=== PATIENT | female | born 1945 | race Caucasian/White ===

== ENCOUNTER → 2016-06-28 | Outpatient (CLI) | payer MEDICARE, MEDICAID ==
--- NOTE | 2016-06-28 13:40 | WOMENS IMAGING REPORT ---
EXAM DESCRIPTION: BONE DENSITY HIP/SPINE COMPLETED DATE/TIME: 06/28/2016 1:11 pm REASON FOR STUDY: M81.0 Z12.31 ENCNTR SCREEN MAMMOGRAM FOR MALIGNANT NEOPLASM OF ZENAIDA M81.0 AGE-REL ATED OSTEOPOROSIS W/O CURRENT PATHOLOGICAL FRAC COMPARISON: 04/09/2014. TECHNIQUE: Dual-Energy X-ray Absorptiometry (DEXA) of the AP Spine and Hip. LIMITATIONS: None. FINDINGS: LUMBAR SPINE: The bone mineral density (BMD) measured from L1-L4 in the AP projection correlates with a T-score of -0.9, which is normal as defined by the World Health Organization. HIP: The bone mineral density (BMD) measured in the left hip correlates with a T-score of -2.4, which is o steopenia as defined by the World Health Organization. IMPRESSION: 1. LUMBAR SPINE: NORMAL. 2. HIP: OSTEOPENIA. COMMENT: The World Health Organization defines low BMD as follows: T-score: Normal: Greater than -1.0 Osteopenia: Between -1.0 and -2.5 Osteoporosis: Less than -2.5 without fractures Established osteoporosis: Less than -2.5 with fractures In general, you may wish to consider: Diagnosis Treatment Follow-up DEXA Normal BMD Prevention 2-3 years Osteopenia Prevention/Therapy 1-2 years Osteoporosis Therapy Yearly TECHNICAL DOCUMENTATION: JOB ID: [id number]- All Rights Reserved
--- NOTE | 2016-06-28 17:21 | WOMENS IMAGING REPORT ---
EXAM DESCRIPTION: BILAT SCREENING MAMMO W/CAD COMPLETED DATE/TIME: 06/28/2016 1:11 pm REASON FOR STUDY: Z12.31, ROUTINE SCREENING MAMMO Z12.31 ENCNTR SCREEN MAMMOGRAM FOR MALIGNANT NEOP LASM OF ZENAIDA M81.0 AGE-RELATED OSTEOPOROSIS W/O CURRENT PATHOLOGICAL FRAC COMPARISON: 10/19/2014 and 09/26/2013. TECHNIQUE: Standard craniocaudal and mediolateral oblique views of each breast recorded using digita l acquisition. LIMITATIONS: None. FINDINGS: No masses, calcifications or architectural distortion. No areas of suspicion. Read with the assistance of CAD. .[facility] - R2 Cenova Version 1.3 .[facility] - R2 Cenova Version 1.3 .[facility] - R2 Cenova Version 2.4 .[facility] [place]2 Cenova Version 2.4 .[facility] - R2 [employer] Version 9.2 IMPRESSION: NORMAL MAMMOGRAM. BIRADS 1. BREAST DENSITY: b. There are scattered areas of fibroglandular density. BIRAD: 1 NEGATIVE RECOMMENDATION: ROUTINE SCREENING COMMENT: The patient has been notified of the results by letter per SA requirements. Additional no tification policies are in place for contacting patient with suspicious or incomplete findings. Quality ID #[id number]: The [employer] recommends an annual screening mammogram for women aged 40 years or over. This facility utilizes a reminder system to ensure that all patients receive reminder letters, and/or direct phone calls for appointments. This includes reminders for routine scr eening mammograms, diagnostic mammograms, or other Breast Imaging Interventions when appropriate. Th is patient will be placed in the appropriate reminder system. The [employer] (A[employer]) has developed recommendations for screening MRI of the breast s in certain patient populations, to be used in conjunction with mammography. Breast MRI surveillanc e may be appropriate for women with more than 20% lifetime risk of developing breast cancer as deter mined by genetic testing, significant family history of the disease, or history of mantle radiation f or Hodgkins Disease. ACR Practice Guidelines 2008. TECHNICAL DOCUMENTATION: FINDING NUMBER: (1) ASSESSMENT: (1) JOB ID: [id number] [employer]- All Rights Reserved
== END ==
LOC: WI 09:52
PROVIDERS: ATTEND Physician Assistant
DX: Z12.31 Encounter for screening mammogram for malignant neoplasm of breast (principal); M81.0 Age-related osteoporosis without current pathological fracture
CPT/HCPCS: 77080; G0202; 77067

== ENCOUNTER → 2016-07-06 | Outpatient (CLI) | payer MEDICARE, MEDICAID ==
[2016-07-06 11:55] LABS: ABSOLUTE BASOPHILS # (AUTO) 0.1 10^3/uL (0.0-0.2); ABSOLUTE EOSINOPHILS # (AUTO) 0.2 10^3/uL (0.0-0.6); ABSOLUTE LYMPHOCYTES (AUTO) 1.8 10^3/uL (0.5-4.7); ABSOLUTE MONOCYTES (AUTO) 0.4 10^3/uL (0.1-1.4); ABSOLUTE NEUT (AUTO) 2.8 10^3/uL (1.7-8.2); BASOPHILS % (AUTO) 1.4 % (0-2); EOSINOPHILS % (AUTO) 3.8 % (0-6); HEMATOCRIT 40.5 % (36.0-47.0); HEMOGLOBIN 13.4 g/dL (12.0-15.5); HGB HCT DIFFERENCE -0.3; LYMPHOCYTES % (AUTO) 33.6 % (13-45); MEAN CORPUSCULAR HEMOGLOBIN 31.4 pg (27.0-33.4); MEAN CORPUSCULAR HGB CONC 33.1 g/dL (32.0-36.0); MEAN CORPUSCULAR VOLUME 95 fl (80-97); MONOCYTES % (AUTO) 8.2 % (3-13); RED BLOOD COUNT 4.27 10^6/uL (3.72-5.28); RED CELL DISTRIBUTION WIDTH 13.1 % (11.5-14.0); WHITE BLOOD COUNT 5.4 10^3/uL (4.0-10.5)
[2016-07-06 11:59] LABS: APPEARANCE,URINE SLIGHTLY-CLOUDY; BILIRUBIN,URINE SMALL (NEGATIVE); GLUCOSE, URINE NEGATIVE (NEGATIVE); KETONES,URINE NEGATIVE (NEGATIVE); LEUKOCYTE ESTERASE,URINE TRACE (NEGATIVE); NITRITE,URINE NEGATIVE (NEGATIVE); PROTEIN,URINE NEGATIVE (NEGATIVE); URINE SPECIFIC GRAVITY 1.016
[2016-07-06 12:21] LABS: ANION GAP 12 (5-19); BLOOD UREA NITROGEN 17 mg/dL (7-20); CALCIUM 9.4 mg/dL (8.4-10.2); CARBON DIOXIDE 26 mmol/L (22-30); CHLORIDE 100 mmol/L (98-107); CREATININE RESULT 1.24 mg/dL (0.52-1.25); GLUCOSE 95 mg/dL (75-110); POTASSIUM 5.1 mmol/L (3.6-5.0); SODIUM 138.1 mmol/L (137-145)
--- NOTE | 2016-07-06 13:21 | RADIOLOGY REPORT (SQ) ---
EXAM DESCRIPTION: CHEST PA/LATERAL COMPLETED DATE/TIME: 07/06/2016 11:32 am REASON FOR STUDY: PRE-OP COMPARISON: Chest films 11/23/2014, 09/20/2017, 01/26/2016 EXAM PARAMETERS: NUMBER OF VIEWS: two views TECHNIQUE: Digital Frontal and Lateral radiographic views of the chest acquired. RADIATION DOSE: NA LIMITATIONS: none FINDINGS: LUNGS AND PLEURA: No opacities, masses or pneumothorax. No pleural effusion. MEDIASTINUM AND HILAR STRUCTURES: No masses or contour abnormalities. HEART AND VASCULAR STRUCTURES: Mild cardiomegaly, stable BONES: Question acute fracture left lateral 6th or 7th rib marked with an arrow. HARDWARE: None in the chest. OTHER: No other significant finding. IMPRESSION: Stable mild cardiomegaly. No acute infiltrates. Question left lateral 5th or 6th rib fracture marked with an arrow on the frontal film TECHNICAL DOCUMENTATION: JOB ID: [id number] [employer]- All Rights Reserved
--- NOTE | 2016-07-07 08:50 | EKG REPORT ---
SEVERITY:- ABNORMAL ECG - ATRIAL FIBRILLATION : Confirmed by: Marisabel Arreguin 07-Jul-2016 08:49:55
== END ==
LOC: OD 10:37
PROVIDERS: ATTEND Orthopaedic Surgery
DX: Z01.810 Encounter for preprocedural cardiovascular examination (principal); Z01.812 Encounter for preprocedural laboratory examination; Z01.818 Encounter for other preprocedural examination; I51.7 Cardiomegaly
CPT/HCPCS: 36415; 71020; 80048; 81001; 85025; 93005; 93010

== ENCOUNTER 2016-08-03 05:13 | Inpatient (IN) | payer MEDICARE, MEDICAID ==
[~2016-08-03 05:13] MED LIST: BUPIVACAINE INJ/PF LIPOSOME/PF 266 MG/20 ML SDV INJ PRN; IBUPROFEN 800 MG in NORMAL SALINE 250 ML IV PRN; LACTATED RINGERS 1000 ML IV PRN; LANSOPRAZOLE 15 MG TAB.RAP.DR PO PRN; LIDOCAINE 0.5% INJ-PF (5 MG/ML) 50 ML SDV SUBCUT PRN; OXYCODONE HCL SR 10 MG TABLET PO PRN; VANCOMYCIN HCL 1,500 MG in DEXTROSE 5%-WATER 250 ML IV PRN
[2016-08-03] MEDS ORDERED: ALBUTEROL SULFATE 0.083% NEB 2.5 MG/3 ML AMPUL NEB ONE (05:48)
[2016-08-03 06:48] LABS: PROTHROMBIN TIME 13.5 SEC (11.4-15.4)
[2016-08-03 06:49] LABS: PARTIAL THROMBOPLASTIN TIME 32.1 SEC (23.5-35.8)
[2016-08-03] MEDS ORDERED: BUPIVACAINE HCL 0.5%-EPI 1:200000 INJ/PF 30 ML VIAL ONE (06:55)
[2016-08-03] MEDS ORDERED: BUPIVACAINE INJ/PF LIPOSOME/PF 266 MG/20 ML SDV ONE (06:56)
[2016-08-03 07:19] LABS: HEMATOCRIT 39.4 % (36.0-47.0); HGB HCT DIFFERENCE -0.4; MEAN CORPUSCULAR HEMOGLOBIN 31.5 pg (27.0-33.4); MEAN CORPUSCULAR HGB CONC 33.1 g/dL (32.0-36.0); MEAN CORPUSCULAR VOLUME 95 fl (80-97); RED BLOOD COUNT 4.14 10^6/uL (3.72-5.28); RED CELL DISTRIBUTION WIDTH 13.1 % (11.5-14.0); WHITE BLOOD COUNT 8.7 10^3/uL (4.0-10.5)
[2016-08-03] MEDS ORDERED: LEVETIRACETAM 500 MG TABLET PO ONE (07:30)
[2016-08-03] MEDS ORDERED: OXYCODONE-ACETAMINOPHEN 5-325 MG TABLET PO PRN ×3 (09:10→12:46)
[2016-08-03] MEDS ORDERED: MORPHINE SULFATE 10 MG/ML INJ IV PRN (09:10)
[2016-08-03] MEDS ORDERED: FENTANYL CITRATE INJ/PF 100 MCG/2 ML AMPUL IV PRN ×3 (09:10)
[2016-08-03] MEDS ORDERED: DIPHENHYDRAMINE HCL 50 MG/ML VIAL IV PRN (09:10)
[2016-08-03] MEDS ORDERED: PROMETHAZINE HCL INJ 25 MG/1 ML VIAL IV PRN ×2 (09:10)
[2016-08-03] MEDS ORDERED: MEPERIDINE HCL/PF INJ 25 MG/1 ML DISP.SYRIN IV PRN (09:10)
--- NOTE | 2016-08-03 11:53 | Operative Report ---
Operative Report DATE OF SURGERY: 08/03/16 PREOPERATIVE DIAGNOSIS: Right shoulder osteoarthritis POSTOPERATIVE DIAGNOSIS: Same OPERATION: Right total shoulder arthroplasty SURGEON: ARABELLA MOREAU ANESTHESIA: GA TISSUE REMOVED OR ALTERED: Humeral head COMPLICATIONS: None ESTIMATED BLOOD LOSS: 200 mL INTRAOPERATIVE FINDINGS: As above PROCEDURE: Patient received antibiotics in the preop holding area. Patient was transferred to the OR where the patient was successfully intubated. Patient then was secured in a beachchair position where the right shoulder was prepped and draped in a normal sterile surgical fashion. Once timeout was done identifying the right shoulder the correct site I proceeded to use quarter percent Marcaine with epinephrine and injected in the anticipated incision. I used a 10 blade to status my incision and then used hemostasis with electrocautery. I exposed the deltopectoral interval and proceeded to do a ductal control approach retracting the conjoined tendon medially and dissecting the cephalic vein and deltoid and retracting it laterally. I reflected the subscapularis tendon off the lesser tuberosity and tagged it with a Vicryl stitch. I proceeded to release capsule to dislocate the shoulder joint. Rotator cuff is intact and I proceeded to then use a canal finder superiorly just adjacent to the cuff. I proceeded to ream away to a head chatter and good bite. At this point and I applied the guide and pinned securely after I make sure I was satisfied with the retroversion. I did initial, and then proceeded to remove the reamer that was intramedullary and finished my humeral head cut. The pins were removed and then we proceeded to broach all the way up to the appropriate size. The humeral head was then reflected posteriorly and glenoid retractors were placed and the glenoid was exposed. Labrum and superior biceps stump was resected exposing the glenoid. I proceeded then to use the glenoid guide to drill and the center portion of the glenoid. I then proceeded to ream and I had bleeding bone. Also satisfied with the size of the glenoid and then proceeded to drill the peg holes. A trial glenoid was applied and then retractors removed and the humeral head was exposed. We placed a trial head and proceeded to test range of motion and stability. Once I was satisfied with the appropriate size used and I proceeded to remove all components. I first removed the glenoid and cemented it in and wait until cement had cured and hardened. Any excess cement was removed. I then proceeded to remove the humeral stem and placed the final stem. Of note I had placed 3 drill holes in the lesser tuberosity and place FiberWire with its appropriate needle for fixation and repair of the subscapularis tendon. Once the glenoid and stem was seated I trialed with humeral head one more time and then placed the final humeral head component. Irrigation was done at this point. The FiberWire was used then to repair the subscapularis tendon. We approximated the deltoid interval after removing the retractors and closed the subcutaneous tissue with 0 Vicryl and 2-0 Vicryl. Exparel had been injected deep and then superficially. Harriet were used for skin. The extremity was cleaned and then Xeroform 4 x 4 dressing and ABDs pad was applied. I secured it with Medipore tape and then the drapes were removed. Patient was placed in a sling at that point was then placed in a supine position where the patient was extubated and sent to PACU in a stable condition. Humeral head component was a 44 eccentric, humeral stem was a 12 mm stem and the glenoid was a 44 mm
[2016-08-03 12:29] LABS: HEMATOCRIT 37.2 % (36.0-47.0); HEMOGLOBIN 12.3 g/dL (12.0-15.5); HGB HCT DIFFERENCE -0.3; MEAN CORPUSCULAR VOLUME 94 fl (80-97); RED BLOOD COUNT 3.96 10^6/uL (3.72-5.28); RED CELL DISTRIBUTION WIDTH 13.1 % (11.5-14.0); WHITE BLOOD COUNT 11.2 10^3/uL (4.0-10.5)
[2016-08-03] MEDS ORDERED: RINGERS SOLUTION,LACTATED 1,000 ML IV PRN (12:45)
[2016-08-03] MEDS ORDERED: ONDANSETRON HCL INJ/PF 4 MG/2 ML SDV IV PRN (12:46)
[2016-08-03] MEDS ORDERED: ACETAMINOPHEN 100 ML IV ONE (12:49)
[2016-08-03] MEDS ORDERED: (PENDING PHARMACY ID) (Omeprazole [Prilosec 20 Mg Capsule] 20 MG) PO PRN (14:49)
[2016-08-03] MEDS ORDERED: LANSOPRAZOLE 15 MG TAB.RAP.DR PO PRN (15:12)
[2016-08-03] MEDS ORDERED: DEXAMETHASONE SOD PHOSPHATE INJ 4 MG/1 ML VIAL ONE (15:20)
[2016-08-03] MEDS ORDERED: ROCURONIUM BROMIDE INJ 50 MG/5 ML VIAL IV ONE (15:20)
[2016-08-03] MEDS ORDERED: ONDANSETRON HCL INJ/PF 4 MG/2 ML SDV ONE (15:20)
[2016-08-03] MEDS ORDERED: PHENYLEPHRINE HCL INJ/PF 10 MG/1 ML SDV ONE (15:20)
[2016-08-03] MEDS ORDERED: GLYCOPYRROLATE INJ 0.4 MG/2 ML VIAL ONE (15:20)
[2016-08-03] MEDS ORDERED: SUCCINYLCHOLINE CHLORIDE INJ 200 MG/10 ML VIAL ONE (15:20)
[2016-08-03] MEDS ORDERED: LIDOCAINE 2% INJ-PF (20 MG/ML) 10 ML AMPUL ONE (15:20)
[2016-08-03] MEDS ORDERED: NEOSTIGMINE METHYLSULFATE 10 MG/10 ML VIAL ONE (15:20)
[2016-08-03] MEDS: OXYCODONE-ACETAMINOPHEN 5-325 MG TABLET PO PRN (16:19)
[2016-08-03] MEDS ORDERED: VANCOMYCIN HCL 1,500 MG in DEXTROSE 5%-WATER 250 ML IV ONE (18:00)
[2016-08-03] MEDS: LEVETIRACETAM 500 MG TABLET PO SCH (21:44)
[2016-08-03] MEDS: ATORVASTATIN CALCIUM 40 MG TABLET PO SCH (21:44)
[2016-08-04] MEDS: LEVOTHYROXINE SODIUM 0.025 MG TABLET PO SCH (05:58)
[2016-08-04] MEDS: CALCIUM CARBONATE 500 MG TABLET PO SCH (09:46)
[2016-08-04] MEDS: LEVETIRACETAM 500 MG TABLET PO SCH ×2 (09:47→22:00)
[2016-08-04] MEDS: CHOLECALCIFEROL (D3) 400 UNIT TABLET PO SCH (09:47)
[2016-08-04] MEDS: ASPIRIN 81 MG TABLET, ENT COATED PO SCH (09:47)
[2016-08-04] MEDS: AMLODIPINE BESYLATE 5 MG TABLET PO SCH (09:48)
[2016-08-04] MEDS: APIXABAN 5 MG TABLET PO SCH (09:48)
[2016-08-04] MEDS: OXYCODONE-ACETAMINOPHEN 5-325 MG TABLET PO PRN ×2 (09:54→20:14)
[2016-08-04] MEDS ORDERED: (PENDING PHARMACY ID) (Ergocalciferol (Vitamin D2) [Vitamin D] 400 UNIT) PO SCH (10:00)
[2016-08-04] MEDS ORDERED: CALCIUM CARBONATE 500 MG TABLET PO SCH (10:00)
--- NOTE | 2016-08-04 13:32 | PDOC PROGRESS REPORT ---
Subjective Progress Note for:: 08/04/16 Subjective:: Patient resting in bed complaining of right shoulder pain. Denies any numbness or tingling. Denies shortness of breath. Physical Exam Vital Signs: Temp Pulse Resp BP Pulse Ox 36.8 C 77 16 109/55 L 93 08/04/16 11:23 08/04/16 11:23 08/04/16 11:23 08/04/16 11:23 08/04/16 11:23 Pulse Oximeter Continuous Start: 08/03/16 14: 10 Freq: Status: Complete Document 08/03/16 14:10 LDA (Rec: 08/03/16 14:15 LDA [email or web address]) Pulse Oximetry Assessment Oxygen Saturation (92-100) 98 Oxygen Delivery Method CPAP Fraction of Inspired Oxygen (FIO2) 30 Equipment Usage Initial Set Up Continuous Pulse Oximeter 24 Hour Charge Charge Now Continuous SpO2 Machine # [id number] Pulse Oximeter Continuous Start: 08/03/16 14: 20 Freq: RTQ4 Status: Active Document 08/04/16 11:06 LDA (Rec: 08/04/16 11:06 LDA [email or web address]) Pulse Oximetry Assessment Oxygen Saturation (92-100) 94 Oxygen Delivery Method Room Air Fraction of Inspired Oxygen (FIO2) 21 Equipment Usage Equipment in Use Continuous SpO2 Machine # n-[id number] Intake & Output 08/03/16 08/04/16 08/05/16 06:59 06:59 06:59 Intake Total 0 5900 Output Total 1150 Balance 0 4750 Weight 85 kg General appearance: PRESENT: no acute distress Respiratory exam: PRESENT: unlabored Neurological exam: PRESENT: awake, oriented to person, oriented to place, oriented to time Adult Front & Back Image: 1 - Dressing has some bloody shadowing but overall is dry clean and intact. No ecchymosis distally. Has positive sensation and motor to the radial, ulnar and median nerve distribution. Sling in proper placement. Results Laboratory Results: 08/03/16 11:26 08/03/16 06:10 08/03/16 06:10 Blood Type A POSITIVE Antibody Screen NEGATIVE Assessment & Plan - Diagnosis (1) Status post total shoulder arthroplasty Qualifiers: Laterality: right Qualified Code(s): Z96.611 - Presence of right artificial shoulder joint Is this a current diagnosis for this admission?: YesPlan: Patient will stay overnight and adequately control her pain. We will change the dressing in the morning. Will likely discharge in the morning and have her follow-up in 2 weeks. Continue nonweightbearing. Continue pendulum exercises and passive range of motion. X-rays are being obtained and will be reviewed tomorrow.
--- NOTE | 2016-08-04 14:07 | RADIOLOGY REPORT (SQ) ---
EXAM DESCRIPTION: SHOULDER RIGHT 2 OR MORE VIEWS COMPLETED DATE/TIME: 08/04/2016 1:45 pm REASON FOR STUDY: s/p right total shoulder arthroplasty M25.511 PAIN IN RIGHT SHOULDER COMPARISON: 10/02/2015 NUMBER OF VIEWS: Three views. TECHNIQUE: Internal rotation, external rotation, and Y view images acquired of the right shoulder. LIMITATIONS: None. FINDINGS: MINERALIZATION: Normal. BONES: No acute fracture or dislocation. No worrisome bone lesions. JOINTS: The shoulder arthroplasty is present in good position. VISUALIZED LUNGS AND RIBS: No pneumothorax. No rib fracture. SOFT TISSUES: No radiopaque foreign body. OTHER: No other significant finding. IMPRESSION: Shoulder arthroplasty. TECHNICAL DOCUMENTATION: JOB ID: [id number] [employer]- All Rights Reserved
[2016-08-04] MEDS: ATORVASTATIN CALCIUM 40 MG TABLET PO SCH (22:00)
[2016-08-04] MEDS: CYCLOBENZAPRINE HCL 10 MG TABLET PO PRN (22:00)
[2016-08-05] MEDS: OXYCODONE-ACETAMINOPHEN 5-325 MG TABLET PO PRN (03:13)
[2016-08-05] MEDS: LEVOTHYROXINE SODIUM 0.025 MG TABLET PO SCH (06:02)
[2016-08-05] MEDS: CYCLOBENZAPRINE HCL 10 MG TABLET PO PRN (06:03)
[2016-08-05] MEDS: CALCIUM CARBONATE 500 MG TABLET PO SCH (08:30)
--- NOTE | 2016-08-05 09:21 | PDOC DISCHARGE SUMMARY ---
General - Admit/Disc Date/PCP Admission Date/Primary Care Provider: 08/03/16 05:13 CECY CAMARENA MD Discharge Date: 08/05/16 - Discharge Diagnosis (1) Status post total shoulder arthroplasty Is this a current diagnosis for this admission?: Yes - Additional Information Resuscitation Status: Full Code Home Medications: Amlodipine Besylate [Norvasc 5 mg Tablet] 5 mg PO QAM 03/20/12 Omeprazole [Prilosec 20 mg Capsule] 20 mg PO DAILY PRN 03/20/12 Apixaban [Eliquis 5 mg Tablet] 5 mg PO QAM 01/27/16 Levetiracetam [Keppra 500 mg Tablet] 500 mg PO Q12 #60 tablet 01/27/16 Aspirin [Aspirin EC] 81 mg PO QAM 07/25/16 Atorvastatin Calcium [Lipitor 40 mg Tablet] 50 mg PO QHS 07/25/16 Calcium Carbonate [Calcium] 500 mg PO DAILY 07/25/16 Cyclobenzaprine HCl [Flexeril 10 mg Tablet] 10 mg PO TIDP PRN 07/25/16 Ergocalciferol (Vitamin D2) [Vitamin D] 400 unit PO DAILY 07/25/16 Levothyroxine Sodium 25 mcg PO QAM 07/25/16 History of Present Illness Patient complains of: Right shoulder pain History of Present Illness: JOSE ESPINAL is a 70 year old female who on August 03 underwent right total shoulder arthroplasty. Surgery went well. No issues Intra-Op. Patient had 2 nights in the hospital for pain control. Vital signs are stable. Patient pain is controlled and will be discharged today on August 05. Dressing change was changed today and is dry clean and intact. Instructed to keep for 1 week and then remove and okay to shower after that. Patient to follow-up in 2 weeks in the office. Keep sling on except for pendulum exercises. Hospital Course Hospital Course: Postop day 1 patient went for x-rays and showedNo fractures or dislocation. Patient had some pain therefore stayed a second night and today postop day 2 patient pain is better controlled. Patient is wearing sling appropriately and dressing was changed. Incision looked dry clean and intact. She is neurovascularly intact. Patient will follow-up in 10-14 days in the office for wound check. She is told to remove the OpSite dressing that was placed today and 5-7 days. Physical Exam Vital Signs: Temp Pulse Resp BP Pulse Ox 36.7 C 69 18 108/68 98 08/04/16 23:13 08/04/16 23:13 08/04/16 23:13 08/04/16 23:13 08/05/16 04:05 Pulse Oximeter Continuous Start: 08/03/16 14: 10 Freq: Status: Complete Document 08/03/16 14:10 LDA (Rec: 08/03/16 14:15 LDA [email or web address]) Pulse Oximetry Assessment Oxygen Saturation (92-100) 98 Oxygen Delivery Method CPAP Fraction of Inspired Oxygen (FIO2) 30 Equipment Usage Initial Set Up Continuous Pulse Oximeter 24 Hour Charge Charge Now Continuous SpO2 Machine # n-[id number] Pulse Oximeter Continuous Start: 08/03/16 14: 20 Freq: RTQ4 Status: Active Document 08/05/16 04:05 CBR (Rec: 08/05/16 04:47 CBR [email or web address]) Pulse Oximetry Assessment Oxygen Saturation (92-100) 98 Oxygen Flow Rate (L/min) 2 Oxygen Delivery Method Nasal Cannula Fraction of Inspired Oxygen (FIO2) 28 Equipment Usage Equipment in Use Continuous SpO2 Machine # N6 Intake & Output 08/04/16 08/05/16 08/06/16 06:59 06:59 06:59 Intake Total 5900 785 Output Total 1150 1000 Balance 4750 -215 Weight 85 kg 86 kg General appearance: PRESENT: no acute distress Eye exam: ABSENT: nystagmus Respiratory exam: PRESENT: symmetrical, unlabored Pulses: PRESENT: normal radial pulses Torso Front/Back Image: 1 - Incision and vito are dry clean and intact. Honeycomb dressing was applied. Sling is intact. Slight swelling and ecchymosis of the arm and forearm. Neurological exam: PRESENT: awake, oriented to person, oriented to place, oriented to time Skin exam: ABSENT: erythema, skin tears Results Laboratory Results: 08/03/16 11:26 08/03/16 06:10 08/03/16 06:10 Blood Type A POSITIVE Antibody Screen NEGATIVE Impressions: Shoulder X-Ray 08/04/16 00:00 IMPRESSION: Shoulder arthroplasty. Status: Image reviewed by me Plan Discharge Plan: Patient will be discharged and instructed to wear sling for pendulum exercises. She is also instructed to be nonweightbearing and avoid any lifting or carrying. Patient will follow-up in the office in 10-14 days. Instructed to come back if there is any erythema or drainage fevers, chills or any other abnormal symptoms. Will be discharged on Percocet and Colace. She will be given an incentive spirometry to do deep breathing.
[2016-08-05] MEDS: AMLODIPINE BESYLATE 5 MG TABLET PO SCH (10:37)
[2016-08-05] MEDS: ASPIRIN 81 MG TABLET, ENT COATED PO SCH (10:38)
[2016-08-05] MEDS: LEVETIRACETAM 500 MG TABLET PO SCH (10:38)
[2016-08-05] MEDS: CHOLECALCIFEROL (D3) 400 UNIT TABLET PO SCH (10:38)
[2016-08-05] MEDS: APIXABAN 5 MG TABLET PO SCH (10:38)
[2016-08-05 11:25] VITALS: BP 116/57
== END 2016-08-05 11:50 | disposition home or self-care (01) | DRG 483 ==
LOC: INOR 05:13 → 4S 13:49
PROVIDERS: ADMIT Orthopaedic Surgery; ATTEND Orthopaedic Surgery
PROC: 0RRJ0JZ Replacement of Right Shoulder Joint with Synthetic Substitute, Open Approach (ICD-10-PCS; principal; 2016-08-03 07:30)
DX: M19.011 Primary osteoarthritis, right shoulder (principal); E03.9 Hypothyroidism, unspecified; M25.511 Pain in right shoulder; I83.91 Asymptomatic varicose veins of right lower extremity; I25.2 Old myocardial infarction; Z79.01 Long term (current) use of anticoagulants; Z79.82 Long term (current) use of aspirin; Z86.73 Personal history of transient ischemic attack (TIA), and cerebral infarction without residual deficits; Z79.899 Other long term (current) drug therapy
CPT/HCPCS: 01638; 36415; 36430; 84132; 85027; 85610; 85730; 86850; 86900; 86901; 86920; 88304; 88311; 94660; 94762; 94799; C9290; G8987-GO; G8988-GO; J0131; J0330; J1100; J1741; J2370; J2405; J3370; J3490; J7050; J7060; P9016

== ENCOUNTER 2016-08-12 17:06 | Emergency (ER) | payer MEDICARE, MEDICAID ==
[~2016-08-12 17:06] MED LIST changes: -BUPIVACAINE INJ/PF LIPOSOME/PF 266 MG/20 ML SDV INJ PRN; -IBUPROFEN 800 MG in NORMAL SALINE 250 ML IV PRN; -LACTATED RINGERS 1000 ML IV PRN; -LANSOPRAZOLE 15 MG TAB.RAP.DR PO PRN; -LIDOCAINE 0.5% INJ-PF (5 MG/ML) 50 ML SDV SUBCUT PRN; -OXYCODONE HCL SR 10 MG TABLET PO PRN; +ROCURONIUM BROMIDE INJ 50 MG/5 ML VIAL IV ONE; -VANCOMYCIN HCL 1,500 MG in DEXTROSE 5%-WATER 250 ML IV PRN
--- NOTE | 2016-08-12 17:29 | ER Document Report ---
ED Cardiac - General Mode of Arrival: Medic Information source: Emergency Med Personnel TRAVEL OUTSIDE OF THE [place] IN LAST 30 DAYS: No <ISAIAH KAT - Last Filed: 08/12/16 19:38> <DINESH INTERIANO - Last Filed: 08/12/16 22:46> - General Stated Complaint: POSSIBLE SEIZURE Time Seen by Provider: 08/12/16 17:08 Notes: Patient is a 70-year-old female presenting to the emergency department via EMS for unresponsiveness. Patient did have a right rotator cuff surgery last week. Patient walked over to her neighbor's house states she did not feel well and began "shaking." EMS stated that when they arrived the patient was nonresponsive and went into an episode of V. tach which lasted less than 30 seconds. Patient was given for Versed, and has a 20-gauge to her left breast and an 18-gauge her right AC. Patient is still unresponsive in the emergency department. Patient has a history of stroke. Patient was taking Eliquis but stopped for her surgery. There is no family member or friend present at the bedside to give history; there is a limited history from EMS about the patient. (ISAIAH KAT) - Related Data Allergies/Adverse Reactions: Penicillins Allergy (Mild, Verified 10/02/15 10:35) rash Past Medical History - General Information source: [facility] Records Cannot obtain history due to: Intubated - Social History Smoking Status: Unknown if Ever Smoked Family History: None - Past Medical History Cardiac Medical History: Reports: Hx Atrial Fibrillation, Hx Heart Attack - mild , Hx Hypercholesterolemia, Hx Hypertension Neurological Medical History: Reports: Hx Cerebrovascular Accident - 01/20 , Hx Seizures - 01/20 Endocrine Medical History: Reports: Hx Hypothyroidism Malignancy Medical History: GI Medical History: Reports: Hx Gastroesophageal Reflux Disease - occ. takes Omeprazole PRN Musculoskeltal Medical History: Reports Hx Arthritis Psychiatric Medical History: Reports: Hx Depression Traumatic Medical History: Reports: Hx Fractures - 2nd toe on right Past Surgical History: Reports: Hx Appendectomy, Hx Hysterectomy, Hx Orthopedic Surgery - right rotator cuff - Immunizations Hx Diphtheria, Pertussis, Tetanus Vaccination: No Hx Pneumococcal Vaccination: 12/07/15 <ISAIAH KTA - Last Filed: 08/12/16 19:38> Review of Systems - Review of Systems -: Yes ROS unobtainable due to patient's medical condition <ISAIAH KAT - Last Filed: 08/12/16 19:38> Physical Exam <ISAIAH KAT - Last Filed: 08/12/16 19:38> - Vital signs Interpretation: Tachycardic, Hypoxic. No: Hypotensive, Hypertensive, Febrile - General General appearance: Unresponsive In distress: Severe - HEENT Head: Normocephalic, Atraumatic Conjunctiva: Normal Cornea: Normal Pupils: PERRL Mucous membranes: Moist Pharynx: Normal Neck: Normal - Respiratory Respiratory status: No respiratory distress Chest status: Nontender Breath sounds: Normal - Cardiovascular Rhythm: Tachycardia - Abdominal Inspection: Normal Tenderness: Nontender - Extremities General upper extremity: Edema, Other - Wound over right upper extremity clean dry and intact. Ecchymosis over shoulder and right humerus. No: Normal color General lower extremity: Normal inspection. No: Normal ROM - Neurological Neuro grossly intact: No Carly Coma Scale Eye Opening: Spontaneous Carly Coma Scale Verbal: None [place] Coma Scale Motor: None Carly Coma Scale Total: 6 - Skin Skin Temperature: Warm Skin Moisture: Dry Skin Color: Normal <DINESH INTERIANO - Last Filed: 08/12/16 22:46> - Vital signs Vitals: Resp BP Pulse Ox 17 114/58 L 98 08/12/16 17:09 08/12/16 17:09 08/12/16 17:09 - HEENT Notes: No gaze palsy or preference (DINESH INTERIANO) Course - Laboratory Result Diagrams: 08/12/16 17:18 08/12/16 17:18 - Consults [facility] Time consulted: 17:32 <ISAIAH KAT - Last Filed: 08/12/16 19:38> - Laboratory Result Diagrams: 08/12/16 17:18 08/12/16 17:18 - Diagnostic Test Radiology reviewed: Image reviewed, Reports reviewed - EKG Interpretation by Me Rhythm: A.Fib <DINESH INTERIANO - Last Filed: 08/12/16 22:46> - Re-evaluation Re-evalutation: 08/12/16 19:32 Patient is a 70-year-old female who presents unresponsive. Patient will blink occasionally. She has moved her left arm one time. Asked to follow commands. Patient cannot do it. Patient has not moved her legs at all. Patient was initially picked up by EMS for episode of shaking. Patient appeared to be in V. tach. EMS states that the patient had thready pulses. Appeared that she is having shaking episodes while she was in V. tach. In the emergency department, the patient was intubated for being unresponsive and airway protection. Patient did vomit during intubation. Patient does have a good gag reflex. Patient does appear to have had nonsustained ventricular tachycardia on the monitor. Patient was loaded with amiodarone and started on amiodarone drip. Patient has been in a sinus rhythm in the 70s-80s since that time. She was started on a propofol drip. Cardiology was contacted at [place] who agreed to accept the patient for transfer and further evaluation. Called back to discuss with neurology. Patient does have a history of stroke. Concerned that this may be a primary neurologic issue. While I do not disagree with that, it did seem that the patient responsiveness further decreased; that is, she did not have any blinking of her eyes and started to have oxygen desaturation when it appeared that she was in nonsustained ventricular tachycardia. Neurology will further evaluate the patient at [place], although the patient is not a candidate for lytics at this time regardless. Patient will be transferred to the ER via air for further evaluation of her symptoms. Initially contacted . Number provided did not work. called back later and discussed patient's status in that she was transferred to [place]. Primary care doctor also updated, Dr. Meredith. (DINESH INTERIANO) - Vital Signs Vital signs: Temp Pulse Resp BP Pulse Ox 98.2 F 150 H 12 106/58 L 97 08/12/16 19:00 08/12/16 17:10 08/12/16 19:00 08/12/16 19:01 08/12/16 19:00 - Laboratory Laboratory results interpreted by il: 08/12/16 08/12/16 08/12/16 17:18 17:18 17:18 PT 16.0 H VBG pH VBG HCO3 Sodium 132.8 L Carbon Dioxide 18 L Creatinine 1.29 H Est GFR ( Amer) 49 L Est GFR (Non-Af Amer) 41 L Glucose 128 H Lactic Acid 7.6 H AST 49 H Alkaline Phosphatase 190 H 08/12/16 17:18 PT VBG pH 7.22 L VBG HCO3 19.7 L Sodium Carbon Dioxide Creatinine Est GFR ( Amer) Est GFR (Non-Af Amer) Glucose Lactic Acid AST Alkaline Phosphatase - Consults [facility] Reason for consultation: 08/12/16 17:32 Contacted the transfer center for possible transfer. 08/12/16 17:37 Call back from the transfer center; spoke with Dr. Leos who accepts the patient. 08/12/16 18:05 Called the transfer center to get an update on the patient's transport situation. Patient will be flown to [facility]. 08/12/16 18:44 Received a call from [facility] Neurology physician to discuss patient's presentation. (ISAIAH KAT) Procedures - Intubation Orotracheal Airway evaluation: Normal anatomy Mallampati Classification: Class 2 Medications: Etomidate Intubation method: Orotracheal Blade type: Ksenia Blade size: 3 Equipment used: Glidescope ETT size: 8.0 ETT secured at: Teeth Breath Sounds after Intubation: Equal End tidal CO2 confirmed: Yes Ventilator settings: SIMV Post Intubation Xray: Yes Intubation Complications: Oral-unsuccessful attempt - Due to vomiting, Vomited <DINESH INTERIANO - Last Filed: 08/12/16 22:46> Critical Care Note - Critical Care Note Total time excluding time spent on procedures (mins): 90 - Patient and management of unresponsive patient, management of airway, coordination of transfer, consultation with specialist, counseling of family <DINESH INTERIANO - Last Filed: 08/12/16 22:46> Discharge <ISAIAH KAT - Last Filed: 08/12/16 19:38> <DINESH INTERIANO - Last Filed: 08/12/16 22:46> - Discharge Clinical Impression: Unresponsive, Ventricular tachycardia seen on cardiac catheterization technician Condition: Fair Disposition: [facility] Scribe Attestation: 08/12/16 22:44 I personally performed the services described in the documentation, reviewed and edited the documentation which was dictated to the scribe in my presence, and it accurately records my words and actions. (DINESH INTERIANO) Scribe Documentation - Scribe Written by Scribe:: Oralia Jenkins, 08/12/2016 19:05 acting as scribe for :: Shannan <ISAIAH KAT - Last Filed: 08/12/16 19:38>
[2016-08-12] MEDS ORDERED: ETOMIDATE INJ/PF 20 MG/10 ML SDV IV ONE (17:37)
[2016-08-12] MEDS ORDERED: AMIODARONE HCL INJ 150 MG/3 ML VIAL IV ONE (17:38)
[2016-08-12] MEDS ORDERED: PROPOFOL 100 ML IV ONE ×2 (17:38→19:23)
[2016-08-12 17:40] LABS: ABSOLUTE BASOPHILS # (AUTO) 0.1 10^3/uL (0.0-0.2); ABSOLUTE EOSINOPHILS # (AUTO) 0.1 10^3/uL (0.0-0.6); ABSOLUTE LYMPHOCYTES (AUTO) 1.6 10^3/uL (0.5-4.7); ABSOLUTE MONOCYTES (AUTO) 0.2 10^3/uL (0.1-1.4); ABSOLUTE NEUT (AUTO) 2.4 10^3/uL (1.7-8.2); BASOPHILS % (AUTO) 1.2 % (0-2); EOSINOPHILS % (AUTO) 2.3 % (0-6); HEMATOCRIT 37.7 % (36.0-47.0); HEMOGLOBIN 12.4 g/dL (12.0-15.5); HGB HCT DIFFERENCE -0.5; LYMPHOCYTES % (AUTO) 36.1 % (13-45); MEAN CORPUSCULAR HEMOGLOBIN 31.4 pg (27.0-33.4); MEAN CORPUSCULAR HGB CONC 32.9 g/dL (32.0-36.0); MEAN CORPUSCULAR VOLUME 95 fl (80-97); MONOCYTES % (AUTO) 4.9 % (3-13); RED BLOOD COUNT 3.95 10^6/uL (3.72-5.28); RED CELL DISTRIBUTION WIDTH 12.9 % (11.5-14.0); SEGMENTED NEUTROPHILS % (AUTO) 55.5 % (42-78); WHITE BLOOD COUNT 4.4 10^3/uL (4.0-10.5)
[2016-08-12 17:42] LABS: VENOUS BLOOD HCO3 19.7 mmol/L (20-32); VENOUS BLOOD PCO2 48.9 mmHg (35-63); VENOUS BLOOD PH 7.22 (7.30-7.42)
[2016-08-12 17:54] LABS: ALANINE AMINOTRANSFERASE 41 U/L (9-52); ALKALINE PHOSPHATASE 190 U/L (38-126); ANION GAP 17 (5-19); ASPARTATE AMINO TRANSFERASE 49 U/L (14-36); BILIRUBIN,DIRECT 0.4 mg/dL (0.0-0.4); BILIRUBIN,TOTAL 1.1 mg/dL (0.2-1.3); BLOOD UREA NITROGEN 12 mg/dL (7-20); CALCIUM 8.5 mg/dL (8.4-10.2); CARBON DIOXIDE 18 mmol/L (22-30); CHLORIDE 98 mmol/L (98-107); CREATINE KINASE 126 U/L (30-135); CREATININE RESULT 1.29 mg/dL (0.52-1.25); GLUCOSE 128 mg/dL (75-110); POTASSIUM 4.1 mmol/L (3.6-5.0); SODIUM 132.8 mmol/L (137-145); TOTAL PROTEIN 7.6 g/dL (6.3-8.2)
--- NOTE | 2016-08-12 18:02 | RADIOLOGY REPORT (SQ) ---
EXAM DESCRIPTION: CHEST SINGLE VIEW COMPLETED DATE/TIME: 08/12/2016 5:49 pm REASON FOR STUDY: post ETT COMPARISON: 07/06/2016 EXAM PARAMETERS: NUMBER OF VIEWS: One view. TECHNIQUE: Single frontal radiographic view of the chest acquired. RADIATION DOSE: NA LIMITATIONS: None. FINDINGS: LUNGS AND PLEURA: No opacities, masses or pneumothorax. No pleural effusion. MEDIASTINUM AND HILAR STRUCTURES: No masses. Contour normal. HEART AND VASCULAR STRUCTURES: Stable mild cardiomegaly. Normal vasculature. BONES: No acute findings. HARDWARE: An endotracheal tube projects in the midline over the tracheal air shadow, terminating appr oximately 3.8 cm cranial to the juan. An apparent enteric tube is seen along the expected course o f the esophagus, terminating subdiaphragmatically out of the field of view. The patient is status po st right shoulder arthroplasty. OTHER: No other significant finding. IMPRESSION: 1. No evidence of acute cardiopulmonary abnormality. 2. Endotracheal tube and enteric tube without evidence of complication. TECHNICAL DOCUMENTATION: JOB ID: [id number]
[2016-08-12 18:05] LABS: CREATINE KINASE MB 0.88 ng/mL (<4.55)
[2016-08-12 18:06] LABS: TROPONIN I < 0.012 ng/mL
[2016-08-12 18:16] LABS: APPEARANCE,URINE CLEAR; BILIRUBIN,URINE NEGATIVE (NEGATIVE); GLUCOSE, URINE NEGATIVE (NEGATIVE); KETONES,URINE NEGATIVE (NEGATIVE); LEUKOCYTE ESTERASE,URINE NEGATIVE (NEGATIVE); NITRITE,URINE NEGATIVE (NEGATIVE); PROTEIN,URINE NEGATIVE (NEGATIVE); URINE SPECIFIC GRAVITY 1.005; UROBILINOGEN,URINE NEGATIVE mg/dL (<2.0)
[2016-08-12 19:09] VITALS: BP 106/58
--- NOTE | 2016-08-13 21:05 | EKG REPORT ---
SEVERITY:- ABNORMAL ECG - ATRIAL FIBRILLATION LEFT BUNDLE BRANCH BLOCK : Confirmed by: Karri Costello MD 13-Aug-2016 21:05:13
== END 2016-08-12 19:09 | disposition short-term general hospital (02) ==
LOC: ER 17:06
PROC: 0BH17EZ Insertion of Endotracheal Airway into Trachea, Via Natural or Artificial Opening (ICD-10-PCS; principal; 2016-08-12)
DX: I47.2 Ventricular tachycardia (principal); R41.82 Altered mental status, unspecified; R09.02 Hypoxemia; R11.10 Vomiting, unspecified; I25.2 Old myocardial infarction; I10 Essential (primary) hypertension; Z98.890 Other specified postprocedural states; Z86.73 Personal history of transient ischemic attack (TIA), and cerebral infarction without residual deficits; Z88.0 Allergy status to penicillin
CPT/HCPCS: 93005; 99291; 99292; 51702; 36415; 87040; 87086; 82553; 82550; 83735; 85025; 85610; 80053; 81001; 84484; 82803; 83605; 71010; 93010; 31500; J3490

== ENCOUNTER → 2017-04-02 | Outpatient (CLI) | payer MEDICARE, MEDICAID | LOC: WI 12:28 | PROVIDERS: ATTEND Physician Assistant | DX: M81.0 Age-related osteoporosis without current pathological fracture (principal); Z53.8 Procedure and treatment not carried out for other reasons ==

== ENCOUNTER 2017-07-03 15:02 | Inpatient (IN) | payer MEDICARE, MEDICAID ==
--- NOTE | 2017-07-03 15:14 | ER Document Report ---
ED General - General Stated Complaint: POSSIBLE SEIZURE Time Seen by Provider: 07/03/17 15:08 Mode of Arrival: Medic Information source: Emergency Med Personnel, [facility] Records Cannot obtain history due to: Altered mental status Notes: 71-year-old female presents via EMS after the patient's called because the patient was "having another episode". EMS reports that the was a poor historian but upon their arrival patient was found sitting in a chair. states that her episodes of staring off and not answering him are common with her seizures. EMS then reported that on their way out to the ambulance the patient had 1 tonic-clonic seizure for which she received 1 mg of Ativan IV. Seizure activity was present for approximately 1 minute prior to resolution. EMS reports resolution of seizure activity after medication. Patient awake but confused upon my exam. She is unable to answer questions initially. TRAVEL OUTSIDE OF THE [place] IN LAST 30 DAYS: No - HPI Onset: Just prior to arrival Onset/Duration: Sudden Quality of pain: No pain Associated symptoms: None Exacerbated by: Denies Relieved by: Denies Similar symptoms previously: Yes Recently seen / treated by doctor: No - Related Data Allergies/Adverse Reactions: Penicillins Allergy (Mild, Verified 10/02/15 10:35) rash Past Medical History - General Information source: Patient, Emergency Med Personnel, [facility] Records - Social History Smoking Status: Never Smoker Frequency of alcohol use: Occasional Drug Abuse: None Lives with: Spouse/Significant other Family History: None, Reviewed & Not Pertinent - Past Medical History Cardiac Medical History: Reports: Hx Atrial Fibrillation, Hx Heart Attack - mild , Hx Hypercholesterolemia, Hx Hypertension Denies: Hx Congestive Heart Failure, Hx Coronary Artery Disease, Hx Peripheral Vascular Disease, Hx Heart Murmur Neurological Medical History: Reports: Hx Cerebrovascular Accident - 01/20 , Hx Seizures - 01/20 Endocrine Medical History: Reports: Hx Hypothyroidism. Denies: Hx Graves' Disease, Hx Hyperthyroidism Renal/ Medical History: Denies: Hx End Stage Renal Disease, Hx Kidney Stones, Hx Peritoneal Dialysis Malignancy Medical History: Denies: Hx Leukemia GI Medical History: Reports: Hx Gastroesophageal Reflux Disease - occ. takes Omeprazole PRN. Denies: Hx Crohn's Disease, Hx Hiatal Hernia, Hx Irritable Bowel, Hx Liver Failure, Hx Pancreatitis, Hx Ulcer Musculoskeltal Medical History: Reports Hx Arthritis, Denies Hx Fibromyalgia, Denies Hx Multiple Sclerosis, Denies Hx Muscular Dystrophy Psychiatric Medical History: Reports: Hx Depression Denies: Hx Bipolar Disorder, Hx Dementia, Hx Post Traumatic Stress Disorder, Hx Schizophrenia Traumatic Medical History: Reports: Hx Fractures - 2nd toe on right Infectious Medical History: Denies: Hx HIV Past Surgical History: Reports: Hx Appendectomy, Hx Hysterectomy, Hx Orthopedic Surgery - right rotator cuff. Denies: Hx Bowel Surgery, Hx Section, Hx Cholecystectomy, Hx Colostomy, Hx Coronary Artery Bypass Graft, Hx Gastric Bypass Surgery, Hx Herniorrhaphy, Hx Mastectomy, Hx Pacemaker, Hx Tonsillectomy , Hx Tubal Ligation - Immunizations Hx Diphtheria, Pertussis, Tetanus Vaccination: No Hx Pneumococcal Vaccination: 12/07/15 Review of Systems - Review of Systems Notes: REVIEW OF SYSTEMS: CONSTITUTIONAL : Denies fever, chills, or sweats. Denies recent illness. Denies weight loss, recent hospitalizations. EENT: Denies visula changes, eye pain. Denies nasal or sinus congestion or discharge. Denies sore throat, oral lesions, difficulty swallowing. CARDIOVASCULAR: Denies chest pain. Denies palpitations or racing or irregular heart beat. Denies lower extremity edema. RESPIRATORY: Denies cough, cold, or chest congestion. Denies shortness of breath, difficulty breathing, or wheezing. GASTROINTESTINAL: Denies abdominal pain or distention. Denies nausea, vomiting , or diarrhea. Denies blood in vomitus, stools, or per rectum. Denies black, tarry stools. Denies constipation. GENITOURINARY: Denies difficulty urinating, painful urination, burning, frequency, blood in urine, or vaginal discharge. MUSCULOSKELETAL: Denies back or neck pain or stiffness. Denies joint pain or swelling. SKIN: Denies rash, lesions or sores. HEMATOLOGIC : Denies easy bruising or bleeding. LYMPHATIC: Denies swollen, enlarged glands. NEUROLOGICAL: Denies confusion or altered mental status. Denies passing out or loss of consciousness. Denies dizziness or lightheadedness. Denies headache. Denies weakness or paralysis or loss of use of either side. Denies problems with gait or speech. Denies sensory loss, numbness, or tingling. Denies seizures. PSYCHIATRIC: Denies anxiety or stress. Denies depression, suicidal ideation, or homicidal ideation. Physical Exam - Vital signs Vitals: Resp Pulse Ox 16 100 07/03/17 15:08 05/29/18 15:08 - Notes Notes: PHYSICAL EXAMINATION: GENERAL: Well-appearing, well-nourished and in no acute distress. HEAD: Atraumatic, normocephalic. EYES: Pupils equal round and reactive to light, extraocular movements intact, conjunctiva are normal. ENT: Nares patent, oropharynx clear without exudates. Moist mucous membranes. NECK: Normal range of motion, supple without lymphadenopathy LUNGS: Breath sounds clear to auscultation bilaterally and equal. No wheezes rales or rhonchi. HEART: Regular rate and rhythm without murmurs ABDOMEN: Soft, nontender, nondistended abdomen. No guarding, no rebound. No masses appreciated. Female : deferred Musculoskeletal: Normal range of motion, no pitting or edema. No cyanosis. NEUROLOGICAL: Cranial nerves grossly intact. Normal speech, normal gait. Normal sensory, motor exams PSYCH: Initially confused but now alert and oriented 3. Normal mood, normal affect. SKIN: Warm, Dry, normal turgor, no rashes or lesions noted. Course - Re-evaluation Re-evalutation: Laboratory 07/03/17 07/03/17 07/03/17 14:40 14:40 14:40 WBC 10.2 RBC 4.48 Hgb 14.7 Hct 44.5 MCV 99 H MCH 32.8 MCHC 33.1 RDW 13.2 Plt Count 265 Seg Neutrophils % 53.9 Lymphocytes % 34.8 Monocytes % 10.0 Eosinophils % 0.5 Basophils % 0.8 Absolute Neutrophils 5.5 Absolute Lymphocytes 3.5 Absolute Monocytes 1.0 Absolute Eosinophils 0.1 Absolute Basophils 0.1 Sodium Cancelled Potassium Cancelled Chloride Cancelled Carbon Dioxide Cancelled Anion Gap Cancelled BUN Cancelled Creatinine Cancelled Est GFR ( Amer) Cancelled Est GFR (Non-Af Amer) Cancelled Glucose Cancelled Calcium Cancelled Phosphorus Cancelled Magnesium Cancelled Total Bilirubin Cancelled Direct Bilirubin Cancelled Neonat Total Bilirubin Cancelled Neonat Direct Bilirubin Cancelled Neonat Indirect Bili Cancelled AST Cancelled ALT Cancelled Alkaline Phosphatase Cancelled Creatine Kinase Cancelled CK-MB (CK-2) Cancelled Troponin I Cancelled Total Protein Cancelled Albumin Cancelled Urine Color Urine Appearance Urine pH Ur Specific [place] Urine Protein Urine Glucose (UA) Urine Ketones Urine Blood Urine Nitrite Urine Bilirubin Urine Urobilinogen Ur Leukocyte Esterase Urine WBC (Auto) Urine RBC (Auto) U Hyaline Cast (Auto) Urine Bacteria (Auto) Squamous Epi Cells Auto Urine Mucus (Auto) Urine Ascorbic Acid Salicylates Cancelled Urine Opiates Screen Urine Methadone Screen Acetaminophen Cancelled Ur Barbiturates Screen Ur Phencyclidine Scrn Ur Amphetamines Screen U Benzodiazepines Scrn Urine Cocaine Screen U Marijuana (THC) Screen Serum Alcohol Cancelled 07/03/17 07/03/17 07/03/17 15:42 16:00 16:00 WBC RBC Hgb Hct MCV MCH MCHC RDW Plt Count Seg Neutrophils % Lymphocytes % Monocytes % Eosinophils % Basophils % Absolute Neutrophils Absolute Lymphocytes Absolute Monocytes Absolute Eosinophils Absolute Basophils Sodium 131.6 L Potassium 4.0 Chloride 95 L Carbon Dioxide 20 L Anion Gap 17 BUN 14 Creatinine 1.13 Est GFR ( Amer) 57 L Est GFR (Non-Af Amer) 47 L Glucose 160 H Calcium 8.7 Phosphorus 3.3 Magnesium 2.0 Total Bilirubin 2.0 H Direct Bilirubin 0.3 Neonat Total Bilirubin Not Reportable Neonat Direct Bilirubin Not Reportable Neonat Indirect Bili Not Reportable AST 51 H ALT 34 Alkaline Phosphatase 123 Creatine Kinase 159 H CK-MB (CK-2) Troponin I Total Protein 6.7 Albumin 3.8 Urine Color YELLOW Urine Appearance SLIGHTLY-CLOUDY Urine pH 5.0 Ur Specific [place] 1.017 Urine Protein 100 H Urine Glucose (UA) NEGATIVE Urine Ketones TRACE H Urine Blood SMALL H Urine Nitrite NEGATIVE Urine Bilirubin NEGATIVE Urine Urobilinogen NEGATIVE Ur Leukocyte Esterase NEGATIVE Urine WBC (Auto) 1 Urine RBC (Auto) 2 U Hyaline Cast (Auto) 15 Urine Bacteria (Auto) TRACE Squamous Epi Cells Auto <1 Urine Mucus (Auto) RARE Urine Ascorbic Acid NEGATIVE Salicylates < 1.0 L Urine Opiates Screen NEGATIVE Urine Methadone Screen NEGATIVE Acetaminophen < 10 L Ur Barbiturates Screen NEGATIVE Ur Phencyclidine Scrn NEGATIVE Ur Amphetamines Screen NEGATIVE U Benzodiazepines Scrn NEGATIVE Urine Cocaine Screen NEGATIVE U Marijuana (THC) Screen NEGATIVE Serum Alcohol < 10 07/03/17 16:16 WBC RBC Hgb Hct MCV MCH MCHC RDW Plt Count Seg Neutrophils % Lymphocytes % Monocytes % Eosinophils % Basophils % Absolute Neutrophils Absolute Lymphocytes Absolute Monocytes Absolute Eosinophils Absolute Basophils Sodium Potassium Chloride Carbon Dioxide Anion Gap BUN Creatinine Est GFR ( Amer) Est GFR (Non-Af Amer) Glucose Calcium Phosphorus Magnesium Total Bilirubin Direct Bilirubin Neonat Total Bilirubin Neonat Direct Bilirubin Neonat Indirect Bili AST ALT Alkaline Phosphatase Creatine Kinase CK-MB (CK-2) 1.35 Troponin I 0.080 Total Protein Albumin Urine Color Urine Appearance Urine pH Ur Specific [place] Urine Protein Urine Glucose (UA) Urine Ketones Urine Blood Urine Nitrite Urine Bilirubin Urine Urobilinogen Ur Leukocyte Esterase Urine WBC (Auto) Urine RBC (Auto) U Hyaline Cast (Auto) Urine Bacteria (Auto) Squamous Epi Cells Auto Urine Mucus (Auto) Urine Ascorbic Acid Salicylates Urine Opiates Screen Urine Methadone Screen Acetaminophen Ur Barbiturates Screen Ur Phencyclidine Scrn Ur Amphetamines Screen U Benzodiazepines Scrn Urine Cocaine Screen U Marijuana (THC) Screen Serum Alcohol Head CT 07/03/17 15:09 IMPRESSION: CHRONIC MICROVASCULAR ISCHEMIA. NO ACUTE IMAGING FINDINGS IN THE BRAIN. EVIDENCE OF ACUTE STROKE: NO. 1-year-old female presents via EMS after the patient's called because the patient was "having another episode". EMS reports that the was a poor historian but upon their arrival patient was found sitting in a chair. states that her episodes of staring off and not answering him are common with her seizures. EMS then reported that on their way out to the ambulance the patient had 1 tonic-clonic seizure for which she received 1 mg of Ativan IV. Seizure activity was present for approximately 1 minute prior to resolution. EMS reports resolution of seizure activity after medication. Patient alert but initially confused upon my exam. Vital signs reviewed. 07/03/17 17:34 Patient reevaluated. She is now more alert and awake. She denies any chest pain, shortness of breath. She states prior to her seizure she has been otherwise well. Last seizure was approximately 1 year ago. She states that she has been compliant with her Keppra although the bottle is completely full. Nurse informed me of elevated troponin. Repeat troponin and EKG will be obtained. 07/03/17 19:29 Repeat troponin is again elevated at 0.254. I did speak to cardiology Dr. Frye who recommends a third troponin. He believes that this is not cardiac related and states that we can see elevations in troponins after seizure activity. 07/03/17 21:38 Patient reevaluated and is resting doubly, she remains stable, she is now alert and oriented 3. She consistently denies any chest pain. Repeat troponin pending. 07/03/17 22:[address] Frye again after the third troponin is again elevated and 0.484. Patient reexamined and remains chest pain-free. EKG without changes. Patient will be admitted to Dr. Meredith service. Consult for Dr. Frye was placed. Patient was administered aspirin and weight-based Lovenox was administered. 07/03/17 22:46 07/03/17 23:12 - Vital Signs Vital signs: Temp Pulse Resp BP Pulse Ox 98.5 F 24 H 121/74 100 07/03/17 15:35 07/03/17 22:01 07/03/17 22:01 07/03/17 22:01 - Laboratory Result Diagrams: 07/03/17 14:40 07/03/17 15:42 Laboratory results interpreted by me: 07/03/17 07/03/17 07/03/17 14:40 15:42 16:00 MCV 99 H Sodium 131.6 L Chloride 95 L Carbon Dioxide 20 L Est GFR ( Amer) 57 L Est GFR (Non-Af Amer) 47 L Glucose 160 H Total Bilirubin 2.0 H AST 51 H Creatine Kinase 159 H Urine Protein 100 H Urine Ketones TRACE H Urine Blood SMALL H Salicylates < 1.0 L Acetaminophen < 10 L - Diagnostic Test Radiology reviewed: Image reviewed, Reports reviewed - EKG Interpretation by Me Rate: Normal Rhythm: A.Fib [place]/QRS: LAHB/LAFB When compared to previous EKG there are: No significant change Additional EKG results interpreted by me: 07/03/17 19:30 Repeat EKG shows the patient to be in atrial fibrillation at a rate of 73. Unchanged from previous. QRS-92, QTc 450 Discharge - Discharge Clinical Impression: Seizure, Elevated troponin Atrial fibrillation Qualifiers: Atrial fibrillation type: chronic Qualified Code(s): I48.2 - Chronic atrial fibrillation Condition: Good Disposition: ADMITTED OBSERVATION Admitting Provider: [facility] Unit Admitted: Telemetry
[2017-07-03 15:31] LABS: ABSOLUTE BASOPHILS # (AUTO) 0.1 10^3/uL (0.0-0.2); ABSOLUTE EOSINOPHILS # (AUTO) 0.1 10^3/uL (0.0-0.6); ABSOLUTE LYMPHOCYTES (AUTO) 3.5 10^3/uL (0.5-4.7); ABSOLUTE NEUT (AUTO) 5.5 10^3/uL (1.7-8.2); BASOPHILS % (AUTO) 0.8 % (0-2); EOSINOPHILS % (AUTO) 0.5 % (0-6); HEMATOCRIT 44.5 % (36.0-47.0); HEMOGLOBIN 14.7 g/dL (12.0-15.5); LYMPHOCYTES % (AUTO) 34.8 % (13-45); MEAN CORPUSCULAR HEMOGLOBIN 32.8 pg (27.0-33.4); MEAN CORPUSCULAR HGB CONC 33.1 g/dL (32.0-36.0); MEAN CORPUSCULAR VOLUME 99 fl (80-97); PLATELET COUNT 265 10^3/uL (150-450); RED BLOOD COUNT 4.48 10^6/uL (3.72-5.28); RED CELL DISTRIBUTION WIDTH 13.2 % (11.5-14.0); SEGMENTED NEUTROPHILS % (AUTO) 53.9 % (42-78); TOTAL CELLS COUNTED % (AUTO) 100 %; WHITE BLOOD COUNT 10.2 10^3/uL (4.0-10.5)
--- NOTE | 2017-07-03 15:31 | RADIOLOGY REPORT (SQ) ---
EXAM DESCRIPTION: CT HEAD WITHOUT COMPLETED DATE/TIME: 07/03/2017 3:19 pm REASON FOR STUDY: ams COMPARISON: 12/03/2016 TECHNIQUE: Axial images acquired through the brain without intravenous contrast. Images reviewed wi th bone, brain and subdural windows. Additional sagittal and coronal reconstructions were generated. Images stored on PACS. All CT scanners at this facility use dose modulation, iterative reconstruction, and/or weight based d osing when appropriate to reduce radiation dose to as low as reasonably achievable (ALARA). [facility]: Dose Right [facility]: CareDose [facility]: Dose Right [facility]: Teradose 4D [facility]: [employer] RADIATION DOSE: CT Rad equipment meets quality standard of care and radiation dose reduction techniq ues were employed. CTDIvol: 53.2 mGy. DLP: 964 mGy-cm. mGy. LIMITATIONS: None. FINDINGS: VENTRICLES: Normal size and contour. CEREBRUM: There is a small old infarct in the left posterior parietal lobe. There is no acute hemorr dustin or infarction. There is no mass or midline shift. Areas of low density in the white matter most likely chronic small vessel ischemic changes. CEREBELLUM: No masses. No hemorrhage. No alteration of density. No evidence for acute infarction. EXTRAAXIAL SPACES: No fluid collections. No masses. ORBITS AND GLOBE: No intra- or extraconal masses. Normal contour of globe without masses. CALVARIUM: No fracture. PARANASAL SINUSES: No fluid or mucosal thickening. SOFT TISSUES: No mass or hematoma. OTHER: No other significant finding. IMPRESSION: CHRONIC MICROVASCULAR ISCHEMIA. NO ACUTE IMAGING FINDINGS IN THE BRAIN. EVIDENCE OF ACUTE STROKE: NO. COMMENT: Quality ID # [id number]: Final reports with documentation of one or more dose reduction techniques (e.g., Automated exposure control, adjustment of the mA and/or kV according to patient size, use of iterative reconstruction technique) TECHNICAL DOCUMENTATION: JOB ID: [id number] [employer]- All Rights Reserved Reading location - IP/workstation name: [email or web address]
[2017-07-03 16:29] LABS: ACETAMINOPHEN < 10 ug/mL (10-30); ALANINE AMINOTRANSFERASE 34 U/L (9-52); ALBUMIN 3.8 g/dL (3.5-5.0); ALCOHOL < 10 mg/dL (NONE DETECTED); ALKALINE PHOSPHATASE 123 U/L (38-126); ANION GAP 17 (5-19); ASPARTATE AMINO TRANSFERASE 51 U/L (14-36); BILIRUBIN,DIRECT 0.3 mg/dL (0.0-0.4); BLOOD UREA NITROGEN 14 mg/dL (7-20); CALCIUM 8.7 mg/dL (8.4-10.2); CARBON DIOXIDE 20 mmol/L (22-30); CHLORIDE 95 mmol/L (98-107); CREATINE KINASE 159 U/L (30-135); GLUCOSE 160 mg/dL (75-110); PHOSPHORUS 3.3 mg/dL (2.5-4.5); SALICYLATE < 1.0 mg/dL (2.0-20.0); SODIUM 131.6 mmol/L (137-145); TOTAL PROTEIN 6.7 g/dL (6.3-8.2)
[2017-07-03 16:35] LABS: APPEARANCE,URINE SLIGHTLY-CLOUDY; BILIRUBIN,URINE NEGATIVE (NEGATIVE); COLOR,URINE YELLOW; GLUCOSE, URINE NEGATIVE (NEGATIVE); KETONES,URINE TRACE mg/dL (NEGATIVE); LEUKOCYTE ESTERASE,URINE NEGATIVE (NEGATIVE); NITRITE,URINE NEGATIVE (NEGATIVE); PROTEIN,URINE 100 mg/dL (NEGATIVE); URINE SPECIFIC GRAVITY 1.017; UROBILINOGEN,URINE NEGATIVE mg/dL (<2.0)
[2017-07-03 16:42] LABS: URINE AMPHETAMINES SCREEN NEGATIVE; URINE BARBITURATES SCREEN NEGATIVE; URINE BENZODIAZEPINES SCREEN NEGATIVE; URINE COCAINE SCREEN NEGATIVE; URINE MARIJUANA (THC) SCREEN NEGATIVE; URINE METHADONE SCREEN NEGATIVE; URINE PHENCYCLIDINE SCREEN NEGATIVE
[2017-07-03 16:56] LABS: CREATINE KINASE MB 1.35 ng/mL (<4.55)
[2017-07-03 16:58] LABS: TROPONIN I 0.08 ng/mL
[2017-07-03] MEDS ORDERED: ASPIRIN 300 MG SUPP, RECTAL PR ONE (17:01)
[2017-07-03] MEDS ORDERED: ASPIRIN 81 MG TABLET, CHEWABLE PO ONE (17:24)
[2017-07-03] MEDS ORDERED: LEVETIRACETAM 500 MG TABLET PO ONE (21:38)
[2017-07-03] MEDS ORDERED: ACETAMINOPHEN 325 MG TABLET PO PRN (22:44)
[2017-07-03] MEDS ORDERED: ENOXAPARIN SODIUM INJ 60 MG/0.6 ML DISP.SYRIN SUBCUT SCH (22:45)
--- NOTE | 2017-07-03 23:33 | EKG REPORT ---
SEVERITY:- ABNORMAL ECG - ATRIAL FIBRILLATION VENTRICULAR PREMATURE COMPLEX LEFT ANTERIOR FASCICULAR BLOCK CONSIDER ANTEROSEPTAL INFARCT : Confirmed by: Marisabel Arreguin 03-Jul-2017 23:33:08
--- NOTE | 2017-07-03 23:33 | EKG REPORT ---
SEVERITY:- ABNORMAL ECG - ATRIAL FIBRILLATION LEFT AXIS DEVIATION ABNRM R PROG, CONSIDER ASMI OR LEAD PLACEMENT BORDERLINE T WAVE ABNORMALITIES : Confirmed by: Marisabel Arreguin 03-Jul-2017 23:32:50
[2017-07-04 03:45] LABS: ANION GAP 7 (5-19); BLOOD UREA NITROGEN 11 mg/dL (7-20); CALCIUM 8.7 mg/dL (8.4-10.2); CARBON DIOXIDE 26 mmol/L (22-30); CHLORIDE 102 mmol/L (98-107); CREATINE KINASE 379 U/L (30-135); GLUCOSE 111 mg/dL (75-110); POTASSIUM 4.1 mmol/L (3.6-5.0); SODIUM 135.2 mmol/L (137-145)
[2017-07-04 03:57] LABS: CREATINE KINASE MB 4.74 ng/mL (<4.55)
[2017-07-04 03:59] LABS: TROPONIN I 0.515 ng/mL
[2017-07-04 05:09] LABS: ABSOLUTE BASOPHILS # (AUTO) 0.1 10^3/uL (0.0-0.2); ABSOLUTE EOSINOPHILS # (AUTO) 0.1 10^3/uL (0.0-0.6); ABSOLUTE LYMPHOCYTES (AUTO) 1.9 10^3/uL (0.5-4.7); ABSOLUTE MONOCYTES (AUTO) 0.8 10^3/uL (0.1-1.4); ABSOLUTE NEUT (AUTO) 3.9 10^3/uL (1.7-8.2); BASOPHILS % (AUTO) 0.8 % (0-2); EOSINOPHILS % (AUTO) 0.9 % (0-6); HEMATOCRIT 35.9 % (36.0-47.0); LYMPHOCYTES % (AUTO) 28.4 % (13-45); MEAN CORPUSCULAR HEMOGLOBIN 32.6 pg (27.0-33.4); MEAN CORPUSCULAR HGB CONC 33.9 g/dL (32.0-36.0); MEAN CORPUSCULAR VOLUME 96 fl (80-97); PLATELET COUNT 193 10^3/uL (150-450); RED BLOOD COUNT 3.73 10^6/uL (3.72-5.28); RED CELL DISTRIBUTION WIDTH 12.6 % (11.5-14.0); SEGMENTED NEUTROPHILS % (AUTO) 57.9 % (42-78); TOTAL CELLS COUNTED % (AUTO) 100 %; WHITE BLOOD COUNT 6.7 10^3/uL (4.0-10.5)
[2017-07-04 05:25] LABS: HEMOGLOBIN 12.1 g/dL (12.0-15.5)
[2017-07-04] MEDS: AMLODIPINE BESYLATE 5 MG TABLET PO SCH (09:09)
--- NOTE | 2017-07-04 09:19 | PDOC H&P ---
History of Present Illness Admission Date/PCP: 07/03/17 23:26 Patient complains of: Seizures activity History of Present Illness: JOSE ESPINAL is a 71 year old female This is a 71-year-old female with the known history of the seizures history of a cerebrovascular accident history of the hypertension's history of the chronic A. maritza came to the emergency department with the complaining of her seizures activity according to the patient and the call the EMS patient have a tonic-clonic seizures and giving her 1 mg of Ativan and pretty much resolved all the systems activity In the emergency department patients all workup is negative but patient had a cardiac enzyme was done was initially 0.048 in the ER physicians call the Dr. 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 in the hospital for further evaluations When I saw the patient in the floor patients denied any chest pain denied any shortness of breath She never no seizures activity while in the hospitals Patient's denied any weakness denied any headache Past Medical History Cardiac Medical History: Reports: Atrial Fibrillation, Myocardial Infarction - mild, Hyperlipidema, Hypertension Denies: Congestive Heart Failure, Coronary Artery Disease, Peripheral Vascular Disease, Heart Murmur Neurological Medical History: Reports: Ischemic CVA, Seizures - 01/20 Endocrine Medical History: Reports: Hypothyroidism Denies: Hyperthyroidism Renal/ Medical History: Denies: End Stage Renal Disease Malignancy Medical History: Denies: Leukemia GI Medical History: Reports: Gastroesophageal Reflux Disease - occ. takes Omeprazole PRN Denies: Crohn's Disease, Hiatal Hernia Musculoskeltal Medical History: Reports: Arthritis Denies: Fibromyalgia Psychiatric Medical History: Reports: Depression Denies: Bipolar Disorder, Dementia, Post Traumatic Stress Disorder Hematology: Denies: Anemia, Hemophilia, Sickle Cell Disease Infectious Medical History: Denies: HIV Past Surgical History Past Surgical History: Reports: Appendectomy, Hysterectomy, Orthopedic Surgery - right rotator cuff Denies: Amputation, Section, Cholecystectomy, Colostomy, Coronary Artery Bypass Graft, Gastric Bypass Surgery, Herniorrhaphy, Mastectomy, Pacemaker, Tonsillectomy, Tubal Ligation Social History Lives with: Spouse/Significant other Smoking Status: Never Smoker Frequency of Alcohol Use: Rare Hx Recreational Drug Use: No Drugs: None Hx Prescription Drug Abuse: No - Advance Directive Resuscitation Status: Full Code Family History Family History: None, Reviewed & Not Pertinent Parental Family History Reviewed: Yes Children Family History Reviewed: Yes Sibling(s) Family History Reviewed.: Yes Medication/Allergy Home Medications: Amlodipine Besylate [Norvasc 5 mg Tablet] 5 mg PO DAILY 12/04/16 Aspirin [Ecotrin 81 mg EC Tablet] 81 mg PO DAILY 12/04/16 Atorvastatin Calcium [Lipitor 40 mg Tablet] 40 mg PO DAILY 12/04/16 Cholecalciferol (Vitamin D3) [Vitamin D3 1000 Unit Tablet] 1,000 unit PO DAILY 12/04/16 Cyclobenzaprine HCl [Flexeril 10 mg Tablet] 10 mg PO DAILYP PRN 12/04/16 Fluoxetine HCl [Prozac] 40 mg PO DAILY 12/04/16 Guaifenesin [Mucus Relief] 400 mg PO ASDIR PRN MDD FOR MUCUS 12/04/16 Levothyroxine Sodium [Synthroid 0.05 mg Tablet] 50 mcg PO DAILY 12/04/16 Apixaban [Eliquis 5 mg Tablet] 5 mg PO BID #60 12/06/16 Ciprofloxacin HCl [Cipro 500 mg Tablet] 500 mg PO Q12A #14 tablet 12/06/16 Levetiracetam [Keppra 500 mg Tablet] 1,000 mg PO Q12 #60 tablet 12/06/16 Allergies/Adverse Reactions: Penicillins Allergy (Mild, Verified 10/02/15 10:35) rash Review of Systems Constitutional: ABSENT: chills, fever(s), headache(s), weight gain, weight loss Eyes: ABSENT: visual disturbances Ears: ABSENT: hearing changes Cardiovascular: ABSENT: chest pain, dyspnea on exertion, edema, orthropnea, palpitations Respiratory: ABSENT: cough, hemoptysis Gastrointestinal: ABSENT: abdominal pain, constipation, diarrhea, hematemesis, hematochezia, nausea, vomiting Genitourinary: ABSENT: dysuria, hematuria Musculoskeletal: ABSENT: joint swelling Integumentary: ABSENT: rash, wounds Neurological: ABSENT: abnormal gait, abnormal speech, confusion, dizziness, focal weakness, syncope Psychiatric: ABSENT: anxiety, depression, homidical ideation, suicidal ideation Endocrine: ABSENT: cold intolerance, heat intolerance, menstrual abnormalities, polydipsia, polyuria Hematologic/Lymphatic: ABSENT: easy bleeding, easy bruising, lymphadenopathy Physical Exam Vital Signs: Temp Pulse Resp BP Pulse Ox 97.8 F 59 L 20 125/58 L 100 07/04/17 02:41 07/04/17 07:00 07/04/17 02:41 07/04/17 02:41 07/04/17 02:41 Intake & Output 07/03/17 07/04/17 07/05/17 06:59 06:59 06:59 Intake Total 20 Balance 20 Weight 77.4 kg General appearance: PRESENT: no acute distress, well-developed, well-nourished Head exam: PRESENT: atraumatic, normocephalic Eye exam: PRESENT: conjunctiva pink, EOMI, PERRLA. ABSENT: scleral icterus Ear exam: PRESENT: normal external ear exam Mouth exam: PRESENT: moist, tongue midline Neck exam: PRESENT: full ROM. ABSENT: carotid bruit, JVD, lymphadenopathy, thyromegaly Respiratory exam: PRESENT: clear to auscultation jordin Cardiovascular exam: PRESENT: RRR. ABSENT: diastolic murmur, rubs, systolic murmur Pulses: PRESENT: normal dorsalis pedis pul, +2 pedal pulses bilateral Vascular exam: PRESENT: normal capillary refill GI/Abdominal exam: PRESENT: normal bowel sounds, soft. ABSENT: distended, guarding, mass, organolmegaly, rebound, tenderness Rectal exam: PRESENT: deferred Musculoskeletal exam: PRESENT: ambulatory Neurological exam: PRESENT: alert, awake, oriented to person, oriented to place , oriented to time, oriented to situation, CN II-XII grossly intact. ABSENT: motor sensory deficit Psychiatric exam: PRESENT: appropriate affect, normal mood. ABSENT: homicidal ideation, suicidal ideation Skin exam: PRESENT: dry, intact, warm. ABSENT: cyanosis, rash Results Laboratory Results: 07/04/17 04:23 07/04/17 03:24 07/04/17 07/04/17 07/04/17 03:24 03:24 04:23 WBC Cancelled 6.7 RBC Cancelled 3.73 Hgb Cancelled 12.1 D Hct Cancelled 35.9 L MCV Cancelled 96 MCH Cancelled 32.6 MCHC Cancelled 33.9 RDW Cancelled 12.6 Plt Count Cancelled 193 Seg Neutrophils % Cancelled 57.9 Lymphocytes % Cancelled 28.4 Monocytes % Cancelled 12.0 Eosinophils % Cancelled 0.9 Basophils % Cancelled 0.8 Absolute Neutrophils Cancelled 3.9 Absolute Lymphocytes Cancelled 1.9 Absolute Monocytes Cancelled 0.8 Absolute Eosinophils Cancelled 0.1 Absolute Basophils Cancelled 0.1 Sodium 135.2 L Potassium 4.1 Chloride 102 Carbon Dioxide 26 Anion Gap 7 BUN 11 Creatinine 0.97 Est GFR ( Amer) > 60 Est GFR (Non-Af Amer) 56 L Glucose 111 H Calcium 8.7 07/04/17 07/04/17 03:24 03:24 Creatine Kinase 379 H CK-MB (CK-2) 4.74 H Troponin I 0.515 Impressions: Head CT 07/03/17 15:09 IMPRESSION: CHRONIC MICROVASCULAR ISCHEMIA. NO ACUTE IMAGING FINDINGS IN THE BRAIN. EVIDENCE OF ACUTE STROKE: NO. Assessment & Plan - Diagnosis (1) Elevated troponin Is this a current diagnosis for this admission?: Yes Plan: With unclear etiology most likely related to the sister's activity patient denied any symptoms and patient EKG is normal Discussed with the cardiology and suggested continues to monitor and DC the Lovenox and continues to Eliquis (2) Seizure Is this a current diagnosis for this admission?: Yes Plan: Continues to Keppra thousand milligrams p.o. twice a day (3) Atrial fibrillation, chronic Is this a current diagnosis for this admission?: Yes Plan: Currently rate under control continues to Eliquis (4) Cerebrovascular accident (CVA) Qualifiers: CVA mechanism: unspecified Is this a current diagnosis for this admission?: Yes Plan: Continues to statin and continues to aspirin and Eliquis (5) Hypertension Qualifiers: Hypertension type: essential hypertension Is this a current diagnosis for this admission?: Yes Plan: Currently all stable - Time Time Spent: 30 to 50 Minutes Medications reviewed and adjusted accordingly: Yes Anticipated discharge: Home Within: Other - Inpatient Certification Medical Necessity: Need Close Monitoring Due to Risk of Patient Decompensation Post Hospital Care: D/C Paragliding Instructor Documentation - Plan Summary Plan Summary: See other MD orders
[2017-07-04] MEDS: FLUOXETINE HCL 20 MG CAPSULE PO SCH (09:49)
[2017-07-04] MEDS: APIXABAN 5 MG TABLET PO SCH ×2 (09:50→17:34)
[2017-07-04] MEDS: LEVETIRACETAM 500 MG TABLET PO SCH ×2 (09:50→21:21)
[2017-07-04] MEDS: ATORVASTATIN CALCIUM 40 MG TABLET PO SCH (09:50)
[2017-07-04] MEDS: LEVOTHYROXINE SODIUM 0.05 MG TABLET PO SCH (09:50)
[2017-07-04] MEDS ORDERED: APIXABAN 5 MG TABLET PO SCH (10:00)
[2017-07-04] MEDS ORDERED: ENOXAPARIN SODIUM INJ 40 MG/0.4 ML DISP.SYRIN SUBCUT SCH (10:00)
--- NOTE | 2017-07-04 10:16 | EKG REPORT ---
SEVERITY:- ABNORMAL ECG - ATRIAL FIBRILLATION LEFT ANTERIOR FASCICULAR BLOCK PROBABLE ANTEROSEPTAL INFARCT, AGE INDETERM NONSPECIFIC T ABNORMALITIES, INFERIOR LEADS BORDERLINE PROLONGED QT INTERVAL NONSPECIFIC T ABNORMALITIES, ANTERIOR LEADS vs ISCHEMIC : Confirmed by: Marisabel Arreguin 04-Jul-2017 10:15:53
[2017-07-04 10:19] LABS: CREATINE KINASE MB 4.28 ng/mL (<4.55); TROPONIN I 0.275 ng/mL
--- NOTE | 2017-07-04 15:04 | Physician Advisory Note ---
Physician Advisor ProgressNote .: Pursuant to the plan for [facility], I have reviewed the medical record for this patient. Physician Advisor Statement: Please consider documenting, if you agree: 1. "Acute hyponatremia, suspect due to " 2. Any residual deficits from prior CVA? Thanks! CK
[2017-07-04 16:37] LABS: CREATINE KINASE MB 2.81 ng/mL (<4.55); TROPONIN I 0.242 ng/mL
[2017-07-05 05:23] LABS: ANION GAP 8 (5-19); BLOOD UREA NITROGEN 10 mg/dL (7-20); CALCIUM 8.5 mg/dL (8.4-10.2); CARBON DIOXIDE 26 mmol/L (22-30); CHLORIDE 103 mmol/L (98-107); GLUCOSE 101 mg/dL (75-110); POTASSIUM 4.1 mmol/L (3.6-5.0); SODIUM 136.8 mmol/L (137-145)
[2017-07-05 05:50] LABS: FREE T3 2.87 pg/mL (2.77-5.27)
[2017-07-05 06:04] LABS: THYROID STIMULATING HORMONE 5.07 uIU/mL (0.47-4.68)
--- NOTE | 2017-07-05 08:59 | EKG REPORT ---
SEVERITY:- ABNORMAL ECG - ATRIAL FIBRILLATION LEFT AXIS DEVIATION BORDERLINE R WAVE PROGRESSION, ANTERIOR LEADS ABNORMAL T, CONSIDER ISCHEMIA, DIFFUSE LEADS PROLONGED QT INTERVAL : Confirmed by: Marisabel Arreguin 05-Jul-2017 08:59:07
[2017-07-05] MEDS: LEVOTHYROXINE SODIUM 0.05 MG TABLET PO SCH (09:55)
[2017-07-05] MEDS: AMLODIPINE BESYLATE 5 MG TABLET PO SCH (09:55)
[2017-07-05] MEDS: LEVETIRACETAM 500 MG TABLET PO SCH ×2 (09:55→21:21)
[2017-07-05] MEDS: ATORVASTATIN CALCIUM 40 MG TABLET PO SCH (09:56)
[2017-07-05] MEDS: APIXABAN 5 MG TABLET PO SCH ×2 (09:57→18:09)
[2017-07-05] MEDS: FLUOXETINE HCL 20 MG CAPSULE PO SCH (09:57)
--- NOTE | 2017-07-05 12:16 | PDOC PROGRESS REPORT ---
Subjective Progress Note for:: 07/05/17 Subjective:: Patient is currently doing well Patient's denied any chest pain denied any shortness of the breath According to thedr ayush patients need a stress test before discharge Reason For Visit: ELEVATED TROPONIN Physical Exam Vital Signs: Temp Pulse Resp BP Pulse Ox 97.4 F 64 18 122/73 94 07/05/17 11:12 07/05/17 11:12 07/05/17 11:12 07/05/17 11:12 07/05/17 11:12 Intake & Output 07/04/17 07/05/17 07/06/17 06:59 06:59 06:59 Intake Total 20 1105 Balance 20 1105 Weight 77.4 kg 77.1 kg General appearance: PRESENT: no acute distress, well-developed, well-nourished Head exam: PRESENT: atraumatic, normocephalic Eye exam: PRESENT: conjunctiva pink, EOMI, PERRLA. ABSENT: scleral icterus Ear exam: PRESENT: normal external ear exam Mouth exam: PRESENT: moist, tongue midline Neck exam: PRESENT: full ROM. ABSENT: carotid bruit, JVD, lymphadenopathy, thyromegaly Respiratory exam: PRESENT: clear to auscultation jordin Cardiovascular exam: PRESENT: RRR. ABSENT: diastolic murmur, rubs, systolic murmur Pulses: PRESENT: normal dorsalis pedis pul, +2 pedal pulses bilateral Vascular exam: PRESENT: normal capillary refill GI/Abdominal exam: PRESENT: normal bowel sounds, soft. ABSENT: distended, guarding, mass, organolmegaly, rebound, tenderness Rectal exam: PRESENT: deferred Neurological exam: PRESENT: alert, awake, oriented to person, oriented to place , oriented to time, oriented to situation, CN II-XII grossly intact. ABSENT: motor sensory deficit Psychiatric exam: PRESENT: appropriate affect, normal mood. ABSENT: homicidal ideation, suicidal ideation Skin exam: PRESENT: dry, intact, warm. ABSENT: cyanosis, rash Results Laboratory Results: 07/04/17 04:23 07/05/17 04:04 07/05/17 07/05/17 04:04 04:04 Sodium 136.8 L Potassium 4.1 Chloride 103 Carbon Dioxide 26 Anion Gap 8 BUN 10 Creatinine 1.04 Est GFR ( Amer) > 60 Est GFR (Non-Af Amer) 52 L Glucose 101 Calcium 8.5 TSH 5.07 H Free T3 pg/mL 2.87 07/04/17 07/04/17 07/04/17 03:24 03:24 09:19 Creatine Kinase 379 H 362 H CK-MB (CK-2) 4.74 H Troponin I 0.515 07/04/17 07/04/17 07/04/17 09:19 15:30 15:30 Creatine Kinase 337 H CK-MB (CK-2) 4.28 2.81 Troponin I 0.275 0.242 07/05/17 04:04 Creatine Kinase CK-MB (CK-2) Troponin I 0.139 Impressions: Head CT 07/03/17 15:09 IMPRESSION: CHRONIC MICROVASCULAR ISCHEMIA. NO ACUTE IMAGING FINDINGS IN THE BRAIN. EVIDENCE OF ACUTE STROKE: NO. Assessment & Plan - Diagnosis (1) Elevated troponin Is this a current diagnosis for this admission?: Yes Plan: Follow with the cardiology (2) Seizure Is this a current diagnosis for this admission?: Yes Plan: Continues to Keppra thousand milligrams p.o. twice a day (3) Atrial fibrillation, chronic Is this a current diagnosis for this admission?: Yes Plan: Currently rate under control continues to Eliquis (4) Cerebrovascular accident (CVA) Qualifiers: CVA mechanism: unspecified Is this a current diagnosis for this admission?: Yes Plan: Continues to statin and continues to aspirin and Eliquis (5) Hypertension Qualifiers: Hypertension type: essential hypertension Is this a current diagnosis for this admission?: Yes - Time Time Spent with patient: 15-24 minutes Medications reviewed and adjusted accordingly: Yes Anticipated discharge: Home Within: Other - Inpatient Certification Medical Necessity: Need Close Monitoring Due to Risk of Patient Decompensation Post Hospital Care: D/C Nursing Associate Documentation - Plan Summary Plan Summary: Continues to current medications discussed with the cardiology possible required a stress test and according to the patient she had a stress test in [address] Arreguin and the patient's have any dye injections patients feel very funny at that timeDiscussed with the cardiology before the stress test
[2017-07-05 12:31] LABS: FREE T4 (FREE THYROXINE) 1.44 ng/dL (0.78-2.19)
--- NOTE | 2017-07-05 13:00 | CONSULTATION REPORT E ---
Consultation Report NAME: JOSE ESPINAL : 1945 AGE: 71Y DATE: 07/04/2017 403 A TO: KHURRAM GÓMEZ M.D. FROM: CECY CAMARENA M.D. Requesting Physician REASON FOR CONSULTATION: Elevated troponin I. The patient was asymptomatic. HISTORY: The patient is a 71-year-old female with a history of hypertension, seizure disorder, and history of cerebrovascular accident as per history of present illness (patient denies any past history of CVA), hypertension, and hyperlipidemia who had, initially, staring spells and unresponsiveness which is part of her seizure activity. She was brought to the Emergency Room since she had 2 such episodes at home. Her brought her to the Emergency Room where, one the way, in the ambulance, she had tonic-clonic seizures and was given Ativan. She was postictal for a little while and then subsequently was awake, alert and oriented, and denied any chest pain or discomfort either prior to or after the seizures. There was no shortness of breath. There are no palpitations. The patient has a history of chronic atrial fibrillation and is on anticoagulation for that. Of note, her heart rate has been well controlled with the patient not being on any SA or AV antonia blocking agents. There is no leg edema. There are no anginal symptoms. Although the patient's EKG did not show any acute changes, her troponin I was elevated and is now trending down. PAST MEDICAL HISTORY: Positive for history of hypertension, hyperlipidemia, chronic atrial fibrillation with controlled ventricular response. Patient not on any SA or AV antonia blocking agents but the patient is on Eliquis without any bleeding problems. The patient denies any history of CVA but as per medical records, the patient has a past history of CVA. She also, in 2016, was found to have seizures. There is no history of migraines. There is no history of diabetes mellitus. There is a history of hypothyroidism. Patient is on replacement. She also has a history of GERD. She has also a history of arthritis. PAST SURGICAL HISTORY: Positive for , right rotator cuff surgery. SOCIAL HISTORY: She has never smoked. There is no history of ETOH abuse. ADVANCED DIRECTIVE/DISPOSITION: The patient is a FULL CODE. Her is the surrogate healthcare decision maker. FAMILY HISTORY: Positive for hypertension and negative for coronary artery disease. REVIEW OF SYSTEMS: CONSTITUTIONAL: Denies any fevers, chills or rigors. HEAD: Denies headaches or head injury. EYES: No history of amblyopia or diplopia. No history of amaurosis fugax. EARS: No history of hearing loss. No tinnitus. No recurrent ear infections. NOSE: No nosebleeds. No inflammation of nasal mucous membranes. No nasal polyps. No hay fever. MOUTH: No altered taste sensation. No ulcers in the mouth. No bleeding from the gums. THROAT: No dysphagia or odynophagia. No recurrent sore throats. SKIN: No pruritus. No yellowish discoloration of the skin. No eczema. NECK: No swelling in the neck. No neck pain. LUNGS: No history of cough or sputum production. No history of asthma or COPD. No history of sleep apnea. No history of pulmonary embolism. No pleuritic chest pain. No hemoptysis. CARDIAC: History of hypertension. No history of coronary artery disease. Patient denies any history of MT or anginal symptoms. No history of coronary heart disease. No history of rheumatologic heart disease. No history of congestive heart failure. History of chronic atrial fibrillation with controlled ventricular response without any SA or AV antonia blocking agents. No history of syncope. No history of PND, orthopnea, leg edema. Denies any palpitations in spite of her being in atrial fibrillation. MUSCULOSKELETAL: Complains of arthritis but no collagen-vascular disease. RENAL: No history of chronic kidney disease. No history of renal failure. No history of symptoms of UTI. No history of hematuria, pyuria or dysuria. ENDOCRINE: No history of diabetes mellitus. No history of polydipsia, polyuria. No history of heat or cold intolerance. History of hypothyroidism, on replacement. CENTRAL NERVOUS SYSTEM: No history of TIA or CVA, as per the patient. Although the records state that the patient has had a CVA in the past, there is no residual defects. There is no history of headaches or migraines. She has a history of seizures. The patient states she is compliant with her medication. PSYCHIATRIC: No history of anxiety or depression. No history of suicidal ideation. No history of homicidal ideation. VASCULAR: No history of calf or buttocks claudication. No history of DVT. HEMATOLOGICAL: No history of bleeding diathesis. No history of clotting disorders. ALLERGIES: PENICILLIN. MEDICATIONS: 1. Tylenol 650 mg p.o. q. 4 hours p.r.n. 2. Amlodipine 5 mg p.o. daily. 3. Eliquis 5 mg p.o. b.i.d. 4. Aspirin mg p.o. x1. 5. Atorvastatin 40 mg p.o. daily. 6. Prozac 40 mg p.o. daily. 7. Keppra 500 mg p.o. x1 and 1000 mg p.o. q. 12 hours. 8. Levothyroxine 50 mcg p.o. daily. PHYSICAL EXAMINATION: GENERAL: The patient is well built and well nourished, at present in no acute distress. She denies any chest pain or discomfort. There is no shortness of breath. The patient is lying down flat and there is no orthopnea. There is no PND. VITAL SIGNS: She is afebrile with a temperature of 97.7 degrees Fahrenheit. Pulse is 60 beats per minute, irregularly irregular. Blood pressure is 114/55. Respirations are 18 per minute. O2 sats are 99% on 2 L nasal cannula. HEENT: Head is atraumatic and normocephalic. Eyes: Pupils are equal, round, regular, reactive to light and accommodation. Extraocular movements are normal. There is no conjunctival pallor. There is no scleral icterus. Ears: Tympanic membranes are intact. External auditory canals are clear. Nose: There is no deviated nasal septum. There is no inflammation of the nasal mucous membranes. Mouth: Mucous membranes of the mouth are moist. Tongue is moist. There are no ulcers. There is no bleeding from the gums. Throat: There is no redness of the oropharynx. There are no exudates. SKIN: There are no skin lesions. There are no skin rashes. There is no ecchymosis or petechia. NECK: Supple. There is no JVD. Carotids are equal. There is no bruit. There is no goiter. There is no lymphadenopathy. Trachea central. LUNGS: Clear to auscultation and percussion without any rhonchi, rales or wheezing. There is no chest wall tenderness. HEART: S1 and S2 is heard. S1 is of variable intensity. There is no S3 gallop. There is no S4 gallop. There is a systolic murmur in the left sternal border on the apex. There is no rub. ABDOMEN: Soft, nontender. There is no hepatosplenomegaly. Bowel sounds are well heard. There are no tender areas or masses. EXTREMITIES: Femorals are slightly diminished. There are no femoral bruits. Leg pulses are mildly diminished. There is no pedal edema. There is no DVT or cellulitis. There is no cyanosis or clubbing. There is no calf tenderness. CENTRAL NERVOUS SYSTEM: The patient is conscious, awake, alert, and oriented x3 with no focal deficits. PSYCHIATRIC: The patient's judgment and insight are intact. Her affect is normal. DIAGNOSTICS: The patient's head CT shows chronic microvascular ischemic changes but no acute stroke or evidence of any old stroke. The patient's EKG shows atrial fibrillation with a controlled ventricular response, abnormal R wave, most likely secondary to lead placement, borderline T abnormalities secondary to, most likely, atrial fibrillation. There is left axis deviation. The patient's subsequent EKG shows atrial fibrillation, 1 PVC. There is left anterior fascicular block, poor R wave progression, most likely secondary to lead placement. The patient's EKG done this morning again shows atrial fibrillation, left anterior fascicular block, there are T inversions in the anterolateral leads except for leads 1 and AVL, and also T inversion in lead 3 and lead 2, and lead AVF. This seems to be new. The patient's white count is 6700; hemoglobin is 12.1; hematocrit is 35.9; platelet count is 193,000. The patient's are less than 1.0. The patient's urine opiate, methadone, barbiturate, phencyclidine, amphetamine, benzodiazepine, cocaine, and marijuana are all negative. Her serum alcohol is less than 10. Her acetaminophen is less than 10. Her levetiracetam, that is Keppra levels, are pending. IMPRESSION: 1. Elevated troponin I, most likely secondary to seizures but the patient has T inversions this morning and hence, needs to make sure that this is not an acute coronary event, although the patient is asymptomatic. 2. Seizures, most likely because of the patient's elevated troponin I but in view of the EKG, cannot rule out a coronary event. 3. Atrial fibrillation with controlled ventricular response, in spite of the patient not being on any AV antonia blocking agents. 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 4. Hypertension, well controlled. 5. Hypothyroidism. 6. Hyperlipidemia. PLAN: Continue current therapy. We will recheck the patient's EKG and troponin I in the morning and probably we will get an IV Lexiscan Cardiolite stress on Sunday. Discussed with the patient. Discussed with Dr. Camarena, the attending physician. Her medications have been reviewed. Medical decision making is of high complexity. TIME SPENT: The patient was seen at 12:00 noon and 55 minutes spent on the patient with more than 50% of the time spent on direct patient care. Also, old records have been reviewed from prior admissions. We will follow with you. DICTATING PHYSICIAN: KHURRAM GÓMEZ M.D. [id number] PHY#: [id number] ID: [id number] JOB#: [id number] ACCT: [id number] cc:KHURRAM GÓMEZ M.D. >
--- NOTE | 2017-07-05 13:01 | CONSULTATION REPORT E ---
Consultation Report NAME: JOSE ESPINAL : 1945 AGE: 71Y DATE: 07/04/2017 403 A TO: KHURRAM GÓMEZ M.D. FROM: CECY CAMARENA M.D. Requesting Physician ADDENDUM DIAGNOSES: 7. Abnormal EKG. ADDITIONAL LABORATORY DATA: The patient's sodium is 135.2, potassium is 4.1, chloride is 102, CO2 is 26. The patient's BUN is 11, creatinine 0.97. GFR is mildly reduced at 56 mL. Calcium is 8.7, glucose is 101. The patient's troponin I is elevated at 0.515. Earlier, it was 0.254. Went up to 0.484, and then peaked at 0.515, and then came down at 0.275 and 0.242. Her initial CPK was elevated at 379, 362 and 337, but the first 379 CPK had a positive CPK-MB of 4.74. The rest of the CPK-MBs were negative. DICTATING PHYSICIAN: KHURRAM GÓMEZ M.D. [id number] PHY#: [id number] ID: [id number] JOB#: [id number] ACCT: [id number] cc:KHURRAM GÓMEZ M.D. >
--- NOTE | 2017-07-05 17:01 | XCELERA REPORT ---
[address] [address] Transthoracic Echocardiogram Report Name: JOSE ESPINAL Age: 71 yrs Gender: Female : 1945 Patient Status: Inpatient Patient Location: [address] [place] [address] Study Date: 07/05/2017 03:03 PM Procedure: A two-dimensional transthoracic echocardiogram with color flow Doppler was performed. Study Quality: Technically suboptimal. The study was technically difficult with many images being suboptimal in quality. Reason For Study: NSTEMI / A FIB / Murmur History: NSTEMI / A FIB / Murmur. Ordering Physician: JOANN GÓMEZ Performed By: Fabiana Cotton Interpretation Summary The left ventricle is normal in size. There is normal left ventricular wall thickness. LV EF is 65% Left ventricular systolic function is normal. Cannot exclude apical septal hypokinesis.The rest of the LV roblero probably contract normally. The right ventricle is mildly dilated. The right atrium is normal. The left atrium is mildly dilated. There is no evidence of mitral valve prolapse. There is no vegetation seen on the mitral valve. There is no mitral valve stenosis. There is a moderate amount of mitral regurgitation There is no aortic valve stenosis No aortic regurgitation is present. There is no LVOT obstruction. There is no tricuspid stenosis. There is a mild to moderate amount of tricuspid regurgitation There is mild pulmonary hypertension by echo RVSP is 37 mm of Hg , with RA mean of 10. There is no pulmonic valvular stenosis. There is a trace amount of pulmonic regurgitation There is no pericardial effusion. MMode/2D Measurements & Calculations RVDd: 3.5 cm LVIDd: 4.6 cm FS: 31.7 % Ao root diam: 2.9 cm IVSd: 1.1 cm LVIDs: 3.1 cm EDV(Teich): 96.9 ml Ao root area: 6.4 cm2 LVPWd: 0.95 cmESV(Teich): 39.0 ml EF(Teich): 59.8 % LVOT diam: 1.8 cm LVOT area: 2.5 cm2 Doppler Measurements & Calculations Ao V2 max: LV V1 max PG: PA V2 max: TR max arleen: 168.6 cm/sec 3.9 mmHg 68.9 cm/sec 237.6 cm/sec Ao max PG: LV V1 max: PA max PG: TR max P.4 mmHg 98.1 cm/sec 1.9 mmHg 22.8 mmHg ALEX(V,D): 1.5 cm2 Left Ventricle The left ventricle is normal in size. There is normal left ventricular wall thickness. LV EF is 65%. Left ventricular systolic function is normal. LV diastolic function could not be adequately assessed due to atrial fibrilation. Cannot exclude apical septal hypokinesis.The rest of the LV roblero probably contract normally. There is no thrombus. Right Ventricle The right ventricle is mildly dilated. Atria The right atrium is normal. The left atrium is mildly dilated. Mitral Valve There is no evidence of mitral valve prolapse. There is no vegetation seen on the mitral valve. There is no mitral valve stenosis. There is a moderate amount of mitral regurgitation. Aortic Valve There is no aortic valvular vegetation. There is no aortic valve stenosis. There is no LVOT obstruction. No aortic regurgitation is present. Tricuspid Valve There is no tricuspid stenosis. There is a mild to moderate amount of tricuspid regurgitation. There is mild pulmonary hypertension by echo. RVSP is 37 mm of Hg , with RA mean of 10. Pulmonic Valve There is no pulmonic valvular stenosis. There is a trace amount of pulmonic regurgitation. Great Vessels The aortic root is normal size. Effusions There is no pericardial effusion. : JOANN GÓMEZ > Joann Gómez
--- NOTE | 2017-07-05 22:39 | PROGRESS NOTE E ---
Progress Note NAME: JOSE ESPINAL : 1945 AGE: 71Y DATE: 07/05/2017 ROOM: 403 SUBJECTIVE: Note that the patient denies any chest pain or discomfort. There is no PND, orthopnea. There are no palpitations. The patient continues to be in atrial fibrillation. There is no leg edema. There are no clear cut anginal symptoms. There is no chest pain of any kind. There are no TIA or CVA symptoms. OBJECTIVE: GENERAL: On examination the patient is slightly overweight, is well-groomed, in no acute distress. She is lying flat in bed. VITAL SIGNS: She is afebrile with a temperature of 97.4 degrees Fahrenheit, pulse is 64 beats per minute, blood pressure 122/73, her respirations are 18 per minute, O2 sats are 94% on 2 liters nasal cannula. HEENT: Head is atraumatic, normocephalic. Eyes: Pupils are equal, round and regular, reactive to light and accommodation. Extraocular movements are normal. There is no conjunctival pallor. There is no scleral icterus. ENT is negative. SKIN: There are no skin lesions, there are no skin rashes, there is no ecchymosis or petechiae. NECK: Supple. There is no JVD. There is no lymphadenopathy. There is no goiter. Carotids are equal. There is no bruit. Trachea is central. LUNGS: Clear to auscultation and percussion without any rhonchi, rales, or wheezing. There is no chest wall tenderness. HEART: S1 and S2 is heard. S1 is of variable intensity. There is no S3 gallop. There is no S4 gallop. There is a systolic murmur in the left sternal border and the apex. There is no rub. ABDOMEN: Soft, nontender. There is no hepatosplenomegaly. Bowel sounds are well heard. There are no tender areas or masses. EXTREMITIES: Femorals are diminished. There are no femoral bruits. Leg pulses are mildly diminished. There is no pedal edema. There is no cyanosis or clubbing. There is no DVT or cellulitis. There is no calf tenderness. CENTRAL NERVOUS SYSTEM: The patient is conscious, awake, alert and oriented x3 with no focal deficits. PSYCHIATRIC: The patient's judgment and insight are intact. Her affect is normal. DIAGNOSTICS: The patient's EKG shows atrial fibrillation with a controlled ventricular response. There is a T-wave inversion which is significant in leads V1 through V5 and also in the inferior leads. The patient's troponin I has trended down to 0.139. The patient's TSH is slightly elevated at 5.07, free T4 is 1.44, free T3 is 2.87. The patient's sodium is 136.8, potassium 4.1, chloride is 103, CO2 is 26. The patient's BUN is 10, creatinine is 1.04, GFR is reduced at 52 mL and the patient's glucose is 101, calcium is 8.5. The patient's levetiracetam is within normal limits at 34.8, which is therapeutic. Note that the patient has an echocardiogram which technically is abnormal study, cannot excluded apical septal hypokinesis versus AV wall probably contracts normally and LVE fraction normal at 65%. There is no evidence of mitral valve prolapse. There is no mitral valve stenosis. There is moderate amount of mitral regurgitation. There is no aortic valve stenosis. There is no aortic regurgitation. There is mild to moderate amount of tricuspid regurgitation. There is mild pulmonary hypertension. Right ventricular systolic pressure is 37 mmHg with an RA mean of 10. There is no pericardial effusion seen. IMPRESSION: 1. ELEVATED TROPONIN I AND ABNORMAL EKG. Although troponin I can be elevated in people with seizures after a seizure attack, with the EKG suspect highly that the patient has underlying coronary even/coronary artery lesion causing a non-ST elevation HI. 2. NON-ST ELEVATION HI. At present stable, asymptomatic. 3. ABNORMAL EKG. 4. SEIZURES. No recurrence, therapeutic Keppra level. 5. ATRIAL FIBRILLATION, CONTROLLED VENTRICULAR RESPONSE. 6. HYPERTENSION, WELL-CONTROLLED. 7. HYPOTHYROIDISM. 8. HYPERLIPIDEMIA. RECOMMENDATIONS: Discussed the echo with the patient and the patient's and all the current lab results and the patient's clinical course has been discussed with the in detail with the permission of the . Note her medications have been reviewed. Her EKG has been reviewed by myself. We will schedule the patient for an IV Lexiscan Cardiolite stress test since the troponin are trending down. Also echo findings discussed with the patient and the patient's . Note medical decision making is of high complexity. TIME SPENT: Thirty-five minutes spent on the patient with more than 50% of the time spent on direct patient care. We will schedule the patient for IV Lexiscan Cardiolite stress test in the morning. Discussed the procedure with the patient and the , including the benefits and complications. Discussed with Dr. Meredith, the attending physician on the case. DICTATING PHYSICIAN: KHURRAM GÓMEZ M.D. [id number] PHY#: [id number] ID: [id number] JOB#: [id number] ACCT: [id number] cc: >
[2017-07-06] MEDS: LEVOTHYROXINE SODIUM 0.05 MG TABLET PO SCH (05:08)
[2017-07-06 05:53] LABS: ANION GAP 9 (5-19); BLOOD UREA NITROGEN 16 mg/dL (7-20); CALCIUM 8.6 mg/dL (8.4-10.2); CARBON DIOXIDE 27 mmol/L (22-30); CHLORIDE 101 mmol/L (98-107); GLUCOSE 101 mg/dL (75-110); POTASSIUM 4.3 mmol/L (3.6-5.0); SODIUM 136.8 mmol/L (137-145)
--- NOTE | 2017-07-06 08:55 | PDOC PROGRESS REPORT ---
Subjective Progress Note for:: 07/06/17 Subjective:: Patient is currently doing well Patient's denied any chest pain denied any shortness of the breath No seizures activity Patient is scheduled for the stress test per cardiology today Reason For Visit: ELEVATED TROPONIN Physical Exam Vital Signs: Temp Pulse Resp BP Pulse Ox 98.6 F 76 18 120/69 100 07/05/17 15:44 07/06/17 07:00 07/05/17 15:44 07/05/17 15:44 07/05/17 15:44 Intake & Output 07/05/17 07/06/17 07/07/17 06:59 06:59 06:59 Intake Total 1105 860 Balance 1105 860 Weight 77.1 kg 77.1 kg General appearance: PRESENT: no acute distress, well-developed, well-nourished Head exam: PRESENT: atraumatic, normocephalic Eye exam: PRESENT: conjunctiva pink, EOMI, PERRLA. ABSENT: scleral icterus Ear exam: PRESENT: normal external ear exam Mouth exam: PRESENT: moist, tongue midline Neck exam: PRESENT: full ROM. ABSENT: carotid bruit, JVD, lymphadenopathy, thyromegaly Respiratory exam: PRESENT: clear to auscultation jordin Cardiovascular exam: PRESENT: RRR. ABSENT: diastolic murmur, rubs, systolic murmur Pulses: PRESENT: normal dorsalis pedis pul, +2 pedal pulses bilateral Vascular exam: PRESENT: normal capillary refill GI/Abdominal exam: PRESENT: normal bowel sounds, soft. ABSENT: distended, guarding, mass, organolmegaly, rebound, tenderness Rectal exam: PRESENT: deferred Extremities exam: ABSENT: pedal edema Musculoskeletal exam: PRESENT: ambulatory Neurological exam: PRESENT: alert, awake, oriented to person, oriented to place , oriented to time, oriented to situation, CN II-XII grossly intact. ABSENT: motor sensory deficit Psychiatric exam: PRESENT: appropriate affect, normal mood. ABSENT: homicidal ideation, suicidal ideation Skin exam: PRESENT: dry, intact, warm. ABSENT: cyanosis, rash Results Laboratory Results: 07/04/17 04:23 07/06/17 05:05 07/05/17 07/06/17 04:04 05:05 Sodium 136.8 L Potassium 4.3 Chloride 101 Carbon Dioxide 27 Anion Gap 9 BUN 16 Creatinine 0.97 Est GFR ( Amer) > 60 Est GFR (Non-Af Amer) 56 L Glucose 101 Calcium 8.6 Free T4 1.44 07/04/17 07/04/17 07/04/17 03:24 03:24 09:19 Creatine Kinase 379 H 362 H CK-MB (CK-2) 4.74 H Troponin I 0.515 07/04/17 07/04/17 07/04/17 09:19 15:30 15:30 Creatine Kinase 337 H CK-MB (CK-2) 4.28 2.81 Troponin I 0.275 0.242 07/05/17 07/05/17 07/06/17 04:04 17:30 05:05 Creatine Kinase CK-MB (CK-2) Troponin I 0.139 0.077 0.053 Impressions: Head CT 07/03/17 15:09 IMPRESSION: CHRONIC MICROVASCULAR ISCHEMIA. NO ACUTE IMAGING FINDINGS IN THE BRAIN. EVIDENCE OF ACUTE STROKE: NO. Assessment & Plan - Diagnosis (1) Elevated troponin Is this a current diagnosis for this admission?: Yes Plan: Scheduled for the stress test today otherwise patient is completely asymptomatic (2) Seizure Is this a current diagnosis for this admission?: Yes Plan: Currently all stable (3) Atrial fibrillation, chronic Is this a current diagnosis for this admission?: Yes Plan: Currently rate under control continues to Eliquis (4) Cerebrovascular accident (CVA) Qualifiers: CVA mechanism: unspecified Is this a current diagnosis for this admission?: Yes Plan: Continues to statin and continues to aspirin and Eliquis (5) Hypertension Qualifiers: Hypertension type: essential hypertension Is this a current diagnosis for this admission?: Yes Plan: Currently all stable - Time Time Spent with patient: 15-24 minutes Medications reviewed and adjusted accordingly: Yes Anticipated discharge: Home Within: within 24 hours - Inpatient Certification Medical Necessity: Need Close Monitoring Due to Risk of Patient Decompensation Post Hospital Care: D/C Picker/Puller Documentation - Plan Summary Plan Summary: Continues to current medications if the stress test negative and cardiology is clear patient's discharge home today
[2017-07-06] MEDS ORDERED: REGADENOSON INJ 0.4 MG/5 ML DISP.SYRIN IV ONE (11:55)
[2017-07-06] MEDS: LEVETIRACETAM 500 MG TABLET PO SCH ×2 (12:25→21:34)
[2017-07-06] MEDS: AMLODIPINE BESYLATE 5 MG TABLET PO SCH (12:26)
[2017-07-06] MEDS: FLUOXETINE HCL 20 MG CAPSULE PO SCH (12:26)
[2017-07-06] MEDS: ATORVASTATIN CALCIUM 40 MG TABLET PO SCH (12:26)
[2017-07-06] MEDS: APIXABAN 5 MG TABLET PO SCH ×2 (12:28→18:00)
--- NOTE | 2017-07-06 19:34 | DRAGON STRESS TEST REPORT ---
Intravenous Lexiscan Cardiolite stress test using single photon emmision computerized tomography. Date of procedure: 07/06/2017. Ordering Provider: Dr. Joann Love. Patient's Status: In Patient. Attending Physician: Dr. Fox Meredith Indication: Non-ST elevation CA, with elevated troponin I and abnormal EKG.. Coronary risk factors: Age, hypertension, and dyslipidemia. Resting EKG: Atrial fibrillation. Anterior T-wave inversion consistent with ischemia Stress EKG: No changes of ischemia. The patient no chest pain or discomfort no ventricular arrhythmias seen. There were no high-grade AV blocks. Reason for termination: Protocol. Conclusions: Normal EKG and hemodynamic response to IV Lexiscan. Nuclear data: At rest the patient was given 11.03 millicuries of technetium 99m sestamibi injected intravenously. As per protocol rest non gated SPECT images were obtained. Subsequently the patient was given intravenous Lexiscan at a dose of 0.4 mg in 5 mL intravenously, followed by flush with normal saline. Subsequently the stress dose of 35.1 millicuries of technetium 99m sestamibi was injected intravenously. As per protocol stress gated images were obtained. Nuclear interpretation: Review of images showed that there was a perfusion defect and a small area in the apical septum in both the rest and stress images. This small area had decreased motion contraction and thickening the gated study. The rest of the segments of the myocardium had normal perfusion at rest, and normal perfusion post stress with IV Lexiscan. The rest of the segments of the myocardium had normal motion, contraction, and thickening by gated study. T. I D. ratio was normal at 1.05. Computer read rest, and stress left ventricular ejection fraction were 56 %, and 55 %, respectively. Visually both the stress and rest ejection fractions were normal, and greater than 55%. Conclusion: 1. There is no scintigraphic evidence of Lexiscan induced myocardial ischemia. .. 2. There is scintigraphic evidence of myocardial infarction/scar involving a small area of the apical interventricular septum. Recommendations: 1. Aggressive treatment of coronary artery disease, and aggressive risk factor modification, and treating the underlying co- morbidities. 2. Add IMDUR. MTDD
--- NOTE | 2017-07-06 21:29 | PROGRESS NOTE E ---
Progress Note NAME: JOSE ESPINAL : 1945 AGE: 71Y DATE: 07/06/2017 ROOM: 403 SUBJECTIVE: The patient had an uneventful stress test earlier this morning. She denies any chest pain or discomfort. There is no PND or orthopnea. There are no anginal symptoms. The patient's heart rate is controlled atrial fibrillation at a rate of 63 beats per minute. She is not on any AV antonia blocking agents. The patient denies any dizziness, syncope or near-syncope. There is no bleeding on Eliquis. OBJECTIVE: GENERAL: The patient is slightly overweight. She is well-groomed, in no acute distress. VITAL SIGNS: She is afebrile, and her pulse is 63 beats per minute. Blood pressure 135/70. Respirations are 18 per minute. O2 sats are 99% on room air. HEENT: Head is atraumatic, normocephalic. Eyes: Pupils are equal, round, regular, reactive to light and accommodation. Extraocular movements are normal. There is no conjunctival pallor. There is no scleral icterus. ENT is negative. SKIN: There are no skin lesions. There are no skin rashes. There is no ecchymosis or petechiae. NECK: Supple. There is no JVD. There is no lymphadenopathy. There is no goiter. Carotids are equal. There is no bruit. Trachea is central. LUNGS: Clear to auscultation and percussion, without any rhonchi, rales or wheezing. CHEST: There is no chest wall tenderness. HEART: S1, S2 heard. S1 is of variable intensity. There is no S3 gallop. There is no S4 gallop. There is a systolic murmur at the left sternal border at the apex. There is no rub. ABDOMEN: Soft, nontender. There is no hepatosplenomegaly. Bowel sounds are well-heard. There is no tenderness or masses. EXTREMITIES: Femorals are diminished. There are no femoral bruits. Leg pulses mildly diminished. There is no pedal edema. There is no cyanosis or clubbing. There is no DVT or cellulitis. There is no calf tenderness. 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 PSYCHIATRIC: Patient's judgment and insight are intact. Her affect is normal. DIAGNOSTICS: The patient underwent a Cardiolite stress test, which shows that there is no scintigraphic evidence of Lexiscan-induced myocardial ischemia. There is scintigraphic evidence of myocardial infarction/scar involving a small area of the apical interventricular septum. Note, sodium is 136.8, potassium 4.3, chloride is 101, CO2 is 27. The patient's BUN is 16, creatinine is 0.97. GFR is reduced to 56 mL, which is stage 3A chronic kidney disease. Glucose is 101. Calcium is 6.6. Troponin I has come further down to 0.053. IMPRESSION: 1. NON-ST ELEVATION OH. Patient had probably a small myocardial infarction involving apical interventricular septum, as per stress test findings. *------* 2. ABNORMAL EKG. 3. ATRIAL FIBRILLATION WITH CONTROLLED VENTRICULAR RESPONSE. 4. SEIZURES. 5. HYPERTENSION, BETTER CONTROLLED. 6. HYPOTHYROIDISM, ON REPLACEMENT. 7. HYPERLIPIDEMIA. RECOMMENDATIONS: Since the patient is asymptomatic at present, would recommend adding Imdur 30 mg p.o. daily. Continue Eliquis. Continue Norvasc. Will recommend that the patient can be discharged. The patient and the want the patient to follow up with me. I have given them my cell phone number, and when they go, will have the office call them to fix an appointment as an outpatient. I have discussed with them my recommendations that the patient should undergo a 30-day event monitor to see why she is bradycardic, to see if she has tachy-dawna syndrome, or if she has chronotropic incompetence when she is exerting herself with her daily activities, if the heart rate goes up or not. Also would recommend the patient, as an outpatient, have a PIEDAD to make sure that there is no left atrial clot, since this non-ST elevation OH could be embolic in origin, due to the patient's atrial fibrillation, in which case, the patient's Eliquis needs to be switched to Coumadin. I will discuss this at length with the patient and with the attending physician, Dr. Fox Meredith. Will sign off and have the patient follow up with me in the office. Note, medical decision-making is of high complexity. Note, the medication was reviewed and adjusted, and medications added. As mentioned earlier, the patient is a FULL CODE. Her is her surrogate healthcare decision-maker. Will follow with you. Thank you. DICTATING PHYSICIAN: KHURRAM GÓMEZ M.D. [id number] FRITZ#: [id number] ID: [id number] JOB#: [id number] ACCT: [id number] cc: >
[2017-07-07] MEDS: LEVOTHYROXINE SODIUM 0.05 MG TABLET PO SCH (05:34)
[2017-07-07] MEDS: AMLODIPINE BESYLATE 5 MG TABLET PO SCH (08:59)
[2017-07-07] MEDS: ISOSORBIDE MONONITRATE 30 MG TAB.ER.24H PO SCH (09:00)
[2017-07-07] MEDS: FLUOXETINE HCL 20 MG CAPSULE PO SCH (09:00)
[2017-07-07] MEDS: LEVETIRACETAM 500 MG TABLET PO SCH ×2 (09:00→22:07)
[2017-07-07] MEDS: ATORVASTATIN CALCIUM 40 MG TABLET PO SCH (09:00)
[2017-07-07] MEDS: APIXABAN 5 MG TABLET PO SCH ×2 (09:01→16:42)
--- NOTE | 2017-07-07 11:18 | PDOC PROGRESS REPORT ---
Subjective Progress Note for:: 07/07/17 Subjective:: Patient is currently doing fair Had a Cardiolite stress test done on according to the Dr. Love was all stable and patient's discharge and follow as outpatients Is complaining of a headache and dizziness this morning especially patients describe some room is spinning Is denied any eye problem Reason For Visit: ELEVATED TROPONIN Physical Exam Vital Signs: Temp Pulse Resp BP Pulse Ox 98.7 F 130 H 18 135/63 H 97 07/07/17 07:12 07/07/17 07:12 07/07/17 07:12 07/07/17 07:12 07/07/17 07:12 Intake & Output 07/06/17 07/07/17 07/08/17 06:59 06:59 06:59 Intake Total 860 815 Balance 860 815 Weight 77.1 kg 77.1 kg General appearance: PRESENT: no acute distress, well-developed, well-nourished Head exam: PRESENT: atraumatic, normocephalic Eye exam: PRESENT: conjunctiva pink, EOMI, PERRLA. ABSENT: scleral icterus Ear exam: PRESENT: normal external ear exam Mouth exam: PRESENT: moist, tongue midline Neck exam: PRESENT: full ROM. ABSENT: carotid bruit, JVD, lymphadenopathy, thyromegaly Respiratory exam: PRESENT: clear to auscultation jordin Cardiovascular exam: PRESENT: RRR. ABSENT: diastolic murmur, rubs, systolic murmur Pulses: PRESENT: normal dorsalis pedis pul, +2 pedal pulses bilateral Vascular exam: PRESENT: normal capillary refill GI/Abdominal exam: PRESENT: normal bowel sounds, soft. ABSENT: distended, guarding, mass, organolmegaly, rebound, tenderness Rectal exam: PRESENT: deferred Extremities exam: PRESENT: pedal edema Musculoskeletal exam: PRESENT: ambulatory Neurological exam: PRESENT: alert, awake, oriented to person, oriented to place , oriented to time, oriented to situation, CN II-XII grossly intact. ABSENT: motor sensory deficit Psychiatric exam: PRESENT: appropriate affect, normal mood. ABSENT: homicidal ideation, suicidal ideation Skin exam: PRESENT: dry, intact, warm. ABSENT: cyanosis, rash Results Laboratory Results: 07/04/17 04:23 07/06/17 05:05 07/04/17 07/04/17 07/04/17 03:24 03:24 09:19 Creatine Kinase 379 H 362 H CK-MB (CK-2) 4.74 H Troponin I 0.515 07/04/17 07/04/17 07/04/17 09:19 15:30 15:30 Creatine Kinase 337 H CK-MB (CK-2) 4.28 2.81 Troponin I 0.275 0.242 07/05/17 07/05/17 07/06/17 04:04 17:30 05:05 Creatine Kinase CK-MB (CK-2) Troponin I 0.139 0.077 0.053 Impressions: Head CT 07/03/17 15:09 IMPRESSION: CHRONIC MICROVASCULAR ISCHEMIA. NO ACUTE IMAGING FINDINGS IN THE BRAIN. EVIDENCE OF ACUTE STROKE: NO. Assessment & Plan - Diagnosis (1) Elevated troponin Is this a current diagnosis for this admission?: Yes Plan: Patient have a non-ST NC for the cardiology currently on medical management (2) Seizure Is this a current diagnosis for this admission?: Yes Plan: Currently all stable (3) Atrial fibrillation, chronic Is this a current diagnosis for this admission?: Yes Plan: Currently rate under control continues to Eliquis (4) Cerebrovascular accident (CVA) Qualifiers: CVA mechanism: unspecified Is this a current diagnosis for this admission?: Yes Plan: Continues to statin and continues to aspirin and Eliquis (5) Hypertension Qualifiers: Hypertension type: essential hypertension Is this a current diagnosis for this admission?: Yes Plan: Currently all stable (6) Non-ST elevation NC (NSTEMI) Is this a current diagnosis for this admission?: Yes Plan: Per medical management cardiology (7) Dizziness Is this a current diagnosis for this admission?: Yes Plan: The MRI of the head Stable vertigo - Time Time Spent with patient: 15-24 minutes Medications reviewed and adjusted accordingly: Yes Anticipated discharge: Home Within: within 24 hours - Inpatient Certification Medical Necessity: Need Close Monitoring Due to Risk of Patient Decompensation Post Hospital Care: D/C Business Ethics Professor Documentation - Plan Summary Plan Summary: Will get the MRI of the head
--- NOTE | 2017-07-07 15:28 | RADIOLOGY REPORT (SQ) ---
EXAM DESCRIPTION: MRA HEAD WITHOUT COMPLETED DATE/TIME: 07/07/2017 3:20 pm REASON FOR STUDY: dizziness/headche COMPARISON: None. TECHNIQUE: Axial 3-D [id number]-[id number] acquisition imaging performed through the brain in the area of t he [place] of [place]. Images reformatted using 3-D MIPS. LIMITATIONS: None. FINDINGS: SOURCE IMAGES: No unexpected findings on source images. No large masses. 3-D MIP: No aneurysm. No occlusions. No significant stenosis. OTHER: No other significant finding. IMPRESSION: NORMAL MRA OF THE [place]. TECHNICAL DOCUMENTATION: JOB ID: [id number] [employer]- All Rights Reserved Reading location - IP/workstation name: [email or web address]
--- NOTE | 2017-07-07 15:31 | RADIOLOGY REPORT (SQ) ---
EXAM DESCRIPTION: MRI HEAD WITHOUT COMPLETED DATE/TIME: 07/07/2017 3:20 pm REASON FOR STUDY: dizziness/headache COMPARISON: 12/04/2016 TECHNIQUE: Multiplanar imaging includes non-contrasted T1, T2, FLAIR, and diffusion with ADC map seq uences. Images stored on PACS. LIMITATIONS: None. FINDINGS: ANATOMY: No anomalies. Normal vascular flow voids. Pituitary fossa normal. CSF SPACES: Atrophy induced prominence of ventricles and CSF spaces. CEREBRUM: High signal intensity lesions scattered throughout the white matter on FLAIR imaging with d istribution suggesting micro-vascular ischemic changes. Stable areas of chronic infarction involving the bilateral occipital lobes. No evidence of hemorrhage, mass, or extraaxial fluid collection. POSTERIOR FOSSA: No signal alteration. No hemorrhage. No edema, masses or mass effect. Internal marylou tory canals, cerebello-pontine angles, mastoids normal. DIFFUSION IMAGING: Negative for acute or sub-acute infarction. ORBITS: No masses. Globes normal. PARANASAL SINUSES: No fluid levels. Mucosa normal. OTHER: No other significant finding. IMPRESSION: NO ACUTE ISCHEMIA, HEMORRHAGE, OR MASS LESION. NO SIGNIFICANT CHANGE FROM PRIOR STUDY. EVIDENCE OF ACUTE STROKE: NO. TECHNICAL DOCUMENTATION: JOB ID: [id number] [employer]- All Rights Reserved Reading location - IP/workstation name: [email or web address]
[2017-07-08] MEDS: LEVOTHYROXINE SODIUM 0.05 MG TABLET PO SCH (06:07)
[2017-07-08] MEDS: LEVETIRACETAM 500 MG TABLET PO SCH (09:54)
[2017-07-08] MEDS: ISOSORBIDE MONONITRATE 30 MG TAB.ER.24H PO SCH (09:55)
[2017-07-08] MEDS: ATORVASTATIN CALCIUM 40 MG TABLET PO SCH (09:55)
[2017-07-08] MEDS: AMLODIPINE BESYLATE 5 MG TABLET PO SCH (09:55)
[2017-07-08] MEDS: FLUOXETINE HCL 20 MG CAPSULE PO SCH (09:55)
[2017-07-08] MEDS: APIXABAN 5 MG TABLET PO SCH (09:57)
--- NOTE | 2017-07-08 11:11 | PDOC DISCHARGE SUMMARY ---
General - Admit/Disc Date/PCP Admission Date/Primary Care Provider: 07/03/17 23:26 Discharge Date: 07/08/17 - Discharge Diagnosis (1) Elevated troponin Is this a current diagnosis for this admission?: Yes Summary: Primary patient of a non-ST SC per cardiology and a stress test was all stable (2) Seizure Is this a current diagnosis for this admission?: Yes Summary: on Keppra (3) Atrial fibrillation, chronic Is this a current diagnosis for this admission?: Yes Summary: Continues to Eliquis 5 mg p.o. twice a day Very extensive discussed with the patient about the fall precautions and potential side effect with the Eliquis including the fall bleeding with the seizures complications patient understand very well (4) Cerebrovascular accident (CVA) Is this a current diagnosis for this admission?: Yes Summary: Continues current medication (5) Hypertension Is this a current diagnosis for this admission?: Yes Summary: Currently all stable (6) Non-ST elevation SC (NSTEMI) Is this a current diagnosis for this admission?: Yes Summary: Follow with the cardiology as outpatient and patients need a events monitor per cardiology (7) Dizziness Is this a current diagnosis for this admission?: Yes Summary: all resolved - Additional Information Resuscitation Status: Full Code Discharge Diet: Cardiac Discharge Activity: Activity As Tolerated Prescriptions: Apixaban [Eliquis 5 mg Tablet] 5 mg PO BID #60 tablet Isosorbide Mononitrate [Imdur 30 mg Tablet.er] 30 mg PO DAILY #30 tab.er.24h Home Medications: Amlodipine Besylate [Norvasc 5 mg Tablet] 5 mg PO DAILY 12/04/16 Aspirin [Ecotrin 81 mg EC Tablet] 81 mg PO DAILY 12/04/16 Atorvastatin Calcium [Lipitor 40 mg Tablet] 40 mg PO DAILY 12/04/16 Levothyroxine Sodium [Synthroid 0.05 mg Tablet] 50 mcg PO DAILY 12/04/16 Cyclobenzaprine HCl [Flexeril 5 mg Tablet] 5 mg PO DAILYP PRN 07/04/17 Levetiracetam [Keppra] 1,000 mg PO BID 07/04/17 Omeprazole 20 mg PO DAILY 07/04/17 Apixaban [Eliquis 5 mg Tablet] 5 mg PO BID #60 tablet 07/08/17 Isosorbide Mononitrate [Imdur 30 mg Tablet.er] 30 mg PO DAILY #30 tab.er.24h 04/22 History of Present Illness History of Present Illness: JOSE ESPINAL is a 71 year old female This is a 71-year-old female with the known history of the seizures history of a cerebrovascular accident history of the hypertension's history of the chronic A. maritza came to the emergency department with the complaining of her seizures activity according to the patient and the call the EMS patient have a tonic-clonic seizures and giving her 1 mg of Ativan and pretty much resolved all the systems activity In the emergency department patients all workup is negative but patient had a cardiac enzyme was done was initially 0.048 in the ER physicians call the Dr. Love and repeat the cardiac enzymes trending up but patient is completely asymptomatic and EKG is no change in the ER physicians call me after repeat the several cardiac enzymes suggest to admit the patient's saw boss in the hospital for further evaluations When I saw the patient in the floor patients denied any chest pain denied any shortness of breath She never no seizures activity while in the hospitals Patient's denied any weakness denied any headache Hospital Course Hospital Course: This is a 71-year-old female present in the emergency department with the scissors activities in the form the patient's troponins was elevated and some EKG changes and patient admitting in the hospital and cardiology was consulted Patient underwent for the echocardiogram and a stress test was all stable according to the cardiology patient does not need any cardiac cath Patient's otherwise MRI and MRA of the head is all negative His p.o. intake is good Is walking the hallway without any problem Discussed with the hospitalist regarding the patient's current conditions myself and the Dr. Love Physical Exam Vital Signs: Temp Pulse Resp BP Pulse Ox 98.0 F 50 L 15 113/75 99 07/08/17 03:48 07/08/17 07:00 07/08/17 03:48 07/08/17 03:48 07/08/17 03:48 Intake & Output 07/07/17 07/08/17 07/09/17 06:59 06:59 06:59 Intake Total 815 800 Output Total 500 Balance 815 300 Weight 77.1 kg 80.9 kg General appearance: PRESENT: no acute distress, well-developed, well-nourished Head exam: PRESENT: atraumatic, normocephalic Eye exam: PRESENT: conjunctiva pink, EOMI, PERRLA. ABSENT: scleral icterus Ear exam: PRESENT: normal external ear exam Mouth exam: PRESENT: moist, tongue midline Neck exam: PRESENT: full ROM. ABSENT: carotid bruit, JVD, lymphadenopathy, thyromegaly Respiratory exam: PRESENT: clear to auscultation jordin Cardiovascular exam: PRESENT: RRR. ABSENT: diastolic murmur, rubs, systolic murmur Pulses: PRESENT: normal dorsalis pedis pul, +2 pedal pulses bilateral Vascular exam: PRESENT: normal capillary refill GI/Abdominal exam: PRESENT: normal bowel sounds, soft. ABSENT: distended, guarding, mass, organolmegaly, rebound, tenderness Rectal exam: PRESENT: deferred Extremities exam: ABSENT: pedal edema Musculoskeletal exam: PRESENT: ambulatory Neurological exam: PRESENT: alert, awake, oriented to person, oriented to place , oriented to time, oriented to situation, CN II-XII grossly intact. ABSENT: motor sensory deficit Psychiatric exam: PRESENT: appropriate affect, normal mood. ABSENT: homicidal ideation, suicidal ideation Skin exam: PRESENT: dry, intact, warm. ABSENT: cyanosis, rash Results Laboratory Results: 07/04/17 04:23 07/06/17 05:05 07/04/17 07/04/17 07/04/17 03:24 03:24 09:19 Creatine Kinase 379 H 362 H CK-MB (CK-2) 4.74 H Troponin I 0.515 07/04/17 07/04/17 07/04/17 09:19 15:30 15:30 Creatine Kinase 337 H CK-MB (CK-2) 4.28 2.81 Troponin I 0.275 0.242 07/05/17 07/05/17 07/06/17 04:04 17:30 05:05 Creatine Kinase CK-MB (CK-2) Troponin I 0.139 0.077 0.053 Impressions: Head CT 07/03/17 15:09 IMPRESSION: CHRONIC MICROVASCULAR ISCHEMIA. NO ACUTE IMAGING FINDINGS IN THE BRAIN. EVIDENCE OF ACUTE STROKE: NO. Brain MRI with MRA 07/07/17 00:00 IMPRESSION: NORMAL MRA OF THE [place]. Head MRI 07/07/17 00:00 IMPRESSION: NO ACUTE ISCHEMIA, HEMORRHAGE, OR MASS LESION. NO SIGNIFICANT CHANGE FROM PRIOR STUDY. EVIDENCE OF ACUTE STROKE: NO. Qualifiers - * PATIENT BEING DISCHARGED WITH ANY OF THE FOLLOWING DIAGNOSIS: No VTE patient discharged on overlapping Therapy?: Yes Plan Time Spent: Greater than 30 Minutes - Patients follow outpatients cardiology and is going to put some events monitor Following office in 1 week
[2017-07-08 12:08] VITALS: BP 132/69
== END 2017-07-08 13:38 | disposition home or self-care (01) | DRG 282 ==
LOC: ER 15:02 → OBSVTOIN 23:26 → EH 23:26 → 4N 07-04 02:30
PROVIDERS: ADMIT Family Medicine; ATTEND Family Medicine
DX: I21.4 Non-ST elevation (NSTEMI) myocardial infarction (principal); G40.409 Other generalized epilepsy and epileptic syndromes, not intractable, without status epilepticus; I48.2 Chronic atrial fibrillation; I10 Essential (primary) hypertension; E78.00 Pure hypercholesterolemia, unspecified; K21.9 Gastro-esophageal reflux disease without esophagitis; M19.90 Unspecified osteoarthritis, unspecified site; E03.9 Hypothyroidism, unspecified; I49.3 Ventricular premature depolarization; I44.4 Left anterior fascicular block; F32.9 Major depressive disorder, single episode, unspecified; I25.2 Old myocardial infarction; Z90.49 Acquired absence of other specified parts of digestive tract; Z88.0 Allergy status to penicillin; Z79.82 Long term (current) use of aspirin; Z79.01 Long term (current) use of anticoagulants; Z79.899 Other long term (current) drug therapy; Z86.73 Personal history of transient ischemic attack (TIA), and cerebral infarction without residual deficits; Z90.710 Acquired absence of both cervix and uterus; Z82.49 Family history of ischemic heart disease and other diseases of the circulatory system
CPT/HCPCS: 36415; 70450; 70544; 70551; 78452; 80048; 80053; 80177; 80307; 81001; 82550; 82553; 83735; 84100; 84439; 84443; 84481; 84484; 85025; 93005; 93010; 93017; 93306; 99285; A9500; J2785; Q9969

== ENCOUNTER 2017-07-31 11:48 | Emergency (ER) | payer MEDICARE, MEDICAID ==
[2017-07-31 12:15] LABS: ABSOLUTE BASOPHILS # (AUTO) 0.1 10^3/uL (0.0-0.2); ABSOLUTE EOSINOPHILS # (AUTO) 0.1 10^3/uL (0.0-0.6); ABSOLUTE LYMPHOCYTES (AUTO) 2.8 10^3/uL (0.5-4.7); ABSOLUTE MONOCYTES (AUTO) 0.6 10^3/uL (0.1-1.4); ABSOLUTE NEUT (AUTO) 4.3 10^3/uL (1.7-8.2); BASOPHILS % (AUTO) 0.9 % (0-2); EOSINOPHILS % (AUTO) 1.8 % (0-6); HEMATOCRIT 38.1 % (36.0-47.0); LYMPHOCYTES % (AUTO) 35.6 % (13-45); MEAN CORPUSCULAR HEMOGLOBIN 32.7 pg (27.0-33.4); MEAN CORPUSCULAR VOLUME 96 fl (80-97); MONOCYTES % (AUTO) 7.4 % (3-13); PLATELET COUNT 227 10^3/uL (150-450); RED BLOOD COUNT 3.96 10^6/uL (3.72-5.28); RED CELL DISTRIBUTION WIDTH 12.9 % (11.5-14.0); SEGMENTED NEUTROPHILS % (AUTO) 54.3 % (42-78); TOTAL CELLS COUNTED % (AUTO) 100 %
[2017-07-31 12:17] LABS: INTERNATIONAL RATION (INR) 1.31; PROTHROMBIN TIME 16.9 SEC (11.4-15.4)
[2017-07-31 12:18] LABS: PARTIAL THROMBOPLASTIN TIME 36.4 SEC (23.5-35.8)
--- NOTE | 2017-07-31 12:27 | RADIOLOGY REPORT (SQ) ---
EXAM DESCRIPTION: CT HEAD WITHOUT COMPLETED DATE/TIME: 07/31/2017 12:06 pm REASON FOR STUDY: bed 9 stroke alert COMPARISON: 07/03/2017 TECHNIQUE: Axial images acquired through the brain without intravenous contrast. Images reviewed wi th bone, brain and subdural windows. Additional sagittal and coronal reconstructions were generated. Images stored on PACS. All CT scanners at this facility use dose modulation, iterative reconstruction, and/or weight based d osing when appropriate to reduce radiation dose to as low as reasonably achievable (ALARA). [facility]: Dose Right [facility]: CareDose [facility]: Dose Right [facility]: Teradose 4D [facility]: [employer] RADIATION DOSE: CT Rad equipment meets quality standard of care and radiation dose reduction techniq ues were employed. CTDIvol: 53.2 mGy. DLP: 991 mGy-cm. mGy. LIMITATIONS: None. FINDINGS: VENTRICLES: Prominent. CEREBRUM: No masses. No hemorrhage. No midline shift. Areas of low density in the white matter mos t likely due to chronic micro-vascular ischemic change. An area of of prior infarction is again iden tified in the left parietal region. A small focal area of prior infarction is identified in the righ t occipital region. No evidence for acute infarction. CEREBELLUM: No masses. No hemorrhage. No alteration of density. No evidence for acute infarction. EXTRAAXIAL SPACES: Mild age-related involutional change. No fluid collections. No masses. ORBITS AND GLOBE: No intra- or extraconal masses. Normal contour of globe without masses. CALVARIUM: No fracture. PARANASAL SINUSES: No fluid or mucosal thickening. SOFT TISSUES: No mass or hematoma. OTHER: No other significant finding. IMPRESSION: MILD CHRONIC CHANGES OF ATROPHY AND MICROVASCULAR ISCHEMIA. 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 NO ACUTE PROCESS. EVIDENCE OF ACUTE STROKE: NO. COMMENT: Pertinent positive or negative findings of the imaging study reported as a CRITICAL EXAM t o ER PROVIDER at12:12 on 07/31/2017. Category of Critical Exam: Stroke alert TECHNICAL DOCUMENTATION: JOB ID: [id number] Quality ID # [id number]: Final reports with documentation of one or more dose reduction techniques (e.g., Au tomated exposure control, adjustment of the mA and/or kV according to patient size, use of iterative reconstruction technique) 2010 [employer]- All Rights Reserved Reading location - IP/workstation name: [email or web address]
[2017-07-31] MEDS ORDERED: LORAZEPAM INJ 2 MG/1 ML VIAL ONE (12:33)
[2017-07-31 12:43] LABS: ALANINE AMINOTRANSFERASE 33 U/L (9-52); ALBUMIN 4.4 g/dL (3.5-5.0); ALKALINE PHOSPHATASE 157 U/L (38-126); ANION GAP 15 (5-19); ASPARTATE AMINO TRANSFERASE 48 U/L (14-36); BILIRUBIN,DIRECT 0.4 mg/dL (0.0-0.4); BILIRUBIN,TOTAL 1.3 mg/dL (0.2-1.3); BLOOD UREA NITROGEN 10 mg/dL (7-20); CALCIUM 9.3 mg/dL (8.4-10.2); CARBON DIOXIDE 23 mmol/L (22-30); CHLORIDE 103 mmol/L (98-107); CREATINE KINASE 215 U/L (30-135); GLUCOSE 96 mg/dL (75-110); SODIUM 141.2 mmol/L (137-145); TOTAL PROTEIN 7.8 g/dL (6.3-8.2)
[2017-07-31] MEDS ORDERED: NORMAL SALINE 1000 ML 1,000 ML IV PRN (12:43)
[2017-07-31] MEDS ORDERED: LEVETIRACETAM 1000 MG/NACL-ISO 1,000 MG/100 ML RTUPB IV SCH ×2 (12:45→22:00)
--- NOTE | 2017-07-31 12:45 | ER Document Report ---
ED General - General Chief Complaint: Altered Mental Status Stated Complaint: ALTERED MENTAL STATUS Time Seen by Provider: 07/31/17 12:37 Mode of Arrival: Stretcher Information source: Emergency Med Personnel Cannot obtain history due to: Altered mental status Notes: Chief complaint: Altered mentation History of complain:( obtained from----patient) 71 years old female with a history of CVA, seizure, this morning noticed she was staring at the distance and would not talk to him. Therefore called the EMS and EMS brought him to the ED. When I walked him to interview she was having focal seizure involving the left side of the face neck and part of the upper limb. It lasted for about a minute or 2. During that time Ativan 1 mg IV was given. She is in postictal state and could not get any history from her. Onset: Sudden Duration: Just prior to arrival Severity: Moderate/ Quality: Mild to moderate Context: Seizure with CVA Exacerbating factor and relieving factors: Unknown REVIEW OF SYSTEMS: Unable to obtain due to her mental status. PHYSICAL EXAMINATION: GENERAL: In postictal confusion HEAD: Atraumatic, normocephalic. EYES: Pupils equal round and reactive to light, normal conjunctiva ENT: Nares patent, oropharynx clear without exudates. Moist mucous membranes. NECK: Normal range of motion, supple without lymphadenopathy LUNGS: Breath sounds clear to auscultation bilaterally and equal. No wheezes rales or rhonchi. HEART: Regular rate and rhythm without murmurs ABDOMEN: Soft, nontender, nondistended abdomen. No guarding, no rebound. No masses appreciated. Examination of genitals-deferred Musculoskeletal: Normal range of motion, no pitting or edema. No cyanosis. NEUROLOGICAL: Cranial nerves grossly intact. Normal speech, normal gait. Normal sensory, motor exams PSYCH: Normal mood, normal affect. SKIN: Warm, Dry, normal turgor, no rashes or lesions noted. Dictation was performed using [employer] voice recognition software TRAVEL OUTSIDE OF THE [place] IN LAST 30 DAYS: No - HPI Severity: Moderate Pain Level: 2 - Related Data Allergies/Adverse Reactions: Penicillins Allergy (Mild, Verified 07/04/17 09:22) rash Past Medical History - Social History Smoking Status: Never Smoker Cigarette use (# per day): No Chew tobacco use (# tins/day): No Smoking Education Provided: No Frequency of alcohol use: Rare Drug Abuse: None Lives with: Family Family History: None, Reviewed & Not Pertinent - Past Medical History Cardiac Medical History: Reports: Hx Atrial Fibrillation, Hx Heart Attack - mild , Hx Hypercholesterolemia, Hx Hypertension Denies: Hx Congestive Heart Failure, Hx Coronary Artery Disease, Hx Peripheral Vascular Disease, Hx Heart Murmur Neurological Medical History: Reports: Hx Cerebrovascular Accident - 01/20 , Hx Seizures - 01/20 Endocrine Medical History: Reports: Hx Hypothyroidism. Denies: Hx Graves' Disease, Hx Hyperthyroidism Renal/ Medical History: Denies: Hx End Stage Renal Disease, Hx Kidney Stones, Hx Peritoneal Dialysis Malignancy Medical History: Denies: Hx Leukemia GI Medical History: Reports: Hx Gastroesophageal Reflux Disease - occ. takes Omeprazole PRN. Denies: Hx Crohn's Disease, Hx Hiatal Hernia, Hx Irritable Bowel, Hx Liver Failure, Hx Pancreatitis, Hx Ulcer Musculoskeltal Medical History: Reports Hx Arthritis, Denies Hx Fibromyalgia, Denies Hx Multiple Sclerosis, Denies Hx Muscular Dystrophy Psychiatric Medical History: Reports: Hx Depression Denies: Hx Bipolar Disorder, Hx Dementia, Hx Post Traumatic Stress Disorder, Hx Schizophrenia Traumatic Medical History: Reports: Hx Fractures - 2nd toe on right Infectious Medical History: Denies: Hx HIV Past Surgical History: Reports: Hx Appendectomy, Hx Hysterectomy, Hx Orthopedic Surgery - right rotator cuff. Denies: Hx Bowel Surgery, Hx Section, Hx Cholecystectomy, Hx Colostomy, Hx Coronary Artery Bypass Graft, Hx Gastric Bypass Surgery, Hx Herniorrhaphy, Hx Mastectomy, Hx Pacemaker, Hx Tonsillectomy , Hx Tubal Ligation - Immunizations Hx Diphtheria, Pertussis, Tetanus Vaccination: No Hx Pneumococcal Vaccination: 12/07/15 Review of Systems - Review of Systems Notes: Not possible to obtain due to seizure -: Yes ROS unobtainable due to patient's medical condition Physical Exam - Vital signs Vitals: Pulse Ox 98 07/31/17 12:14 - Notes Notes: Dictated Course - Re-evaluation Re-evalutation: 07/31/17 15:24 After the IV Keppra patient remained seizure-free 07/31/17 15:25 was called and case was discussed and agreed to be discharged home. - Vital Signs Vital signs: Temp Pulse Resp BP Pulse Ox 98.1 F 22 H 132/63 H 100 07/31/17 12:17 07/31/17 12:17 07/31/17 12:17 07/31/17 12:17 - Laboratory Result Diagrams: 07/31/17 11:51 07/31/17 11:51 Laboratory results interpreted by me: 07/31/17 07/31/17 11:51 11:51 PT 16.9 H APTT 36.4 H Est GFR ( Amer) 58 L Est GFR (Non-Af Amer) 48 L AST 48 H Alkaline Phosphatase 157 H Creatine Kinase 215 H - Diagnostic Test Radiology reviewed: Reports reviewed - CT reported by radiologist and chronic ischemic changes, old left parieto occipital infarct - EKG Interpretation by Me Rhythm: A.Fib - Atrial fibrillation at the rate of 91 bpm left axis deviation, no acute ST elevation ST depression T-wave inversion noted. Discharge - Discharge Clinical Impression: Atrial fibrillation, chronic Cerebrovascular accident (CVA) Qualifiers: CVA mechanism: other Qualified Code(s): I63.8 - Other cerebral infarction Seizure disorder, complex partial Qualifiers: Epilepsy type: partial symptomatic Intractability: not intractable Status epilepticus: without status epilepticus Qualified Code(s): G40.209 - Localization-related (focal) (partial) symptomatic epilepsy and epileptic syndromes with complex partial seizures, not intractable, without status epilepticus Condition: Fair Disposition: HOME, SELF-CARE Instructions: Seizure, Known Epileptic ([facility]) Referrals: CECY CAMARENA MD [Primary Care Provider] - Follow up as needed
[2017-07-31] MEDS ORDERED: LORAZEPAM INJ 2 MG/1 ML VIAL IV ONE (12:52)
[2017-07-31 12:55] LABS: CREATINE KINASE MB 1.26 ng/mL (<4.55)
[2017-07-31 12:56] LABS: TROPONIN I < 0.012 ng/mL
--- NOTE | 2017-07-31 13:16 | RADIOLOGY REPORT (SQ) ---
EXAM DESCRIPTION: CHEST SINGLE VIEW COMPLETED DATE/TIME: 07/31/2017 12:27 pm REASON FOR STUDY: bed 9 stroke alert COMPARISON: November 2016 EXAM PARAMETERS: NUMBER OF VIEWS: One view. TECHNIQUE: Single frontal radiographic view of the chest acquired. RADIATION DOSE: NA LIMITATIONS: None. FINDINGS: LUNGS AND PLEURA: No opacities, masses or pneumothorax. No pleural effusion. MEDIASTINUM AND HILAR STRUCTURES: No masses. Contour normal. HEART AND VASCULAR STRUCTURES: Cardiac silhouette is enlarged. BONES: No acute findings. HARDWARE: Right shoulder prosthesis is identified. OTHER: No other significant finding. IMPRESSION: No significant interval change. Cardiomegaly. No acute changes. Other findings as not ed above TECHNICAL DOCUMENTATION: JOB ID: [id number] [employer]- All Rights Reserved Reading location - IP/workstation name: [email or web address]
[2017-07-31] MEDS ORDERED: LEVETIRACETAM 1000 MG/NACL-ISO 1,000 MG/100 ML RTUPB IV ONE (14:00)
[2017-07-31 17:19] VITALS: BP 114/88
--- NOTE | 2017-07-31 19:42 | EKG REPORT ---
SEVERITY:- ABNORMAL ECG - ATRIAL FIBRILLATION LEFT AXIS DEVIATION ABNORMAL T, CONSIDER ISCHEMIA, LATERAL LEADS : Confirmed by: Joann Love MD 31-Jul-2017 19:41:15
== END 2017-07-31 17:19 | disposition home or self-care (01) ==
LOC: ER 11:48
DX: G40.209 Localization-related (focal) (partial) symptomatic epilepsy and epileptic syndromes with complex partial seizures, not intractable, without status epilepticus (principal); I48.2 Chronic atrial fibrillation; R41.82 Altered mental status, unspecified; E78.00 Pure hypercholesterolemia, unspecified; I10 Essential (primary) hypertension; E03.9 Hypothyroidism, unspecified; Z86.73 Personal history of transient ischemic attack (TIA), and cerebral infarction without residual deficits; Z88.0 Allergy status to penicillin; Z90.710 Acquired absence of both cervix and uterus
CPT/HCPCS: 99285; 96361; 96374; 96375; J2060; J7030; J1953; 36415; 70450; 71045; 80053; 82550; 82553; 84484; 85025; 85610; 85730; 93005; 93010

== ENCOUNTER 2017-07-31 20:24 | Inpatient (IN) | payer MEDICARE, MEDICAID ==
--- NOTE | 2017-07-31 21:17 | ER Document Report ---
ED General - General Chief Complaint: Probable Seizure Stated Complaint: FEVER Time Seen by Provider: 07/31/17 21:00 Notes: Patient is a 71-year-old female that comes emergency department for chief complaint of confusion, seizure, fever. Patient was evaluated earlier today in the emergency department, had lab work, CAT scan, chest x-ray, was discharged back home, patient lives at home with her , reportedly patient was found staring with decreased responsiveness and had a second seizure at home for which EMS was called. EMS found that she had a blood glucose of 49, patient was given 200 mL's of D10, patient was also found a to have a new fever which was not noted prior at 100.4F, given 650 mg of Tylenol. Patient will respond to me and follow basic directions but she will not provide me with any meaningful history, when I asked if she hurts anywhere she just said she feels weak and tired. She repeats this over and over regardless of what I ask her. Medical records from here indicate that she has a history of atrial fibrillation , hypertension, CVA in 2016, seizures which she takes Keppra for, hypothyroidism , appendectomy, hysterectomy. TRAVEL OUTSIDE OF THE [place] IN LAST 30 DAYS: No - Related Data Allergies/Adverse Reactions: Penicillins Allergy (Mild, Verified 07/04/17 09:22) rash Past Medical History - General Information source: Patient - Social History Smoking Status: Never Smoker Chew tobacco use (# tins/day): No Frequency of alcohol use: None Drug Abuse: None Lives with: Family Family History: None, Reviewed & Not Pertinent Patient has suicidal ideation: No Patient has homicidal ideation: No - Past Medical History Cardiac Medical History: Reports: Hx Atrial Fibrillation, Hx Heart Attack - mild , Hx Hypercholesterolemia, Hx Hypertension Denies: Hx Congestive Heart Failure, Hx Coronary Artery Disease, Hx Peripheral Vascular Disease, Hx Heart Murmur Neurological Medical History: Reports: Hx Cerebrovascular Accident - 01/20 , Hx Seizures - 01/20 Endocrine Medical History: Reports: Hx Hypothyroidism. Denies: Hx Graves' Disease, Hx Hyperthyroidism Renal/ Medical History: Denies: Hx End Stage Renal Disease, Hx Kidney Stones, Hx Peritoneal Dialysis Malignancy Medical History: Denies: Hx Leukemia GI Medical History: Reports: Hx Gastroesophageal Reflux Disease - occ. takes Omeprazole PRN. Denies: Hx Crohn's Disease, Hx Hiatal Hernia, Hx Irritable Bowel, Hx Liver Failure, Hx Pancreatitis, Hx Ulcer Musculoskeltal Medical History: Reports Hx Arthritis, Denies Hx Fibromyalgia, Denies Hx Multiple Sclerosis, Denies Hx Muscular Dystrophy Psychiatric Medical History: Reports: Hx Depression Denies: Hx Bipolar Disorder, Hx Dementia, Hx Post Traumatic Stress Disorder, Hx Schizophrenia Traumatic Medical History: Reports: Hx Fractures - 2nd toe on right Infectious Medical History: Denies: Hx HIV Past Surgical History: Reports: Hx Appendectomy, Hx Hysterectomy, Hx Orthopedic Surgery - right rotator cuff. Denies: Hx Bowel Surgery, Hx Section, Hx Cholecystectomy, Hx Colostomy, Hx Coronary Artery Bypass Graft, Hx Gastric Bypass Surgery, Hx Herniorrhaphy, Hx Mastectomy, Hx Pacemaker, Hx Tonsillectomy , Hx Tubal Ligation - Immunizations Hx Diphtheria, Pertussis, Tetanus Vaccination: No Hx Pneumococcal Vaccination: 12/07/15 Review of Systems - Review of Systems Constitutional: See HPI EENT: No symptoms reported Cardiovascular: No symptoms reported Respiratory: No symptoms reported Gastrointestinal: No symptoms reported Genitourinary: No symptoms reported Female Genitourinary: No symptoms reported Musculoskeletal: No symptoms reported Skin: No symptoms reported Hematologic/Lymphatic: No symptoms reported Neurological/Psychological: See HPI Physical Exam - Vital signs Vitals: Resp 22 H 07/31/17 17:43 - Notes Notes: GENERAL: Alert, interacts well. No acute distress. HEAD: Normocephalic, atraumatic. EYES: Pupils equal, round, and reactive to light. Extraocular movements intact. ENT: Oral mucosa moist, tongue midline. NECK: Full range of motion. Supple. Trachea midline. LUNGS: Clear to auscultation bilaterally, no wheezes, rales, or rhonchi. No respiratory distress. HEART: Regular rate and rhythm. No murmur ABDOMEN: Soft, non-tender. Non-distended. Bowel sounds present in all 4 quadrants. EXTREMITIES: Moves all 4 extremities spontaneously. No edema, normal radial and dorsalis pedis pulses bilaterally. No cyanosis. BACK: no cervical, thoracic, lumbar midline tenderness. No saddle anesthesia, normal distal neurovascular exam. NEUROLOGICAL: Patient is following directions, spontaneous eye opening, normal verbal, normal spontaneous movements, however she is not oriented to person, place, or events. [cranial nerves II through XII grossly intact]. SKIN: Warm, dry, normal turgor. No rashes or lesions noted. Course - Re-evaluation Re-evalutation: EKG showing left bundle branch block. This does appear to be new. No syncopal episode or other cardiac symptoms reported including no chest pain or shortness of breath although patient is confused. Patient has chronic atrial fibrillation. Initial troponin is indeterminate at 0.034. We will cycle. CBC, chemistry generally unremarkable. Patient had chest x-ray and CAT scan performed earlier which showed no acute findings. Vital signs are unremarkable. Urinalysis shows urinary tract infection with 3+ bacteria, positive nitrites. Culture placed. Blood cultures placed. Given Rocephin. Cycled troponin not significantly changed. 08/01/17 00:05 Attempted to call patient's but nobody answered at the number provided. Patient was discussed with Dr. Chavarria. Because of altered mental status, urinary tract infection, fever, advanced age, will discuss with hospitalist for admission. Patient's primary provider is Dr. Meredith. Discussed with Dr. Meredith, patient will be admitted to telemetry. - Vital Signs Vital signs: Temp Pulse Resp BP Pulse Ox 98.7 F 65 20 133/55 H 94 08/01/17 03:43 08/01/17 03:43 08/01/17 03:43 08/01/17 03:43 08/01/17 03:43 - Laboratory Result Diagrams: 07/31/17 21:40 07/31/17 21:40 Laboratory results interpreted by me: 07/31/17 07/31/17 07/31/17 21:40 21:40 23:26 RBC 3.61 L Hgb 11.7 L Hct 34.6 L Seg Neutrophils % 86.9 H Lymphocytes % 7.7 L Glucose 177 H Creatine Kinase 176 H Urine Glucose (UA) 50 H Urine Ketones 20 H Urine Blood SMALL H Urine Nitrite POSITIVE H Ur Leukocyte Esterase MODERATE H Discharge - Discharge Clinical Impression: Altered mental status Qualifiers: Altered mental status type: unspecified Qualified Code(s): R41.82 - Altered mental status, unspecified Fever Qualifiers: Fever type: unspecified Qualified Code(s): R50.9 - Fever, unspecified Urinary tract infection Qualifiers: Urinary tract infection type: site unspecified Hematuria presence: without hematuria Qualified Code(s): N39.0 - Urinary tract infection, site not specified Condition: Stable Disposition: ADMITTED INPATIENT Admitting Provider: [facility] Admitted: Telemetry
[2017-07-31 21:53] LABS: ABSOLUTE BASOPHILS # (AUTO) 0.1 10^3/uL (0.0-0.2); ABSOLUTE LYMPHOCYTES (AUTO) 0.7 10^3/uL (0.5-4.7); ABSOLUTE MONOCYTES (AUTO) 0.4 10^3/uL (0.1-1.4); ABSOLUTE NEUT (AUTO) 7.6 10^3/uL (1.7-8.2); BASOPHILS % (AUTO) 0.6 % (0-2); HEMATOCRIT 34.6 % (36.0-47.0); HEMOGLOBIN 11.7 g/dL (12.0-15.5); LYMPHOCYTES % (AUTO) 7.7 % (13-45); MEAN CORPUSCULAR HEMOGLOBIN 32.4 pg (27.0-33.4); MEAN CORPUSCULAR HGB CONC 33.8 g/dL (32.0-36.0); MEAN CORPUSCULAR VOLUME 96 fl (80-97); MONOCYTES % (AUTO) 4.8 % (3-13); PLATELET COUNT 205 10^3/uL (150-450); RED BLOOD COUNT 3.61 10^6/uL (3.72-5.28); SEGMENTED NEUTROPHILS % (AUTO) 86.9 % (42-78); TOTAL CELLS COUNTED % (AUTO) 100 %; WHITE BLOOD COUNT 8.7 10^3/uL (4.0-10.5)
[2017-07-31 21:55] LABS: VENOUS BLOOD BASE EXCESS -1.8 mmol/L; VENOUS BLOOD HCO3 22.3 mmol/L (20-32); VENOUS BLOOD PCO2 35.9 mmHg (35-63); VENOUS BLOOD PH 7.41 (7.30-7.42)
[2017-07-31 22:09] LABS: ALANINE AMINOTRANSFERASE 32 U/L (9-52); ALBUMIN 3.9 g/dL (3.5-5.0); ALKALINE PHOSPHATASE 118 U/L (38-126); ANION GAP 11 (5-19); ASPARTATE AMINO TRANSFERASE 30 U/L (14-36); BILIRUBIN,DIRECT 0.2 mg/dL (0.0-0.4); BILIRUBIN,TOTAL 1.3 mg/dL (0.2-1.3); BLOOD UREA NITROGEN 12 mg/dL (7-20); CALCIUM 8.5 mg/dL (8.4-10.2); CARBON DIOXIDE 24 mmol/L (22-30); CHLORIDE 103 mmol/L (98-107); CREATINE KINASE 176 U/L (30-135); GLUCOSE 177 mg/dL (75-110); POTASSIUM 4.2 mmol/L (3.6-5.0); SODIUM 137.9 mmol/L (137-145); TOTAL PROTEIN 6.7 g/dL (6.3-8.2)
[2017-07-31 22:20] LABS: CREATINE KINASE MB 1.05 ng/mL (<4.55)
[2017-07-31 22:33] LABS: TROPONIN I 0.034 ng/mL
[2017-07-31] MEDS ORDERED: LORAZEPAM INJ 2 MG/1 ML VIAL IV ONE (23:55)
[2017-08-01] LABS: APPEARANCE,URINE SLIGHTLY-CLOUDY; BILIRUBIN,URINE NEGATIVE (NEGATIVE); CALCIUM OXALATE CRYSTALS,URINE MANY /HPF; COLOR,URINE YELLOW; GLUCOSE, URINE 50 mg/dL (NEGATIVE); KETONES,URINE 20 mg/dL (NEGATIVE); LEUKOCYTE ESTERASE,URINE MODERATE (NEGATIVE); NITRITE,URINE POSITIVE (NEGATIVE); PROTEIN,URINE NEGATIVE (NEGATIVE); URINE SPECIFIC GRAVITY 1.014; UROBILINOGEN,URINE NEGATIVE mg/dL (<2.0)
[2017-08-01] MEDS ORDERED: CEFTRIAXONE INJ 1000 MG VIAL IV ONE (00:09)
[2017-08-01] MEDS ORDERED: ACETAMINOPHEN 325 MG TABLET PO PRN (00:23)
[2017-08-01] MEDS: NORMAL SALINE 1000 ML 1,000 ML IV PRN ×2 (01:22→18:33)
[2017-08-01] MEDS: LEVOTHYROXINE SODIUM 0.05 MG TABLET PO SCH (06:14)
[2017-08-01] MEDS: LEVETIRACETAM 1500 MG/NACL-ISO 1,500 MG/100 ML RTUPB IV SCH ×2 (09:37→21:25)
[2017-08-01] MEDS ORDERED: CEFTRIAXONE 2 GM/D5W RTU 2 GM/50 ML RTUPB IV SCH (10:00)
[2017-08-01] MEDS ORDERED: ENOXAPARIN SODIUM INJ 40 MG/0.4 ML DISP.SYRIN SUBCUT SCH (10:00)
[2017-08-01] MEDS: AMLODIPINE BESYLATE 5 MG TABLET PO SCH (10:32)
[2017-08-01] MEDS: ISOSORBIDE MONONITRATE 30 MG TAB.ER.24H PO SCH (10:33)
[2017-08-01] MEDS: CEFTRIAXONE 2 GM/D5W RTU 2 GM/50 ML RTUPB IV SCH (10:33)
[2017-08-01] MEDS: APIXABAN 5 MG TABLET PO SCH ×2 (10:33→17:35)
[2017-08-01] MEDS: LANSOPRAZOLE 15 MG TAB.RAP.DR PO SCH (10:33)
[2017-08-01] MEDS: ASPIRIN 81 MG TABLET, ENT COATED PO SCH (10:33)
--- NOTE | 2017-08-01 13:08 | PDOC H&P ---
History of Present Illness Admission Date/PCP: 08/01/17 00:23 CECY CAMARENA MD Patient complains of: Altered mental status History of Present Illness: JOSE ESPINAL is a 71 year old female This is a 71-year-old female with significant history of the seizures disorder underlying vascular dementia history of the stroke history of [place] and multiple other issues recently admitting in the hospitals and a full cardiac workup was done was all stableCame to the emergency department early this morning because of the altered mental status and seizures activity and the patient had initial workup including the CT of the head and the blood work is all stable and patient was discharged home brought the patient's back again in the ER because of the patient had 100.4 fever and patient's altered mental status and patients diagnosed with a urinary tract infection and given IV antibiotic and ER physicians call admit the patient's When I saw the patient's patient was alert awake but still confused Patient's denied any chest pain denied any shortness of the breath No seizures activity is noticed pt also see a neurology as outpatient Past Medical History Cardiac Medical History: Reports: Atrial Fibrillation, Myocardial Infarction - mild, Hyperlipidema, Hypertension Denies: Congestive Heart Failure, Coronary Artery Disease, Peripheral Vascular Disease, Heart Murmur Neurological Medical History: Reports: Ischemic CVA, Seizures - 01/20 Endocrine Medical History: Reports: Hypothyroidism Denies: Hyperthyroidism Renal/ Medical History: Denies: End Stage Renal Disease Malignancy Medical History: Denies: Leukemia GI Medical History: Reports: Gastroesophageal Reflux Disease - occ. takes Omeprazole PRN Denies: Crohn's Disease, Hiatal Hernia Musculoskeltal Medical History: Reports: Arthritis Denies: Fibromyalgia Psychiatric Medical History: Reports: Depression Denies: Bipolar Disorder, Dementia, Post Traumatic Stress Disorder Hematology: Denies: Anemia, Hemophilia, Sickle Cell Disease Infectious Medical History: Denies: HIV Past Surgical History Past Surgical History: Reports: Appendectomy, Hysterectomy, Orthopedic Surgery - right rotator cuff Denies: Amputation, Section, Cholecystectomy, Colostomy, Coronary Artery Bypass Graft, Gastric Bypass Surgery, Herniorrhaphy, Mastectomy, Pacemaker, Tonsillectomy, Tubal Ligation Social History Lives with: Family Smoking Status: Never Smoker Frequency of Alcohol Use: Occasional Hx Recreational Drug Use: No Drugs: None Hx Prescription Drug Abuse: No - Advance Directive Resuscitation Status: Full Code Family History Family History: None, Reviewed & Not Pertinent Parental Family History Reviewed: Yes Children Family History Reviewed: Yes Sibling(s) Family History Reviewed.: Yes Medication/Allergy Home Medications: Aspirin [Ecotrin 81 mg EC Tablet] 81 mg PO DAILY 12/04/16 Atorvastatin Calcium [Lipitor 40 mg Tablet] 40 mg PO DAILY 12/04/16 Levothyroxine Sodium [Synthroid 0.05 mg Tablet] 50 mcg PO QAM 12/04/16 Cyclobenzaprine HCl [Flexeril 5 mg Tablet] 5 mg PO DAILYP PRN 07/04/17 Levetiracetam [Keppra] 1,000 mg PO BID 07/04/17 Apixaban [Eliquis 5 mg Tablet] 5 mg PO BID #60 tablet 07/08/17 Isosorbide Mononitrate [Imdur 30 mg Tablet.er] 30 mg PO DAILY #30 tab.er.24h 04/22 Amlodipine Besylate [Norvasc 10 mg Tablet] 10 mg PO DAILY 08/01/17 Allergies/Adverse Reactions: Penicillins Allergy (Mild, Verified 08/01/17 10:53) rash Review of Systems Constitutional: PRESENT: chills, fever(s). ABSENT: headache(s), weight gain, weight loss Eyes: ABSENT: visual disturbances Ears: ABSENT: hearing changes Cardiovascular: ABSENT: chest pain, dyspnea on exertion, edema, orthropnea, palpitations Respiratory: ABSENT: cough, hemoptysis Gastrointestinal: ABSENT: abdominal pain, constipation, diarrhea, hematemesis, hematochezia, nausea, vomiting Genitourinary: ABSENT: dysuria, hematuria Musculoskeletal: ABSENT: joint swelling Integumentary: ABSENT: rash, wounds Neurological: ABSENT: abnormal gait, abnormal speech, confusion, dizziness, focal weakness, syncope Psychiatric: ABSENT: anxiety, depression, homidical ideation, suicidal ideation Endocrine: ABSENT: cold intolerance, heat intolerance, menstrual abnormalities, polydipsia, polyuria Hematologic/Lymphatic: ABSENT: easy bleeding, easy bruising, lymphadenopathy Physical Exam Vital Signs: Temp Pulse Resp BP Pulse Ox 97.4 F 69 18 124/55 L 100 08/01/17 07:51 08/01/17 07:51 08/01/17 07:51 08/01/17 07:51 08/01/17 07:51 Intake & Output 07/31/17 08/01/17 08/02/17 06:59 06:59 06:59 Intake Total 170 Balance 170 Weight 74.7 kg General appearance: PRESENT: no acute distress, well-developed, well-nourished Head exam: PRESENT: atraumatic, normocephalic Eye exam: PRESENT: conjunctiva pink, EOMI, PERRLA. ABSENT: scleral icterus Ear exam: PRESENT: normal external ear exam Mouth exam: PRESENT: moist, tongue midline Neck exam: PRESENT: full ROM. ABSENT: carotid bruit, JVD, lymphadenopathy, thyromegaly Cardiovascular exam: PRESENT: RRR. ABSENT: diastolic murmur, rubs, systolic murmur Pulses: PRESENT: normal dorsalis pedis pul, +2 pedal pulses bilateral Vascular exam: PRESENT: normal capillary refill GI/Abdominal exam: PRESENT: normal bowel sounds, soft. ABSENT: distended, guarding, mass, organolmegaly, rebound, tenderness Rectal exam: PRESENT: deferred Extremities exam: ABSENT: full ROM, left AKA, right AKA, left BKA, right BKA, calf tenderness, joint swelling, pedal edema, tenderness, other Neurological exam: PRESENT: alert, awake, oriented to person, oriented to place , oriented to time, oriented to situation. ABSENT: motor sensory deficit Psychiatric exam: PRESENT: flat affect, normal mood. ABSENT: homicidal ideation , suicidal ideation Skin exam: PRESENT: dry, intact, warm. ABSENT: cyanosis, rash Results Laboratory Results: 08/01/17 01:15 Troponin I 0.045 Assessment & Plan - Diagnosis (1) Altered mental status Qualifiers: Altered mental status type: unspecified Qualified Code(s): R41.82 - Altered mental status, unspecified Is this a current diagnosis for this admission?: Yes Plan: Most likely underlying urinary tract infections Start the IV antibiotic and continues to monitor and will get the MRI of the head (2) Fever Qualifiers: Fever type: unspecified Qualified Code(s): R50.9 - Fever, unspecified Is this a current diagnosis for this admission?: Yes Plan: Most likely from the UTI will get the culture and sensitivity and start the antibiotic any also do the blood culture (3) UTI (urinary tract infection) Qualifiers: Urinary tract infection type: site unspecified Hematuria presence: without hematuria Qualified Code(s): N39.0 - Urinary tract infection, site not specified Is this a current diagnosis for this admission?: Yes Plan: Start the IV Rocephin (4) Atrial fibrillation Qualifiers: Atrial fibrillation type: chronic Qualified Code(s): I48.2 - Chronic atrial fibrillation Is this a current diagnosis for this admission?: Yes Plan: Continues to Eliquis (5) Cerebrovascular accident (CVA) Qualifiers: CVA mechanism: other Qualified Code(s): I63.8 - Other cerebral infarction Is this a current diagnosis for this admission?: Yes (6) Hypertension Qualifiers: Hypertension type: essential hypertension Is this a current diagnosis for this admission?: Yes (7) Seizure Is this a current diagnosis for this admission?: Yes Plan: Increase the Keppra dose 1500 mg p.o. twice a day (8) Coronary artery disease Qualifiers: Coronary Disease-Associated Artery/Lesion type: unspecified vessel or lesion type Is this a current diagnosis for this admission?: Yes Plan: Currently all stable (9) Vascular dementia Qualifiers: Dementia behavioral disturbance: without behavioral disturbance Qualified Code(s): F01.50 - Vascular dementia without behavioral disturbance Is this a current diagnosis for this admission?: Yes Plan: Patient's follow-up outpatients neurology will further evaluate - Time Time Spent: 30 to 50 Minutes Medications reviewed and adjusted accordingly: Yes Anticipated discharge: Home Within: Other - Inpatient Certification Medical Necessity: Need Close Monitoring Due to Risk of Patient Decompensation, Need For IV Fluids, Need for IV Antibiotics Post Hospital Care: D/C [facility] Documentation - Plan Summary Plan Summary: See other MD orders
--- NOTE | 2017-08-01 15:06 | RADIOLOGY REPORT (SQ) ---
EXAM DESCRIPTION: MRI HEAD WITHOUT COMPLETED DATE/TIME: 08/01/2017 2:45 pm REASON FOR STUDY: ams/h/o cva COMPARISON: MRI brain 07/31/2008, 12/04/2016 CT brain 07/31/2017, 07/03/2017 TECHNIQUE: Multiplanar imaging includes non-contrasted T1, T2, FLAIR, and diffusion with ADC map seq uences. Images stored on PACS. LIMITATIONS: None. FINDINGS: ANATOMY: No developmental anomalies. Normal vascular flow voids. Pituitary fossa normal. CSF SPACES: Normal in size and contour. No hemorrhage. CEREBRUM: No MR evidence of acute ischemic change, acute intracranial hemorrhage, mass effect, or mid line shift. Extensive bifrontal and biparietal deep periventricular white matter increased signal on FLAIR/ T2 fr om chronic advanced small vessel ischemic change. There are old cortical and subcortical white matte r infarcts in the bilateral occipital lobes and left posterior temporal/ parietal region. Old lacuna r infarcts in the right and left basal ganglia. POSTERIOR FOSSA: No MR evidence of acute ischemic change, acute intracranial hemorrhage, mass effect, or midline shift. Old lacunar infarcts are present in the right and left inferior cerebellar hemisp heres. DIFFUSION IMAGING: Negative for acute or sub-acute infarction. ORBITS: No masses. Globes normal. PARANASAL SINUSES: No fluid levels. Mucosa normal. OTHER: No other significant finding. IMPRESSION: No acute findings. Extensive small vessel ischemic change with multiple old infarcts as above. EVIDENCE OF ACUTE STROKE: NO. TECHNICAL DOCUMENTATION: JOB ID: [id number] [employer]- All Rights Reserved Reading location - IP/workstation name: [email or web address]
[2017-08-01] MEDS: ATORVASTATIN CALCIUM 40 MG TABLET PO SCH (21:24)
[2017-08-02 05:06] LABS: ABSOLUTE BASOPHILS # (AUTO) 0.1 10^3/uL (0.0-0.2); ABSOLUTE EOSINOPHILS # (AUTO) 0.2 10^3/uL (0.0-0.6); ABSOLUTE LYMPHOCYTES (AUTO) 1.4 10^3/uL (0.5-4.7); ABSOLUTE MONOCYTES (AUTO) 0.5 10^3/uL (0.1-1.4); ABSOLUTE NEUT (AUTO) 3.3 10^3/uL (1.7-8.2); BASOPHILS % (AUTO) 1.2 % (0-2); EOSINOPHILS % (AUTO) 3.4 % (0-6); HEMATOCRIT 34.3 % (36.0-47.0); HEMOGLOBIN 11.7 g/dL (12.0-15.5); LYMPHOCYTES % (AUTO) 25.9 % (13-45); MEAN CORPUSCULAR HEMOGLOBIN 32.7 pg (27.0-33.4); MEAN CORPUSCULAR HGB CONC 34.2 g/dL (32.0-36.0); MEAN CORPUSCULAR VOLUME 96 fl (80-97); MONOCYTES % (AUTO) 9.8 % (3-13); PLATELET COUNT 182 10^3/uL (150-450); RED BLOOD COUNT 3.59 10^6/uL (3.72-5.28); RED CELL DISTRIBUTION WIDTH 13.3 % (11.5-14.0); SEGMENTED NEUTROPHILS % (AUTO) 59.7 % (42-78); TOTAL CELLS COUNTED % (AUTO) 100 %; WHITE BLOOD COUNT 5.5 10^3/uL (4.0-10.5)
[2017-08-02 05:28] LABS: ANION GAP 9 (5-19); BLOOD UREA NITROGEN 6 mg/dL (7-20); CALCIUM 8.3 mg/dL (8.4-10.2); CARBON DIOXIDE 26 mmol/L (22-30); CHLORIDE 106 mmol/L (98-107); GLUCOSE 93 mg/dL (75-110); POTASSIUM 3.9 mmol/L (3.6-5.0); SODIUM 141.2 mmol/L (137-145)
[2017-08-02] MEDS: LEVOTHYROXINE SODIUM 0.05 MG TABLET PO SCH (06:17)
--- NOTE | 2017-08-02 07:41 | EKG REPORT ---
SEVERITY:- ABNORMAL ECG - ATRIAL FIBRILLATION LEFT BUNDLE BRANCH BLOCK : Confirmed by: Joann Love MD 02-Aug-2017 07:39:38
--- NOTE | 2017-08-02 09:26 | PDOC PROGRESS REPORT ---
Subjective Progress Note for:: 08/02/17 Subjective:: Patient is currently feeling much better Patient is not any more confused Patient MRI of the head is negative Patient's however no seizures activity Reason For Visit: UTI, AMS Physical Exam Vital Signs: Temp Pulse Resp BP Pulse Ox 97.5 F 79 16 133/56 H 96 08/02/17 08:11 08/02/17 08:11 08/02/17 08:11 08/02/17 08:11 08/02/17 08:11 Intake & Output 08/01/17 08/02/17 08/03/17 06:59 06:59 06:59 Intake Total 170 1540 Output Total 1502 Balance 170 38 Weight 74.7 kg 75.1 kg General appearance: PRESENT: no acute distress, well-developed, well-nourished Head exam: PRESENT: atraumatic, normocephalic Eye exam: PRESENT: conjunctiva pink, EOMI, PERRLA. ABSENT: scleral icterus Ear exam: PRESENT: normal external ear exam Mouth exam: PRESENT: moist, tongue midline Neck exam: PRESENT: full ROM. ABSENT: carotid bruit, JVD, lymphadenopathy, thyromegaly Respiratory exam: PRESENT: clear to auscultation jordin Cardiovascular exam: PRESENT: RRR. ABSENT: diastolic murmur, rubs, systolic murmur Pulses: PRESENT: normal dorsalis pedis pul, +2 pedal pulses bilateral Vascular exam: PRESENT: normal capillary refill GI/Abdominal exam: PRESENT: normal bowel sounds, soft. ABSENT: distended, guarding, mass, organolmegaly, rebound, tenderness Rectal exam: PRESENT: deferred Extremities exam: ABSENT: pedal edema Musculoskeletal exam: PRESENT: ambulatory Neurological exam: PRESENT: alert, awake, oriented to person, oriented to place , oriented to time, oriented to situation, CN II-XII grossly intact. ABSENT: motor sensory deficit Psychiatric exam: PRESENT: appropriate affect, normal mood. ABSENT: homicidal ideation, suicidal ideation Skin exam: PRESENT: dry, intact, warm. ABSENT: cyanosis, rash Results Laboratory Results: 08/02/17 04:39 08/02/17 04:39 08/02/17 08/02/17 04:39 04:39 WBC 5.5 RBC 3.59 L Hgb 11.7 L Hct 34.3 L MCV 96 MCH 32.7 MCHC 34.2 RDW 13.3 Plt Count 182 Seg Neutrophils % 59.7 Lymphocytes % 25.9 Monocytes % 9.8 Eosinophils % 3.4 Basophils % 1.2 Absolute Neutrophils 3.3 Absolute Lymphocytes 1.4 Absolute Monocytes 0.5 Absolute Eosinophils 0.2 Absolute Basophils 0.1 Sodium 141.2 Potassium 3.9 Chloride 106 Carbon Dioxide 26 Anion Gap 9 BUN 6 L Creatinine 0.86 Est GFR ( Amer) > 60 Est GFR (Non-Af Amer) > 60 Glucose 93 Calcium 8.3 L 08/01/17 01:15 Troponin I 0.045 Impressions: Head MRI 08/01/17 00:00 IMPRESSION: No acute findings. Extensive small vessel ischemic change with multiple old infarcts as above. EVIDENCE OF ACUTE STROKE: NO. Assessment & Plan - Diagnosis (1) Altered mental status Qualifiers: Altered mental status type: unspecified Qualified Code(s): R41.82 - Altered mental status, unspecified Is this a current diagnosis for this admission?: Yes Plan: Currently all resolving most likely from underlying urinary tract infections (2) Fever Qualifiers: Fever type: unspecified Qualified Code(s): R50.9 - Fever, unspecified Is this a current diagnosis for this admission?: Yes Plan: Most likely from the UTI will get the culture and sensitivity and start the antibiotic any also do the blood culture (3) UTI (urinary tract infection) Qualifiers: Urinary tract infection type: site unspecified Hematuria presence: without hematuria Qualified Code(s): N39.0 - Urinary tract infection, site not specified Is this a current diagnosis for this admission?: Yes Plan: Start the IV Rocephin (4) Atrial fibrillation Qualifiers: Atrial fibrillation type: chronic Qualified Code(s): I48.2 - Chronic atrial fibrillation Is this a current diagnosis for this admission?: Yes Plan: Continues to Eliquis (5) Cerebrovascular accident (CVA) Qualifiers: CVA mechanism: other Qualified Code(s): I63.8 - Other cerebral infarction Is this a current diagnosis for this admission?: No (6) Hypertension Qualifiers: Hypertension type: essential hypertension Is this a current diagnosis for this admission?: Yes (7) Seizure Is this a current diagnosis for this admission?: Yes Plan: Continues to p.o. Keppra 1500 mg p.o. twice a day (8) Coronary artery disease Qualifiers: Coronary Disease-Associated Artery/Lesion type: unspecified vessel or lesion type Is this a current diagnosis for this admission?: Yes Plan: Discussed with the Dr. Love patient have a currently follow with him as outpatients tomorrow for the events monitor (9) Vascular dementia Qualifiers: Dementia behavioral disturbance: without behavioral disturbance Qualified Code(s): F01.50 - Vascular dementia without behavioral disturbance Is this a current diagnosis for this admission?: Yes Plan: Patient's follow-up outpatients neurology will further evaluate - Time Time Spent with patient: 15-24 minutes Medications reviewed and adjusted accordingly: Yes Anticipated discharge: Home Within: within 24 hours - Inpatient Certification Medical Necessity: Need Close Monitoring Due to Risk of Patient Decompensation Post Hospital Care: D/C Medical Clerk Documentation - Plan Summary Plan Summary: See other MD orders
[2017-08-02] MEDS: APIXABAN 5 MG TABLET PO SCH ×2 (10:12→17:26)
[2017-08-02] MEDS: AMLODIPINE BESYLATE 5 MG TABLET PO SCH (10:13)
[2017-08-02] MEDS: LEVETIRACETAM 500 MG TABLET PO SCH ×2 (10:13→22:18)
[2017-08-02] MEDS: CEFTRIAXONE 2 GM/D5W RTU 2 GM/50 ML RTUPB IV SCH (10:13)
[2017-08-02] MEDS: ASPIRIN 81 MG TABLET, ENT COATED PO SCH (10:13)
[2017-08-02] MEDS: LANSOPRAZOLE 15 MG TAB.RAP.DR PO SCH (10:13)
[2017-08-02] MEDS: ISOSORBIDE MONONITRATE 30 MG TAB.ER.24H PO SCH (10:13)
[2017-08-02] MEDS: ATORVASTATIN CALCIUM 40 MG TABLET PO SCH (22:18)
[2017-08-03 05:28] LABS: ABSOLUTE BASOPHILS # (AUTO) 0.1 10^3/uL (0.0-0.2); ABSOLUTE EOSINOPHILS # (AUTO) 0.3 10^3/uL (0.0-0.6); ABSOLUTE LYMPHOCYTES (AUTO) 1.2 10^3/uL (0.5-4.7); ABSOLUTE MONOCYTES (AUTO) 0.5 10^3/uL (0.1-1.4); ABSOLUTE NEUT (AUTO) 2.8 10^3/uL (1.7-8.2); BASOPHILS % (AUTO) 1.4 % (0-2); EOSINOPHILS % (AUTO) 5.4 % (0-6); HEMATOCRIT 38.1 % (36.0-47.0); HEMOGLOBIN 12.9 g/dL (12.0-15.5); LYMPHOCYTES % (AUTO) 24.7 % (13-45); MEAN CORPUSCULAR HEMOGLOBIN 32.3 pg (27.0-33.4); MEAN CORPUSCULAR HGB CONC 33.9 g/dL (32.0-36.0); MEAN CORPUSCULAR VOLUME 95 fl (80-97); MONOCYTES % (AUTO) 10.1 % (3-13); PLATELET COUNT 186 10^3/uL (150-450); RED CELL DISTRIBUTION WIDTH 13.2 % (11.5-14.0); SEGMENTED NEUTROPHILS % (AUTO) 58.4 % (42-78); TOTAL CELLS COUNTED % (AUTO) 100 %; WHITE BLOOD COUNT 4.8 10^3/uL (4.0-10.5)
[2017-08-03] MEDS: LEVOTHYROXINE SODIUM 0.05 MG TABLET PO SCH (05:35)
[2017-08-03] MEDS: LANSOPRAZOLE 15 MG TAB.RAP.DR PO SCH (05:35)
[2017-08-03 06:03] LABS: ANION GAP 8 (5-19); BLOOD UREA NITROGEN 11 mg/dL (7-20); CARBON DIOXIDE 28 mmol/L (22-30); CHLORIDE 105 mmol/L (98-107); GLUCOSE 107 mg/dL (75-110); POTASSIUM 3.9 mmol/L (3.6-5.0); SODIUM 141.2 mmol/L (137-145)
[2017-08-03] MEDS: LEVETIRACETAM 500 MG TABLET PO SCH ×2 (09:40→22:49)
[2017-08-03] MEDS: ISOSORBIDE MONONITRATE 30 MG TAB.ER.24H PO SCH (09:40)
[2017-08-03] MEDS: ASPIRIN 81 MG TABLET, ENT COATED PO SCH (09:41)
[2017-08-03] MEDS: CEFTRIAXONE 2 GM/D5W RTU 2 GM/50 ML RTUPB IV SCH (09:41)
[2017-08-03] MEDS: AMLODIPINE BESYLATE 5 MG TABLET PO SCH (09:41)
[2017-08-03] MEDS: APIXABAN 5 MG TABLET PO SCH ×2 (09:41→17:50)
--- NOTE | 2017-08-03 12:19 | PDOC PROGRESS REPORT ---
Subjective Progress Note for:: 08/03/17 Subjective:: Patient is currently feeling much better Patient is not any more confused Patient MRI of the head is negative Patient's however no seizures activity Reason For Visit: UTI, AMS Physical Exam Vital Signs: Temp Pulse Resp BP Pulse Ox 97.3 F 84 18 131/60 H 98 08/03/17 08:00 08/03/17 08:00 08/03/17 08:00 08/03/17 08:00 08/03/17 08:00 Intake & Output 08/02/17 08/03/17 08/04/17 06:59 06:59 06:59 Intake Total 1540 1352 Output Total 1502 1050 Balance 38 302 Weight 75.1 kg 73.1 kg General appearance: PRESENT: no acute distress, well-developed, well-nourished Head exam: PRESENT: atraumatic, normocephalic Eye exam: PRESENT: conjunctiva pink, EOMI, PERRLA. ABSENT: scleral icterus Ear exam: PRESENT: normal external ear exam Mouth exam: PRESENT: moist, tongue midline Neck exam: PRESENT: full ROM. ABSENT: carotid bruit, JVD, lymphadenopathy, thyromegaly Respiratory exam: PRESENT: clear to auscultation jordin Cardiovascular exam: PRESENT: RRR. ABSENT: diastolic murmur, rubs, systolic murmur Pulses: PRESENT: normal dorsalis pedis pul, +2 pedal pulses bilateral Vascular exam: PRESENT: normal capillary refill GI/Abdominal exam: PRESENT: normal bowel sounds, soft. ABSENT: distended, guarding, mass, organolmegaly, rebound, tenderness Rectal exam: PRESENT: deferred Extremities exam: ABSENT: pedal edema Musculoskeletal exam: PRESENT: ambulatory Neurological exam: PRESENT: alert, awake, oriented to person, oriented to place , oriented to time, oriented to situation, CN II-XII grossly intact. ABSENT: motor sensory deficit Psychiatric exam: PRESENT: appropriate affect, normal mood. ABSENT: homicidal ideation, suicidal ideation Skin exam: PRESENT: dry, intact, warm. ABSENT: cyanosis, rash Results Laboratory Results: 08/03/17 05:17 08/03/17 05:17 08/03/17 08/03/17 05:17 05:17 WBC 4.8 RBC 4.00 Hgb 12.9 Hct 38.1 MCV 95 MCH 32.3 MCHC 33.9 RDW 13.2 Plt Count 186 Seg Neutrophils % 58.4 Lymphocytes % 24.7 Monocytes % 10.1 Eosinophils % 5.4 Basophils % 1.4 Absolute Neutrophils 2.8 Absolute Lymphocytes 1.2 Absolute Monocytes 0.5 Absolute Eosinophils 0.3 Absolute Basophils 0.1 Sodium 141.2 Potassium 3.9 Chloride 105 Carbon Dioxide 28 Anion Gap 8 BUN 11 Creatinine 0.91 Est GFR ( Amer) > 60 Est GFR (Non-Af Amer) > 60 Glucose 107 Calcium 9.0 08/01/17 01:15 Troponin I 0.045 Impressions: Head MRI 08/01/17 00:00 IMPRESSION: No acute findings. Extensive small vessel ischemic change with multiple old infarcts as above. EVIDENCE OF ACUTE STROKE: NO. Assessment & Plan - Diagnosis (1) Altered mental status Qualifiers: Altered mental status type: unspecified Qualified Code(s): R41.82 - Altered mental status, unspecified Is this a current diagnosis for this admission?: Yes Plan: Currently all resolved (2) Fever Qualifiers: Fever type: unspecified Qualified Code(s): R50.9 - Fever, unspecified Is this a current diagnosis for this admission?: Yes Plan: Most likely from the UTI will get the culture and sensitivity and start the antibiotic any also do the blood culture (3) UTI (urinary tract infection) Qualifiers: Urinary tract infection type: site unspecified Hematuria presence: without hematuria Qualified Code(s): N39.0 - Urinary tract infection, site not specified Is this a current diagnosis for this admission?: Yes Plan: E. coli urinary tract infections was switched p.o. antibiotic on discharge (4) Atrial fibrillation Qualifiers: Atrial fibrillation type: chronic Qualified Code(s): I48.2 - Chronic atrial fibrillation Is this a current diagnosis for this admission?: Yes Plan: Continues to Eliquis (5) Cerebrovascular accident (CVA) Qualifiers: CVA mechanism: other Qualified Code(s): I63.8 - Other cerebral infarction Is this a current diagnosis for this admission?: No (6) Hypertension Qualifiers: Hypertension type: essential hypertension Is this a current diagnosis for this admission?: Yes (7) Seizure Is this a current diagnosis for this admission?: Yes Plan: Continues to p.o. Keppra 1500 mg p.o. twice a day (8) Coronary artery disease Qualifiers: Coronary Disease-Associated Artery/Lesion type: unspecified vessel or lesion type Is this a current diagnosis for this admission?: Yes Plan: Discussed with the Dr. Love patient have a currently follow with him as outpatients tomorrow for the events monitor (9) Vascular dementia Qualifiers: Dementia behavioral disturbance: without behavioral disturbance Qualified Code(s): F01.50 - Vascular dementia without behavioral disturbance Is this a current diagnosis for this admission?: Yes - Time Time Spent with patient: 15-24 minutes Medications reviewed and adjusted accordingly: Yes Anticipated discharge: SNF Within: when bed available - Inpatient Certification Medical Necessity: Need Close Monitoring Due to Risk of Patient Decompensation Post Hospital Care: D/C Buffing Machine Operator Semiautomatic Documentation - Plan Summary Plan Summary: Discussed with the patient's while the patient have a very poor support at home due to the her 's age discussed with the daughter and the patient's and agreed to the temporal rehab placements while the patient's cut more stronger
--- NOTE | 2017-08-03 13:26 | PDOC TRANSFER SUMMARY ---
General - Admit/Disc Date/PCP Admission Date/Primary Care Provider: 08/01/17 00:23 CECY CAMARENA MD Discharge Date: 08/03/17 - Discharge Diagnosis (1) Altered mental status Is this a current diagnosis for this admission?: Yes Summary: Currently all resolved (2) Fever Is this a current diagnosis for this admission?: Yes Summary: Currently all resolved (3) UTI (urinary tract infection) Is this a current diagnosis for this admission?: Yes Summary: Cipro 500 twice daily for 7 days (4) Atrial fibrillation Is this a current diagnosis for this admission?: Yes Summary: Continues to Eliquis (5) Cerebrovascular accident (CVA) Is this a current diagnosis for this admission?: No Summary: Patient's current MRI is all negative (6) Hypertension Is this a current diagnosis for this admission?: Yes Summary: Currently all stable (7) Seizure Is this a current diagnosis for this admission?: Yes Summary: Increase the Keppra 1500 mg p.o. twice a day and follow-up outpatients neurology (8) Coronary artery disease Is this a current diagnosis for this admission?: Yes Summary: And have appointment to see her Dr. Leonard for the events monitor please make an appointment to see next week (9) Vascular dementia Is this a current diagnosis for this admission?: Yes Summary: Follow outpatients neurology - Additional Information Resuscitation Status: Full Code Home Medications: Aspirin [Ecotrin 81 mg EC Tablet] 81 mg PO DAILY 12/04/16 Atorvastatin Calcium [Lipitor 40 mg Tablet] 40 mg PO DAILY 12/04/16 Levothyroxine Sodium [Synthroid 0.05 mg Tablet] 50 mcg PO QAM 12/04/16 Cyclobenzaprine HCl [Flexeril 5 mg Tablet] 5 mg PO DAILYP PRN 07/04/17 Levetiracetam [Keppra] 1,500 mg PO BID 07/04/17 Apixaban [Eliquis 5 mg Tablet] 5 mg PO BID #60 tablet 07/08/17 Isosorbide Mononitrate [Imdur 30 mg Tablet.er] 30 mg PO DAILY #30 tab.er.24h 04/22 Amlodipine Besylate [Norvasc 10 mg Tablet] 10 mg PO DAILY 08/01/17 Ciprofloxacin HCl [Cipro 500 mg Tablet] 500 mg PO BID 08/03/17 History of Present Illness Admission Date/PCP: 08/01/17 00:23 CECY CAMARENA MD History of Present Illness: JOSE ESPINAL is a 71 year old female This is a 71-year-old female with significant history of the seizures disorder underlying vascular dementia history of the stroke history of [place] and multiple other issues recently admitting in the hospitals and a full cardiac workup was done was all stableCame to the emergency department early this morning because of the altered mental status and seizures activity and the patient had initial workup including the CT of the head and the blood work is all stable and patient was discharged home brought the patient's back again in the ER because of the patient had 100.4 fever and patient's altered mental status and patients diagnosed with a urinary tract infection and given IV antibiotic and ER physicians call admit the patient's When I saw the patient's patient was alert awake but still confused Patient's denied any chest pain denied any shortness of the breath No seizures activity is noticed pt also see a neurology as outpatient Hospital Course Hospital Course: This 71-year-old female is present in the emergency department with altered mental status fever and diagnosed with a E. coli urinary tract infection and patient started with RocephinPatient's response very well Patient also have a scissors activities which patient's Keppra was increased 50 mg p.o. twice a day There were no scissors activities in the hospital patient MRI of the head was negative for any acute finding Patient's otherwise remained stable's Is back to the baseline is more alert awake and oriented Since seen by physical therapy and suggest possible rehab's which discussed with the patient and the daughter and agree Patient's currently on Eliquis fall precautions Physical Exam Vital Signs: Temp Pulse Resp BP Pulse Ox 97.3 F 84 18 131/60 H 98 08/03/17 08:00 08/03/17 08:00 08/03/17 08:00 08/03/17 08:00 08/03/17 08:00 Intake & Output 08/02/17 08/03/17 08/04/17 06:59 06:59 06:59 Intake Total 1540 1352 Output Total 1502 1050 Balance 38 302 Weight 75.1 kg 73.1 kg General appearance: PRESENT: no acute distress, well-developed, well-nourished Head exam: PRESENT: atraumatic, normocephalic Eye exam: PRESENT: conjunctiva pink, EOMI, PERRLA. ABSENT: scleral icterus Ear exam: PRESENT: normal external ear exam Mouth exam: PRESENT: moist, tongue midline Neck exam: ABSENT: carotid bruit, JVD, lymphadenopathy, thyromegaly Respiratory exam: PRESENT: clear to auscultation jordin. ABSENT: rales, rhonchi, wheezes Cardiovascular exam: PRESENT: RRR. ABSENT: diastolic murmur, rubs, systolic murmur Pulses: PRESENT: normal dorsalis pedis pul Vascular exam: PRESENT: normal capillary refill GI/Abdominal exam: PRESENT: normal bowel sounds, soft. ABSENT: distended, guarding, mass, organolmegaly, rebound, tenderness Rectal exam: PRESENT: deferred Extremities exam: PRESENT: full ROM. ABSENT: calf tenderness, clubbing, pedal edema Neurological exam: PRESENT: alert, awake, oriented to person, oriented to place , oriented to time, oriented to situation, CN II-XII grossly intact. ABSENT: motor sensory deficit Psychiatric exam: PRESENT: appropriate affect, normal mood. ABSENT: homicidal ideation, suicidal ideation Skin exam: PRESENT: dry, intact, warm. ABSENT: cyanosis, rash Results Laboratory Results: 08/03/17 05:17 08/03/17 05:17 08/03/17 08/03/17 05:17 05:17 WBC 4.8 RBC 4.00 Hgb 12.9 Hct 38.1 MCV 95 MCH 32.3 MCHC 33.9 RDW 13.2 Plt Count 186 Seg Neutrophils % 58.4 Lymphocytes % 24.7 Monocytes % 10.1 Eosinophils % 5.4 Basophils % 1.4 Absolute Neutrophils 2.8 Absolute Lymphocytes 1.2 Absolute Monocytes 0.5 Absolute Eosinophils 0.3 Absolute Basophils 0.1 Sodium 141.2 Potassium 3.9 Chloride 105 Carbon Dioxide 28 Anion Gap 8 BUN 11 Creatinine 0.91 Est GFR ( Amer) > 60 Est GFR (Non-Af Amer) > 60 Glucose 107 Calcium 9.0 08/01/17 01:15 Troponin I 0.045 Impressions: Head MRI 08/01/17 00:00 IMPRESSION: No acute findings. Extensive small vessel ischemic change with multiple old infarcts as above. EVIDENCE OF ACUTE STROKE: NO. Transfer Plan - Time Spent with Patient Time spent with patient: Greater than 30 Minutes Qualifiers - * PATIENT BEING DISCHARGED WITH ANY OF THE FOLLOWING DIAGNOSIS: No VTE patient discharged on overlapping Therapy?: Yes Plan Time Spent: Greater than 30 Minutes - Patient's discharge Rehab Start on Cipro 500 mg twice a day for 7 days Check a CBC and Chem-7 in [address] Love for the events monitor Follow outpatients neurology Dr. ortiz patient seen in the past
[2017-08-03] MEDS: ATORVASTATIN CALCIUM 40 MG TABLET PO SCH (22:49)
[2017-08-04 05:36] LABS: ABSOLUTE BASOPHILS # (AUTO) 0.1 10^3/uL (0.0-0.2); ABSOLUTE EOSINOPHILS # (AUTO) 0.2 10^3/uL (0.0-0.6); ABSOLUTE LYMPHOCYTES (AUTO) 1.7 10^3/uL (0.5-4.7); ABSOLUTE MONOCYTES (AUTO) 0.5 10^3/uL (0.1-1.4); ABSOLUTE NEUT (AUTO) 2.5 10^3/uL (1.7-8.2); BASOPHILS % (AUTO) 1.1 % (0-2); EOSINOPHILS % (AUTO) 4.4 % (0-6); HEMATOCRIT 37.9 % (36.0-47.0); HEMOGLOBIN 13.1 g/dL (12.0-15.5); LYMPHOCYTES % (AUTO) 34.2 % (13-45); MEAN CORPUSCULAR HEMOGLOBIN 32.8 pg (27.0-33.4); MEAN CORPUSCULAR HGB CONC 34.6 g/dL (32.0-36.0); MEAN CORPUSCULAR VOLUME 95 fl (80-97); MONOCYTES % (AUTO) 10.5 % (3-13); PLATELET COUNT 202 10^3/uL (150-450); RED CELL DISTRIBUTION WIDTH 13.1 % (11.5-14.0); SEGMENTED NEUTROPHILS % (AUTO) 49.8 % (42-78); TOTAL CELLS COUNTED % (AUTO) 100 %; WHITE BLOOD COUNT 5.1 10^3/uL (4.0-10.5)
[2017-08-04] MEDS: LEVOTHYROXINE SODIUM 0.05 MG TABLET PO SCH (05:39)
[2017-08-04] MEDS: LANSOPRAZOLE 15 MG TAB.RAP.DR PO SCH (05:39)
[2017-08-04 05:53] LABS: ANION GAP 11 (5-19); BLOOD UREA NITROGEN 16 mg/dL (7-20); CALCIUM 8.9 mg/dL (8.4-10.2); CARBON DIOXIDE 29 mmol/L (22-30); CHLORIDE 102 mmol/L (98-107); GLUCOSE 95 mg/dL (75-110); POTASSIUM 3.9 mmol/L (3.6-5.0); SODIUM 141.7 mmol/L (137-145)
[2017-08-04] MEDS: ASPIRIN 81 MG TABLET, ENT COATED PO SCH (09:27)
[2017-08-04] MEDS: CEFTRIAXONE 2 GM/D5W RTU 2 GM/50 ML RTUPB IV SCH (09:27)
[2017-08-04] MEDS: AMLODIPINE BESYLATE 5 MG TABLET PO SCH (09:27)
[2017-08-04] MEDS: LEVETIRACETAM 500 MG TABLET PO SCH (09:28)
[2017-08-04] MEDS: APIXABAN 5 MG TABLET PO SCH (09:28)
[2017-08-04] MEDS: ISOSORBIDE MONONITRATE 30 MG TAB.ER.24H PO SCH (09:28)
[2017-08-04 16:15] VITALS: BP 124/63
== END 2017-08-04 16:10 | DRG 690 ==
LOC: ER 20:24 → EH 08-01 00:23 → 3W 08-01 03:15
PROVIDERS: ADMIT Family Medicine; ATTEND Family Medicine
DX: N39.0 Urinary tract infection, site not specified (principal); B96.20 Unspecified Escherichia coli [E. coli] as the cause of diseases classified elsewhere; I48.2 Chronic atrial fibrillation; G40.909 Epilepsy, unspecified, not intractable, without status epilepticus; F01.50 Vascular dementia, unspecified severity, without behavioral disturbance, psychotic disturbance, mood disturbance, and anxiety; E78.5 Hyperlipidemia, unspecified; I25.10 Atherosclerotic heart disease of native coronary artery without angina pectoris; M19.90 Unspecified osteoarthritis, unspecified site; I10 Essential (primary) hypertension; E03.9 Hypothyroidism, unspecified; K21.9 Gastro-esophageal reflux disease without esophagitis; I25.2 Old myocardial infarction; F32.9 Major depressive disorder, single episode, unspecified; Z90.49 Acquired absence of other specified parts of digestive tract; Z88.0 Allergy status to penicillin; Z86.73 Personal history of transient ischemic attack (TIA), and cerebral infarction without residual deficits; Z79.02 Long term (current) use of antithrombotics/antiplatelets; Z90.710 Acquired absence of both cervix and uterus
CPT/HCPCS: 36415; 70450; 70551; 71045; 80048; 80053; 81001; 82550; 82553; 82803; 82962; 83605; 84484; 85025; 85610; 85730; 87040; 87086; 87088; 87186; 93005; 93010; 99285; G8978-GP; G8979-GP; G8980-GP; J0696; J1953; J2060; J3490; J7030

== ENCOUNTER 2017-10-21 16:49 | Emergency (ER) | payer MEDICARE, MEDICAID ==
--- NOTE | 2017-10-21 17:32 | RADIOLOGY REPORT (SQ) ---
EXAM DESCRIPTION: CHEST SINGLE VIEW COMPLETED DATE/TIME: 10/21/2017 5:21 pm REASON FOR STUDY: ams/ stroke alert COMPARISON: Chest x-ray 07/31/2017. EXAM PARAMETERS: NUMBER OF VIEWS: One view. TECHNIQUE: Single frontal radiographic view of the chest acquired. RADIATION DOSE: NA LIMITATIONS: None. FINDINGS: LUNGS AND PLEURA: No consolidation, pneumothorax or pleural effusion. MEDIASTINUM AND HILAR STRUCTURES: No masses. Contour normal. HEART AND VASCULAR STRUCTURES: The heart remains enlarged. There is no overt vascular congestion. BONES: There are healed left-sided rib fractures. HARDWARE: Orthopedic hardware noted at the proximal right humerus. IMPRESSION: Cardiomegaly. Otherwise, no acute radiographic finding in the chest. TECHNICAL DOCUMENTATION: JOB ID: [id number] [employer]- All Rights Reserved Reading location - IP/workstation name: [email or web address]
[2017-10-21 17:38] LABS: ABSOLUTE LYMPHOCYTES (AUTO) 1.2 10^3/uL (0.5-4.7); ABSOLUTE MONOCYTES (AUTO) 0.6 10^3/uL (0.1-1.4); ABSOLUTE NEUT (AUTO) 6.6 10^3/uL (1.7-8.2); BASOPHILS % (AUTO) 0.5 % (0-2); EOSINOPHILS % (AUTO) 0.4 % (0-6); HEMATOCRIT 37.3 % (36.0-47.0); HEMOGLOBIN 12.5 g/dL (12.0-15.5); LYMPHOCYTES % (AUTO) 13.8 % (13-45); MEAN CORPUSCULAR HEMOGLOBIN 32.1 pg (27.0-33.4); MEAN CORPUSCULAR HGB CONC 33.5 g/dL (32.0-36.0); MEAN CORPUSCULAR VOLUME 96 fl (80-97); MONOCYTES % (AUTO) 7.6 % (3-13); PLATELET COUNT 238 10^3/uL (150-450); RED CELL DISTRIBUTION WIDTH 14.1 % (11.5-14.0); SEGMENTED NEUTROPHILS % (AUTO) 77.7 % (42-78); TOTAL CELLS COUNTED % (AUTO) 100 %; WHITE BLOOD COUNT 8.5 10^3/uL (4.0-10.5)
[2017-10-21 17:42] LABS: INTERNATIONAL RATION (INR) 1.35; PARTIAL THROMBOPLASTIN TIME 34.9 SEC (23.5-35.8); PROTHROMBIN TIME 17.4 SEC (11.4-15.4)
--- NOTE | 2017-10-21 17:46 | RADIOLOGY REPORT (SQ) ---
EXAM DESCRIPTION: CT HEAD WITHOUT COMPLETED DATE/TIME: 10/21/2017 5:17 pm REASON FOR STUDY: ams/ stroke alert COMPARISON: 07/31/2009 TECHNIQUE: Axial images acquired through the brain without intravenous contrast. Images reviewed wi th bone, brain and subdural windows. Additional sagittal and coronal reconstructions were generated. Images stored on PACS. All CT scanners at this facility use dose modulation, iterative reconstruction, and/or weight based d osing when appropriate to reduce radiation dose to as low as reasonably achievable (ALARA). [facility]: Dose Right [facility]: CareDose [facility]: Dose Right [facility]: Teradose 4D [facility]: FarmDrop RADIATION DOSE: mGy. LIMITATIONS: None. FINDINGS: VENTRICLES: Prominent. CEREBRUM: No masses. No hemorrhage. No midline shift. Areas of low density in the white matter mos t likely due to chronic micro-vascular ischemic change. No evidence for acute infarction. CEREBELLUM: No masses. No hemorrhage. No alteration of density. No evidence for acute infarction. EXTRAAXIAL SPACES: Age-related involutional change. No fluid collections. No masses. ORBITS AND GLOBE: No intra- or extraconal masses. Normal contour of globe without masses. CALVARIUM: No fracture. PARANASAL SINUSES: No fluid or mucosal thickening. SOFT TISSUES: No mass or hematoma. OTHER: No other significant finding. IMPRESSION: CHRONIC CHANGES OF ATROPHY AND MICROVASCULAR ISCHEMIA. NO ACUTE PROCESS. EVIDENCE OF ACUTE STROKE: NO. COMMENT: Pertinent positive or negative findings of the imaging study reported as a CRITICAL EXAM t o ER PROVIDER at17 20 on 10/21/2017. Call attempted. No answers. Category of Critical Exam: Stroke alert TECHNICAL DOCUMENTATION: JOB ID: [id number] Quality ID # [id number]: Final reports with documentation of one or more dose reduction techniques (e.g., Au tomated exposure control, adjustment of the mA and/or kV according to patient size, use of iterative reconstruction technique) 2010 [employer]- All Rights Reserved Reading location - IP/workstation name: [email or web address]
[2017-10-21 17:57] LABS: ALANINE AMINOTRANSFERASE 27 U/L (9-52); ALBUMIN 4.3 g/dL (3.5-5.0); ALKALINE PHOSPHATASE 120 U/L (38-126); ANION GAP 17 (5-19); ASPARTATE AMINO TRANSFERASE 36 U/L (14-36); BILIRUBIN,DIRECT 0.5 mg/dL (0.0-0.4); BILIRUBIN,TOTAL 1.7 mg/dL (0.2-1.3); BLOOD UREA NITROGEN 10 mg/dL (7-20); CALCIUM 9.2 mg/dL (8.4-10.2); CARBON DIOXIDE 18 mmol/L (22-30); CHLORIDE 96 mmol/L (98-107); CREATINE KINASE 168 U/L (30-135); GLUCOSE 145 mg/dL (75-110); POTASSIUM 3.8 mmol/L (3.6-5.0); SODIUM 130.5 mmol/L (137-145); TOTAL PROTEIN 7.4 g/dL (6.3-8.2)
[2017-10-21 18:09] LABS: CREATINE KINASE MB 1.11 ng/mL (<4.55)
[2017-10-21] MEDS ORDERED: MIDAZOLAM 2 MG/2 ML INJ ONE (18:09)
[2017-10-21 18:10] LABS: TROPONIN I < 0.012 ng/mL
[2017-10-21] MEDS ORDERED: RINGERS SOLUTION,LACTATED 1,000 ML IV ONE (18:12)
[2017-10-21] MEDS ORDERED: LEVETIRACETAM 1500 MG/NACL-ISO 1,500 MG/100 ML RTUPB IV ONE (18:12)
--- NOTE | 2017-10-21 18:17 | ER Document Report ---
ED General - General Chief Complaint: Probable Seizure Stated Complaint: POSSIBLE SEIZURE Time Seen by Provider: 10/21/17 17:51 Cannot obtain history due to: Dementia, Altered mental status Notes: Patient presents by EMS with altered mental status and concern of a seizure. The patient is altered, actively seizing at the time of my assessment, unable to provide history. TRAVEL OUTSIDE OF THE [place] IN LAST 30 DAYS: No - Related Data Allergies/Adverse Reactions: Penicillins Allergy (Mild, Verified 10/21/17 22:37) rash Past Medical History - General Information source: Patient Cannot obtain history due to: Altered mental status - Social History Smoking Status: Unknown if Ever Smoked Frequency of alcohol use: Heavy Drug Abuse: None Lives with: Spouse/Significant other Family History: Reviewed & Not Pertinent Patient has suicidal ideation: No Patient has homicidal ideation: No - Past Medical History Cardiac Medical History: Reports: Hx Atrial Fibrillation, Hx Heart Attack - mild , Hx Hypercholesterolemia, Hx Hypertension Denies: Hx Congestive Heart Failure, Hx Coronary Artery Disease, Hx Peripheral Vascular Disease, Hx Heart Murmur Neurological Medical History: Reports: Hx Cerebrovascular Accident - 01/20 , Hx Seizures - 01/20 Endocrine Medical History: Reports: Hx Hypothyroidism. Denies: Hx Graves' Disease, Hx Hyperthyroidism Renal/ Medical History: Denies: Hx End Stage Renal Disease, Hx Kidney Stones, Hx Peritoneal Dialysis Malignancy Medical History: Denies: Hx Leukemia GI Medical History: Reports: Hx Gastroesophageal Reflux Disease - occ. takes Omeprazole PRN. Denies: Hx Crohn's Disease, Hx Hiatal Hernia, Hx Irritable Bowel, Hx Liver Failure, Hx Pancreatitis, Hx Ulcer Musculoskeletal Medical History: Reports Hx Arthritis, Denies Hx Fibromyalgia, Denies Hx Multiple Sclerosis, Denies Hx Muscular Dystrophy Psychiatric Medical History: Reports: Hx Depression Denies: Hx Bipolar Disorder, Hx Dementia, Hx Post Traumatic Stress Disorder, Hx Schizophrenia Traumatic Medical History: Reports: Hx Fractures - 2nd toe on right Infectious Medical History: Denies: Hx HIV Past Surgical History: Reports: Hx Appendectomy, Hx Hysterectomy, Hx Orthopedic Surgery - right rotator cuff. Denies: Hx Bowel Surgery, Hx Section, Hx Cholecystectomy, Hx Colostomy, Hx Coronary Artery Bypass Graft, Hx Gastric Bypass Surgery, Hx Herniorrhaphy, Hx Mastectomy, Hx Pacemaker, Hx Tonsillectomy , Hx Tubal Ligation - Immunizations Hx Diphtheria, Pertussis, Tetanus Vaccination: No Hx Pneumococcal Vaccination: 12/07/15 Review of Systems - Review of Systems -: Yes ROS unobtainable due to patient's medical condition Physical Exam - Vital signs Vitals: Resp BP Pulse Ox 27 H 117/56 L 95 10/21/17 17:06 10/21/17 17:06 10/21/17 17:06 Interpretation: Normal Notes: PHYSICAL EXAMINATION: GENERAL: Somewhat disheveled, confused, nontoxic in appearance HEAD: Atraumatic, normocephalic. EYES: Pupils equal round and reactive to light, extraocular movements intact, sclera anicteric, conjunctiva are normal. ENT: nares patent, oropharynx clear without exudates. Moderately dry mucous membranes. NECK: Normal range of motion, supple without lymphadenopathy LUNGS: Breath sounds clear to auscultation bilaterally and equal. No wheezes rales or rhonchi. HEART: Irregular regular rate and rhythm without murmurs ABDOMEN: Soft, nontender, normoactive bowel sounds. No guarding, no rebound. No masses appreciated. EXTREMITIES: Normal range of motion, no pitting or edema. No cyanosis. NEUROLOGICAL: Moves all extremities spontaneously. On initial assessment patient does not follow commands. PSYCH: Lethargic, does not respond to questions. SKIN: Warm, Dry, normal turgor, no rashes or lesions noted. Course - Re-evaluation Re-evalutation: 10/21/17 18:15 Patient presents apparently with altered mental status although on my initial assessment she is having a generalized seizure mostly facial involvement, gaze deviated toward the right. This lasted approximately 1 minute and did spontaneously terminate. 2 mg of midazolam was administered initially there was a concern of possible alcohol withdrawal but this does not appear to be validated by the patient's previous hospitalizations. Moreover her laboratories do not suggest this diagnosis as her LFTs are normal, she does not have anemia, no macrocytosis. Moreover during her previous hospitalizations there is no documentation of alcohol withdrawal. Patient does have a known history of seizures. She is supposed to be on levetiracetam 1000 mg twice daily. I suspect noncompliance as this is been issue in the past based on previous chart review. The patient herself is completely unable to provide any history due to being in a postictal state. There is no family available for consultation. The patient has been loaded with 1500 mg levetiracetam. Patient' s laboratories do show mild acute renal failure, creatinine 1.38. Will begin fluid resuscitation with 1 L of lactated Ringer's. The remainder of the patient 's laboratories are otherwise noted to be normal. Will monitor the patient for return to her reported baseline which is apparently quite demented and a phasic at baseline based on chart review. Will then anticipate discharge home with a supply of the patient's medications. 10/21/17 19:30 No additional seizure activity, patient is alert, talking, but does appear confused. She apparently has some significant degree of confusion at baseline secondary to vascular dementia. Will continue to monitor and await urinalysis. Patient also apparently has some mild right-sided weakness at baseline. 10/21/17 20:18 Patient is alert, oriented, remains with mild right-sided weakness but again based on previous documentation this is her baseline. 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 Her previous altered mental status appears likely to be from a postictal state as well as underlying vascular dementia. The patient is unsure whether or not she has been taking her medications. She has returned to her reported baseline based on review of previous notes. Labs are otherwise unremarkable, no indication for hospitalization at this time point. Will discharge with outpatient follow- up and return precautions. 10/22/17 04:19 - Vital Signs Vital signs: Temp Pulse Resp BP Pulse Ox 99.1 F 88 21 H 115/73 99 10/21/17 21:55 10/21/17 21:55 10/21/17 21:55 10/21/17 21:55 10/21/17 21:55 - Laboratory Result Diagrams: 10/21/17 17:29 10/21/17 17:29 Laboratory results interpreted by me: 10/21/17 10/21/17 10/21/17 17:29 17:29 17:29 RDW 14.1 H PT 17.4 H Sodium 130.5 L Chloride 96 L Carbon Dioxide 18 L Creatinine 1.38 H Est GFR ( Amer) 45 L Est GFR (Non-Af Amer) 38 L Glucose 145 H Total Bilirubin 1.7 H Direct Bilirubin 0.5 H Creatine Kinase 168 H Urine Ketones 10/21/17 19:40 RDW PT Sodium Chloride Carbon Dioxide Creatinine Est GFR ( Amer) Est GFR (Non-Af Amer) Glucose Total Bilirubin Direct Bilirubin Creatine Kinase Urine Ketones 25 H - Diagnostic Test Radiology reviewed: Image reviewed, Reports reviewed Radiology results interpreted by me: 10/21/17 20:19 CT head: No acute intracranial bleed or mass Chest x-ray: No acute infiltrate or pneumothorax - EKG Interpretation by Me Additional EKG results interpreted by me: 10/21/17 20:20 Atrial fibrillation. Rate 86. No ST elevations or depressions. QTC is 407. Discharge - Discharge Clinical Impression: Seizure, Atrial fibrillation, chronic Vascular dementia Qualifiers: Dementia behavioral disturbance: without behavioral disturbance Qualified Code( s): F01.50 - Vascular dementia without behavioral disturbance Condition: Stable Disposition: HOME, SELF-CARE Additional Instructions: Please follow-up with your general doctor at your earliest ability. Return for any additional concerns you may have. Please take all medications as directed specifically your Keppra. Specifically, please return for new weakness, worsening confusion from your normal, vomiting, fever, or any other symptoms that are worrisome to you. Referrals: BIB GOODWIN MD [Primary Care Provider] - Follow up as needed
[2017-10-21] MEDS ORDERED: MIDAZOLAM 2 MG/2 ML INJ IV ONE (18:18)
[2017-10-21 19:57] LABS: APPEARANCE,URINE CLEAR; BILIRUBIN,URINE NEGATIVE (NEGATIVE); COLOR,URINE YELLOW; GLUCOSE, URINE NEGATIVE (NEGATIVE); KETONES,URINE 25 mg/dL (NEGATIVE)
[2017-10-21 19:58] LABS: LEUKOCYTE ESTERASE,URINE NEGATIVE (NEGATIVE); NITRITE,URINE NEGATIVE (NEGATIVE); PROTEIN,URINE NEGATIVE (NEGATIVE); UROBILINOGEN,URINE NEGATIVE mg/dL (<2.0)
[2017-10-21 21:56] VITALS: BP 115/73
--- NOTE | 2017-10-22 05:14 | EKG REPORT ---
SEVERITY:- ABNORMAL ECG - ATRIAL FIBRILLATION BORDERLINE LEFT AXIS DEVIATION NONSPECIFIC T ABNORMALITIES, LATERAL LEADS : Confirmed by: Marisabel Arreguin 22-Oct-2017 05:14:16
== END 2017-10-21 21:55 | disposition home or self-care (01) ==
LOC: ER 16:49
DX: R41.82 Altered mental status, unspecified (principal); R56.9 Unspecified convulsions; I48.91 Unspecified atrial fibrillation; E78.00 Pure hypercholesterolemia, unspecified; I10 Essential (primary) hypertension; I25.2 Old myocardial infarction; Z86.73 Personal history of transient ischemic attack (TIA), and cerebral infarction without residual deficits; Z90.710 Acquired absence of both cervix and uterus
CPT/HCPCS: 93005; 99284; 99285; 96361; 96374; 96375; 36415; 82553; 82962; 82550; 85025; 85610; 85730; 80053; 81001; 84484; 71045; 70450; 93010; J2250; J1953

== ENCOUNTER 2017-10-21 22:29 | Emergency (ER) | payer MEDICARE, MEDICAID ==
--- NOTE | 2017-10-21 23:16 | ER Document Report ---
ED Medical Screen (RME) - General Chief Complaint: Probable Seizure Stated Complaint: NOT FEELING WELL Time Seen by Provider: 10/21/17 23:14 Mode of Arrival: Wheelchair Information source: Patient Notes: Patient was seen earlier today for probable seizure while she was in the emergency room she told the staff that she was having a seizure again and needed to be seen again. Patient's vital signs are stable. Patient is mildly confused. Patient states she cannot hear much of what I say. She states she does have a history of headaches high blood pressure and seizures. I have greeted and performed a rapid initial assessment of this patient. A comprehensive ED assessment and evaluation of the patient, analysis of test results and completion of medical decision making process will be conducted by an additional ED providers. TRAVEL OUTSIDE OF THE [place] IN LAST 30 DAYS: No - Related Data Allergies/Adverse Reactions: Penicillins Allergy (Mild, Verified 10/21/17 22:37) rash Past Medical History - Past Medical History Cardiac Medical History: Reports: Hx Atrial Fibrillation, Hx Heart Attack - mild , Hx Hypercholesterolemia, Hx Hypertension Denies: Hx Congestive Heart Failure, Hx Coronary Artery Disease, Hx Peripheral Vascular Disease, Hx Heart Murmur Neurological Medical History: Reports: Hx Cerebrovascular Accident - 01/20 , Hx Seizures - 01/20 Endocrine Medical History: Reports: Hx Hypothyroidism. Denies: Hx Graves' Disease, Hx Hyperthyroidism Renal/ Medical History: Denies: Hx End Stage Renal Disease, Hx Kidney Stones, Hx Peritoneal Dialysis Malignancy Medical History: Denies: Hx Leukemia GI Medical History: Reports: Hx Gastroesophageal Reflux Disease - occ. takes Omeprazole PRN. Denies: Hx Crohn's Disease, Hx Hiatal Hernia, Hx Irritable Bowel, Hx Liver Failure, Hx Pancreatitis, Hx Ulcer Musculoskeltal Medical History: Reports Hx Arthritis, Denies Hx Fibromyalgia, Denies Hx Multiple Sclerosis, Denies Hx Muscular Dystrophy Psychiatric Medical History: Reports: Hx Depression Denies: Hx Bipolar Disorder, Hx Dementia, Hx Post Traumatic Stress Disorder, Hx Schizophrenia Traumatic Medical History: Reports: Hx Fractures - 2nd toe on right Infectious Medical History: Denies: Hx HIV Past Surgical History: Reports: Hx Appendectomy, Hx Hysterectomy, Hx Orthopedic Surgery - right rotator cuff. Denies: Hx Bowel Surgery, Hx Section, Hx Cholecystectomy, Hx Colostomy, Hx Coronary Artery Bypass Graft, Hx Gastric Bypass Surgery, Hx Herniorrhaphy, Hx Mastectomy, Hx Pacemaker, Hx Tonsillectomy , Hx Tubal Ligation - Immunizations Hx Diphtheria, Pertussis, Tetanus Vaccination: No History of Influenza Vaccine for 11/2016 - 04/2017 Season: Yes Influenza Administration Date for 11/2016 - 04/2017 Season: 11/05/16 Physical Exam - Vital signs Vitals: Temp Pulse Resp BP Pulse Ox 98.7 F 90 20 141/98 H 99 10/21/17 22:43 10/21/17 22:43 10/21/17 22:43 10/21/17 22:43 10/21/17 22:43 Course - Vital Signs Vital signs: Temp Pulse Resp BP Pulse Ox 98.7 F 90 20 141/98 H 99 10/21/17 22:43 10/21/17 22:43 10/21/17 22:43 10/21/17 22:43 10/21/17 22:43 Doctor's Discharge - Discharge Referrals: BIB GOODWIN MD [Primary Care Provider] - Follow up as needed
[2017-10-22 00:07] LABS: ABSOLUTE BASOPHILS # (AUTO) 0.1 10^3/uL (0.0-0.2); ABSOLUTE LYMPHOCYTES (AUTO) 1.4 10^3/uL (0.5-4.7); ABSOLUTE MONOCYTES (AUTO) 0.6 10^3/uL (0.1-1.4); ABSOLUTE NEUT (AUTO) 6.9 10^3/uL (1.7-8.2); BASOPHILS % (AUTO) 0.7 % (0-2); EOSINOPHILS % (AUTO) 0.1 % (0-6); HEMATOCRIT 40.2 % (36.0-47.0); HEMOGLOBIN 13.7 g/dL (12.0-15.5); LYMPHOCYTES % (AUTO) 15.4 % (13-45); MEAN CORPUSCULAR HEMOGLOBIN 32.3 pg (27.0-33.4); MEAN CORPUSCULAR HGB CONC 33.9 g/dL (32.0-36.0); MEAN CORPUSCULAR VOLUME 95 fl (80-97); MONOCYTES % (AUTO) 6.8 % (3-13); PLATELET COUNT 250 10^3/uL (150-450); RED BLOOD COUNT 4.23 10^6/uL (3.72-5.28); RED CELL DISTRIBUTION WIDTH 14.1 % (11.5-14.0); TOTAL CELLS COUNTED % (AUTO) 100 %; WHITE BLOOD COUNT 8.9 10^3/uL (4.0-10.5)
[2017-10-22 00:24] LABS: ALANINE AMINOTRANSFERASE 29 U/L (9-52); ALBUMIN 4.4 g/dL (3.5-5.0); ALKALINE PHOSPHATASE 120 U/L (38-126); ANION GAP 12 (5-19); ASPARTATE AMINO TRANSFERASE 40 U/L (14-36); BILIRUBIN,DIRECT 0.6 mg/dL (0.0-0.4); BILIRUBIN,TOTAL 1.8 mg/dL (0.2-1.3); BLOOD UREA NITROGEN 8 mg/dL (7-20); CALCIUM 9.4 mg/dL (8.4-10.2); CARBON DIOXIDE 23 mmol/L (22-30); CHLORIDE 99 mmol/L (98-107); GLUCOSE 127 mg/dL (75-110); SODIUM 133.8 mmol/L (137-145); TOTAL PROTEIN 7.8 g/dL (6.3-8.2)
--- NOTE | 2017-10-22 07:40 | ER Document Report ---
ED General - General Chief Complaint: Probable Seizure Stated Complaint: NOT FEELING WELL Time Seen by Provider: 10/21/17 23:14 Mode of Arrival: Wheelchair Notes: Patient is a 71-year-old female with a history of some dementia as well as seizure disorder. She was seen earlier today by Dr. Strickland after she had a seizure but she will was without her medications. She was given loading dose of Keppra. She improved and was discharged. The waiting room she was wandering around and complaining that she did not feel well and was confused. She is brought back to room. Patient's apparently came with her but no one can find her . Patient has some dementia the patient herself says that she does not know what to do at this time and does not know where to go. Patient has hard time recalling her medications. Patient is unsure if she has had any further seizures that she says "I cannot really remember". TRAVEL OUTSIDE OF THE [place] IN LAST 30 DAYS: No - Related Data Allergies/Adverse Reactions: Penicillins Allergy (Mild, Verified 10/21/17 22:37) rash Past Medical History - General Information source: Patient - Social History Smoking Status: Unknown if Ever Smoked Chew tobacco use (# tins/day): No Frequency of alcohol use: None Drug Abuse: None Family History: None, Reviewed & Not Pertinent Patient has suicidal ideation: No Patient has homicidal ideation: No - Past Medical History Cardiac Medical History: Reports: Hx Atrial Fibrillation, Hx Heart Attack - mild , Hx Hypercholesterolemia, Hx Hypertension Denies: Hx Congestive Heart Failure, Hx Coronary Artery Disease, Hx Peripheral Vascular Disease, Hx Heart Murmur Neurological Medical History: Reports: Hx Cerebrovascular Accident - 01/20 , Hx Seizures - 01/20 Endocrine Medical History: Reports: Hx Hypothyroidism. Denies: Hx Graves' Disease, Hx Hyperthyroidism Renal/ Medical History: Denies: Hx End Stage Renal Disease, Hx Kidney Stones, Hx Peritoneal Dialysis Malignancy Medical History: Denies: Hx Leukemia GI Medical History: Reports: Hx Gastroesophageal Reflux Disease - occ. takes Omeprazole PRN. Denies: Hx Crohn's Disease, Hx Hiatal Hernia, Hx Irritable Bowel, Hx Liver Failure, Hx Pancreatitis, Hx Ulcer Musculoskeletal Medical History: Reports Hx Arthritis, Denies Hx Fibromyalgia, Denies Hx Multiple Sclerosis, Denies Hx Muscular Dystrophy Psychiatric Medical History: Reports: Hx Depression Denies: Hx Bipolar Disorder, Hx Dementia, Hx Post Traumatic Stress Disorder, Hx Schizophrenia Traumatic Medical History: Reports: Hx Fractures - 2nd toe on right Infectious Medical History: Denies: Hx HIV Past Surgical History: Reports: Hx Appendectomy, Hx Hysterectomy, Hx Orthopedic Surgery - right rotator cuff. Denies: Hx Bowel Surgery, Hx Section, Hx Cholecystectomy, Hx Colostomy, Hx Coronary Artery Bypass Graft, Hx Gastric Bypass Surgery, Hx Herniorrhaphy, Hx Mastectomy, Hx Pacemaker, Hx Tonsillectomy , Hx Tubal Ligation - Immunizations Hx Diphtheria, Pertussis, Tetanus Vaccination: No Hx Pneumococcal Vaccination: 12/07/15 Review of Systems - Review of Systems Notes: My Normal Review Basic REVIEW OF SYSTEMS: CONSTITUTIONAL : Denies fever, chills, or sweats. Denies recent illness. CARDIOVASCULAR: Denies chest pain. RESPIRATORY: Denies cough, cold, or chest congestion. Denies shortness of breath, difficulty breathing, or wheezing. GASTROINTESTINAL: Denies abdominal pain. Denies nausea, vomiting, or diarrhea. Denies constipation. Last BM: MUSCULOSKELETAL: Denies neck or back pain or joint pain or swelling. SKIN: Denies rash or skin lesions. NEUROLOGICAL: Has some baseline confusion from dementia. Denies headache. Denies weakness or paralysis or loss of use of either side. Denies problems with gait or speech. Denies sensory or motor loss. ALL OTHER SYSTEMS REVIEWED AND NEGATIVE. Physical Exam - Vital signs Vitals: Temp Pulse Resp BP Pulse Ox 98.7 F 90 20 141/98 H 99 10/21/17 22:43 10/21/17 22:43 10/21/17 22:43 10/21/17 22:43 10/21/17 22:43 - Notes Notes: General Appearance: Well nourished, alert, cooperative, no acute distress, no obvious discomfort. Vitals: reviewed, See vital signs table. Head: no swelling or tenderness to the head Eyes: PERRL, EOMI, Conjuctiva clear Mouth: No decreasd moisture Lungs: No wheezing, No rales, No rhonci, No accessory muscle use, good air exchange bilaterally. Heart: Normal rate, Regular rythm, No murmur, no rub Abdomen: Normal BS, soft, No rigidity, No abdominal tenderness, No guarding, no rebound, no abdominal masses, no organomegaly Extremities: strength 5/5 in all extremities, good pulses in all extremities, no swelling or tenderness in the extremities, no edema. Skin: warm, dry, appropriate color, no rash Neuro: speech clear, oriented x 2, normal affect, responds appropriately to most questions. Her gait. Cranial nerves II through XII are intact. Equal strength in all 4 extremities. Course - Re-evaluation Re-evalutation: 10/22/17 07:38 Patient's laboratory evaluation is unremarkable. She had a UA already performed earlier today which was normal. Patient did receive Keppra earlier. I did call speak with Dr. Meredith, her primary care physician. I informed him that the patient is here but for some reason no one can find her . I informed him my concerns that she might have dementia. He says that she does have dementia and that she does need her 's help to help guide her. He says he is not in town and therefore cannot admit the patient himself. Patient will be held in the ER until determination whether not she can be held as a social admit. I will order her routine medications to make sure she receives these. Dictation of this chart was performed using voice recognition software; therefore, there may be some unintended grammatical errors. - Vital Signs Vital signs: Temp Pulse Resp BP Pulse Ox 97.9 F 77 20 140/72 H 96 10/22/17 01:55 10/22/17 01:55 10/22/17 01:55 10/22/17 01:55 10/22/17 01:55 - Laboratory Result Diagrams: 10/21/17 23:55 10/21/17 23:55 Laboratory results interpreted by me: 10/21/17 10/21/17 23:55 23:55 RDW 14.1 H Sodium 133.8 L Est GFR (Non-Af Amer) 49 L Glucose 127 H Total Bilirubin 1.8 H Direct Bilirubin 0.6 H AST 40 H Discharge - Discharge Clinical Impression: Seizure disorder Dementia Qualifiers: Dementia type: unspecified type Dementia behavioral disturbance: without behavioral disturbance Qualified Code(s): F03.90 - Unspecified dementia without behavioral disturbance Condition: Stable Referrals: BIB GOODWIN MD [Primary Care Provider] - Follow up as needed
[2017-10-22] MEDS ORDERED: ATORVASTATIN CALCIUM 40 MG TABLET PO SCH (10:00)
[2017-10-22] MEDS ORDERED: AMLODIPINE BESYLATE 10 MG TABLET PO SCH (10:00)
[2017-10-22] MEDS ORDERED: BUSPIRONE HCL 10 MG TABLET PO SCH (10:00)
[2017-10-22] MEDS ORDERED: FLUOXETINE HCL 20 MG CAPSULE PO SCH (10:00)
[2017-10-22] MEDS ORDERED: ISOSORBIDE MONONITRATE 30 MG TAB.ER.24H PO SCH (10:00)
[2017-10-22] MEDS ORDERED: LEVETIRACETAM 500 MG TABLET PO SCH (10:00)
[2017-10-22] MEDS ORDERED: LEVOTHYROXINE SODIUM 0.05 MG TABLET PO SCH (10:00)
[2017-10-22 10:13] VITALS: BP 133/61
== END 2017-10-22 11:00 | disposition home or self-care (01) ==
LOC: ER 22:29
DX: F03.90 Unspecified dementia, unspecified severity, without behavioral disturbance, psychotic disturbance, mood disturbance, and anxiety (principal); G40.909 Epilepsy, unspecified, not intractable, without status epilepticus; I10 Essential (primary) hypertension; E78.00 Pure hypercholesterolemia, unspecified; Z88.0 Allergy status to penicillin; I25.2 Old myocardial infarction; Z86.73 Personal history of transient ischemic attack (TIA), and cerebral infarction without residual deficits; Z90.710 Acquired absence of both cervix and uterus
CPT/HCPCS: 99284; 36415; 85025; 80053; A9270 ×4

== ENCOUNTER 2018-01-29 11:48 | Emergency (ER) | payer MEDICARE, MEDICAID ==
--- NOTE | 2018-01-29 11:57 | ER Document Report ---
ED General - General Chief Complaint: Probable Seizure Stated Complaint: POSSIBLE SEIZURE Time Seen by Provider: 01/29/18 11:49 Mode of Arrival: Medic Information source: Emergency Med Personnel Notes: 72-year-old female brought in by EMS for seizure at home. Per EMS states that the patient walked into the room 10 minutes prior to arrival and told the that she needs to go to the hospital. states that she had a seizure at home, when EMS showed up the patient was able to walk to the stretcher but was not answering any questions beyond shaking her head yes and no. On arrival in the emergency department while she was still under the care of EMS patient began having a tonic-clonic seizure. They did not give any medications. Reviewing the patient's home medication list it appears that the patient has a history of seizures as she is taking Keppra. Patient also takes Eliquis and aspirin. Patient cannot answer any questions at this time as she is postictal. TRAVEL OUTSIDE OF THE [place] IN LAST 30 DAYS: No - Related Data Allergies/Adverse Reactions: Penicillins Allergy (Mild, Verified 10/21/17 22:37) rash Past Medical History - General Information source: Emergency Med Personnel Cannot obtain history due to: Altered mental status - Social History Smoking Status: Unknown if Ever Smoked Lives with: Family Family History: None, Reviewed & Not Pertinent - Past Medical History Cardiac Medical History: Reports: Hx Atrial Fibrillation, Hx Heart Attack - mild, Hx Hypercholesterolemia, Hx Hypertension Denies: Hx Congestive Heart Failure, Hx Coronary Artery Disease, Hx Peripheral Vascular Disease, Hx Heart Murmur Neurological Medical History: Reports: Hx Cerebrovascular Accident - 01/20 , Hx Seizures - 01/20 Endocrine Medical History: Reports: Hx Hypothyroidism. Denies: Hx Graves' Disease, Hx Hyperthyroidism Renal/ Medical History: Denies: Hx End Stage Renal Disease, Hx Kidney Stones, Hx Peritoneal Dialysis Malignancy Medical History: Denies: Hx Leukemia GI Medical History: Reports: Hx Gastroesophageal Reflux Disease - occ. takes Omeprazole PRN. Denies: Hx Crohn's Disease, Hx Hiatal Hernia, Hx Irritable Bowel, Hx Liver Failure, Hx Pancreatitis, Hx Ulcer Musculoskeletal Medical History: Reports Hx Arthritis, Denies Hx Fibromyalgia, Denies Hx Multiple Sclerosis, Denies Hx Muscular Dystrophy Psychiatric Medical History: Reports: Hx Depression Denies: Hx Bipolar Disorder, Hx Dementia, Hx Post Traumatic Stress Disorder, Hx Schizophrenia Traumatic Medical History: Reports: Hx Fractures - 2nd toe on right Infectious Medical History: Denies: Hx HIV Past Surgical History: Reports: Hx Appendectomy, Hx Hysterectomy, Hx Orthopedic Surgery - right rotator cuff. Denies: Hx Bowel Surgery, Hx Section, Hx Cholecystectomy, Hx Colostomy, Hx Coronary Artery Bypass Graft, Hx Gastric Bypass Surgery, Hx Herniorrhaphy, Hx Mastectomy, Hx Pacemaker, Hx Tonsillectomy, Hx Tubal Ligation - Immunizations Hx Diphtheria, Pertussis, Tetanus Vaccination: No Hx Pneumococcal Vaccination: 12/07/15 Review of Systems - Review of Systems -: Yes ROS unobtainable due to patient's medical condition Physical Exam - Vital signs Vitals: Pulse Ox 97 01/29/18 11:54 - Notes Notes: GENERAL: Nonfocal tonic-clonic seizure, stopped almost immediately after I walk into the room, does not answer questions but after a few minutes attempts to follow commands. HEAD: Normocephalic, atraumatic EYES: Pupils equal, round and reactive to light, extraocular movements intact. ENT: Oral mucosa moist, tongue midline. NECK: Full range of motion, supple, trachea midline. LUNGS: Clear to auscultation bilaterally, no wheezes, rales or rhonchi, no respiratory distress. HEART: Regular rate and rhythm, no murmurs, gallops, rubs. ABDOMEN: Soft, nontender, nondistended, bowel sounds present in all 4 quadrants. EXTREMITIES: Right arm is weak but does have some spontaneous movement, left arm patient will roll picker and squeeze my hand with her left arm, right hand will not to squeeze my hand with her right hand. Does not move either foot. No edema, radial and dorsalis pedis pulses 2/4 bilaterally. No cyanosis. NEUROLOGICAL: Initially seizing, then postictal, then begins to follow commands on the left, cannot all commands on the right arm. As above no movement of the bilateral lower extremities. Nonverbal at this time.. SKIN: Warm, Dry, normal turgor, no rashes or lesions noted. Course - Re-evaluation Re-evalutation: 01/29/18 12:06 Despite patient's history of seizures given the fact that she is on Eliquis and has a focal deficit at this time I am quite concerned for the possibility of in tracranial hemorrhage, patient is immediately sent for CT scan. Patient is unlikely to be a candidate for TPA as she is postictal and this could be Ulysses's paralysis rather than a true stroke. 01/29/18 12:14 CT the head is negative for any bleed, I am concerned for Ulysses's paralysis versus true stroke. Emergent MRI has been ordered. I am leaning more towards Ulysses's paralysis at this point as she is regaining some use of her right hand however I do find it is prudent to proceed with MRI unless she completely normalizes. 01/29/18 15:52 CBC unremarkable, INR slightly prolonged at 1.22 consistent with Eliquis use, CMP shows slight low sodium 135.0, slightly elevated alkaline phosphatase at 130, CK slightly elevated at 431, cardiac enzymes otherwise normal, urinalysis unremarkable. Chest x-ray shows no acute process, CT scan of the head shows multiple prior infarcts, MRI was performed and shows no acute infarct but there is extensive chronic microvascular ischemia. Old records reviewed, she does have some degree of dementia, at this time the patient has completely returned to baseline, is able to answer questions appropriately, but does occasionally get confused when I asked her in the year she gives her date instead however she can tell me that "Dr. Lux" is President, no set it is [place] and can recite her phone number, her 's name and her address. No evidence of strokes, suspect the right arm weakness was Ulysses's paralysis from her seizures and this is resolved. Patient was given a gram of Keppra here, her Keppra at home will be increased and she states she has a follow-up appointment with a neurologist on Sunday. Patient will be discharged home. - Vital Signs Vital signs: Temp Pulse Resp BP Pulse Ox 77 20 125/89 H 95 01/29/18 15:00 01/29/18 16:16 01/29/18 16:16 01/29/18 16:16 - Laboratory Result Diagrams: 01/29/18 12:05 01/29/18 12:05 Laboratory results interpreted by me: 01/29/18 01/29/18 01/29/18 12:05 12:05 12:05 MCV 98 H RDW 14.7 H PT 16.0 H APTT 36.6 H Sodium 135.0 L Carbon Dioxide 17 L Est GFR (Non-Af Amer) 51 L Glucose 147 H Alkaline Phosphatase 130 H Creatine Kinase 431 H Urine Protein 01/29/18 13:45 MCV RDW PT APTT Sodium Carbon Dioxide Est GFR (Non-Af Amer) Glucose Alkaline Phosphatase Creatine Kinase Urine Protein 30 H - EKG Interpretation by Me Additional EKG results interpreted by me: 01/29/18 15:54 EKG shows A. fib at a rate of 91, left axis deviation, poor R wave progression, T wave inversions in aVL, no ST segment elevations or depressions per my interpretation. Discharge - Discharge Clinical Impression: Seizure, Personal history of cerebrovascular accident with residual effects Condition: Stable Disposition: HOME, SELF-CARE Additional Instructions: Please continue taking your Keppra as prescribed. Please follow-up with a neurologist for further management of your seizures. You are still having breakthrough seizures and a neurologist may want to add additional anti-seizure medications. Please avoid alcohol, sleep deprivation and Tramadol (also known as Ultram). Please return to the ED for any new or concerning symptoms. Referrals: BIB GOODWIN MD [ACTIVE STAFF] - Follow up as needed CECY CAMARENA MD [Primary Care Provider] - Follow up as needed Scribe Attestation: 01/29/18 19:19 I personally performed the services described in the documentation, reviewed and edited the documentation which was dictated to the scribe in my presence, and it accurately records my words and actions.
[2018-01-29] MEDS ORDERED: LEVETIRACETAM 1000 MG/NACL-ISO 1,000 MG/100 ML RTUPB IV ONE (12:09)
--- NOTE | 2018-01-29 12:10 | RADIOLOGY REPORT (SQ) ---
EXAM DESCRIPTION: CT HEAD WITHOUT COMPLETED DATE/TIME: 01/29/2018 12:02 pm REASON FOR STUDY: seizing, on anticoagulants COMPARISON: 10/21/2017 TECHNIQUE: Axial images acquired through the brain without intravenous contrast. Images reviewed wi th bone, brain and subdural windows. Additional sagittal and coronal reconstructions were generated. Images stored on PACS. All CT scanners at this facility use dose modulation, iterative reconstruction, and/or weight based d osing when appropriate to reduce radiation dose to as low as reasonably achievable (ALARA). [facility]: Dose Right [facility]: CareDose [facility]: Dose Right [facility]: Teradose 4D [facility]: Smart [employer] RADIATION DOSE: CT Rad equipment meets quality standard of care and radiation dose reduction techniq ues were employed. CTDIvol: 53.2 mGy. DLP: 937 mGy-cm.mGy. LIMITATIONS: None. FINDINGS: VENTRICLES: Prominent. CEREBRUM: No masses. No hemorrhage. No midline shift. Areas of low density in the white matter mos t likely due to chronic micro-vascular ischemic change. No evidence for acute infarction. CEREBELLUM: No masses. No hemorrhage. No alteration of density. No evidence for acute infarction. EXTRAAXIAL SPACES: Age-related involutional change. No fluid collections. No masses. ORBITS AND GLOBE: No intra- or extraconal masses. Normal contour of globe without masses. CALVARIUM: No fracture. PARANASAL SINUSES: No fluid or mucosal thickening. SOFT TISSUES: No mass or hematoma. OTHER: No other significant finding. IMPRESSION: CHRONIC CHANGES OF ATROPHY AND MICROVASCULAR ISCHEMIA. NO ACUTE PROCESS. EVIDENCE OF ACUTE STROKE: NO. TECHNICAL DOCUMENTATION: JOB ID: [id number] Quality ID # [id number]: Final reports with documentation of one or more dose reduction techniques (e.g., Au tomated exposure control, adjustment of the mA and/or kV according to patient size, use of iterative reconstruction technique) 2010 [employer]- All Rights Reserved Reading location - IP/workstation name: [email or web address]
[2018-01-29 12:21] LABS: ABSOLUTE BASOPHILS # (AUTO) 0.1 10^3/uL (0.0-0.2); ABSOLUTE EOSINOPHILS # (AUTO) 0.1 10^3/uL (0.0-0.6); ABSOLUTE LYMPHOCYTES (AUTO) 1.8 10^3/uL (0.5-4.7); ABSOLUTE MONOCYTES (AUTO) 0.6 10^3/uL (0.1-1.4); ABSOLUTE NEUT (AUTO) 5.1 10^3/uL (1.7-8.2); HEMATOCRIT 36.5 % (36.0-47.0); HEMOGLOBIN 12.3 g/dL (12.0-15.5); LYMPHOCYTES % (AUTO) 23.5 % (13-45); MEAN CORPUSCULAR HEMOGLOBIN 32.9 pg (27.0-33.4); MEAN CORPUSCULAR HGB CONC 33.6 g/dL (32.0-36.0); MEAN CORPUSCULAR VOLUME 98 fl (80-97); MONOCYTES % (AUTO) 8.2 % (3-13); PLATELET COUNT 260 10^3/uL (150-450); RED BLOOD COUNT 3.72 10^6/uL (3.72-5.28); RED CELL DISTRIBUTION WIDTH 14.7 % (11.5-14.0); SEGMENTED NEUTROPHILS % (AUTO) 66.3 % (42-78); TOTAL CELLS COUNTED % (AUTO) 100 %; WHITE BLOOD COUNT 7.6 10^3/uL (4.0-10.5)
[2018-01-29 12:22] LABS: INTERNATIONAL RATION (INR) 1.22
[2018-01-29 12:23] LABS: PARTIAL THROMBOPLASTIN TIME 36.6 SEC (23.5-35.8)
--- NOTE | 2018-01-29 12:34 | RADIOLOGY REPORT (SQ) ---
EXAM DESCRIPTION: CHEST SINGLE VIEW COMPLETED DATE/TIME: 01/29/2018 12:22 pm REASON FOR STUDY: seizing, on anticoagulants COMPARISON: 01/26/2016 EXAM PARAMETERS: NUMBER OF VIEWS: One view. TECHNIQUE: Single frontal radiographic view of the chest acquired. RADIATION DOSE: NA LIMITATIONS: None. FINDINGS: LUNGS AND PLEURA: No opacities, masses or pneumothorax. No pleural effusion. MEDIASTINUM AND HILAR STRUCTURES: No masses. Contour normal. HEART AND VASCULAR STRUCTURES: Heart normal in size. Normal vasculature. BONES: No acute findings. HARDWARE: Right shoulder replacement. OTHER: No other significant finding. IMPRESSION: NO ACUTE RADIOGRAPHIC FINDING IN THE CHEST. TECHNICAL DOCUMENTATION: JOB ID: [id number] [employer]- All Rights Reserved Reading location - IP/workstation name: [email or web address]
[2018-01-29 12:51] LABS: ALANINE AMINOTRANSFERASE 19 U/L (9-52); ALBUMIN 4.8 g/dL (3.5-5.0); ALKALINE PHOSPHATASE 130 U/L (38-126); ANION GAP 18 (5-19); ASPARTATE AMINO TRANSFERASE 35 U/L (14-36); BILIRUBIN,DIRECT 0.3 mg/dL (0.0-0.4); BILIRUBIN,TOTAL 1.1 mg/dL (0.2-1.3); BLOOD UREA NITROGEN 16 mg/dL (7-20); CALCIUM 9.5 mg/dL (8.4-10.2); CARBON DIOXIDE 17 mmol/L (22-30); CHLORIDE 100 mmol/L (98-107); CREATINE KINASE 431 U/L (30-135); GLUCOSE 147 mg/dL (75-110); POTASSIUM 4.8 mmol/L (3.6-5.0); TOTAL PROTEIN 8.2 g/dL (6.3-8.2)
[2018-01-29 13:03] LABS: CREATINE KINASE MB 2.72 ng/mL (<4.55)
[2018-01-29 13:09] LABS: TROPONIN I < 0.012 ng/mL
[2018-01-29 14:20] LABS: APPEARANCE,URINE CLOUDY; BILIRUBIN,URINE NEGATIVE (NEGATIVE); COLOR,URINE YELLOW; GLUCOSE, URINE NEGATIVE (NEGATIVE); KETONES,URINE NEGATIVE (NEGATIVE); LEUKOCYTE ESTERASE,URINE NEGATIVE (NEGATIVE); NITRITE,URINE NEGATIVE (NEGATIVE); PROTEIN,URINE 30 mg/dL (NEGATIVE); URINE SPECIFIC GRAVITY 1.013; UROBILINOGEN,URINE NEGATIVE mg/dL (<2.0)
--- NOTE | 2018-01-29 14:55 | RADIOLOGY REPORT (SQ) ---
EXAM DESCRIPTION: MRI HEAD WITHOUT COMPLETED DATE/TIME: 01/29/2018 2:34 pm REASON FOR STUDY: seizures, R sided weakness, todds paralysis vs CVA COMPARISON: 08/01/2017 TECHNIQUE: Multiplanar imaging includes non-contrasted T1, T2, FLAIR, and diffusion with ADC map seq uences. Images stored on PACS. LIMITATIONS: None. FINDINGS: ANATOMY: No anomalies. Normal vascular flow voids. Pituitary fossa normal. CSF SPACES: Normal in size and contour. No hemorrhage. CEREBRUM: Sulci and gyri normal in size and contour. Old lacunar infarcts. Old occipital infarcts. Old left posterior parietal infarction. Significantly increased deep white matter signal on FLAIR i maging. No evidence of hemorrhage, mass, or extraaxial fluid collection. POSTERIOR FOSSA: No signal alteration. No hemorrhage. No edema, masses or mass effect. Internal marylou tory canals, cerebello-pontine angles, mastoids normal. DIFFUSION IMAGING: Negative for acute or sub-acute infarction. ORBITS: No masses. Globes normal. PARANASAL SINUSES: No fluid levels. Mucosa normal. OTHER: No other significant finding. IMPRESSION: Extensive chronic microvascular ischemia with no acute intracranial imaging finding. EVIDENCE OF ACUTE STROKE: NO. TECHNICAL DOCUMENTATION: JOB ID: [id number] [employer]- All Rights Reserved Reading location - IP/workstation name: [email or web address]
--- NOTE | 2018-01-29 15:37 | EKG REPORT ---
SEVERITY:- ABNORMAL ECG - ATRIAL FIBRILLATION BORDERLINE LEFT AXIS DEVIATION BORDERLINE R WAVE PROGRESSION, ANTERIOR LEADS : Confirmed by: Marisabel Arreguin 29-Jan-2018 15:36:30
[2018-01-29 16:24] VITALS: BP 125/89
== END 2018-01-29 16:56 | disposition home or self-care (01) ==
LOC: ER 11:48
DX: R56.9 Unspecified convulsions (principal); Z86.73 Personal history of transient ischemic attack (TIA), and cerebral infarction without residual deficits; Z79.899 Other long term (current) drug therapy; I10 Essential (primary) hypertension
CPT/HCPCS: 93005; 99285; 96365; 36415; 82553; 82550; 85025; 85610; 85730; 80053; 81001; 84484; 70551; 71045; 70450; 93010; J1953

== ENCOUNTER 2018-02-11 21:58 | Inpatient (IN) | payer MEDICARE, MEDICAID ==
[2018-02-11] MEDS ORDERED: ASPIRIN 81 MG TABLET, CHEWABLE PO ONE (22:05)
[2018-02-11 22:29] LABS: ABSOLUTE BASOPHILS # (AUTO) 0.1 10^3/uL (0.0-0.2); ABSOLUTE EOSINOPHILS # (AUTO) 0.2 10^3/uL (0.0-0.6); ABSOLUTE LYMPHOCYTES (AUTO) 1.9 10^3/uL (0.5-4.7); ABSOLUTE MONOCYTES (AUTO) 0.9 10^3/uL (0.1-1.4); ABSOLUTE NEUT (AUTO) 5.2 10^3/uL (1.7-8.2); EOSINOPHILS % (AUTO) 2.1 % (0-6); HEMATOCRIT 34.1 % (36.0-47.0); HEMOGLOBIN 11.5 g/dL (12.0-15.5); LYMPHOCYTES % (AUTO) 23.3 % (13-45); MEAN CORPUSCULAR HEMOGLOBIN 33.3 pg (27.0-33.4); MEAN CORPUSCULAR HGB CONC 33.8 g/dL (32.0-36.0); MEAN CORPUSCULAR VOLUME 98 fl (80-97); MONOCYTES % (AUTO) 10.6 % (3-13); PLATELET COUNT 304 10^3/uL (150-450); RED BLOOD COUNT 3.47 10^6/uL (3.72-5.28); RED CELL DISTRIBUTION WIDTH 14.3 % (11.5-14.0); TOTAL CELLS COUNTED % (AUTO) 100 %; WHITE BLOOD COUNT 8.2 10^3/uL (4.0-10.5)
[2018-02-11 22:41] LABS: ALANINE AMINOTRANSFERASE 15 U/L (9-52); ALBUMIN 3.8 g/dL (3.5-5.0); ALKALINE PHOSPHATASE 129 U/L (38-126); ANION GAP 6 (5-19); ASPARTATE AMINO TRANSFERASE 24 U/L (14-36); BILIRUBIN,DIRECT 0.3 mg/dL (0.0-0.4); BILIRUBIN,TOTAL 1.1 mg/dL (0.2-1.3); BLOOD UREA NITROGEN 13 mg/dL (7-20); CALCIUM 8.8 mg/dL (8.4-10.2); CARBON DIOXIDE 25 mmol/L (22-30); CHLORIDE 100 mmol/L (98-107); CREATINE KINASE 93 U/L (30-135); GLUCOSE 108 mg/dL (75-110); POTASSIUM 4.4 mmol/L (3.6-5.0); TOTAL PROTEIN 6.6 g/dL (6.3-8.2)
--- NOTE | 2018-02-11 22:45 | RADIOLOGY REPORT (SQ) ---
EXAM DESCRIPTION: XR CHEST 1 VIEW COMPLETED DATE/TME: 02/11/2018 22:05 CLINICAL HISTORY: 72 years, Female, chest pain COMPARISON: 01/29/2018 chest x-ray NUMBER OF VIEWS: 1 TECHNIQUE: Frontal view chest LIMITATIONS: None. FINDINGS: Cardiomegaly with atheromatous change of the thoracic aorta. Osteopenia. Mild elevation right hemidiaphragm. Postsurgical change right shoulder. Lungs are clear. No pneumothorax IMPRESSION: Stable cardiomegaly. Lungs are clear copyright 2011 [employer]- All Rights Reserved
[2018-02-11 22:53] LABS: CREATINE KINASE MB 0.32 ng/mL (<4.55); TROPONIN I < 0.012 ng/mL
--- NOTE | 2018-02-11 22:57 | ER Document Report ---
ED General - General Chief Complaint: Chest Pain Stated Complaint: DIZZINESS Time Seen by Provider: 02/11/18 22:51 Notes: Patient is a 72-year-old female presents with complaint of some chest pressure and just not feeling well and feeling nauseous. She says that she feels pressure is coming from all the mucus in her lungs. She says she has been coughing up lots of mucus now for a week. She says today she does start to feel weak and dizzy and unwell therefore came to the ER. She says she typically gets the same chest pressure whenever she has mucus in her lungs. Said the pressure is actually been there for a week with the coughing however the weakness and dizziness is new in the last 24 hours. TRAVEL OUTSIDE OF THE [place] IN LAST 30 DAYS: No - Related Data Allergies/Adverse Reactions: Penicillins Allergy (Mild, Verified 10/21/17 22:37) rash Past Medical History - Social History Smoking Status: Never Smoker Family History: None, Reviewed & Not Pertinent Patient has suicidal ideation: No Patient has homicidal ideation: No - Past Medical History Cardiac Medical History: Reports: Hx Atrial Fibrillation, Hx Heart Attack - mild, Hx Hypercholesterolemia, Hx Hypertension Denies: Hx Congestive Heart Failure, Hx Coronary Artery Disease, Hx Peripheral Vascular Disease, Hx Heart Murmur Neurological Medical History: Reports: Hx Cerebrovascular Accident - 01/20 , Hx Seizures - 01/20 Endocrine Medical History: Reports: Hx Hypothyroidism. Denies: Hx Graves' Disease, Hx Hyperthyroidism Renal/ Medical History: Denies: Hx End Stage Renal Disease, Hx Kidney Stones, Hx Peritoneal Dialysis Malignancy Medical History: Denies: Hx Leukemia GI Medical History: Reports: Hx Gastroesophageal Reflux Disease - occ. takes Omeprazole PRN. Denies: Hx Crohn's Disease, Hx Hiatal Hernia, Hx Irritable Bowel, Hx Liver Failure, Hx Pancreatitis, Hx Ulcer Musculoskeletal Medical History: Reports Hx Arthritis, Denies Hx Fibromyalgia, Denies Hx Multiple Sclerosis, Denies Hx Muscular Dystrophy Psychiatric Medical History: Reports: Hx Depression Denies: Hx Bipolar Disorder, Hx Dementia, Hx Post Traumatic Stress Disorder, Hx Schizophrenia Traumatic Medical History: Reports: Hx Fractures - 2nd toe on right Infectious Medical History: Denies: Hx HIV Past Surgical History: Reports: Hx Appendectomy, Hx Hysterectomy, Hx Orthopedic Surgery - right rotator cuff. Denies: Hx Bowel Surgery, Hx Section, Hx Cholecystectomy, Hx Colostomy, Hx Coronary Artery Bypass Graft, Hx Gastric Bypass Surgery, Hx Herniorrhaphy, Hx Mastectomy, Hx Pacemaker, Hx Tonsillectomy, Hx Tubal Ligation - Immunizations Hx Diphtheria, Pertussis, Tetanus Vaccination: No Hx Pneumococcal Vaccination: 12/07/15 Physical Exam - Vital signs Vitals: Pulse Ox 98 02/11/18 21:58 Course - Re-evaluation Re-evalutation: 02/12/18 03:16 The tech asked me come to the bathroom as the patient was acting somewhat confused when going to the bathroom. I went and saw the patient and she was coming out of bathroom. She obviously is somnolent and not herself. She says that she does not feel well. She looks very hesitant when she walks very weak. She says that she no longer has any chest pain but just does not feel well. She does complain of some nausea. No vomiting. No other complaints at this time. I will order venous blood gas. Avoid CT scan of the head. I have ordered a UA. I am awaiting the results of the repeat troponin. We will maintain the patient on a secured entrance monitor. 02/12/18 06:02 Patient's vital signs continues look well. Her troponin and delta troponin are negative. Due to progressive altered mental status did obtain a urinalysis which shows positive nitrites. Otherwise is not overwhelmingly impressive for infection however nitrites are usually pretty specific for infection therefore we will place her on Rocephin. I sent her urine for culture. Due to her weakness and altered mental status I did call and speak with Dr. Meredith, patient's primary care physician, who agrees to admit the patient. Patient otherwise clinically looks okay and is not in distress. Dictation of this chart was performed using voice recognition software; therefore, there may be some unintended grammatical errors. - Vital Signs Vital signs: Temp Pulse Resp BP Pulse Ox 98.3 F 20 125/66 92 02/12/18 00:04 02/12/18 04:01 02/12/18 04:01 02/12/18 04:01 - Laboratory Result Diagrams: 02/11/18 22:18 02/11/18 22:18 Laboratory results interpreted by me: 02/11/18 02/11/18 02/12/18 22:18 22:18 05:15 RBC 3.47 L Hgb 11.5 L Hct 34.1 L MCV 98 H RDW 14.3 H Sodium 131.0 L Est GFR (Non-Af Amer) 53 L Alkaline Phosphatase 129 H Urine Nitrite POSITIVE H Ur Leukocyte Esterase TRACE H - EKG Interpretation by Me Additional EKG results interpreted by me: 02/11/18 22:53 EKG is reviewed and interpreted by me. EKG shows A. fib with rate of [address] segment elevation or depression. No ischemic T wave inversions. QRS duration and QT intervals are within normal range. Old EKG for comparison is from January 29, 2018. Occasional PAC on EKG. 02/11/18 23:44 EKG #2 is reviewed and interpreted by me. EKG shows A. fib with a rate of 55 bpm. Occasional PVC. No ST segment elevation or depression. QRS duration QT intervals are within normal range. Discharge - Discharge Clinical Impression: Chest pressure Altered mental status Qualifiers: Altered mental status type: unspecified Qualified Code(s): R41.82 - Altered mental status, unspecified Condition: Stable Disposition: ADMITTED OBSERVATION Unit Admitted: Telemetry
[2018-02-11] MEDS ORDERED: ALBUTEROL SULFATE 0.083% NEB 2.5 MG/3 ML AMPUL NEB ONE (23:20)
[2018-02-12] MEDS ORDERED: NORMAL SALINE 500 ML IV ONE (03:12)
[2018-02-12 04:03] LABS: VENOUS BLOOD BASE EXCESS 1.9 mmol/L; VENOUS BLOOD HCO3 27.2 mmol/L (20-32); VENOUS BLOOD PH 7.4 (7.30-7.42)
--- NOTE | 2018-02-12 04:34 | RADIOLOGY REPORT (SQ) ---
EXAM DESCRIPTION: CT HEAD WITHOUT IV CONTRAST COMPLETED DATE/TME: 02/12/2018 03:09 CLINICAL HISTORY: 72 years, Female, altered mental status COMPARISON: 01/29/[address] brain 01/29/2018. TECHNIQUE: 188 Images stored on PACS. All CT scanners at this facility use dose modulation, iterative reconstruction, and/or weight based dosing when appropriate to reduce radiation dose to as low as reasonably achievable (ALARA). [facility]: Dose Right [facility]: CareDose [facility]: Dose Right [facility]: Teradose 4D [facility]: [employer] LIMITATIONS: None. FINDINGS: The globes are intact. The paranasal sinuses and mastoid air cells are unremarkable. No displaced or depressed skull fracture. No intra or extra-axial hemorrhage. CT is limited for evaluation of acute infarct. No CT evidence for large or territorial acute infarct. Old infarcts in the occipital regions bilaterally. Diffuse atrophy with small vessel ischemic change. No mass or midline shift. IMPRESSION: Old infarcts in the occipital regions bilaterally. Atrophy. Small vessel ischemic change. TECHNICAL DOCUMENTATION: Quality ID # 436: Final reports with documentation of one or more dose reduction techniques (e.g., Automated exposure control, adjustment of the mA and/or kV according to patient size, use of iterative reconstruction technique) copyright 2011 [employer]- All Rights Reserved
[2018-02-12 05:39] LABS: APPEARANCE,URINE CLEAR; BILIRUBIN,URINE NEGATIVE (NEGATIVE); COLOR,URINE YELLOW; GLUCOSE, URINE NEGATIVE (NEGATIVE); KETONES,URINE NEGATIVE (NEGATIVE); LEUKOCYTE ESTERASE,URINE TRACE (NEGATIVE); NITRITE,URINE POSITIVE (NEGATIVE); PROTEIN,URINE NEGATIVE (NEGATIVE); URINE SPECIFIC GRAVITY 1.009; UROBILINOGEN,URINE NEGATIVE mg/dL (<2.0)
[2018-02-12] MEDS ORDERED: CEFTRIAXONE INJ 1000 MG VIAL IV ONE (05:48)
[2018-02-12] MEDS ORDERED: ACETAMINOPHEN 325 MG TABLET PO PRN (06:57)
[2018-02-12] MEDS ORDERED: NORMAL SALINE 1000 ML 1,000 ML IV PRN (06:57)
[2018-02-12] MEDS ORDERED: IPRATROPIUM/ALBUTEROL 0.5-2.5 MG/3 ML AMPUL NEB PRN (06:57)
--- NOTE | 2018-02-12 07:11 | EKG REPORT ---
SEVERITY:- ABNORMAL ECG - ATRIAL FIBRILLATION : Confirmed by: Karri Costello MD 12-Feb-2018 07:10:53
--- NOTE | 2018-02-12 07:11 | EKG REPORT ---
SEVERITY:- ABNORMAL ECG - ATRIAL FIBRILLATION : Confirmed by: Karri Costello MD 12-Feb-2018 07:11:08
[2018-02-12 08:30] LABS: CREATINE KINASE MB 0.33 ng/mL (<4.55)
[2018-02-12 08:36] LABS: TROPONIN I < 0.012 ng/mL
--- NOTE | 2018-02-12 09:29 | PDOC H&P ---
History of Present Illness Admission Date/PCP: 02/12/18 06:17 CECY CAMARENA MD Patient complains of: Chest pressure and dizziness History of Present Illness: JOSE ESPINAL is a 72 year old female This is a 72-year-old female with a significant history of the hypertension's hyperlipidemia history of the seizures disorder history of the vascular dementia history of the stroke and a history of the chronic A. fib multiple hospital admissions for the altered mental status and also currently seen by the neurology and cardiology as an outpatient came to the emergency department with complaining of chest pressure and dizziness for the last 1 week and also some mild cough and congestions In the emergency department initial workup was all negative but according to the ER physicians patient was more confused and he decided to admit for further evaluations Patient have a questionable urinary tract infection as usual for this hallucinations which had a before When I saw the patient patient is alert awake and oriented x3 but patient was telling me she was hallucinating for the last several days Patient is denied any stress Patient is denied any seizures activity currently taking the seizures medication as prescribed Patient's denied any chest pain now but was complaining of chest pain earlier Patient seen by Dr. Arreguin's office last week Patient also seen by the neurology couple of weeks back and was all stable Patient is denied any weakness in the legs denied any speech problems denied any eye problems Past Medical History Cardiac Medical History: Reports: Atrial Fibrillation, Myocardial Infarction - mild, Hyperlipidema, Hypertension Denies: Congestive Heart Failure, Coronary Artery Disease, Peripheral Va scular Disease, Heart Murmur Neurological Medical History: Reports: Seizures - 01/20 Endocrine Medical History: Reports: Hypothyroidism Denies: Hyperthyroidism Renal/ Medical History: Denies: End Stage Renal Disease Malignancy Medical History: Denies: Leukemia GI Medical History: Reports: Gastroesophageal Reflux Disease - occ. takes Omeprazole PRN Denies: Crohn's Disease, Hiatal Hernia Musculoskeltal Medical History: Reports: Arthritis Denies: Fibromyalgia Psychiatric Medical History: Reports: Depression Denies: Bipolar Disorder, Dementia, Post Traumatic Stress Disorder Hematology: Denies: Anemia, Hemophilia, Sickle Cell Disease Infectious Medical History: Denies: HIV Past Surgical History Past Surgical History: Reports: Appendectomy, Hysterectomy, Orthopedic Surgery - right rotator cuff Denies: Amputation, Section, Cholecystectomy, Colostomy, Coronary Artery Bypass Graft, Gastric Bypass Surgery, Herniorrhaphy, Mastectomy, Pacemaker, Tonsillectomy, Tubal Ligation Social History Smoking Status: Never Smoker Frequency of Alcohol Use: Occasional Hx Recreational Drug Use: No Drugs: None Hx Prescription Drug Abuse: No Family History Family History: None, Reviewed & Not Pertinent Parental Family History Reviewed: Yes Children Family History Reviewed: Yes Sibling(s) Family History Reviewed.: Yes Medication/Allergy Allergies/Adverse Reactions: Penicillins Allergy (Mild, Verified 10/21/17 22:37) rash Review of Systems Constitutional: PRESENT: weakness. ABSENT: chills, fever(s), headache(s), weight gain, weight loss Eyes: ABSENT: visual disturbances Ears: ABSENT: hearing changes Cardiovascular: PRESENT: chest pain. ABSENT: dyspnea on exertion, edema, orthropnea, palpitations Respiratory: PRESENT: cough. ABSENT: hemoptysis Gastrointestinal: ABSENT: abdominal pain, constipation, diarrhea, hematemesis, hematochezia, nausea, vomiting Genitourinary: ABSENT: dysuria, hematuria Musculoskeletal: ABSENT: joint swelling Integumentary: ABSENT: rash, wounds Neurological: ABSENT: abnormal gait, abnormal speech, confusion, dizziness, focal weakness, syncope Psychiatric: ABSENT: anxiety, depression, homidical ideation, suicidal ideation Endocrine: ABSENT: cold intolerance, heat intolerance, menstrual abnormalities, polydipsia, polyuria Hematologic/Lymphatic: ABSENT: easy bleeding, easy bruising, lymphadenopathy Physical Exam Vital Signs: Temp Pulse Resp BP Pulse Ox 98.0 F 16 124/76 93 02/12/18 06:01 02/12/18 07:01 02/12/18 07:01 02/12/18 07:01 Intake & Output 02/11/18 02/12/18 02/13/18 06:59 06:59 06:59 Intake Total 500 Balance 500 General appearance: PRESENT: no acute distress, well-developed, well-nourished Head exam: PRESENT: atraumatic, normocephalic Eye exam: PRESENT: conjunctiva pink, EOMI, PERRLA. ABSENT: scleral icterus Ear exam: PRESENT: normal external ear exam Mouth exam: PRESENT: moist, tongue midline Neck exam: PRESENT: full ROM. ABSENT: carotid bruit, JVD, lymphadenopathy, thyromegaly Respiratory exam: PRESENT: clear to auscultation jordin Cardiovascular exam: PRESENT: RRR. ABSENT: diastolic murmur, rubs, systolic murmur Pulses: PRESENT: normal dorsalis pedis pul, +2 pedal pulses bilateral Vascular exam: PRESENT: normal capillary refill GI/Abdominal exam: PRESENT: normal bowel sounds, soft. ABSENT: distended, guarding, mass, organolmegaly, rebound, tenderness Rectal exam: PRESENT: deferred Extremities exam: ABSENT: pedal edema Musculoskeletal exam: PRESENT: ambulatory Neurological exam: PRESENT: alert, awake, oriented to person, oriented to place, oriented to time, oriented to situation, CN II-XII grossly intact. ABSENT: motor sensory deficit Psychiatric exam: PRESENT: appropriate affect, normal mood. ABSENT: homicidal ideation, suicidal ideation Skin exam: PRESENT: dry, intact, warm. ABSENT: cyanosis, rash Results Laboratory Results: 02/11/18 22:18 02/11/18 22:18 02/11/18 02/11/18 02/11/18 22:18 22:18 22:18 WBC 8.2 RBC 3.47 L Hgb 11.5 L Hct 34.1 L MCV 98 H MCH 33.3 MCHC 33.8 RDW 14.3 H Plt Count 304 Seg Neutrophils % 63.0 Lymphocytes % 23.3 Monocytes % 10.6 Eosinophils % 2.1 Basophils % 1.0 Absolute Neutrophils 5.2 Absolute Lymphocytes 1.9 Absolute Monocytes 0.9 Absolute Eosinophils 0.2 Absolute Basophils 0.1 VBG pH VBG pCO2 VBG HCO3 VBG Base Excess Sodium 131.0 L Potassium 4.4 Chloride 100 Carbon Dioxide 25 Anion Gap 6 BUN 13 Creatinine 1.02 Est GFR ( Amer) > 60 Est GFR (Non-Af Amer) 53 L Glucose 108 Calcium 8.8 Total Bilirubin 1.1 AST 24 ALT 15 Alkaline Phosphatase 129 H Total Protein 6.6 Albumin 3.8 TSH 4.27 Urine Color Urine Appearance Urine pH Ur Specific [place] Urine Protein Urine Glucose (UA) Urine Ketones Urine Blood Urine Nitrite Ur Leukocyte Esterase Urine WBC (Auto) 02/12/18 02/12/18 03:31 05:15 WBC RBC Hgb Hct MCV MCH MCHC RDW Plt Count Seg Neutrophils % Lymphocytes % Monocytes % Eosinophils % Basophils % Absolute Neutrophils Absolute Lymphocytes Absolute Monocytes Absolute Eosinophils Absolute Basophils VBG pH 7.40 VBG pCO2 45.0 VBG HCO3 27.2 VBG Base Excess 1.9 Sodium Potassium Chloride Carbon Dioxide Anion Gap BUN Creatinine Est GFR ( Amer) Est GFR (Non-Af Amer) Glucose Calcium Total Bilirubin AST ALT Alkaline Phosphatase Total Protein Albumin TSH Urine Color YELLOW Urine Appearance CLEAR Urine pH 5.0 Ur Specific [place] 1.009 Urine Protein NEGATIVE Urine Glucose (UA) NEGATIVE Urine Ketones NEGATIVE Urine Blood NEGATIVE Urine Nitrite POSITIVE H Ur Leukocyte Esterase TRACE H Urine WBC (Auto) 5 02/11/18 02/11/18 02/12/18 22:18 22:18 03:31 Creatine Kinase 93 CK-MB (CK-2) 0.32 Troponin I < 0.012 < 0.012 02/12/18 02/12/18 07:42 07:42 Creatine Kinase 76 CK-MB (CK-2) 0.33 Troponin I < 0.012 Impressions: Chest X-Ray 02/11/18 22:05 IMPRESSION: Stable cardiomegaly. Lungs are clear copyright 2010 [employer]- All Rights Reserved Head CT 02/12/18 03:09 IMPRESSION: Old infarcts in the occipital regions bilaterally. Atrophy. Small vessel ischemic change. TECHNICAL DOCUMENTATION: Quality ID # 436: Final reports with documentation of one or more dose reduction techniques (e.g., Automated exposure control, adjustment of the mA and/or kV according to patient size, use of iterative reconstruction technique) copyright 2010 [employer]- All Rights Reserved Assessment & Plan - Diagnosis (1) Altered mental status Qualifiers: Altered mental status type: unspecified Qualified Code(s): R41.82 - Altered mental status, unspecified Is this a current diagnosis for this admission?: Yes Plan: Likely underlying urinary tract infections We will start the patient on IV antibiotics in the urine for the cultures We also get the MRI of the head for further evaluations with the history of the CVA in the past (2) Chest pressure Is this a current diagnosis for this admission?: Yes Plan: Will consult the cardiology also get the CT angiogram to rule out underlying any other abnormalities (3) Cerebrovascular disorder Is this a current diagnosis for this admission?: Yes Plan: She is currently on a anticoagulations continues to statin (4) Atrial fibrillation, chronic Is this a current diagnosis for this admission?: Yes Plan: Currently all stable continues to Eliquis and continues the statin and the rate control (5) Coronary artery disease Is this a current diagnosis for this admission?: Yes Plan: Rule out blood acute coronary syndromes (6) Dizziness Is this a current diagnosis for this admission?: Yes Plan: Will get the MRI of the head (7) E. coli urinary tract infection Is this a current diagnosis for this admission?: Yes Plan: Will get the culture continues IV Rocephin (8) Hypertension Qualifiers: Hypertension type: essential hypertension Is this a current diagnosis for this admission?: Yes (9) Seizure Is this a current diagnosis for this admission?: Yes Plan: Continues to current scissors medications - Time Time Spent: 30 to 50 Minutes Medications reviewed and adjusted accordingly: Yes Anticipated discharge: Home Within: Other - Inpatient Certification Based on my medical assessment, after consideration of the patient's mary ann rbidities, presenting symptoms, or acuity I expect that the services needed warrant INPATIENT care.: Yes I certify that my determination is in accordance with my understanding of Medicare's requirements for reasonable and necessary INPATIENT services [42 CFR 412.3e].: Yes Medical Necessity: Need For IV Fluids, Need for IV Antibiotics Post Hospital Care: D/C [place] [employer] Examiner Documentation - Plan Summary Plan Summary: Discussed with the patient regarding the all current conditions We discussed with the patient regarding the all current conditions Discussed with nursing staff in the ER to make sure the patient's get the seizures medications timely manner We will get the MRI of the head and the CT of the chest Discussed with the patient's cardiology
[2018-02-12] MEDS: FAMOTIDINE 20 MG TABLET PO SCH ×2 (09:38→22:03)
[2018-02-12] MEDS: DOCUSATE SODIUM 100 MG CAPSULE PO SCH (09:38)
[2018-02-12] MEDS: CEFTRIAXONE 1 GM/D5W RTU 1 GM/50 ML RTUPB IV SCH (09:39)
--- NOTE | 2018-02-12 11:10 | RADIOLOGY REPORT (SQ) ---
EXAM DESCRIPTION: CTA CHEST COMPLETED DATE/TIME: 02/12/2018 10:47 am REASON FOR STUDY: cp A41.51 SEPSIS DUE TO ESCHERICHIA COLI E. COLI COMPARISON: 02/16/2011. TECHNIQUE: CT scan of the chest performed using helical scanning technique with dynamic intravenous contrast injection. Images reviewed with lung, soft tissue and bone windows. Reconstructed coronal and sagittal MPR images reviewed. Additional 3 dimensional post-processing performed to develop Maximal Intensity Projection images ([place] P). All images stored on PACS. All CT scanners at this facility use dose modulation, iterative reconstruction, and/or weight based d osing when appropriate to reduce radiation dose to as low as reasonably achievable (ALARA). [facility]: Dose Right [facility]: CareDose [facility]: Dose Right [facility]: Teradose 4D [facility]: Lekiosque.[email or web address] CONTRAST TYPE AND DOSE: contrast/concentration: Isovue 350.00 mg/ml; Total Contrast Delivered: 71.0 ml; Total Saline Delivered: 90.0 ml Contrast bolus optimized for the pulmonary arteries. Not diagnostic for the aorta. RENAL FUNCTION: BUN 13 creatinine 1.02. RADIATION DOSE: CT Rad equipment meets quality standard of care and radiation dose reduction techniq ues were employed. CTDIvol: 14.3 - 19.8 mGy. DLP: 524 mGy-cm. . LIMITATIONS: None. FINDINGS: LUNGS AND PLEURA: Moderate right pleural effusion and small left pleural effusion. Basila r atelectasis. No masses, infiltrates, or pneumothorax. No pleural effusions or pleural calcificati ons. AORTA AND GREAT VESSELS: No aneurysm. Contrast bolus not optimized for the aorta. HEART: No pericardial effusion. No significant coronary artery calcifications. PULMONARY ARTERIES: No emboli visualized in the main pulmonary arteries or the segmental branches. HILAR AND MEDIASTINAL STRUCTURES: No identified masses or abnormal nodes. HARDWARE: Right shoulder prosthesis. UPPER ABDOMEN: No significant findings. Hepatic cyst. Limited exam. THYROID AND OTHER SOFT TISSUES: No masses. No adenopathy. BONES: No acute or significant finding. 3D MIPS: Confirm above findings. OTHER: No other significant finding. IMPRESSION: 1. NORMAL CTA OF THE CHEST. NO PULMONARY EMBOLI. 2. BILATERAL PLEURAL EFFUSIONS, RIGHT GREATER THAN LEFT. MILD BASILAR ATELECTASIS. COMMENT: Quality ID # 436: Final reports with documentation of one or more dose reduction techniques (e.g., Automated exposure control, adjustment of the mA and/or kV according to patient size, use of iterative reconstruction technique) TECHNICAL DOCUMENTATION: JOB ID: [id number] [employer]- All Rights Reserved Reading location - IP/workstation name: [facility]-2
--- NOTE | 2018-02-12 12:04 | Physician Advisory Note ---
Physician Advisor ProgressNote .: Pursuant to the plan for Radha Brunson, I have reviewed the medical record for this patient. Physician Advisor Statement: Please consider documenting, if you agree: 1. "Acutely altered mental status, likely due to " - dementia? - acute metabolic encephalopathy due to hyponatremia/UTI/dehydration/...? 2. "chest pressure, suspect due to " 3. "(acute/vxwro-mf-kqqpzay/chronic) hyponatremia, likely due to " 4. "pulmonary hypertension" (ECHO in June, w/mod MR & mild-mod TR too; diast fn not assessed due to Afib) 5. Medical necessity: please document explicitly the ongoing concerns that keep pt from being safe for d/c on 8 PM w/po abx - stlll having hallucinations? (are they acute/new or chronic?) - weakness continuing to worsen despite IVF given? - *How is mental status still different than her baseline dementia state? (document for each day pt here, please) - Are her couple episodes of hypoxemia @ 1AM & 3AM concerning for possible acute issue? - Reason for IVF? Reason for cancelling further IVF? (suspecting chr diast CHF & concerned for risk acute CHF, or ...?) Status points to note: elderly Medicare pt w/chr Afib, CAD/IN/HTN/HLD, prior C VA/sz d/o w/bilat occipital infarcts, hypothyroidism & depression, in w/chest pressure/productive cough, several days of hallucinations, & (+)U/A, Na 131, TSH 4.27, cardiomegaly on CXR. Mental status & weakness acutely worsening during her time in ED. Attending ordering MRI to further eval brain, CT-A; also ordered IVF low rate initially but then cancelled them. Awaiting cx results. Asking for Product Safety Professional consult, PT consult. Thanks! CK
[2018-02-12] MEDS: LEVETIRACETAM 500 MG TABLET PO SCH ×2 (13:47→22:03)
[2018-02-12 14:05] LABS: CREATINE KINASE MB 0.61 ng/mL (<4.55)
[2018-02-12 14:06] LABS: TROPONIN I < 0.012 ng/mL
--- NOTE | 2018-02-12 14:11 | RADIOLOGY REPORT (SQ) ---
EXAM DESCRIPTION: MRI HEAD WITHOUT COMPLETED DATE/TIME: 02/12/2018 1:44 pm REASON FOR STUDY: ams A41.51 SEPSIS DUE TO ESCHERICHIA COLI E. COLI COMPARISON: 12 prior brain MRI exams since 2008, most recently 08/01/2017 and 01/29/2018 CT brain 02/12/2018 TECHNIQUE: Multiplanar imaging includes non-contrasted T1, T2, FLAIR, and diffusion with ADC map seq uences. Images stored on PACS. LIMITATIONS: None. FINDINGS: ANATOMY: No developmental anomalies. Normal vascular flow voids. Pituitary fossa normal. CSF SPACES: Normal in size and contour. No hemorrhage. CEREBRUM and POSTERIOR FOSSA: Stable diffuse increased FLAIR/ T2 signal throughout the hemispheric wh ite matter from chronic small vessel ischemic change. Old chronic appearing infarct in the left post erior temporal and bilateral occipital cortex and subcortical white matter. Multiple tiny chronic ce rebellar lacunar infarcts. White matter disease has progressed since 2008, but is similar over the e xams in 2018. No ACUTE hemorrhage. No edema, masses or mass effect. Diffusion-weighted images are negative for acu te or subacute ischemic change. Internal auditory canals, cerebello-pontine angles, mastoids normal. DIFFUSION IMAGING: Negative for acute or sub-acute infarction. ORBITS: No masses. Globes unremarkable PARANASAL SINUSES: No fluid levels. Mucosa normal. OTHER: No other significant finding. IMPRESSION: Extensive white matter disease with old infarcts in the left posterior temporal and bila teral occipital regions. No acute findings. EVIDENCE OF ACUTE STROKE: NO. TECHNICAL DOCUMENTATION: JOB ID: [id number] [employer]- All Rights Reserved Reading location - IP/workstation name: [email or web address]
--- NOTE | 2018-02-12 19:40 | PDOC PROGRESS REPORT ---
Subjective Progress Note for:: 02/12/18 Subjective:: Asked to see this patient in consultation by Dr. Meredith. His note and ER notes reviewed. Patient has some history of dementia. Patient is a 72-year-old female presents with complaint of some chest pressure and just not feeling well and feeling nauseous. She says that she feels pressure is coming from all the mucus in her lungs. She says she has been coughing up lots of mucus now for a week. She says today she does start to feel weak and dizzy and unwell therefore came to the ER. She says she typically gets the same chest pressure whenever she has mucus in her lungs. Said the pressure is actually been there for a week with the coughing however the weakness and dizziness is new in the last 24 hours. Currently patient denying any chest pain. She has however noted some shortness of breath. Patient CT scan reviewed with does show bilateral pleural effusion. Cardiac enzymes so far has been negative. EKG shows chronic atrial fibrillation. Reason For Visit: UTI,AMS Physical Exam Vital Signs: Temp Pulse Resp BP Pulse Ox 97.8 F 71 16 146/72 H 94 02/12/18 17:09 02/12/18 17:09 02/12/18 17:09 02/12/18 17:09 02/12/18 17:09 Intake & Output 02/11/18 02/12/18 02/13/18 06:59 06:59 06:59 Intake Total 500 316 Output Total 375 Balance 500 -59 Weight 67.6 kg Exam: GENERAL: well-nourished and in no acute distress. Alert and oriented x3 HEAD: Atraumatic, normocephalic. EYES: MATTY, sclera anicteric, conjunctiva are normal. ENT: Moist mucous membranes. No oral ulcerations or bleeding gums noted. No obvious ear, nose or throat abnormalities noted. NECK: supple without lymphadenopathy. Trachea is central. No cervical or axillary lymphadenopathy noted. Carotids are 2+, JVD WNL LUNGS: Breath sounds clear bilaterally. No wheezes rales or rhonchi noted. No significant dullness noted on percussion. CHEST: Palpation of the chest wall shows no significant chest wall tenderness. 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 ABDOMEN: Soft, no significant tenderness appreciated, normoactive bowel sounds. No guarding, no rebound. No rigidity noted . No masses appreciated. EXTREMITIES: Pedal pulses are 1-2+, no calf tenderness noted. No clubbing or cyanosis. negative pedal edema noted NEUROLOGICAL: Focused neurological exam showed no significant neurologic deficit. Normal speech, no focal weakness appreciated. PSYCH: Normal mood, normal affect. Judgment and insight within normal limits. SKIN: No significant ecchymosis, skin is noted to be warm. MUSCULOSKELETAL EXAM: No significant acute joint swelling noted. Results Laboratory Results: 02/11/18 22:18 02/11/18 22:18 02/11/18 02/11/18 02/11/18 22:18 22:18 22:18 WBC 8.2 RBC 3.47 L Hgb 11.5 L Hct 34.1 L MCV 98 H MCH 33.3 MCHC 33.8 RDW 14.3 H Plt Count 304 Seg Neutrophils % 63.0 Lymphocytes % 23.3 Monocytes % 10.6 Eosinophils % 2.1 Basophils % 1.0 Absolute Neutrophils 5.2 Absolute Lymphocytes 1.9 Absolute Monocytes 0.9 Absolute Eosinophils 0.2 Absolute Basophils 0.1 VBG pH VBG pCO2 VBG HCO3 VBG Base Excess Sodium 131.0 L Potassium 4.4 Chloride 100 Carbon Dioxide 25 Anion Gap 6 BUN 13 Creatinine 1.02 Est GFR ( Amer) > 60 Est GFR (Non-Af Amer) 53 L Glucose 108 Calcium 8.8 Total Bilirubin 1.1 AST 24 ALT 15 Alkaline Phosphatase 129 H Total Protein 6.6 Albumin 3.8 TSH 4.27 Urine Color Urine Appearance Urine pH Ur Specific [place] Urine Protein Urine Glucose (UA) Urine Ketones Urine Blood Urine Nitrite Ur Leukocyte Esterase Urine WBC (Auto) 02/12/18 02/12/18 03:31 05:15 WBC RBC Hgb Hct MCV MCH MCHC RDW Plt Count Seg Neutrophils % Lymphocytes % Monocytes % Eosinophils % Basophils % Absolute Neutrophils Absolute Lymphocytes Absolute Monocytes Absolute Eosinophils Absolute Basophils VBG pH 7.40 VBG pCO2 45.0 VBG HCO3 27.2 VBG Base Excess 1.9 Sodium Potassium Chloride Carbon Dioxide Anion Gap BUN Creatinine Est GFR ( Amer) Est GFR (Non-Af Amer) Glucose Calcium Total Bilirubin AST ALT Alkaline Phosphatase Total Protein Albumin TSH Urine Color YELLOW Urine Appearance CLEAR Urine pH 5.0 Ur Specific [place] 1.009 Urine Protein NEGATIVE Urine Glucose (UA) NEGATIVE Urine Ketones NEGATIVE Urine Blood NEGATIVE Urine Nitrite POSITIVE H Ur Leukocyte Esterase TRACE H Urine WBC (Auto) 5 02/11/18 02/11/18 02/12/18 22:18 22:18 03:31 Creatine Kinase 93 CK-MB (CK-2) 0.32 Troponin I < 0.012 < 0.012 02/12/18 02/12/18 02/12/18 07:42 07:42 13:16 Creatine Kinase 76 CK-MB (CK-2) 0.33 0.61 Troponin I < 0.012 < 0.012 EKG Comments: Atrial fibrillation, no acute ST-T wave changes are noted. Impressions: Chest X-Ray 02/11/18 22:05 IMPRESSION: Stable cardiomegaly. Lungs are clear copyright 2010 [employer]- All Rights Reserved Chest/Abdomen CTA 02/12/18 00:00 IMPRESSION: 1. NORMAL CTA OF THE CHEST. NO PULMONARY EMBOLI. 2. BILATERAL PLEURAL EFFUSIONS, RIGHT GREATER THAN LEFT. MILD BASILAR ATELECTASIS. 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 No acute findings. EVIDENCE OF ACUTE STROKE: NO. Head CT 02/12/18 03:09 IMPRESSION: Old infarcts in the occipital regions bilaterally. Atrophy. Small vessel ischemic change. TECHNICAL DOCUMENTATION: Quality ID # 436: Final reports with documentation of one or more dose reduction techniques (e.g., Automated exposure control, adjustment of the mA and/or kV according to patient size, use of iterative reconstruction technique) copyright 2011 [employer]- All Rights Reserved Assessment & Plan - Diagnosis (1) Chest pressure Is this a current diagnosis for this admission?: Yes (2) Altered mental status Qualifiers: Altered mental status type: unspecified Qualified Code(s): R41.82 - Altered mental status, unspecified Is this a current diagnosis for this admission?: Yes (3) Cerebrovascular disorder Is this a current diagnosis for this admission?: Yes (4) Atrial fibrillation, chronic Is this a current diagnosis for this admission?: Yes (5) Coronary artery disease Qualifiers: Coronary Disease-Associated Artery/Lesion type: [place] artery [place] vs. transplanted heart: [place] heart Is this a current diagnosis for this admission?: Yes - Notes Notes: Chest pressure: Patient however denied presentation with chest pain but did admit to chest pain to the ER physician. Patient has known history of CAD. Have therefore opted to schedule her for a stress test. Bilateral pleural effusion: Noted on CT scan. Possible CHF related. Have ordered a BNP and a 2D echo. Cerebrovascular disorder: Patient seemed to have some element of vascular dementia. Patient seeing neurologist. Atrial fibrillation chronic: Continue with rate control and chronic anticoagulation strategy. Coronary artery disease: Recommend medical management at this time with further evaluation stress test and 2D echo. - Time Time with patient: Greater than 35 minutes - More than 50% of the time spent coordinating care, discussing management plans with involved caregivers. Yuki ramos plans discussed with involved personnels. Medical decision making was of moderate to high complexity, patient's has multiple comorbidities. Medications reviewed and adjusted accordingly: Yes
[2018-02-12 19:44] LABS: CREATINE KINASE MB 0.81 ng/mL (<4.55)
[2018-02-12 19:51] LABS: TROPONIN I < 0.012 ng/mL
--- NOTE | 2018-02-12 20:51 | RADIOLOGY REPORT (SQ) ---
EXAM DESCRIPTION: U/S CHEST COMPLETED DATE/TIME: 02/12/2018 8:09 pm REASON FOR STUDY: rt side effusion COMPARISON: None. TECHNIQUE: Sonographic evaluation of both sides of the chest. LIMITATIONS: None. FINDINGS: Bilateral pleural effusions, right more than left. IMPRESSION: Bilateral pleural effusions. TECHNICAL DOCUMENTATION: JOB ID: [id number] [employer]- All Rights Reserved Reading location - IP/workstation name: [email or web address]
[2018-02-13 06:05] LABS: ABSOLUTE BASOPHILS # (AUTO) 0.1 10^3/uL (0.0-0.2); ABSOLUTE EOSINOPHILS # (AUTO) 0.2 10^3/uL (0.0-0.6); ABSOLUTE MONOCYTES (AUTO) 0.8 10^3/uL (0.1-1.4); ABSOLUTE NEUT (AUTO) 3.9 10^3/uL (1.7-8.2); BASOPHILS % (AUTO) 1.4 % (0-2); EOSINOPHILS % (AUTO) 3.4 % (0-6); HEMATOCRIT 39.8 % (36.0-47.0); HEMOGLOBIN 13.5 g/dL (12.0-15.5); LYMPHOCYTES % (AUTO) 16.4 % (13-45); MEAN CORPUSCULAR HEMOGLOBIN 33.2 pg (27.0-33.4); MEAN CORPUSCULAR HGB CONC 33.8 g/dL (32.0-36.0); MEAN CORPUSCULAR VOLUME 98 fl (80-97); MONOCYTES % (AUTO) 13.5 % (3-13); PLATELET COUNT 242 10^3/uL (150-450); RED BLOOD COUNT 4.06 10^6/uL (3.72-5.28); RED CELL DISTRIBUTION WIDTH 13.9 % (11.5-14.0); SEGMENTED NEUTROPHILS % (AUTO) 65.3 % (42-78); TOTAL CELLS COUNTED % (AUTO) 100 %; WHITE BLOOD COUNT 5.9 10^3/uL (4.0-10.5)
[2018-02-13 06:23] LABS: ALANINE AMINOTRANSFERASE 17 U/L (9-52); ALBUMIN 3.8 g/dL (3.5-5.0); ALKALINE PHOSPHATASE 123 U/L (38-126); ANION GAP 8 (5-19); ASPARTATE AMINO TRANSFERASE 20 U/L (14-36); BILIRUBIN,DIRECT 0.2 mg/dL (0.0-0.4); BILIRUBIN,TOTAL 0.9 mg/dL (0.2-1.3); BLOOD UREA NITROGEN 10 mg/dL (7-20); CALCIUM 9.1 mg/dL (8.4-10.2); CARBON DIOXIDE 32 mmol/L (22-30); CHLORIDE 99 mmol/L (98-107); GLUCOSE 99 mg/dL (75-110); POTASSIUM 4.1 mmol/L (3.6-5.0); SODIUM 138.9 mmol/L (137-145)
--- NOTE | 2018-02-13 09:05 | PDOC PROGRESS REPORT ---
Subjective Progress Note for:: 02/13/18 Reason For Visit: UTI,AMS Patient is currently doing fair Patient is denied any chest pain denied any shortness of the breath Patient ultrasound of the chest shows some bilateral pleural effusions right more than the left Patient otherwise denied any other symptoms Patient scheduled for the stress test and echocardiogram per cardiology Patient MRI of the head is all negative Physical Exam Vital Signs: Temp Pulse Resp BP Pulse Ox 97.4 F 71 16 139/65 H 99 02/13/18 08:10 02/13/18 08:10 02/13/18 08:10 02/13/18 08:10 02/13/18 08:10 Intake & Output 02/12/18 02/13/18 02/14/18 06:59 06:59 06:59 Intake Total 500 553 Output Total 375 Balance 500 178 Weight 67.6 kg General appearance: PRESENT: no acute distress, well-developed, well-nourished Head exam: PRESENT: atraumatic, normocephalic Eye exam: PRESENT: conjunctiva pink, EOMI, PERRLA. ABSENT: scleral icterus Ear exam: PRESENT: normal external ear exam Mouth exam: PRESENT: moist, tongue midline Neck exam: PRESENT: full ROM. ABSENT: carotid bruit, JVD, lymphadenopathy, thyromegaly Respiratory exam: PRESENT: clear to auscultation jordin Cardiovascular exam: PRESENT: RRR. ABSENT: diastolic murmur, rubs, systolic murmur Pulses: PRESENT: normal dorsalis pedis pul, +2 pedal pulses bilateral Vascular exam: PRESENT: normal capillary refill GI/Abdominal exam: PRESENT: normal bowel sounds, soft. ABSENT: distended, guarding, mass, organolmegaly, rebound, tenderness Rectal exam: PRESENT: deferred Extremities exam: ABSENT: pedal edema Musculoskeletal exam: PRESENT: ambulatory Neurological exam: PRESENT: alert, awake, oriented to person, oriented to place, oriented to time, oriented to situation, CN II-XII grossly intact. ABSENT: mot or sensory deficit Psychiatric exam: PRESENT: appropriate affect, normal mood. ABSENT: homicidal ideation, suicidal ideation Skin exam: PRESENT: dry, intact, warm. ABSENT: cyanosis, rash Results Laboratory Results: 02/13/18 04:40 02/13/18 04:40 02/13/18 02/13/18 04:40 04:40 WBC 5.9 RBC 4.06 Hgb 13.5 Hct 39.8 MCV 98 H MCH 33.2 MCHC 33.8 RDW 13.9 Plt Count 242 Seg Neutrophils % 65.3 Lymphocytes % 16.4 Monocytes % 13.5 H Eosinophils % 3.4 Basophils % 1.4 Absolute Neutrophils 3.9 Absolute Lymphocytes 1.0 Absolute Monocytes 0.8 Absolute Eosinophils 0.2 Absolute Basophils 0.1 Sodium 138.9 Potassium 4.1 Chloride 99 Carbon Dioxide 32 H Anion Gap 8 BUN 10 Creatinine 0.88 Est GFR ( Amer) > 60 Est GFR (Non-Af Amer) > 60 Glucose 99 Calcium 9.1 Magnesium 2.0 Total Bilirubin 0.9 AST 20 ALT 17 Alkaline Phosphatase 123 Total Protein 7.0 Albumin 3.8 02/11/18 02/11/18 02/12/18 22:18 22:18 03:31 Creatine Kinase 93 CK-MB (CK-2) 0.32 Troponin I < 0.012 < 0.012 NT-Pro-B Natriuret Pep 02/12/18 02/12/18 02/12/18 07:42 07:42 13:16 Creatine Kinase 76 CK-MB (CK-2) 0.33 0.61 Troponin I < 0.012 < 0.012 NT-Pro-B Natriuret Pep 02/12/18 02/12/18 18:56 18:56 Creatine Kinase CK-MB (CK-2) 0.81 Troponin I < 0.012 NT-Pro-B Natriuret Pep 1530 H Impressions: Chest X-Ray 02/11/18 22:05 IMPRESSION: Stable cardiomegaly. Lungs are clear copyright 2011 [employer]- All Rights Reserved Chest Ultrasound 02/12/18 00:00 IMPRESSION: Bilateral pleural effusions. Chest/Abdomen CTA 02/12/18 00:00 IMPRESSION: 1. NORMAL CTA OF THE CHEST. NO PULMONARY EMBOLI. 2. BILATERAL PLEURAL EFFUSIONS, RIGHT GREATER THAN LEFT. MILD BASILAR ATELECTASIS. 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 No acute findings. EVIDENCE OF ACUTE STROKE: NO. Head CT 02/12/18 03:09 IMPRESSION: Old infarcts in the occipital regions bilaterally. Atrophy. Small vessel ischemic change. TECHNICAL DOCUMENTATION: Quality ID # 436: Final reports with documentation of one or more dose reduction techniques (e.g., Automated exposure control, adjustment of the mA and/or kV according to patient size, use of iterative reconstruction technique) copyright 2011 [employer]- All Rights Reserved Assessment & Plan - Diagnosis (1) Altered mental status Qualifiers: Altered mental status type: unspecified Qualified Code(s): R41.82 - Altered mental status, unspecified Is this a current diagnosis for this admission?: Yes Plan: Likely underlying urinary tract infections We will start the patient on IV antibiotics in the urine for the cultures We also get the MRI of the head for further evaluations with the history of the CVA in the past (2) Chest pressure Is this a current diagnosis for this admission?: Yes Plan: All cardiac enzyme is negative scheduled for the stress test and echocardiogram (3) Cerebrovascular disorder Is this a current diagnosis for this admission?: Yes Plan: She is currently on a anticoagulations continues to statin (4) Atrial fibrillation, chronic Is this a current diagnosis for this admission?: Yes Plan: Currently all stable continues to Eliquis and continues the statin and the rate control (5) Coronary artery disease Qualifiers: Coronary Disease-Associated Artery/Lesion type: [place] artery [place] vs. transplanted heart: [place] heart Is this a current diagnosis for this admission?: Yes Plan: Rule out blood acute coronary syndromes (6) Dizziness Is this a current diagnosis for this admission?: Yes Plan: Patient MRI is all negative (7) E. coli urinary tract infection Is this a current diagnosis for this admission?: Yes Plan: Will get the culture continues IV Rocephin (8) Hypertension Qualifiers: Hypertension type: essential hypertension Is this a current diagnosis for this admission?: Yes (9) Seizure Is this a current diagnosis for this admission?: Yes Plan: Continues to current scissors medications (10) Bilateral pleural effusion Is this a current diagnosis for this admission?: Yes Plan: We will consult the pulmonary for further evaluations - Time Time Spent with patient: 15-24 minutes Medications reviewed and adjusted accordingly: Yes Anticipated discharge: Home - Plan Summary Plan Summary: Continues current medications
[2018-02-13] MEDS: LEVETIRACETAM 500 MG TABLET PO SCH ×2 (11:38→23:50)
[2018-02-13] MEDS: FUROSEMIDE 20 MG TABLET PO SCH (11:38)
[2018-02-13] MEDS: FAMOTIDINE 20 MG TABLET PO SCH ×2 (11:38→23:50)
[2018-02-13] MEDS: DOCUSATE SODIUM 100 MG CAPSULE PO SCH (11:39)
[2018-02-13] MEDS: CEFTRIAXONE 1 GM/D5W RTU 1 GM/50 ML RTUPB IV SCH (11:47)
--- NOTE | 2018-02-13 13:08 | DRAGON STRESS TEST REPORT ---
INTRAVENOUS LEXISCAN CARDIOLITE STRESS TEST USING SINGLE PHOTON EMMISION COMPUTERIZED TOMOGRAPHIC. DATE OF PROCEDURE: February 13, 2018 INDICATION : Chest pain CARDIAC RISK FACTORS: Hypertension, dyslipidemia RESTING EKG: Atrial fibrillation without any baseline ST-T wave changes STRESS EKG: No significant ST segment changes noted with LexiScan bolus REASON FOR TERMINATION: Protocol. PROCEDURE REPORT: Baseline heart rate 67 beats per minute with blood pressure of 138/65. Patient had no significant complaints. Patient was bolused with Lexiscan 0.4 mg intravenously followed by saline bolus. Heart rate at 2 minutes post bolus 76 with a blood pressure of 132/57. 3 minutes post bolus heart rate 73 with blood pressure of 126/61. No significant EKG changes were noted. Patient had no significant complaints during the procedure or postprocedure. CONCLUSIONS: Normal EKG and hemodynamic response to IV LexiScan. NUCLEAR DATA: At rest the patient was given 9.05 millicuries of technetium 99 sestamibi injected intravenously. As per protocol rest gated SPECT images were obtained. On day of stress test, the patient was given intravenous LexiScan at a dose of 0.4 mg in 5 mL intravenously, followed by flush with normal saline. Subsequently the stress dose of 32.0 millicuries of technetium 99 sestamibi was injected intravenously. As per protocol stress gated images were obtained. NUCLEAR INTERPRETATION: Both raw and processed data were used for interpretation. Visual, qualitative, computer-generated quantitative data was used. There was good myocardial uptake of technetium compound. Motion artifact and soft tissue attenuations were noted. Increased visceral uptake was noted. No definitive areas of transient perfusion defect noted, No definitive areas of fixed perfusion defect or scars noted. EKG gated imaging showed LV EF at 56 %, rest and stress gated EF similar visually. T. I D. ratio was 0.91. Lung heart ratio noted to be within normal limits 0.33. No significant extracardiac and abnormal radiotracer activities were noted. RV free wall uptake was noted to be WNL. IMPRESSION: Also refer to comments under nuclear interpretation. Also test results needs to be interpreted in the context of pretest probability. 1. No definitive areas of transient perfusion defect noted. 2. There is no definitive scintigraphic evidence of myocardial infarction/scar. 3. EKG gated imaging shows left ventricular ejection fraction of approx. 56 %. 4. Clinical correlation requested as worse disease and or balanced ischemia could be missed. In approximately 10% of the cases Lexiscan may not cause adequate vasodilatory stress. RECOMMENDATIONS: Aggressive risk factor modification and medical management. Further evaluation may be needed if continued symptoms or other high risk indicators are noted on clinical evaluation. Close cardiology follow-up is also recommended. Clinical correlation with echocardiogram derived ejection fraction. Inability to exercise by itself can lead to increased cardiovascular event risks. Consider cardiology consultation and or follow-up if clinically indicated. I am available for cardiology evaluation and consultation if requested by the paid search marketing strategist, unless patient already has a title i teacher. Dr. Jailyn Arreguin. MRCP Board certified in cardiology and sleep medicine. Board certified in nuclear cardiology, adult echocardiography. MARIBELL
[2018-02-13] MEDS ORDERED: AMINOPHYLLINE INJ/PF 250 MG/10 ML SDV IV ONE (13:49)
[2018-02-13] MEDS ORDERED: REGADENOSON INJ 0.4 MG/5 ML DISP.SYRIN IV ONE (13:49)
--- NOTE | 2018-02-13 14:02 | CONSULTATION REPORT E ---
Consultation Report NAME: JOSE ESPINAL : 1945 AGE: 72Y DATE: 02/12/2018 434 A TO: BENITO MOROCHO M.D. FROM: CECY CAMARENA M.D. Requesting Physician HISTORY OF PRESENT ILLNESS: The patient is a 72-year-old female who came in with dizziness, chest pain, wheezing, and shortness of breath over the last few days. The patient denies any fever, chills, increasing cough, or purulent sputum production. Admitted for altered mental status. A little more confused. Currently feeling better. Denies any fever, hemoptysis, chest pain, worsening dyspnea, or purulent sputum production. PAST MEDICAL HISTORY: 1. History of atrial fibrillation. 2. Myocardial infarction. 3. Hyperlipidemia. 4. Hypertension. 5. Denies any congestive heart failure or coronary artery disease or peripheral vascular disease. 6. Had history of seizures in January 2016. 7. Hypothyroidism. PAST SURGICAL HISTORY: 1. Appendectomy. 2. Hysterectomy. 3. Orthopedic surgery, right rotator cuff. SOCIAL HISTORY: Never smoked. Drinks alcohol occasionally. She denies any illicit drug use. FAMILY HISTORY: Reviewed and not pertinent. MEDICATIONS: Include penicillin. REVIEW OF SYSTEMS: CONSTITUTIONAL: No fever or chills. Complains about generalized weakness. EYES: No jaundice or pallor. EARS, NOSE, AND THROAT: No ear drainage. No nasal discharge. CHEST AND LUNGS: Complains about chest pain. Admits to shortness of breath and pleuritic pain on the right. CARDIAC: Complains about chest pain, increased shortness of breath and dizziness. GASTROINTESTINAL: No nausea, vomiting, diarrhea. EXTREMITIES: No joint swelling. No cellulitis. PHYSICAL EXAMINATION: GENERAL: The patient is awake, alert, coherent, oriented x3, afebrile, not in apparent severe respiratory distress. VITAL SIGNS: A temperature of 97.9 with a T-max of 98.3, heart rate of 76, blood pressure is 139/83, respiratory rate of 16, saturation 94% on room air. EYES: No jaundice or pallor. EARS, NOSE, AND THROAT: No ear drainage. No nasal discharge. CHEST AND LUNGS: No wheezing, no rhonchi, no coarse crackles. CARDIOVASCULAR: S1, S2 distinct. Normal rate. Regular rhythm. ABDOMEN: Flabby. Positive bowel sounds, soft, nondistended, nontender. EXTREMITIES: No joint swelling or cellulitis. LABORATORY: CBC done yesterday showed white count of 8.2, hemoglobin 11.5, hematocrit is 34.1, platelet count is 304. Chemistry done yesterday showed sodium is 131, potassium is 4.4, chloride 100, CO2 is 25, BUN 13, creatinine is 1.02, glucose 108, and calcium is 8.8, and alkaline phos is 129, SGOT is 24, SGPT 15. Cardiac enzymes were negative. ASSESSMENT: Pleural effusion bilateral, more on the right than the left side. Left pleural effusion is small. The right pleural effusion is small to moderate. Will continue to follow. If this pleural effusion worsens, then we definitely need to do thoracentesis. Currently, it is not big enough that we need to drain the pleural effusion. This may just resolve spontaneously. PLAN/RECOMMENDATIONS: Will continue to follow pleural effusion. Will continue repeating the chest x-ray in the next few days and as an outpatient, and if the pleural effusion appears to be worsening, then we will do a thoracentesis. Otherwise, optimize patient's diuresis. This may be related to the congestive heart failure. DICTATING PHYSICIAN: BENITO MOROCHO MD,LUZ,MPH [id number] PHY#: [id number] ID: [id number] JOB#: [id number] ACCT: [id number] cc:BENITO MOROCHO M.D. > MTDBillie
--- NOTE | 2018-02-13 18:27 | XCELERA REPORT ---
[address] [address] Transthoracic Echocardiogram Report Name: JOSE ESPINAL Age: 72 yrs Gender: Female : 1945 Patient Status: Inpatient Patient Location: [address] [place] [address] Study Date: 02/13/2018 03:19 PM Procedure: A complete two-dimensional transthoracic echocardiogram was performed (2D, M-mode, spectral and color flow Doppler). The study was technically difficult with many images being suboptimal in quality. Reason For Study: Bilateral pleural effusion, possible CHF Ordering Physician: MARISABEL DARNELL Performed By: Fabiana Cotton Interpretation Summary Left ventricular systolic function is low normal. There is mild concentric left ventricular hypertrophy. The left ventricle is grossly normal size. LV diastolic function could not be adequately assessed due to atrial fibrilation. Regional wall motion abnormalities cannot be excluded due to limited visualization. The right ventricular systolic function is normal. The left atrium is moderately dilated. The right atrium is mildly dilated. There is a mild amount of mitral regurgitation There is no mitral valve stenosis. There is a trace amount of aortic regurgitation There is no aortic valve stenosis There is a mild amount of tricuspid regurgitation There is mild pulmonary hypertension by echo Best estimated RVSP is approximately 40 mm/Hg. The pulmonic valve is not well visualized. The aortic root is not well visualized but is probably normal size. The inferior vena cava was not well visualized There is no pericardial effusion. MMode/2D Measurements & Calculations RVDd: 3.1 cm LVIDd: 5.2 cm FS: 36.0 % Ao root diam: 2.9 cm IVSd: 0.73 cm LVIDs: 3.3 cm EDV(Teich): 130.0 ml Ao root area: 6.4 cm2 LVPWd: 1.1 cm ESV(Teich): 45.2 ml EF(Teich): 65.2 % Doppler Measurements & Calculations Ao V2 max: LV V1 max PG: PA V2 max: TR max arleen: 170.7 cm/sec 2.4 mmHg 99.4 cm/sec 275.5 cm/sec Ao max P.7 mmHgLV V1 mean PG: PA max PG: TR max P.4 mmHg Ao V2 mean: 1.5 mmHg 4.0 mmHg 115.4 cm/sec LV V1 max: Ao mean P.1 mmHg77.2 cm/sec Ao V2 VTI: 31.3 cm LV V1 mean: 58.6 cm/sec LV V1 VTI: 13.9 cm LV dP/dt: 1454 mmHg/s Left Ventricle The left ventricle is grossly normal size. There is mild concentric left ventricular hypertrophy. Left ventricular systolic function is low normal. LV diastolic function could not be adequately assessed due to atrial fibrilation. Regional wall motion abnormalities cannot be excluded due to limited visualization. Right Ventricle The right ventricle is grossly normal size. The right ventricular systolic function is normal. Atria The right atrium is mildly dilated. The left atrium is moderately dilated. Interarterial septum not well visualized and not well dopplered. Cannot comment on ASD/PFO presence. Mitral Valve The mitral valve leaflets are sclerotic, but show no functional abnormalities. There is no mitral valve stenosis. There is a mild amount of mitral regurgitation. Aortic Valve The aortic valve is mildly calcified. The aortic valve opens well. There is no aortic valve stenosis. There is a trace amount of aortic regurgitation. Tricuspid Valve The tricuspid valve is not well visualized, but is grossly normal. There is no tricuspid stenosis. There is a mild amount of tricuspid regurgitation. There is mild pulmonary hypertension by echo. Best estimated RVSP is approximately 40 mm/Hg. Pulmonic Valve The pulmonic valve is not well visualized. Great Vessels The aortic root is not well visualized but is probably normal size. The inferior vena cava was not well visualized. Effusions There is no pericardial effusion. : MARISABEL DARNELL > Marisabel Darnell
--- NOTE | 2018-02-13 19:03 | PDOC PROGRESS REPORT ---
Subjective Progress Note for:: 02/13/18 Subjective:: Patient seems to be doing better with gradual improvement. Pt is denying any chest arm or neck discomfort. Patient denying any PND, orthopnea. Patient denied any sustained palpitations, dizziness, syncope, near syncope. Patient denying any fever chills. Patient denying any other significant discomfort. Patient is maintaining sinus rhythm. Nuclear stress test procedure, risk benefits were discussed. Patient questions were answered. Review of systems: Rest review of systems negative. Medications: Medications have been reviewed. Reason For Visit: UTI,AMS Physical Exam Vital Signs: Temp Pulse Resp BP Pulse Ox 97.3 F 74 18 104/70 99 02/13/18 15:32 02/13/18 15:32 02/13/18 15:32 02/13/18 15:32 02/13/18 15:32 Intake & Output 02/12/18 02/13/18 02/14/18 06:59 06:59 06:59 Intake Total 808 224 0982 Output Total 375 900 Balance 500 178 509 Weight 67.6 kg Exam: GENERAL: well-nourished and in no acute distress. Alert and oriented x3 HEAD: Atraumatic, normocephalic. EYES: MATTY, sclera anicteric, conjunctiva are normal. ENT: Moist mucous membranes. No oral ulcerations or bleeding gums noted. No obvious ear, nose or throat abnormalities noted. NECK: supple without lymphadenopathy. Trachea is central. No cervical or axillary lymphadenopathy noted. Carotids are 2+, JVD WNL LUNGS: Breath sounds clear bilaterally. No wheezes rales or rhonchi noted. No significant dullness noted on percussion. CHEST: Palpation of the chest wall shows no significant chest wall tenderness. 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 ABDOMEN: Soft, no significant tenderness appreciated, normoactive bowel sounds. No guarding, no rebound. No rigidity noted . No masses appreciated. EXTREMITIES: Pedal pulses are 1-2+, no calf tenderness noted. No clubbing or cyanosis. negative pedal edema noted NEUROLOGICAL: Focused neurological exam showed no significant neurologic deficit. Normal speech, no focal weakness appreciated. PSYCH: Normal mood, normal affect. Judgment and insight within normal limits. SKIN: No significant ecchymosis, skin is noted to be warm. MUSCULOSKELETAL EXAM: No significant acute joint swelling noted. Results Laboratory Results: 02/13/18 04:40 02/13/18 04:40 02/13/18 02/13/18 04:40 04:40 WBC 5.9 RBC 4.06 Hgb 13.5 Hct 39.8 MCV 98 H MCH 33.2 MCHC 33.8 RDW 13.9 Plt Count 242 Seg Neutrophils % 65.3 Lymphocytes % 16.4 Monocytes % 13.5 H Eosinophils % 3.4 Basophils % 1.4 Absolute Neutrophils 3.9 Absolute Lymphocytes 1.0 Absolute Monocytes 0.8 Absolute Eosinophils 0.2 Absolute Basophils 0.1 Sodium 138.9 Potassium 4.1 Chloride 99 Carbon Dioxide 32 H Anion Gap 8 BUN 10 Creatinine 0.88 Est GFR ( Amer) > 60 Est GFR (Non-Af Amer) > 60 Glucose 99 Calcium 9.1 Magnesium 2.0 Total Bilirubin 0.9 AST 20 ALT 17 Alkaline Phosphatase 123 Total Protein 7.0 Albumin 3.8 02/11/18 02/11/18 02/12/18 22:18 22:18 03:31 Creatine Kinase 93 CK-MB (CK-2) 0.32 Troponin I < 0.012 < 0.012 NT-Pro-B Natriuret Pep 02/12/18 02/12/18 02/12/18 07:42 07:42 13:16 Creatine Kinase 76 CK-MB (CK-2) 0.33 0.61 Troponin I < 0.012 < 0.012 NT-Pro-B Natriuret Pep 02/12/18 02/12/18 18:56 18:56 Creatine Kinase CK-MB (CK-2) 0.81 Troponin I < 0.012 NT-Pro-B Natriuret Pep 1530 H EKG Comments: Showed sinus rhythm without any sustained tachycardia or bradycardia Impressions: Chest X-Ray 02/11/18 22:05 IMPRESSION: Stable cardiomegaly. Lungs are clear copyright 2011 [employer]- All Rights Reserved Chest Ultrasound 02/12/18 00:00 IMPRESSION: Bilateral pleural effusions. Chest/Abdomen CTA 02/12/18 00:00 IMPRESSION: 1. NORMAL CTA OF THE CHEST. NO PULMONARY EMBOLI. 2. BILATERAL PLEURAL EFFUSIONS, RIGHT GREATER THAN LEFT. MILD BASILAR ATELECTASIS. 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 No acute findings. EVIDENCE OF ACUTE STROKE: NO. Head CT 02/12/18 03:09 IMPRESSION: Old infarcts in the occipital regions bilaterally. Atrophy. Small vessel ischemic change. TECHNICAL DOCUMENTATION: Quality ID # 436: Final reports with documentation of one or more dose reduction techniques (e.g., Automated exposure control, adjustment of the mA and/or kV according to patient size, use of iterative reconstruction technique) copyright 2011 [employer]- All Rights Reserved Assessment & Plan - Diagnosis (1) Chest pressure Is this a current diagnosis for this admission?: Yes (2) Altered mental status Qualifiers: Altered mental status type: unspecified Qualified Code(s): R41.82 - Altered mental status, unspecified Is this a current diagnosis for this admission?: Yes (3) Cerebrovascular disorder Is this a current diagnosis for this admission?: Yes (4) Atrial fibrillation, chronic Is this a current diagnosis for this admission?: Yes (5) Coronary artery disease Qualifiers: Coronary Disease-Associated Artery/Lesion type: [place] artery [place] vs. transplanted heart: [place] heart Is this a current diagnosis for this admission?: Yes - Notes Notes: Chest pain:Nuclear stress results were noted to be negative. Discussed that occasionally single vessel disease could be missed. Also informed that balanced ischemia can rarely be missed. Patient was told that further evaluation will become indicated if he/she develops more symptoms indicative of ischemia or ischemia equivalent symptom. At this point however would recommend aggressive risk factor modification, medical therapy. Patient advised on risk factor modification. Dyspnea: 2D echo negative for any significant stenosis or regurgitation. LVEF within normal limits. Diastolic function could not be evaluated properly due to underlying atrial fibrillation. Patient will benefit from gradual ambulation and increasing activities. CAD: Currently stable. Hypertension: Currently stable. Atrial fibrillation chronic: Continue with chronic anticoagulation and rate control strategy. - Time Time with patient: Greater than 35 minutes - More than 50% of the time spent coordinating care, discussing management plans with involved caregivers. Management plans discussed with involved personnels. Medical decision making was of moderate to high complexity, patient's has multiple comorbidities. Medications reviewed and adjusted accordingly: Yes
[2018-02-14 06:48] LABS: ABSOLUTE BASOPHILS # (AUTO) 0.1 10^3/uL (0.0-0.2); ABSOLUTE EOSINOPHILS # (AUTO) 0.2 10^3/uL (0.0-0.6); ABSOLUTE LYMPHOCYTES (AUTO) 1.9 10^3/uL (0.5-4.7); ABSOLUTE MONOCYTES (AUTO) 0.7 10^3/uL (0.1-1.4); BASOPHILS % (AUTO) 1.1 % (0-2); EOSINOPHILS % (AUTO) 3.4 % (0-6); HEMATOCRIT 40.1 % (36.0-47.0); HEMOGLOBIN 13.4 g/dL (12.0-15.5); LYMPHOCYTES % (AUTO) 32.7 % (13-45); MEAN CORPUSCULAR HEMOGLOBIN 32.8 pg (27.0-33.4); MEAN CORPUSCULAR HGB CONC 33.5 g/dL (32.0-36.0); MEAN CORPUSCULAR VOLUME 98 fl (80-97); MONOCYTES % (AUTO) 11.9 % (3-13); PLATELET COUNT 260 10^3/uL (150-450); SEGMENTED NEUTROPHILS % (AUTO) 50.9 % (42-78); TOTAL CELLS COUNTED % (AUTO) 100 %; WHITE BLOOD COUNT 5.8 10^3/uL (4.0-10.5)
[2018-02-14 07:13] LABS: ANION GAP 9 (5-19); BLOOD UREA NITROGEN 17 mg/dL (7-20); CALCIUM 8.9 mg/dL (8.4-10.2); CARBON DIOXIDE 29 mmol/L (22-30); CHLORIDE 98 mmol/L (98-107); GLUCOSE 96 mg/dL (75-110); SODIUM 136.3 mmol/L (137-145)
[2018-02-14] MEDS: DOCUSATE SODIUM 100 MG CAPSULE PO SCH (10:08)
[2018-02-14] MEDS: LEVETIRACETAM 500 MG TABLET PO SCH ×2 (10:08→23:26)
[2018-02-14] MEDS: FUROSEMIDE 20 MG TABLET PO SCH (10:08)
[2018-02-14] MEDS: CEFTRIAXONE 1 GM/D5W RTU 1 GM/50 ML RTUPB IV SCH (10:09)
[2018-02-14] MEDS: FAMOTIDINE 20 MG TABLET PO SCH ×2 (10:09→23:26)
--- NOTE | 2018-02-14 12:30 | PDOC PROGRESS REPORT ---
Subjective Progress Note for:: 02/14/18 Subjective:: Patient is currently doing much better Patient stress test is all stable Patients denied any chest pain denied any shortness of the breath Reason For Visit: UTI,AMS Physical Exam Vital Signs: Temp Pulse Resp BP Pulse Ox 97.9 F 62 16 117/71 98 02/14/18 11:28 02/14/18 11:28 02/14/18 11:28 02/14/18 11:28 02/14/18 11:28 Intake & Output 02/13/18 02/14/18 02/15/18 06:59 06:59 06:59 Intake Total 553 1646 50 Output Total 375 1374 Balance 178 272 50 Weight 67.6 kg 67.6 kg General appearance: PRESENT: no acute distress, well-developed, well-nourished Head exam: PRESENT: atraumatic, normocephalic Eye exam: PRESENT: conjunctiva pink, EOMI, PERRLA. ABSENT: scleral icterus Ear exam: PRESENT: normal external ear exam Mouth exam: PRESENT: moist, tongue midline Neck exam: PRESENT: full ROM. ABSENT: carotid bruit, JVD, lymphadenopathy, thyromegaly Respiratory exam: PRESENT: clear to auscultation jordin Cardiovascular exam: PRESENT: RRR. ABSENT: diastolic murmur, rubs, systolic murmur Pulses: PRESENT: normal dorsalis pedis pul, +2 pedal pulses bilateral Vascular exam: PRESENT: normal capillary refill GI/Abdominal exam: PRESENT: normal bowel sounds, soft. ABSENT: distended, guarding, mass, organolmegaly, rebound, tenderness Rectal exam: PRESENT: deferred Musculoskeletal exam: PRESENT: ambulatory Neurological exam: PRESENT: alert, awake, oriented to person, oriented to place, oriented to time, oriented to situation, CN II-XII grossly intact. ABSENT: motor sensory deficit Psychiatric exam: PRESENT: appropriate affect, normal mood. ABSENT: homicidal ideation, suicidal ideation Skin exam: PRESENT: dry, intact, warm. ABSENT: cyanosis, rash Results Laboratory Results: 02/14/18 06:19 02/14/18 06:19 02/14/18 02/14/18 06:19 06:19 WBC 5.8 RBC 4.10 Hgb 13.4 Hct 40.1 MCV 98 H MCH 32.8 MCHC 33.5 RDW 14.0 Plt Count 260 Seg Neutrophils % 50.9 Lymphocytes % 32.7 Monocytes % 11.9 Eosinophils % 3.4 Basophils % 1.1 Absolute Neutrophils 3.0 Absolute Lymphocytes 1.9 Absolute Monocytes 0.7 Absolute Eosinophils 0.2 Absolute Basophils 0.1 Sodium 136.3 L Potassium 4.0 Chloride 98 Carbon Dioxide 29 Anion Gap 9 BUN 17 Creatinine 1.16 Est GFR ( Amer) 55 L Est GFR (Non-Af Amer) 46 L Glucose 96 Calcium 8.9 Magnesium 1.8 02/12/18 05:15 Clean Catch Midstream Urine Culture - Final Escherichia Coli 02/11/18 02/11/18 02/12/18 22:18 22:18 03:31 Creatine Kinase 93 CK-MB (CK-2) 0.32 Troponin I < 0.012 < 0.012 NT-Pro-B Natriuret Pep 02/12/18 02/12/18 02/12/18 07:42 07:42 13:16 Creatine Kinase 76 CK-MB (CK-2) 0.33 0.61 Troponin I < 0.012 < 0.012 NT-Pro-B Natriuret Pep 02/12/18 02/12/18 18:56 18:56 Creatine Kinase CK-MB (CK-2) 0.81 Troponin I < 0.012 NT-Pro-B Natriuret Pep 1530 H Impressions: Chest X-Ray 02/11/18 22:05 IMPRESSION: Stable cardiomegaly. Lungs are clear copyright 2011 [employer]- All Rights Reserved Chest Ultrasound 02/12/18 00:00 IMPRESSION: Bilateral pleural effusions. Chest/Abdomen CTA 02/12/18 00:00 IMPRESSION: 1. NORMAL CTA OF THE CHEST. NO PULMONARY EMBOLI. 2. BILATERAL PLEURAL EFFUSIONS, RIGHT GREATER THAN LEFT. MILD BASILAR ATELECTASIS. Head MRI 02/12/18 00:00 IMPRESSION: Extensive white matter disease with old infarcts in the left pos terior temporal and bilateral occipital regions. No acute findings. EVIDENCE OF ACUTE STROKE: NO. Head CT 02/12/18 03:09 IMPRESSION: Old infarcts in the occipital regions bilaterally. Atrophy. Small vessel ischemic change. TECHNICAL DOCUMENTATION: Quality ID # 436: Final reports with documentation of one or more dose reduction techniques (e.g., Automated exposure control, adjustment of the mA and/or kV according to patient size, use of iterative reconstruction technique) copyright 2011 [employer]- All Rights Reserved Assessment & Plan - Diagnosis (1) Altered mental status Qualifiers: Altered mental status type: unspecified Qualified Code(s): R41.82 - Altered mental status, unspecified Is this a current diagnosis for this admission?: Yes Plan: All resolved (2) Chest pressure Is this a current diagnosis for this admission?: Yes Plan: Cardiac workup is negative (3) Cerebrovascular disorder Is this a current diagnosis for this admission?: Yes Plan: She is currently on a anticoagulations continues to statin (4) Atrial fibrillation, chronic Is this a current diagnosis for this admission?: Yes Plan: Currently all stable continues to Eliquis and continues the statin and the rate control (5) Coronary artery disease Qualifiers: Coronary Disease-Associated Artery/Lesion type: [place] artery [place] vs. transplanted heart: [place] heart Is this a current diagnosis for this admission?: Yes Plan: Rule out blood acute coronary syndromes (6) Dizziness Is this a current diagnosis for this admission?: Yes Plan: Patient MRI is all negative (7) E. coli urinary tract infection Is this a current diagnosis for this admission?: Yes Plan: Will get the culture continues IV Rocephin (8) Hypertension Qualifiers: Hypertension type: essential hypertension Is this a current diagnosis for this admission?: Yes (9) Seizure Is this a current diagnosis for this admission?: Yes Plan: Continues to current scissors medications (10) Bilateral pleural effusion Is this a current diagnosis for this admission?: Yes Plan: Repeat the chest x-ray will do pulmonary - Time Time Spent with patient: 15-24 minutes Medications reviewed and adjusted accordingly: Yes Anticipated discharge: Home Within: within 24 hours - Plan Summary Plan Summary: Continue current medication
--- NOTE | 2018-02-14 13:56 | RADIOLOGY REPORT (SQ) ---
EXAM DESCRIPTION: CHEST 2 VIEWS COMPLETED DATE/TIME: 02/14/2018 1:14 pm REASON FOR STUDY: pleural effusion A41.51 SEPSIS DUE TO ESCHERICHIA COLI E. COLI COMPARISON: 02/11/2018 NUMBER OF VIEWS: Two view TECHNIQUE: Frontal and lateral radiographic images of the chest acquired. LIMITATIONS: None. FINDINGS: LUNGS AND PLEURA: Small pleural effusions. No pneumothorax. MEDIASTINUM AND HILAR STRUCTURES: Stable heart size and mediastinal structures. HEART AND VASCULAR STRUCTURES: Stable appearance. BONES: No acute findings. HARDWARE: None in the chest. OTHER: No other significant finding. IMPRESSION: Small pleural effusions. No significant change. TECHNICAL DOCUMENTATION: JOB ID: [id number] [employer]- All Rights Reserved Reading location - IP/workstation name: [email or web address]
--- NOTE | 2018-02-14 21:20 | PDOC PROGRESS REPORT ---
Subjective Progress Note for:: 02/14/18 Subjective:: Patient seems to be doing better with gradual improvement. Pt is denying any chest arm or neck discomfort. Patient denying any PND, orthopnea. Patient denied any sustained palpitations, dizziness, syncope, near syncope. Patient denying any fever chills. Patient denying any other significant discomfort. Patient is maintaining afib rhythm. Have again reviewed cardiac evaluation with the patient. These were reviewed last night. There were noted to be very satisfactory. Review of systems: Rest review of systems negative. Medications: Medications have been reviewed. Reason For Visit: UTI,AMS Physical Exam Vital Signs: Temp Pulse Resp BP Pulse Ox 97.3 F 58 L 16 111/82 100 02/14/18 15:27 02/14/18 19:00 02/14/18 15:27 02/14/18 15:27 02/14/18 15:27 Intake & Output 02/13/18 02/14/18 02/15/18 06:59 06:59 06:59 Intake Total 553 1646 1173 Output Total 375 1374 Balance 878 195 2146 Weight 67.6 kg 67.6 kg Exam: GENERAL: well-nourished and in no acute distress. Alert and oriented x3 HEAD: Atraumatic, normocephalic. EYES: MATTY, sclera anicteric, conjunctiva are normal. ENT: Moist mucous membranes. No oral ulcerations or bleeding gums noted. No obvious ear, nose or throat abnormalities noted. NECK: supple without lymphadenopathy. Trachea is central. No cervical or axillary lymphadenopathy noted. Carotids are 2+, JVD WNL LUNGS: Breath sounds clear bilaterally. No wheezes rales or rhonchi noted. No significant dullness noted on percussion. CHEST: Palpation of the chest wall shows no significant chest wall tenderness. HEART: [place] [employer], No PSH, 1/6 ISRA aortic area, 1/6 serrano systolic murmur mitral area, no rubs, no gallops. ABDOMEN: Soft, no significant tenderness appreciated, normoactive bowel sounds. No guarding, no rebound. No rigidity noted . No masses appreciated. EXTREMITIES: Pedal pulses are 1-2+, no calf tenderness noted. No clubbing or cyanosis. negative pedal edema noted NEUROLOGICAL: Focused neurological exam showed no significant neurologic deficit. Normal speech, no focal weakness appreciated. PSYCH: Normal mood, normal affect. Judgment and insight within normal limits. SKIN: No significant ecchymosis, skin is noted to be warm. MUSCULOSKELETAL EXAM: No significant acute joint swelling noted. Results Laboratory Results: 02/14/18 06:19 02/14/18 06:19 02/14/18 02/14/18 06:19 06:19 WBC 5.8 RBC 4.10 Hgb 13.4 Hct 40.1 MCV 98 H MCH 32.8 MCHC 33.5 RDW 14.0 Plt Count 260 Seg Neutrophils % 50.9 Lymphocytes % 32.7 Monocytes % 11.9 Eosinophils % 3.4 Basophils % 1.1 Absolute Neutrophils 3.0 Absolute Lymphocytes 1.9 Absolute Monocytes 0.7 Absolute Eosinophils 0.2 Absolute Basophils 0.1 Sodium 136.3 L Potassium 4.0 Chloride 98 Carbon Dioxide 29 Anion Gap 9 BUN 17 Creatinine 1.16 Est GFR ( Amer) 55 L Est GFR (Non-Af Amer) 46 L Glucose 96 Calcium 8.9 Magnesium 1.8 02/12/18 05:15 Clean Catch Midstream Urine Culture - Final Escherichia Coli 02/11/18 02/11/18 02/12/18 22:18 22:18 03:31 Creatine Kinase 93 CK-MB (CK-2) 0.32 Troponin I < 0.012 < 0.012 NT-Pro-B Natriuret Pep 02/12/18 02/12/18 02/12/18 07:42 07:42 13:16 Creatine Kinase 76 CK-MB (CK-2) 0.33 0.61 Troponin I < 0.012 < 0.012 NT-Pro-B Natriuret Pep 02/12/18 02/12/18 18:56 18:56 Creatine Kinase CK-MB (CK-2) 0.81 Troponin I < 0.012 NT-Pro-B Natriuret Pep 1530 H EKG Comments: Telemetry shows sinus rhythm. Impressions: Chest Ultrasound 02/12/18 00:00 IMPRESSION: Bilateral pleural effusions. Chest/Abdomen CTA 02/12/18 00:00 IMPRESSION: 1. NORMAL CTA OF THE CHEST. NO PULMONARY EMBOLI. 2. BILATERAL PLEURAL EFFUSIONS, RIGHT GREATER THAN LEFT. MILD BASILAR ATELECTASIS. 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 No acute findings. EVIDENCE OF ACUTE STROKE: NO. Head CT 02/12/18 03:09 IMPRESSION: Old infarcts in the occipital regions bilaterally. Atrophy. Small vessel ischemic change. TECHNICAL DOCUMENTATION: Quality ID # 436: Final reports with documentation of one or more dose reduction techniques (e.g., Automated exposure control, adjustment of the mA and/or kV according to patient size, use of iterative reconstruction technique) copyright 2011 [employer]- All Rights Reserved Chest X-Ray 02/14/18 00:00 IMPRESSION: Small pleural effusions. No significant change. Assessment & Plan - Diagnosis (1) Chest pressure Is this a current diagnosis for this admission?: Yes (2) Altered mental status Qualifiers: Altered mental status type: unspecified Qualified Code(s): R41.82 - Altered mental status, unspecified Is this a current diagnosis for this admission?: Yes (3) Cerebrovascular disorder Is this a current diagnosis for this admission?: Yes (4) Atrial fibrillation, chronic Is this a current diagnosis for this admission?: Yes (5) Coronary artery disease Qualifiers: Coronary Disease-Associated Artery/Lesion type: [place] artery [place] vs. transplanted heart: [place] heart Is this a current diagnosis for this admission?: Yes - Notes Notes: Patient has done well from cardiac status. The chest pressure has resolved in fact she did not complain about this to me but did complain to the ER physician. Subsequent nuclear stress test has been negative. Patient was noted to have bilateral pleural effusion which is probably related to sepsis which may have caused some inflammation of the blood vessels with leaking of fluid into the pleural space. As regards atrial fibrillation, continue with chronic anticoagulation. Rate is noted to be reasonably well controlled on telemetry monitoring. - Time Time with patient: 15-25 minutes Medications reviewed and adjusted accordingly: Yes
[2018-02-15 06:23] LABS: ABSOLUTE BASOPHILS # (AUTO) 0.1 10^3/uL (0.0-0.2); ABSOLUTE EOSINOPHILS # (AUTO) 0.2 10^3/uL (0.0-0.6); ABSOLUTE LYMPHOCYTES (AUTO) 1.7 10^3/uL (0.5-4.7); ABSOLUTE MONOCYTES (AUTO) 0.7 10^3/uL (0.1-1.4); ABSOLUTE NEUT (AUTO) 2.6 10^3/uL (1.7-8.2); BASOPHILS % (AUTO) 1.1 % (0-2); HEMATOCRIT 38.9 % (36.0-47.0); HEMOGLOBIN 12.9 g/dL (12.0-15.5); LYMPHOCYTES % (AUTO) 31.8 % (13-45); MEAN CORPUSCULAR HEMOGLOBIN 32.6 pg (27.0-33.4); MEAN CORPUSCULAR HGB CONC 33.3 g/dL (32.0-36.0); MEAN CORPUSCULAR VOLUME 98 fl (80-97); MONOCYTES % (AUTO) 13.7 % (3-13); PLATELET COUNT 242 10^3/uL (150-450); RED BLOOD COUNT 3.97 10^6/uL (3.72-5.28); RED CELL DISTRIBUTION WIDTH 14.1 % (11.5-14.0); SEGMENTED NEUTROPHILS % (AUTO) 49.4 % (42-78); TOTAL CELLS COUNTED % (AUTO) 100 %; WHITE BLOOD COUNT 5.2 10^3/uL (4.0-10.5)
[2018-02-15 06:49] LABS: ANION GAP 7 (5-19); BLOOD UREA NITROGEN 23 mg/dL (7-20); CALCIUM 8.8 mg/dL (8.4-10.2); CARBON DIOXIDE 31 mmol/L (22-30); CHLORIDE 99 mmol/L (98-107); GLUCOSE 100 mg/dL (75-110); POTASSIUM 4.1 mmol/L (3.6-5.0); SODIUM 136.9 mmol/L (137-145)
--- NOTE | 2018-02-15 09:45 | PDOC PROGRESS REPORT ---
Subjective Progress Note for:: 02/15/18 Subjective:: Patient is currently doing fair Denied any chest pain to than any shortness of the breath Patient in the telemetry monitoring see the heart rate is good to up to 38 Patient was taking the beta-zulemia and isosorbide but since the hospitalizations not taking Discussed with the cardiology and suggest that just continues to hold the beta- zuleima no need for any further evaluations Patient's other than that no other symptoms Patient's wants to wait another day before go home and will continue to monitor the patient's daily for the heart rate Reason For Visit: UTI,AMS Physical Exam Vital Signs: Temp Pulse Resp BP Pulse Ox 97.7 F 70 17 131/78 H 97 02/15/18 03:42 02/15/18 03:42 02/15/18 03:42 02/15/18 03:42 02/15/18 03:42 Intake & Output 02/14/18 02/15/18 02/16/18 06:59 06:59 06:59 Intake Total 1646 1473 Output Total 1374 Balance 272 1473 Weight 67.6 kg 72.9 kg General appearance: PRESENT: no acute distress, well-developed, well-nourished Head exam: PRESENT: atraumatic, normocephalic Eye exam: PRESENT: conjunctiva pink, EOMI, PERRLA. ABSENT: scleral icterus Ear exam: PRESENT: normal external ear exam Mouth exam: PRESENT: moist, tongue midline Neck exam: PRESENT: full ROM. ABSENT: carotid bruit, JVD, lymphadenopathy, thyromegaly Respiratory exam: PRESENT: clear to auscultation jordin Cardiovascular exam: PRESENT: RRR. ABSENT: diastolic murmur, rubs, systolic murmur Pulses: PRESENT: normal dorsalis pedis pul, +2 pedal pulses bilateral Vascular exam: PRESENT: normal capillary refill GI/Abdominal exam: PRESENT: normal bowel sounds, soft. ABSENT: distended, guarding, mass, organolmegaly, rebound, tenderness Rectal exam: PRESENT: deferred Extremities exam: ABSENT: pedal edema Neurological exam: PRESENT: alert, awake, oriented to person, oriented to place, oriented to time, oriented to situation, CN II-XII grossly intact. ABSENT: motor sensory deficit Psychiatric exam: PRESENT: appropriate affect, normal mood. ABSENT: homicidal ideation, suicidal ideation Skin exam: PRESENT: dry, intact, warm. ABSENT: cyanosis, rash Results Laboratory Results: 02/15/18 05:53 02/15/18 05:53 02/15/18 02/15/18 05:53 05:53 WBC 5.2 RBC 3.97 Hgb 12.9 Hct 38.9 MCV 98 H MCH 32.6 MCHC 33.3 RDW 14.1 H Plt Count 242 Seg Neutrophils % 49.4 Lymphocytes % 31.8 Monocytes % 13.7 H Eosinophils % 4.0 Basophils % 1.1 Absolute Neutrophils 2.6 Absolute Lymphocytes 1.7 Absolute Monocytes 0.7 Absolute Eosinophils 0.2 Absolute Basophils 0.1 Sodium 136.9 L Potassium 4.1 Chloride 99 Carbon Dioxide 31 H Anion Gap 7 BUN 23 H Creatinine 1.18 Est GFR ( Amer) 54 L Est GFR (Non-Af Amer) 45 L Glucose 100 Calcium 8.8 Magnesium 1.8 02/12/18 05:15 Clean Catch Midstream Urine Culture - Final Escherichia Coli 02/11/18 02/11/18 02/12/18 22:18 22:18 03:31 Creatine Kinase 93 CK-MB (CK-2) 0.32 Troponin I < 0.012 < 0.012 NT-Pro-B Natriuret Pep 02/12/18 02/12/18 02/12/18 07:42 07:42 13:16 Creatine Kinase 76 CK-MB (CK-2) 0.33 0.61 Troponin I < 0.012 < 0.012 NT-Pro-B Natriuret Pep 02/12/18 02/12/18 18:56 18:56 Creatine Kinase CK-MB (CK-2) 0.81 Troponin I < 0.012 NT-Pro-B Natriuret Pep 1530 H Impressions: Chest Ultrasound 02/12/18 00:00 IMPRESSION: Bilateral pleural effusions. Chest/Abdomen CTA 02/12/18 00:00 IMPRESSION: 1. NORMAL CTA OF THE CHEST. NO PULMONARY EMBOLI. 2. BILATERAL PLEURAL EFFUSIONS, RIGHT GREATER THAN LEFT. MILD BASILAR ATELECTASIS. 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 No acute findings. EVIDENCE OF ACUTE STROKE: NO. Head CT 02/12/18 03:09 IMPRESSION: Old infarcts in the occipital regions bilaterally. Atrophy. Small vessel ischemic change. TECHNICAL DOCUMENTATION: Quality ID # 436: Final reports with documentation of one or more dose reduction techniques (e.g., Automated exposure control, adjustment of the mA and/or kV according to patient size, use of iterative reconstruction technique) copyright 2011 [employer]- All Rights Reserved Chest X-Ray 02/14/18 00:00 IMPRESSION: Small pleural effusions. No significant change. Assessment & Plan - Diagnosis (1) Altered mental status Qualifiers: Altered mental status type: unspecified Qualified Code(s): R41.82 - Altered mental status, unspecified Is this a current diagnosis for this admission?: Yes Plan: All resolved (2) Chest pressure Is this a current diagnosis for this admission?: Yes Plan: His current all cardiac workup is negative (3) Cerebrovascular disorder Is this a current diagnosis for this admission?: Yes Plan: She is currently on a anticoagulations continues to statin (4) Atrial fibrillation, chronic Is this a current diagnosis for this admission?: Yes Plan: Currently all stable continues to Eliquis and continues the statin and the rate control (5) Coronary artery disease Qualifiers: Coronary Disease-Associated Artery/Lesion type: [place] artery [place] vs. transplanted heart: [place] heart Is this a current diagnosis for this admission?: Yes Plan: Rule out blood acute coronary syndromes (6) Dizziness Is this a current diagnosis for this admission?: Yes Plan: Patient MRI is all negative (7) E. coli urinary tract infection Is this a current diagnosis for this admission?: Yes Plan: Will get the culture continues IV Rocephin (8) Hypertension Qualifiers: Hypertension type: essential hypertension Is this a current diagnosis for this admission?: Yes (9) Seizure Is this a current diagnosis for this admission?: Yes Plan: Continues to current scissors medications (10) Bilateral pleural effusion Is this a current diagnosis for this admission?: Yes Plan: Currently all stable with a repeat chest x-ray (11) Bradycardia Is this a current diagnosis for this admission?: Yes Plan: Discussed with the cardiology and suggest the continues hold the beta-zuleima - Time Time Spent with patient: 15-24 minutes Medications reviewed and adjusted accordingly: Yes Anticipated discharge: Home - Plan Summary Plan Summary: Continues to current medications
[2018-02-15] MEDS: DOCUSATE SODIUM 100 MG/10 ML UDC PO SCH ×2 (10:56→18:22)
[2018-02-15] MEDS: FUROSEMIDE 20 MG TABLET PO SCH (10:56)
[2018-02-15] MEDS: POLYETHYLENE GLYCOL 3350 POWDER 17 GM/1 PACKET PO SCH (10:56)
[2018-02-15] MEDS: LEVETIRACETAM 500 MG TABLET PO SCH ×2 (10:56→21:18)
[2018-02-15] MEDS: LEVOTHYROXINE SODIUM 0.05 MG TABLET PO SCH (10:57)
[2018-02-15] MEDS: FLUTICASONE/SALMETEROL DISKUS 250-50 MCG/DOSE IH SCH ×2 (10:57→21:18)
[2018-02-15] MEDS: ASPIRIN 81 MG TABLET, ENT COATED PO SCH (10:57)
[2018-02-15] MEDS: CEFTRIAXONE 1 GM/D5W RTU 1 GM/50 ML RTUPB IV SCH (10:57)
[2018-02-15] MEDS: APIXABAN 5 MG TABLET PO SCH ×2 (10:58→21:18)
[2018-02-15] MEDS: LANSOPRAZOLE 15 MG TAB.RAP.DR PO SCH (10:59)
[2018-02-15] MEDS: AMLODIPINE BESYLATE 10 MG TABLET PO SCH (11:00)
[2018-02-15] MEDS ORDERED: METOPROLOL SUCCINATE 25 MG TAB.SR.24H PO SCH (11:00)
[2018-02-15] MEDS ORDERED: ISOSORBIDE MONONITRATE 30 MG TAB.ER.24H PO SCH (11:00)
[2018-02-15] MEDS ORDERED: LEVETIRACETAM 500 MG TABLET PO SCH (11:00)
[2018-02-15] MEDS: ATORVASTATIN CALCIUM 40 MG TABLET PO SCH (21:18)
--- NOTE | 2018-02-15 21:41 | PDOC PROGRESS REPORT ---
Subjective Progress Note for:: 02/15/18 Subjective:: Patient seems to be doing better with gradual improvement. Pt is denying any chest arm or neck discomfort. Patient denying any PND, orthopnea. Patient denied any sustained palpitations, dizziness, syncope, near syncope. Patient denying any fever chills. Patient denying any other significant discomfort. Patient is a Fib, Heartrate was however noted to be low however these were all early a.m. strips.. Have again reviewed cardiac evaluation with the patient. These were reviewed last night. There were noted to be very satisfactory. Review of systems: Rest review of systems negative. Medications: Medications have been reviewed. Reason For Visit: UTI,AMS Physical Exam Vital Signs: Temp Pulse Resp BP Pulse Ox 97.9 F 56 L 16 114/59 L 100 02/15/18 16:27 02/15/18 16:27 02/15/18 16:27 02/15/18 16:27 02/15/18 16:27 Intake & Output 02/14/18 02/15/18 02/16/18 06:59 06:59 06:59 Intake Total 1646 1473 1257 Output Total 1374 Balance 272 1473 1257 Weight 67.6 kg 72.9 kg Exam: GEN: NAD, patient alert oriented x3. Appearance and grooming WNL HEENT : Eyes: MATTY, Ears: No significant abnormalities, Nose: No significant abnormalities. normocephalic atraumatic. Flat midface (-), Receding chin (-) ORAL : Mallampati class III, highly arched palate (-) Tonsils: Not enlarged. NECK: no thyromegaly, no masses, trachea is central, JVD is not elevated, carotids are 2+ with bruit (-) RESP: lungs clear to auscultation bilaterally, no rales, wheezes or rhonchi., nonlabored, no use of accessory muscles of respiration CV: NL S1 and S2. 2/6 ejection systolic murmur noted in the aortic area and left sternal border. 1/6 pansystolic murmur noted at the apex. no S3, no S4 noted. No rub noted., gallops, rubs, clicks GI: abd NT to palpation, no masses, bowel sounds present, no guarding or rigidity noted. EXT: no clubbing, (-) cyanosis, edema (-), perpheral pulses diminished (+) MUSC/SKEL: no acute joint swelling noted. Muscle strength is generally intact. NEURO: no tremors. no significant focal neurological deficits are noted., sensation grossly intact, AO x 3 PSYCH: NL mood and affect. judgment and insight noted to be intact.. SKIN: (-) rash, (-)Signs of pruritus, (-) other significant abnormality Results Laboratory Results: 02/15/18 05:53 02/15/18 05:53 02/15/18 02/15/18 05:53 05:53 WBC 5.2 RBC 3.97 Hgb 12.9 Hct 38.9 MCV 98 H MCH 32.6 MCHC 33.3 RDW 14.1 H Plt Count 242 Seg Neutrophils % 49.4 Lymphocytes % 31.8 Monocytes % 13.7 H Eosinophils % 4.0 Basophils % 1.1 Absolute Neutrophils 2.6 Absolute Lymphocytes 1.7 Absolute Monocytes 0.7 Absolute Eosinophils 0.2 Absolute Basophils 0.1 Sodium 136.9 L Potassium 4.1 Chloride 99 Carbon Dioxide 31 H Anion Gap 7 BUN 23 H Creatinine 1.18 Est GFR ( Amer) 54 L Est GFR (Non-Af Amer) 45 L Glucose 100 Calcium 8.8 Magnesium 1.8 02/12/18 06:36 Blood Blood Culture - Final Staphylococcus Epidermidis Staphylococcus Hominis 02/11/18 02/11/18 02/12/18 22:18 22:18 03:31 Creatine Kinase 93 CK-MB (CK-2) 0.32 Troponin I < 0.012 < 0.012 NT-Pro-B Natriuret Pep 02/12/18 02/12/18 02/12/18 07:42 07:42 13:16 Creatine Kinase 76 CK-MB (CK-2) 0.33 0.61 Troponin I < 0.012 < 0.012 NT-Pro-B Natriuret Pep 02/12/18 02/12/18 18:56 18:56 Creatine Kinase CK-MB (CK-2) 0.81 Troponin I < 0.012 NT-Pro-B Natriuret Pep 1530 H Impressions: Chest Ultrasound 02/12/18 00:00 IMPRESSION: Bilateral pleural effusions. Chest/Abdomen CTA 02/12/18 00:00 IMPRESSION: 1. NORMAL CTA OF THE CHEST. NO PULMONARY EMBOLI. 2. BILATERAL PLEURAL EFFUSIONS, RIGHT GREATER THAN LEFT. MILD BASILAR ATELECTASIS. 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 No acute findings. EVIDENCE OF ACUTE STROKE: NO. Head CT 02/12/18 03:09 IMPRESSION: Old infarcts in the occipital regions bilaterally. Atrophy. Small vessel ischemic change. TECHNICAL DOCUMENTATION: Quality ID # 436: Final reports with documentation of one or more dose reduction techniques (e.g., Automated exposure control, adjustment of the mA and/or kV according to patient size, use of iterative reconstruction technique) copyright 2011 [employer]- All Rights Reserved Chest X-Ray 02/14/18 00:00 IMPRESSION: Small pleural effusions. No significant change. Assessment & Plan - Diagnosis (1) Chest pressure Is this a current diagnosis for this admission?: Yes (2) Altered mental status Qualifiers: Altered mental status type: unspecified Qualified Code(s): R41.82 - Altered mental status, unspecified Is this a current diagnosis for this admission?: Yes (3) Cerebrovascular disorder Is this a current diagnosis for this admission?: Yes (4) Atrial fibrillation, chronic Is this a current diagnosis for this admission?: Yes (5) Coronary artery disease Qualifiers: Coronary Disease-Associated Artery/Lesion type: [place] artery [place] vs. transplanted heart: [place] heart Is this a current diagnosis for this admission?: Yes - Notes Notes: Bradycardia: patient has underlying Atrial fibrillation. Early-morning bradycardia was noted. Patient noted to be asymptomatic. Patient does have history of syncope but by history there felt to be orthostatic related. Patient may benefit from more symptom correlation as an outpatient with a cardiac event monitor. This could be arranged from my office. As regards other conditions such as cerebrovascular accident, coronary artery disease, mental status changes, patient remains very stable. Agree with hoarding Beta-zuleima for the time being. - Time Time with patient: 15-25 minutes
[2018-02-16] MEDS: LEVOTHYROXINE SODIUM 0.05 MG TABLET PO SCH (06:00)
[2018-02-16] MEDS: LANSOPRAZOLE 15 MG TAB.RAP.DR PO SCH (06:00)
[2018-02-16 06:06] LABS: ABSOLUTE BASOPHILS # (AUTO) 0.1 10^3/uL (0.0-0.2); ABSOLUTE EOSINOPHILS # (AUTO) 0.2 10^3/uL (0.0-0.6); ABSOLUTE LYMPHOCYTES (AUTO) 1.5 10^3/uL (0.5-4.7); ABSOLUTE MONOCYTES (AUTO) 0.7 10^3/uL (0.1-1.4); ABSOLUTE NEUT (AUTO) 2.3 10^3/uL (1.7-8.2); BASOPHILS % (AUTO) 1.3 % (0-2); EOSINOPHILS % (AUTO) 3.8 % (0-6); HEMATOCRIT 35.9 % (36.0-47.0); HEMOGLOBIN 12.1 g/dL (12.0-15.5); LYMPHOCYTES % (AUTO) 31.5 % (13-45); MEAN CORPUSCULAR HEMOGLOBIN 32.7 pg (27.0-33.4); MEAN CORPUSCULAR HGB CONC 33.6 g/dL (32.0-36.0); MEAN CORPUSCULAR VOLUME 97 fl (80-97); MONOCYTES % (AUTO) 14.6 % (3-13); PLATELET COUNT 261 10^3/uL (150-450); RED BLOOD COUNT 3.69 10^6/uL (3.72-5.28); RED CELL DISTRIBUTION WIDTH 14.1 % (11.5-14.0); SEGMENTED NEUTROPHILS % (AUTO) 48.8 % (42-78); TOTAL CELLS COUNTED % (AUTO) 100 %; WHITE BLOOD COUNT 4.7 10^3/uL (4.0-10.5)
[2018-02-16 06:30] LABS: ANION GAP 7 (5-19); BLOOD UREA NITROGEN 20 mg/dL (7-20); CALCIUM 8.7 mg/dL (8.4-10.2); CARBON DIOXIDE 30 mmol/L (22-30); CHLORIDE 100 mmol/L (98-107); GLUCOSE 105 mg/dL (75-110); POTASSIUM 4.2 mmol/L (3.6-5.0); SODIUM 136.5 mmol/L (137-145)
[2018-02-16] MEDS: FUROSEMIDE 20 MG TABLET PO SCH (09:58)
[2018-02-16] MEDS: LEVETIRACETAM 500 MG TABLET PO SCH ×2 (09:58→21:45)
[2018-02-16] MEDS: ASPIRIN 81 MG TABLET, ENT COATED PO SCH (09:59)
[2018-02-16] MEDS: AMLODIPINE BESYLATE 10 MG TABLET PO SCH (09:59)
[2018-02-16] MEDS: APIXABAN 5 MG TABLET PO SCH ×2 (09:59→21:45)
[2018-02-16] MEDS: FLUTICASONE/SALMETEROL DISKUS 250-50 MCG/DOSE IH SCH ×2 (09:59→21:44)
[2018-02-16] MEDS: POLYETHYLENE GLYCOL 3350 POWDER 17 GM/1 PACKET PO SCH (09:59)
[2018-02-16] MEDS: DOCUSATE SODIUM 100 MG/10 ML UDC PO SCH ×2 (10:00→17:35)
[2018-02-16] MEDS: CEFTRIAXONE 1 GM/D5W RTU 1 GM/50 ML RTUPB IV SCH (10:04)
[2018-02-16] MEDS ORDERED: MAGNESIUM CITRATE 296 ML BOTTLE PO ONE (18:00)
--- NOTE | 2018-02-16 18:36 | PDOC PROGRESS REPORT ---
Subjective Progress Note for:: 02/16/18 Subjective:: Patient seen by the bedside there is no new complaints Reason For Visit: UTI,AMS Physical Exam Vital Signs: Temp Pulse Resp BP Pulse Ox 98.0 F 56 L 20 117/62 99 02/16/18 08:04 02/16/18 14:00 02/16/18 08:04 02/16/18 08:04 02/16/18 08:04 Intake & Output 02/15/18 02/16/18 02/17/18 06:59 06:59 06:59 Intake Total 1473 2082 720 Balance 1473 2082 720 Weight 72.9 kg 72.9 kg General appearance: PRESENT: no acute distress Eye exam: PRESENT: PERRLA Respiratory exam: PRESENT: clear to auscultation jordin Cardiovascular exam: PRESENT: +S1, +S2 GI/Abdominal exam: PRESENT: soft Neurological exam: PRESENT: alert Results Laboratory Results: 02/16/18 05:32 02/16/18 05:32 02/16/18 02/16/18 05:32 05:32 WBC 4.7 RBC 3.69 L Hgb 12.1 Hct 35.9 L MCV 97 MCH 32.7 MCHC 33.6 RDW 14.1 H Plt Count 261 Seg Neutrophils % 48.8 Lymphocytes % 31.5 Monocytes % 14.6 H Eosinophils % 3.8 Basophils % 1.3 Absolute Neutrophils 2.3 Absolute Lymphocytes 1.5 Absolute Monocytes 0.7 Absolute Eosinophils 0.2 Absolute Basophils 0.1 Sodium 136.5 L Potassium 4.2 Chloride 100 Carbon Dioxide 30 Anion Gap 7 BUN 20 Creatinine 1.00 Est GFR ( Amer) > 60 Est GFR (Non-Af Amer) 54 L Glucose 105 Calcium 8.7 02/12/18 06:36 Blood Blood Culture - Final Staphylococcus Epidermidis Staphylococcus Hominis 02/11/18 02/11/18 02/12/18 22:18 22:18 03:31 Creatine Kinase 93 CK-MB (CK-2) 0.32 Troponin I < 0.012 < 0.012 NT-Pro-B Natriuret Pep 02/12/18 02/12/18 02/12/18 07:42 07:42 13:16 Creatine Kinase 76 CK-MB (CK-2) 0.33 0.61 Troponin I < 0.012 < 0.012 NT-Pro-B Natriuret Pep 02/12/18 02/12/18 18:56 18:56 Creatine Kinase CK-MB (CK-2) 0.81 Troponin I < 0.012 NT-Pro-B Natriuret Pep 1530 H Impressions: Chest Ultrasound 02/12/18 00:00 IMPRESSION: Bilateral pleural effusions. Chest/Abdomen CTA 02/12/18 00:00 IMPRESSION: 1. NORMAL CTA OF THE CHEST. NO PULMONARY EMBOLI. 2. BILATERAL PLEURAL EFFUSIONS, RIGHT GREATER THAN LEFT. MILD BASILAR ATELECTASIS. 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 No acute findings. EVIDENCE OF ACUTE STROKE: NO. Head CT 02/12/18 03:09 IMPRESSION: Old infarcts in the occipital regions bilaterally. Atrophy. Small vessel ischemic change. TECHNICAL DOCUMENTATION: Quality ID # 436: Final reports with documentation of one or more dose reduction techniques (e.g., Automated exposure control, adjustment of the mA and/or kV according to patient size, use of iterative reconstruction technique) copyright 2011 [employer]- All Rights Reserved Chest X-Ray 02/14/18 00:00 IMPRESSION: Small pleural effusions. No significant change. Assessment & Plan - Diagnosis (1) Coronary artery disease Qualifiers: Coronary Disease-Associated Artery/Lesion type: [place] artery [place] vs. transplanted heart: [place] heart Associated angina: without angina Qualified Code(s): I25.10 - Atherosclerotic heart disease of [place] coronary artery without angina pectoris Is this a current diagnosis for this admission?: Yes (2) E. coli urinary tract infection Is this a current diagnosis for this admission?: Yes Plan: Continue treatment
[2018-02-16] MEDS: ATORVASTATIN CALCIUM 40 MG TABLET PO SCH (21:45)
[2018-02-17] MEDS: LANSOPRAZOLE 15 MG TAB.RAP.DR PO SCH (06:07)
[2018-02-17] MEDS: LEVOTHYROXINE SODIUM 0.05 MG TABLET PO SCH (06:07)
[2018-02-17 07:10] LABS: BLOOD UREA NITROGEN 20 mg/dL (7-20); CALCIUM 9.1 mg/dL (8.4-10.2); CHLORIDE 101 mmol/L (98-107); GLUCOSE 100 mg/dL (75-110); POTASSIUM 4.8 mmol/L (3.6-5.0); SODIUM 140.1 mmol/L (137-145)
[2018-02-17 07:25] LABS: ANION GAP 6 (5-19); CARBON DIOXIDE 33 mmol/L (22-30)
[2018-02-17] MEDS: LEVETIRACETAM 500 MG TABLET PO SCH ×2 (09:32→22:05)
[2018-02-17] MEDS: APIXABAN 5 MG TABLET PO SCH ×2 (09:32→22:04)
[2018-02-17] MEDS: POLYETHYLENE GLYCOL 3350 POWDER 17 GM/1 PACKET PO SCH (09:32)
[2018-02-17] MEDS: AMLODIPINE BESYLATE 10 MG TABLET PO SCH (09:32)
[2018-02-17] MEDS: ASPIRIN 81 MG TABLET, ENT COATED PO SCH (09:32)
[2018-02-17] MEDS: FUROSEMIDE 20 MG TABLET PO SCH (09:32)
[2018-02-17] MEDS: FLUTICASONE/SALMETEROL DISKUS 250-50 MCG/DOSE IH SCH ×2 (09:33→22:05)
[2018-02-17] MEDS: CEFTRIAXONE 1 GM/D5W RTU 1 GM/50 ML RTUPB IV SCH (09:33)
[2018-02-17] MEDS: DOCUSATE SODIUM 100 MG/10 ML UDC PO SCH ×2 (09:36→17:10)
--- NOTE | 2018-02-17 15:06 | PDOC PROGRESS REPORT ---
Subjective Progress Note for:: 02/17/18 Subjective:: Patient seen by the bedside there is no new complaints Reason For Visit: UTI,AMS Physical Exam Vital Signs: Temp Pulse Resp BP Pulse Ox 97.4 F 83 17 137/66 H 99 02/17/18 03:38 02/17/18 07:00 02/17/18 03:38 02/17/18 03:38 02/17/18 03:38 Intake & Output 02/16/18 02/17/18 02/18/18 06:59 06:59 06:59 Intake Total 2 956 650 Balance 2081 956 650 Weight 72.9 kg 73.1 kg General appearance: PRESENT: no acute distress Eye exam: PRESENT: PERRLA Respiratory exam: PRESENT: clear to auscultation jordin Cardiovascular exam: PRESENT: +S1, +S2 GI/Abdominal exam: PRESENT: soft Results Laboratory Results: 02/16/18 05:32 02/17/18 06:03 02/17/18 06:03 Sodium 140.1 Potassium 4.8 Chloride 101 Carbon Dioxide 33 H Anion Gap 6 BUN 20 Creatinine 0.98 Est GFR ( Amer) > 60 Est GFR (Non-Af Amer) 56 L Glucose 100 Calcium 9.1 02/12/18 07:55 Blood Blood Culture - Final NO GROWTH IN 5 DAYS 02/11/18 02/11/18 02/12/18 22:18 22:18 03:31 Creatine Kinase 93 CK-MB (CK-2) 0.32 Troponin I < 0.012 < 0.012 NT-Pro-B Natriuret Pep 02/12/18 02/12/18 02/12/18 07:42 07:42 13:16 Creatine Kinase 76 CK-MB (CK-2) 0.33 0.61 Troponin I < 0.012 < 0.012 NT-Pro-B Natriuret Pep 02/12/18 02/12/18 18:56 18:56 Creatine Kinase CK-MB (CK-2) 0.81 Troponin I < 0.012 NT-Pro-B Natriuret Pep 1530 H Impressions: Chest Ultrasound 02/12/18 00:00 IMPRESSION: Bilateral pleural effusions. Chest/Abdomen CTA 02/12/18 00:00 IMPRESSION: 1. NORMAL CTA OF THE CHEST. NO PULMONARY EMBOLI. 2. BILATERAL PLEURAL EFFUSIONS, RIGHT GREATER THAN LEFT. MILD BASILAR ATELECTASIS. 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 No acute findings. EVIDENCE OF ACUTE STROKE: NO. Head CT 02/12/18 03:09 IMPRESSION: Old infarcts in the occipital regions bilaterally. Atrophy. Small vessel ischemic change. TECHNICAL DOCUMENTATION: Quality ID # 436: Final reports with documentation of one or more dose reduction techniques (e.g., Automated exposure control, adjustment of the mA and/or kV according to patient size, use of iterative reconstruction technique) copyright 2011 [employer]- All Rights Reserved Chest X-Ray 02/14/18 00:00 IMPRESSION: Small pleural effusions. No significant change. Assessment & Plan - Diagnosis (1) Coronary artery disease Qualifiers: Coronary Disease-Associated Artery/Lesion type: [place] artery [place] vs. transplanted heart: [place] heart Associated angina: without angina Qualified Code(s): I25.10 - Atherosclerotic heart disease of [place] coronary artery without angina pectoris Is this a current diagnosis for this admission?: Yes (2) E. coli urinary tract infection Is this a current diagnosis for this admission?: Yes Plan: Discontinue antibiotic
[2018-02-17] MEDS: ATORVASTATIN CALCIUM 40 MG TABLET PO SCH (22:05)
[2018-02-18 03:29] VITALS: BP 140/68
[2018-02-18 05:20] LABS: ANION GAP 7 (5-19); BLOOD UREA NITROGEN 19 mg/dL (7-20); CALCIUM 8.6 mg/dL (8.4-10.2); CARBON DIOXIDE 29 mmol/L (22-30); CHLORIDE 102 mmol/L (98-107); GLUCOSE 96 mg/dL (75-110); POTASSIUM 4.3 mmol/L (3.6-5.0); SODIUM 138.3 mmol/L (137-145)
[2018-02-18] MEDS: LANSOPRAZOLE 15 MG TAB.RAP.DR PO SCH (06:49)
[2018-02-18] MEDS: LEVOTHYROXINE SODIUM 0.05 MG TABLET PO SCH (06:49)
[2018-02-18] MEDS: APIXABAN 5 MG TABLET PO SCH (09:09)
[2018-02-18] MEDS: FUROSEMIDE 20 MG TABLET PO SCH (09:09)
[2018-02-18] MEDS: AMLODIPINE BESYLATE 10 MG TABLET PO SCH (09:09)
[2018-02-18] MEDS: ASPIRIN 81 MG TABLET, ENT COATED PO SCH (09:09)
[2018-02-18] MEDS: LEVETIRACETAM 500 MG TABLET PO SCH (09:10)
[2018-02-18] MEDS: POLYETHYLENE GLYCOL 3350 POWDER 17 GM/1 PACKET PO SCH (09:10)
[2018-02-18] MEDS: FLUTICASONE/SALMETEROL DISKUS 250-50 MCG/DOSE IH SCH (09:10)
[2018-02-18] MEDS: DOCUSATE SODIUM 100 MG/10 ML UDC PO SCH (09:11)
--- NOTE | 2018-02-18 13:37 | PDOC DISCHARGE SUMMARY ---
General - Admit/Disc Date/PCP Admission Date/Primary Care Provider: 02/12/18 06:17 CECY CAMARENA MD Discharge Date: 02/18/18 - Discharge Diagnosis (1) Altered mental status Is this a current diagnosis for this admission?: Yes Summary: Currently all resolved (2) Chest pressure Is this a current diagnosis for this admission?: Yes Summary: Patient's echocardiogram and stress test all stable and CT angiogram is all negative (3) Cerebrovascular disorder Is this a current diagnosis for this admission?: Yes Summary: Currently on Eliquis and aspirin (4) Atrial fibrillation, chronic Is this a current diagnosis for this admission?: Yes Summary: Currently on Eliquis (5) Coronary artery disease Is this a current diagnosis for this admission?: Yes Summary: Currently all stable Patient's stress test is negative (6) Dizziness Is this a current diagnosis for this admission?: Yes Summary: Patient MRI of the head is all negative for any acute finding (7) E. coli urinary tract infection Is this a current diagnosis for this admission?: Yes Summary: Continues to p.o. antibiotic (8) Hypertension Is this a current diagnosis for this admission?: Yes Summary: Currently all stable (9) Seizure Is this a current diagnosis for this admission?: Yes Summary: Continues to Keppra and follow outpatients neurology (10) Bilateral pleural effusion Is this a current diagnosis for this admission?: Yes Summary: Patient seen by the pulmonary suggest no need for further interventions continues the antibiotic (11) Bradycardia Is this a current diagnosis for this admission?: Yes Summary: Currently hold the beta-zuleima and follow outpatients Dr. Arreguin - Additional Information Resuscitation Status: Full Code Discharge Diet: Cardiac Discharge Activity: Activity As Tolerated Prescriptions: Aspirin [Ecotrin 81 mg EC Tablet] 81 mg PO QAM #30 tabec Cephalexin Monohydrate [Keflex 500 mg Capsule] 500 mg PO TID #15 capsule Home Medications: Amlodipine Besylate [Norvasc 10 mg Tablet] 5 mg PO QAM 02/12/18 Apixaban [Eliquis 5 mg Tablet] 5 mg PO BID 02/12/18 Aspirin [Ecotrin 81 mg EC Tablet] 81 mg PO QAM 02/12/18 Atorvastatin Calcium [Lipitor 40 mg Tablet] 40 mg PO QHS 02/12/18 Fluticasone/Salmeterol [Advair 250-50 Diskus 14 Dose/Diskus] 1 puff IH Q12 02/12/18 Isosorbide Mononitrate [Imdur 30 mg Tablet.er] 30 mg PO QAM 02/12/18 Levetiracetam [Keppra] 1,500 mg PO BID 02/12/18 Levothyroxine Sodium 50 mcg PO Q6AM 02/12/18 Omeprazole 20 mg PO QAM 02/12/18 Aspirin [Ecotrin 81 mg EC Tablet] 81 mg PO QAM #30 tabec 02/18/18 Cephalexin Monohydrate [Keflex 500 mg Capsule] 500 mg PO TID #15 capsule 02/18/18 History of Present Illness History of Present Illness: JOSE ESPINAL is a 72 year old female This is a 72-year-old female with a significant history of the hypertension's hyperlipidemia history of the seizures disorder history of the vascular dementia history of the stroke and a history of the chronic A. fib multiple hospital admissions for the altered mental status and also currently seen by the neuro logy and cardiology as an outpatient came to the emergency department with complaining of chest pressure and dizziness for the last 1 week and also some mild cough and congestions In the emergency department initial workup was all negative but according to the ER physicians patient was more confused and he decided to admit for further evaluations Patient have a questionable urinary tract infection as usual for this hallucinations which had a before When I saw the patient patient is alert awake and oriented x3 but patient was telling me she was hallucinating for the last several days Patient is denied any stress Patient is denied any seizures activity currently taking the seizures medication as prescribed Patient's denied any chest pain now but was complaining of chest pain earlier Patient seen by Dr. Arreguin's office last week Patient also seen by the neurology couple of weeks back and was all stable Patient is denied any weakness in the legs denied any speech problems denied any eye problems Hospital Course Hospital Course: This is a 72-year-old female presenting the emergency department with altered mental status and confusion but initial CT of the head was negative Patient was some mild bronchitis But patient underwent no MRI of the head was negative for any acute finding Patient is also complained with chest pain and cardiology was consulted and underwent for the echocardiogram and a stress test was all stable Patient also found urinary tract infections treated with the IV antibiotic Patient still responds very well Patient is walking the hallway without any problems P.o. intake is fair Patient at this point decided to go home Patient is discharged with the p.o. antibiotic Patient is bradycardia discussed with the cardiology and suggest to hold the beta-zuleima and to follow outpatients Holter monitor but no need any further evaluations Physical Exam Vital Signs: Temp Pulse Resp BP Pulse Ox 98.2 F 60 16 140/68 H 99 02/18/18 09:01 02/18/18 09:01 02/18/18 09:01 02/18/18 09:01 02/18/18 09:01 Intake & Output 02/17/18 02/18/18 02/19/18 06:59 06:59 06:59 Intake Total 956 1174 Balance 956 1174 Weight 73.1 kg 73.1 kg General appearance: PRESENT: no acute distress, well-developed, well-nourished Head exam: PRESENT: atraumatic, normocephalic Eye exam: PRESENT: conjunctiva pink, EOMI, PERRLA. ABSENT: scleral icterus Ear exam: PRESENT: normal external ear exam Mouth exam: PRESENT: moist, tongue midline Neck exam: PRESENT: full ROM. ABSENT: carotid bruit, JVD, lymphadenopathy, thyromegaly Respiratory exam: PRESENT: clear to auscultation jordin Cardiovascular exam: PRESENT: RRR. ABSENT: diastolic murmur, rubs, systolic murmur Pulses: PRESENT: normal dorsalis pedis pul, +2 pedal pulses bilateral Vascular exam: PRESENT: normal capillary refill GI/Abdominal exam: PRESENT: normal bowel sounds, soft. ABSENT: distended, guarding, mass, organolmegaly, rebound, tenderness Rectal exam: PRESENT: deferred Extremities exam: ABSENT: pedal edema Musculoskeletal exam: PRESENT: ambulatory Neurological exam: PRESENT: alert, awake, oriented to person, oriented to place, oriented to time, oriented to situation, CN II-XII grossly intact. ABSENT: motor sensory deficit Psychiatric exam: PRESENT: appropriate affect, normal mood. ABSENT: homicidal ideation, suicidal ideation Skin exam: PRESENT: dry, intact, warm. ABSENT: cyanosis, rash Results Laboratory Results: 02/16/18 05:32 02/18/18 04:38 02/18/18 04:38 Sodium 138.3 Potassium 4.3 Chloride 102 Carbon Dioxide 29 Anion Gap 7 BUN 19 Creatinine 0.94 Est GFR ( Amer) > 60 Est GFR (Non-Af Amer) 58 L Glucose 96 Calcium 8.6 02/11/18 02/11/18 02/12/18 22:18 22:18 03:31 Creatine Kinase 93 CK-MB (CK-2) 0.32 Troponin I < 0.012 < 0.012 NT-Pro-B Natriuret Pep 02/12/18 02/12/18 02/12/18 07:42 07:42 13:16 Creatine Kinase 76 CK-MB (CK-2) 0.33 0.61 Troponin I < 0.012 < 0.012 NT-Pro-B Natriuret Pep 02/12/18 02/12/18 18:56 18:56 Creatine Kinase CK-MB (CK-2) 0.81 Troponin I < 0.012 NT-Pro-B Natriuret Pep 1530 H Impressions: Chest Ultrasound 02/12/18 00:00 IMPRESSION: Bilateral pleural effusions. Chest/Abdomen CTA 02/12/18 00:00 IMPRESSION: 1. NORMAL CTA OF THE CHEST. NO PULMONARY EMBOLI. 2. BILATERAL PLEURAL EFFUSIONS, RIGHT GREATER THAN LEFT. MILD BASILAR ATELECTASIS. 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 No acute findings. EVIDENCE OF ACUTE STROKE: NO. Head CT 02/12/18 03:09 IMPRESSION: Old infarcts in the occipital regions bilaterally. Atrophy. Small vessel ischemic change. TECHNICAL DOCUMENTATION: Quality ID # 436: Final reports with documentation of one or more dose reduction techniques (e.g., Automated exposure control, adjustment of the mA and/or kV according to patient size, use of iterative reconstruction technique) copyright 2011 [employer]- All Rights Reserved Chest X-Ray 02/14/18 00:00 IMPRESSION: Small pleural effusions. No significant change. Qualifiers - * PATIENT BEING DISCHARGED WITH ANY OF THE FOLLOWING DIAGNOSIS: No VTE patient discharged on overlapping Therapy?: Yes Plan Time Spent: Greater than 30 Minutes - Follow outpatients cardiology continues to current medications except hold the beta-zuleima
== END 2018-02-18 09:40 | disposition home health service (06) | DRG 690 ==
LOC: ER 21:58 → EH 02-12 06:17 → OBSVTOIN 02-12 06:17 → 4S 02-12 12:45
PROVIDERS: ADMIT Family Medicine; ATTEND Family Medicine
PROC: 3E0F73Z Introduction of Anti-inflammatory into Respiratory Tract, Via Natural or Artificial Opening (ICD-10-PCS; principal; 2018-02-12)
DX: N39.0 Urinary tract infection, site not specified (principal); B96.20 Unspecified Escherichia coli [E. coli] as the cause of diseases classified elsewhere; I48.2 Chronic atrial fibrillation; I25.10 Atherosclerotic heart disease of native coronary artery without angina pectoris; I10 Essential (primary) hypertension; R00.1 Bradycardia, unspecified; E78.00 Pure hypercholesterolemia, unspecified; G40.909 Epilepsy, unspecified, not intractable, without status epilepticus; F01.50 Vascular dementia, unspecified severity, without behavioral disturbance, psychotic disturbance, mood disturbance, and anxiety; J40 Bronchitis, not specified as acute or chronic; E03.9 Hypothyroidism, unspecified; K21.9 Gastro-esophageal reflux disease without esophagitis; M19.90 Unspecified osteoarthritis, unspecified site; F32.9 Major depressive disorder, single episode, unspecified; I25.2 Old myocardial infarction; Z79.01 Long term (current) use of anticoagulants; Z79.899 Other long term (current) drug therapy; Z86.73 Personal history of transient ischemic attack (TIA), and cerebral infarction without residual deficits; Z90.710 Acquired absence of both cervix and uterus; Z88.0 Allergy status to penicillin
CPT/HCPCS: 36415; 70450; 70551; 71045; 71046; 71275; 76604; 78452; 80048; 80053; 81001; 82550; 82553; 82803; 83735; 83880; 84443; 84484; 85025; 87040; 87077; 87086; 87088; 87186; 93005; 93010; 93017; 93306; 94640; 96361; 96365; 99285; A9500; J0280; J0696; J2785; J3490; J7040; Q9969

== ENCOUNTER 2018-02-23 13:16 | Emergency (ER) | payer MEDICARE, MEDICAID ==
--- NOTE | 2018-02-23 13:40 | ER Document Report ---
ED Medical Screen (RME) - General Chief Complaint: Chest Congestion Stated Complaint: DIFFICULTY BREATHING Time Seen by Provider: 02/23/18 13:31 Notes: Patient is complaining of recurrent difficulty breathing and shortness of breath. She says that she was in the hospital here for about 8 days and was discharged about 3 or 4 days ago. She says that she was having the same thing on that admission. She was feeling better when she went home 4 days ago. Now her shortness of breath is returned and she is coughing up a lot of phlegm. Says that she is felt hot and sweaty but has not taken her temperature. Denies chest pain. Has a history of COPD, but never smoked. Both lungs sound clear to me at this time. TRAVEL OUTSIDE OF THE [place] IN LAST 30 DAYS: No - Related Data Allergies/Adverse Reactions: Penicillins Allergy (Mild, Verified 02/12/18 16:50) rash Sulfa (Sulfonamide Antibiotics) Allergy (Mild, Verified 02/12/18 16:52) Skin Redness Past Medical History - Past Medical History Cardiac Medical History: Reports: Hx Atrial Fibrillation, Hx Heart Attack - mild, Hx Hypercholesterolemia, Hx Hypertension Denies: Hx Congestive Heart Failure, Hx Coronary Artery Disease, Hx Peripheral Vascular Disease, Hx Heart Murmur Neurological Medical History: Reports: Hx Cerebrovascular Accident - 01/20 , Hx Seizures - 01/20 Endocrine Medical History: Reports: Hx Hypothyroidism. Denies: Hx Graves' Disease, Hx Hyperthyroidism Renal/ Medical History: Denies: Hx End Stage Renal Disease, Hx Kidney Stones, Hx Peritoneal Dialysis Malignancy Medical History: Denies: Hx Leukemia GI Medical History: Reports: Hx Gastroesophageal Reflux Disease - occ. takes Omeprazole PRN. Denies: Hx Crohn's Disease, Hx Hiatal Hernia, Hx Irritable Bowel, Hx Liver Failure, Hx Pancreatitis, Hx Ulcer Musculoskeltal Medical History: Reports Hx Arthritis, Denies Hx Fibromyalgia, Denies Hx Multiple Sclerosis, Denies Hx Muscular Dystrophy Psychiatric Medical History: Reports: Hx Depression Denies: Hx Bipolar Disorder, Hx Dementia, Hx Post Traumatic Stress Disorder, Hx Schizophrenia Traumatic Medical History: Reports: Hx Fractures - 2nd toe on right Infectious Medical History: Denies: Hx HIV Past Surgical History: Reports: Hx Appendectomy, Hx Hysterectomy, Hx Orthopedic Surgery - right rotator cuff. Denies: Hx Bowel Surgery, Hx Section, Hx Cholecystectomy, Hx Colostomy, Hx Coronary Artery Bypass Graft, Hx Gastric Bypass Surgery, Hx Herniorrhaphy, Hx Mastectomy, Hx Pacemaker, Hx Tonsillectomy, Hx Tubal Ligation - Immunizations Hx Diphtheria, Pertussis, Tetanus Vaccination: No History of Influenza Vaccine for 11/2016 - 04/2017 Season: Yes Influenza Administration Date for 11/2016 - 04/2017 Season: 11/05/16 Physical Exam - Vital signs Vitals: Temp Pulse Resp BP Pulse Ox 97.8 F 87 16 127/75 H 97 02/23/18 13:26 02/23/18 13:26 02/23/18 13:26 02/23/18 13:26 02/23/18 13:26 Course - Vital Signs Vital signs: Temp Pulse Resp BP Pulse Ox 97.8 F 87 16 127/75 H 97 02/23/18 13:26 02/23/18 13:26 02/23/18 13:26 02/23/18 13:26 02/23/18 13:26 Doctor's Discharge - Discharge Referrals: CECY CAMARENA MD [Primary Care Provider] - Follow up as needed
--- NOTE | 2018-02-23 14:06 | ER Document Report ---
ED General - General Chief Complaint: Chest Congestion Stated Complaint: DIFFICULTY BREATHING Time Seen by Provider: 02/23/18 13:31 Notes: Patient is a 72-year-old female that presents to the emergency department for chief complaint of cough and shortness of breath. Patient states that she was recently discharged from the hospital 3 or 4 days ago, was doing well for a few days, and then started having a productive cough again, which she initially had when she presented to the emergency department about a week ago. She denies having any associated chest pain, nausea, vomiting, abdominal pain, dysuria hematuria. Denies noting any worsening swelling in her legs. She does have history of COPD, on her previous presentation she was in atrial fibrillation with rapid ventricular response. She reports that she was treated with antibiotics during her hospital admission, for which she thinks was a UTI, not for pneumonia. She denies any other complaints at this time. Past Medical History: Atrial fibrillation, on anticoagulation, COPD, hypertension, GERD, hypothyroidism Past Surgical History: Hysterectomy, appendectomy Social History: Denies current tobacco, alcohol or drug use. Family History: Reviewed and noncontributory for presenting illness Allergies: Reviewed, see documented allergy list. REVIEW OF SYSTEMS: Other than noted above, the 12 point review of systems was reviewed with the patient and were negative, all pertinent findings are included in the HPI. PHYSICAL EXAMINATION: Vital signs reviewed, nursing noted reviewed. GENERAL: Elderly female, nontoxic appearing, no acute distress. HEAD: Atraumatic, normocephalic. EYES: Eyes appear normal, extraocular movements intact, sclera anicteric, conjunctiva are normal. ENT: nares patent, oropharynx clear without exudates. Moist mucous membranes. NECK: Normal range of motion, supple without lymphadenopathy LUNGS: Diminished lung sounds, with some faint wheezing, no acute respiratory distress. HEART: Heart rate regular, but with a regular rhythm, 2/6 systolic murmur. ABDOMEN: Soft, nontender, normoactive bowel sounds. No rebound, guarding, or rigidity. No masses appreciated. EXTREMITIES: Nontender, good range of motion, no pitting or edema. NEUROLOGICAL: No focal neurological deficits. Moves all extremities spontaneously Motor and sensory grossly intact on exam. PSYCH: Normal mood, normal affect. SKIN: Warm, Dry, normal turgor, no rashes or lesions noted on exposed skin TRAVEL OUTSIDE OF THE [place] IN LAST 30 DAYS: No - Related Data Allergies/Adverse Reactions: Penicillins Allergy (Mild, Verified 02/12/18 16:50) rash Sulfa (Sulfonamide Antibiotics) Allergy (Mild, Verified 02/12/18 16:52) Skin Redness Past Medical History - Social History Smoking Status: Never Smoker Chew tobacco use (# tins/day): No Frequency of alcohol use: None Drug Abuse: None Family History: None, Reviewed & Not Pertinent Patient has suicidal ideation: No Patient has homicidal ideation: No - Past Medical History Cardiac Medical History: Reports: Hx Atrial Fibrillation, Hx Heart Attack - mild, Hx Hypercholesterolemia, Hx Hypertension Denies: Hx Congestive Heart Failure, Hx Coronary Artery Disease, Hx Peripheral Vascular Disease, Hx Heart Murmur Neurological Medical History: Reports: Hx Cerebrovascular Accident - 01/20 , Hx Seizures - 01/20 Endocrine Medical History: Reports: Hx Hypothyroidism. Denies: Hx Graves' Disease, Hx Hyperthyroidism Renal/ Medical History: Denies: Hx End Stage Renal Disease, Hx Kidney Stones, Hx Peritoneal Dialysis Malignancy Medical History: Denies: Hx Leukemia GI Medical History: Reports: Hx Gastroesophageal Reflux Disease - occ. takes Omeprazole PRN. Denies: Hx Crohn's Disease, Hx Hiatal Hernia, Hx Irritable Bowel, Hx Liver Failure, Hx Pancreatitis, Hx Ulcer Musculoskeletal Medical History: Reports Hx Arthritis, Denies Hx Fibromyalgia, Denies Hx Multiple Sclerosis, Denies Hx Muscular Dystrophy Psychiatric Medical History: Reports: Hx Depression Denies: Hx Bipolar Disorder, Hx Dementia, Hx Post Traumatic Stress Disorder, Hx Schizophrenia Traumatic Medical History: Reports: Hx Fractures - 2nd toe on right Infectious Medical History: Denies: Hx HIV Past Surgical History: Reports: Hx Appendectomy, Hx Hysterectomy, Hx Orthopedic Surgery - right rotator cuff. Denies: Hx Bowel Surgery, Hx Section, Hx Cholecystectomy, Hx Colostomy, Hx Coronary Artery Bypass Graft, Hx Gastric Bypass Surgery, Hx Herniorrhaphy, Hx Mastectomy, Hx Pacemaker, Hx Tonsillectomy, Hx Tubal Ligation - Immunizations Hx Diphtheria, Pertussis, Tetanus Vaccination: No Hx Pneumococcal Vaccination: 12/06/17 Physical Exam - Vital signs Vitals: Temp Pulse Resp BP Pulse Ox 97.8 F 87 16 127/75 H 97 02/23/18 13:26 02/23/18 13:26 02/23/18 13:26 02/23/18 13:26 02/23/18 13:26 Course - Re-evaluation Re-evalutation: Patient seen and examined vital signs reviewed. Laboratory data and imaging were ordered as appropriate for the patient's presenting symptoms and complaint, with consideration of any critical or life threatening conditions that may be associated with their obtained history and exam as noted above. Patient was treated with budesonide inhaled, and Mucinex Results were reviewed when available and demonstrated similar chest x-ray from prior, blood work was essentially unremarkable and unchanged from her recent visit, negative troponin The patient was re-evaluated and was stable Evaluation was most consistent with productive cough, will discharge home with prescription for doxycycline and advised her to follow-up with her primary care physician, and to take Mucinex as well to help with her productive cough. Results were discussed with the patient at this point, after careful consideration I feel that that patient can be discharged from the emergency department, the patient was educated treatments and reasons to return to the emergency department based on their presumed diagnosis as noted above, they were advised to followup with a primary care physician in 2-3 days. Patient was agreeable to plan of care. *Note is created using voice recognition software and may contain spelling, syntax or grammatical errors. Laboratory 02/23/18 02/23/18 02/23/18 13:55 13:55 13:55 WBC 5.9 RBC 3.67 L Hgb 11.9 L Hct 35.4 L MCV 96 MCH 32.5 MCHC 33.8 RDW 14.1 H Plt Count 253 Seg Neutrophils % 77.1 Lymphocytes % 11.4 L Monocytes % 9.0 Eosinophils % 1.2 Basophils % 1.3 Absolute Neutrophils 4.5 Absolute Lymphocytes 0.7 Absolute Monocytes 0.5 Absolute Eosinophils 0.1 Absolute Basophils 0.1 Sodium 140.7 Potassium 3.8 Chloride 106 Carbon Dioxide 28 Anion Gap 7 BUN 17 Creatinine 0.98 Est GFR ( Amer) > 60 Est GFR (Non-Af Amer) 56 L Glucose 82 Calcium 9.4 Total Bilirubin 0.4 Direct Bilirubin 0.2 Neonat Total Bilirubin Not Reportable Neonat Direct Bilirubin Not Reportable Neonat Indirect Bili Not Reportable AST 32 ALT 38 Alkaline Phosphatase 100 Troponin I NT-Pro-B Natriuret Pep 1860 H Total Protein 7.0 Albumin 4.1 02/23/18 13:55 WBC RBC Hgb Hct MCV MCH MCHC RDW Plt Count Seg Neutrophils % Lymphocytes % Monocytes % Eosinophils % Basophils % Absolute Neutrophils Absolute Lymphocytes Absolute Monocytes Absolute Eosinophils Absolute Basophils Sodium Potassium Chloride Carbon Dioxide Anion Gap BUN Creatinine Est GFR ( Amer) Est GFR (Non-Af Amer) Glucose Calcium Total Bilirubin Direct Bilirubin Neonat Total Bilirubin Neonat Direct Bilirubin Neonat Indirect Bili AST ALT Alkaline Phosphatase Troponin I < 0.012 NT-Pro-B Natriuret Pep Total Protein Albumin Chest X-Ray 02/23/18 13:36 IMPRESSION: Similar small bilateral pleural effusions. - Vital Signs Vital signs: Temp Pulse Resp BP Pulse Ox 97.8 F 87 19 127/75 H 97 02/23/18 13:26 02/23/18 13:26 02/23/18 15:00 02/23/18 13:26 02/23/18 15:00 - Laboratory Result Diagrams: 02/23/18 13:55 02/23/18 13:55 Laboratory results interpreted by me: 02/23/18 02/23/18 02/23/18 13:55 13:55 13:55 RBC 3.67 L Hgb 11.9 L Hct 35.4 L RDW 14.1 H Lymphocytes % 11.4 L Est GFR (Non-Af Amer) 56 L NT-Pro-B Natriuret Pep 1860 H - EKG Interpretation by Me Additional EKG results interpreted by me: EKG demonstrates atrial fibrillation with a ventricular rate of 88 bpm, left axis deviation, normal intervals, no evidence of acute ischemia in this EKG, this is compared to prior EKG from 02/11/2017, without significant change. Discharge - Discharge Clinical Impression: Productive cough Condition: Stable Disposition: HOME, SELF-CARE Instructions: Bronchitis ([facility]) Additional Instructions: Please return to the emergency department if you have any worsening, or concern of your symptoms. Please return to the emergency department if you develop chest pain, difficulty breathing, severe abdominal pain, or ongoing vomiting. Please follow-up with your primary care physician in 2-3 days and any other recommended physicians. If prescribed, take all medications as directed. If you have any questions or concerns do not hesitate to return the emergency department for evaluation. Prescriptions: Doxycycline Hyclate [Vibramycin] 100 mg PO BID #14 capsule Guaifenesin [Mucinex] 1,200 mg PO BID #20 [id number] Referrals: CECY CAMARENA MD [Primary Care Provider] - Follow up as needed
[2018-02-23 14:22] LABS: ABSOLUTE BASOPHILS # (AUTO) 0.1 10^3/uL (0.0-0.2); ABSOLUTE EOSINOPHILS # (AUTO) 0.1 10^3/uL (0.0-0.6); ABSOLUTE LYMPHOCYTES (AUTO) 0.7 10^3/uL (0.5-4.7); ABSOLUTE MONOCYTES (AUTO) 0.5 10^3/uL (0.1-1.4); ABSOLUTE NEUT (AUTO) 4.5 10^3/uL (1.7-8.2); BASOPHILS % (AUTO) 1.3 % (0-2); EOSINOPHILS % (AUTO) 1.2 % (0-6); HEMATOCRIT 35.4 % (36.0-47.0); HEMOGLOBIN 11.9 g/dL (12.0-15.5); LYMPHOCYTES % (AUTO) 11.4 % (13-45); MEAN CORPUSCULAR HEMOGLOBIN 32.5 pg (27.0-33.4); MEAN CORPUSCULAR HGB CONC 33.8 g/dL (32.0-36.0); MEAN CORPUSCULAR VOLUME 96 fl (80-97); PLATELET COUNT 253 10^3/uL (150-450); RED BLOOD COUNT 3.67 10^6/uL (3.72-5.28); RED CELL DISTRIBUTION WIDTH 14.1 % (11.5-14.0); SEGMENTED NEUTROPHILS % (AUTO) 77.1 % (42-78); TOTAL CELLS COUNTED % (AUTO) 100 %; WHITE BLOOD COUNT 5.9 10^3/uL (4.0-10.5)
--- NOTE | 2018-02-23 14:23 | RADIOLOGY REPORT (SQ) ---
EXAM DESCRIPTION: CHEST 2 VIEWS COMPLETED DATE/TIME: 02/23/2018 2:05 pm REASON FOR STUDY: Cough and chest congestion and short of breath COMPARISON: 02/14/2018 TECHNIQUE: Frontal and lateral radiographic views of the chest acquired. NUMBER OF VIEWS: Two view. LIMITATIONS: None. FINDINGS: LUNGS AND PLEURA: No pneumothorax. No consolidation. Similar small bilateral pleural effu sions. MEDIASTINUM AND HILAR STRUCTURES: Stable. HEART AND VASCULAR STRUCTURES: Stable. BONES: No acute findings. HARDWARE: None in the chest. OTHER: No other significant finding. IMPRESSION: Similar small bilateral pleural effusions. TECHNICAL DOCUMENTATION: JOB ID: [id number] [id number] 2010 [employer]- All Rights Reserved Reading location - IP/workstation name: [email or web address]
[2018-02-23 14:45] LABS: ALANINE AMINOTRANSFERASE 38 U/L (9-52); ALBUMIN 4.1 g/dL (3.5-5.0); ALKALINE PHOSPHATASE 100 U/L (38-126); ANION GAP 7 (5-19); ASPARTATE AMINO TRANSFERASE 32 U/L (14-36); BILIRUBIN,DIRECT 0.2 mg/dL (0.0-0.4); BILIRUBIN,TOTAL 0.4 mg/dL (0.2-1.3); BLOOD UREA NITROGEN 17 mg/dL (7-20); CALCIUM 9.4 mg/dL (8.4-10.2); CARBON DIOXIDE 28 mmol/L (22-30); CHLORIDE 106 mmol/L (98-107); GLUCOSE 82 mg/dL (75-110); POTASSIUM 3.8 mmol/L (3.6-5.0); SODIUM 140.7 mmol/L (137-145)
[2018-02-23] MEDS ORDERED: GUAIFENESIN 600 MG TABLET.SA PO ONE (14:59)
[2018-02-23] MEDS ORDERED: IPRATROPIUM/ALBUTEROL 0.5-2.5 MG/3 ML AMPUL NEB ONE (14:59)
[2018-02-23] MEDS ORDERED: BUDESONIDE NEB 0.5 MG/2 ML AMPUL NEB ONE (15:00)
[2018-02-23 16:58] VITALS: BP 133/62
--- NOTE | 2018-02-23 18:31 | EKG REPORT ---
SEVERITY:- ABNORMAL ECG - ATRIAL FIBRILLATION PROBABLE LVH WITH SECONDARY REPOL ABNRM : Confirmed by: Marisabel Arreguin 23-Feb-2018 18:30:44
== END 2018-02-23 16:58 | disposition home or self-care (01) ==
LOC: ER 13:16
DX: J44.9 Chronic obstructive pulmonary disease, unspecified (principal); J90 Pleural effusion, not elsewhere classified; R05 Cough; R06.02 Shortness of breath; I10 Essential (primary) hypertension; I48.91 Unspecified atrial fibrillation; Z79.01 Long term (current) use of anticoagulants; Z88.0 Allergy status to penicillin; Z88.2 Allergy status to sulfonamides
CPT/HCPCS: 93005; 94640; 99284; 36415; 87205; 85025; 80053; 84484; 83880; 71046; 93010; A9270; 87070

== ENCOUNTER 2018-05-10 18:04 | Inpatient (IN) | payer MEDICARE, MEDICAID ==
--- NOTE | 2018-05-10 18:36 | EKG REPORT ---
SEVERITY:- ABNORMAL ECG - ATRIAL FIBRILLATION : Confirmed by: Karri Costello MD 10-May-2018 18:34:40
[2018-05-10 19:03] LABS: ABSOLUTE BASOPHILS # (AUTO) 0.1 10^3/uL (0.0-0.2); ABSOLUTE EOSINOPHILS # (AUTO) 0.1 10^3/uL (0.0-0.6); ABSOLUTE LYMPHOCYTES (AUTO) 1.3 10^3/uL (0.5-4.7); ABSOLUTE MONOCYTES (AUTO) 0.6 10^3/uL (0.1-1.4); ABSOLUTE NEUT (AUTO) 3.5 10^3/uL (1.7-8.2); BASOPHILS % (AUTO) 1.3 % (0-2); EOSINOPHILS % (AUTO) 1.3 % (0-6); HEMATOCRIT 34.2 % (36.0-47.0); HEMOGLOBIN 11.6 g/dL (12.0-15.5); LYMPHOCYTES % (AUTO) 23.7 % (13-45); MEAN CORPUSCULAR HEMOGLOBIN 32.8 pg (27.0-33.4); MEAN CORPUSCULAR HGB CONC 33.9 g/dL (32.0-36.0); MEAN CORPUSCULAR VOLUME 97 fl (80-97); MONOCYTES % (AUTO) 11.2 % (3-13); PLATELET COUNT 235 10^3/uL (150-450); RED BLOOD COUNT 3.54 10^6/uL (3.72-5.28); RED CELL DISTRIBUTION WIDTH 14.8 % (11.5-14.0); SEGMENTED NEUTROPHILS % (AUTO) 62.5 % (42-78); TOTAL CELLS COUNTED % (AUTO) 100 %; WHITE BLOOD COUNT 5.6 10^3/uL (4.0-10.5)
--- NOTE | 2018-05-10 19:11 | RADIOLOGY REPORT (SQ) ---
EXAM DESCRIPTION: CHEST SINGLE VIEW COMPLETED DATE/TIME: 05/10/2018 7:00 pm REASON FOR STUDY: cp COMPARISON: 02/23/2018 EXAM PARAMETERS: NUMBER OF VIEWS: One view. TECHNIQUE: Single frontal radiographic view of the chest acquired. RADIATION DOSE: NA LIMITATIONS: None. FINDINGS: LUNGS AND PLEURA: Stable blunting of the left costophrenic angle. Mild emphysematous naranjo ges. No acute findings. MEDIASTINUM AND HILAR STRUCTURES: No masses. Contour normal. HEART AND VASCULAR STRUCTURES: Heart normal in size. Normal vasculature. BONES: No acute findings. HARDWARE: Right shoulder prosthesis, similar to prior exam. OTHER: No other significant finding. IMPRESSION: No evidence of acute cardiopulmonary process TECHNICAL DOCUMENTATION: JOB ID: [id number] [employer]- All Rights Reserved Reading location - IP/workstation name: [email or web address]
[2018-05-10 19:26] LABS: ANION GAP 9 (5-19); BLOOD UREA NITROGEN 13 mg/dL (7-20); CARBON DIOXIDE 24 mmol/L (22-30); CHLORIDE 103 mmol/L (98-107); GLUCOSE 107 mg/dL (75-110); SODIUM 135.6 mmol/L (137-145)
[2018-05-10] MEDS ORDERED: IPRATROPIUM/ALBUTEROL 0.5-2.5 MG/3 ML AMPUL NEB ONE (19:41)
[2018-05-10] MEDS ORDERED: METHYLPREDNISOLONE INJ 125 MG/2 ML SDV IV ONE (19:42)
--- NOTE | 2018-05-10 19:43 | ER Document Report ---
ED General - General Chief Complaint: Chest Pain Stated Complaint: CHEST PAIN Time Seen by Provider: 05/10/18 18:32 Primary Care Provider: CECY CAMARENA MD [Primary Care Provider] - Follow up tomorrow Notes: Patient is a 72-year-old female with a past medical history of COPD, coronary artery disease, atrial fibrillation, hypertension presents due to concerns of 1 month of chest pain and shortness of breath. Patient states that her symptoms are unchanged today she did decide to contact her primary care doctor's office today and was instructed to come to the emergency department. She describes her symptoms as being mild to moderate constant since onset and relatively gradual in onset as well. Pain is described as a pressure or heaviness diffusely in her chest. No radiation of the pain. She has not noted that anything seems to improve or worsen her symptoms. States that her symptoms are similar to when she has had exacerbations of her COPD in the past. The patient actually denies a history of coronary artery disease to me but her medical record does indicate a history of coronary artery disease. TRAVEL OUTSIDE OF THE [place] IN LAST 30 DAYS: No - Related Data Allergies/Adverse Reactions: Penicillins Allergy (Mild, Verified 02/12/18 16:50) rash Sulfa (Sulfonamide Antibiotics) Allergy (Mild, Verified 02/12/18 16:52) Skin Redness Past Medical History - General Information source: Patient - Social History Smoking Status: Former Smoker Chew tobacco use (# tins/day): Yes Frequency of alcohol use: Occasional Drug Abuse: None Lives with: Alone Family History: Reviewed & Not Pertinent Patient has suicidal ideation: No Patient has homicidal ideation: No - Past Medical History Cardiac Medical History: Reports: Hx Atrial Fibrillation, Hx Heart Attack - mild, Hx Hypercholesterolemia, Hx Hypertension Denies: Hx Congestive Heart Failure, Hx Coronary Artery Disease, Hx Peripheral Vascular Disease, Hx Heart Murmur Neurological Medical History: Reports: Hx Cerebrovascular Accident - 01/20 , Hx Seizures - 01/20 Endocrine Medical History: Reports: Hx Hypothyroidism. Denies: Hx Graves' Disease, Hx Hyperthyroidism Renal/ Medical History: Denies: Hx End Stage Renal Disease, Hx Kidney Stones, Hx Peritoneal Dialysis Malignancy Medical History: Denies: Hx Leukemia GI Medical History: Reports: Hx Gastroesophageal Reflux Disease - occ. takes Omeprazole PRN. Denies: Hx Crohn's Disease, Hx Hiatal Hernia, Hx Irritable Bowel, Hx Liver Failure, Hx Pancreatitis, Hx Ulcer Musculoskeletal Medical History: Reports Hx Arthritis, Denies Hx Fibromyalgia, Denies Hx Multiple Sclerosis, Denies Hx Muscular Dystrophy Psychiatric Medical History: Reports: Hx Depression Denies: Hx Bipolar Disorder, Hx Dementia, Hx Post Traumatic Stress Disorder, Hx Schizophrenia Traumatic Medical History: Reports: Hx Fractures - 2nd toe on right Infectious Medical History: Denies: Hx HIV Past Surgical History: Reports: Hx Appendectomy, Hx Hysterectomy, Hx Orthopedic Surgery - right rotator cuff. Denies: Hx Bowel Surgery, Hx Section, Hx Cholecystectomy, Hx Colostomy, Hx Coronary Artery Bypass Graft, Hx Gastric Bypass Surgery, Hx Herniorrhaphy, Hx Mastectomy, Hx Pacemaker, Hx Tonsillectomy, Hx Tubal Ligation - Immunizations Hx Diphtheria, Pertussis, Tetanus Vaccination: No Hx Pneumococcal Vaccination: 12/06/17 Review of Systems - Review of Systems Notes: Constitutional: Negative for fever. HENT: Negative for sore throat. Eyes: Negative for visual changes. Cardiovascular: Positive for chest pain. Respiratory: Positive for shortness of breath. Gastrointestinal: Negative for abdominal pain, vomiting or diarrhea. Genitourinary: Negative for dysuria. Musculoskeletal: Negative for back pain. Skin: Negative for rash. Neurological: Negative for headaches, weakness or numbness. 10 point ROS negative except as marked above and in HPI. Physical Exam - Vital signs Vitals: Resp Pulse Ox 24 H 92 05/10/18 18:13 05/10/18 18:13 Interpretation: Normal Notes: PHYSICAL EXAMINATION: GENERAL: Frail, elderly female in no distress HEAD: Atraumatic, normocephalic. EYES: Pupils equal round and reactive to light, extraocular movements intact, sclera anicteric, conjunctiva are normal. ENT: nares patent, oropharynx clear without exudates. Moderately dry mucous membranes. NECK: Normal range of motion, supple without lymphadenopathy LUNGS: Breath sounds clear to auscultation bilaterally and equal. Faint expiratory wheezing in all lung connelly HEART: Irregular regular rhythm without murmurs ABDOMEN: Soft, nontender, normoactive bowel sounds. No guarding, no rebound. No masses appreciated. EXTREMITIES: Normal range of motion, no pitting or edema. No cyanosis. NEUROLOGICAL: No focal neurological deficits. Moves all extremities spontaneously and on command. PSYCH: Normal mood, normal affect. SKIN: Warm, Dry, normal turgor, no rashes or lesions noted. Course - Re-evaluation Re-evalutation: 05/10/18 19:49 Patient presents with 1 month of chest pain shortness of breath. She was recently hospitalized within the last 2 months for the same, had a normal CTA of her chest, normal echocardiogram, normal stress test. Symptoms are unchanged today. Her troponin is negative. I do not see an indication for serial tr oponins given that her symptoms have been ongoing for rater than 1 month. Chest x-ray is clear. EKG with A. fib with no other additional changes. Suspect more of a COPD picture as the patient is hypoxemic with saturations in the upper 80s low 90s which is not her baseline based on previous hospitalizations. The patient was discussed with her primary care physician Dr. Camarena who likewise does not regard her chest pain as being cardiac in origin particularly giving her repeatedly negative workups for this issue. Patient is already and Eliquis for atrial fibrillation, very low clinical suspicion for pulmonary embolus. No tachycardia, pleuritic pain unilateral leg swelling or any other history that would suggest this diagnosis. Patient does have some scattered extra Tory wheezing in all lung connelly and may account for her sensation of chest tightness and shortness of breath. Particular given her hypoxemia. Will start her on nebulizers, steroids, magnesium and reassess. If she remains hypoxic she will require hospitalization. 05/10/18 20:36 After multiple nebulizers and magnesium the patient continues to desaturate to the upper 80s on room air. Patient does not have prominent wheezing on exam, difficult to attribute symptoms to COPD at this point definitively. Will obtain CT of the chest at this point given lack of alternative vaccination for why the patient is acutely hypoxic and short of breath. 05/10/18 22:44 CT of the chest does demonstrate some bibasilar pleural effusions suggestive of possible mild pulmonary edema picture secondary to underlying congestive fail ure. BNP is elevated at 1200. No evidence of pulmonary embolus. Given patient's ongoing hypoxia I did discuss with Dr. Stevens who is covering for Dr. Camarena who has accepted the patient for admission. - Vital Signs Vital signs: Temp Pulse Resp BP Pulse Ox 98.4 F 24 H 92 05/10/18 18:15 05/10/18 18:13 05/10/18 18:13 - Laboratory Result Diagrams: 05/10/18 18:46 05/10/18 18:46 Laboratory results interpreted by me: 05/10/18 05/10/18 05/10/18 18:46 18:46 21:20 RBC 3.54 L Hgb 11.6 L Hct 34.2 L RDW 14.8 H Sodium 135.6 L Est GFR (Non-Af Amer) 54 L NT-Pro-B Natriuret Pep 1200 H - Diagnostic Test Radiology reviewed: Image reviewed, Reports reviewed Radiology results interpreted by me: 05/10/18 20:36 Chest x-ray: No acute infiltrate or pneumothorax - EKG Interpretation by Me Additional EKG results interpreted by me: 05/10/18 20:37 Atrial fibrillation, rate 71. No ST elevations or depressions. QTC is 453. Discharge - Discharge Clinical Impression: Chest pressure, Atrial fibrillation, chronic, Shortness of breath, Pleural effusion COPD (chronic obstructive pulmonary disease) Qualifiers: COPD type: unspecified COPD Qualified Code(s): J44.9 - Chronic obstructive pulmonary disease, unspecified Condition: Fair Disposition: ADMITTED INPATIENT Admitting Provider: [facility] Admitted: Telemetry Referrals: CECY CAMARENA MD [Primary Care Provider] - Follow up tomorrow
[2018-05-10] MEDS: MAGNESIUM SULFATE/D5W 1 GM/100 ML RTUPB IV SCH ×2 (19:58→20:49)
--- NOTE | 2018-05-10 22:00 | RADIOLOGY REPORT (SQ) ---
EXAM DESCRIPTION: CTA chest CLINICAL HISTORY: 72 years Female; SOB, HYPOXIA TECHNIQUE: CT angiogram of the chest using intravenous 68 mL Omnipaque 350. MIP reconstructions were performed. All CT scans at this facility use dose modulation, iterative reconstruction, and/or weight based dosing when appropriate to reduce radiation dose to as low as reasonably achievable. COMPARISON: 02/12/2018 FINDINGS: Chest: No filling defects in the central pulmonary arteries. There are bilateral pleural effusions, larger since the prior exam. Right measures 4 cm AP thickness. Left measures 3.3 cm. There is associated partial atelectasis of both lower lobes. Mild diffuse groundglass density seen in both lungs, suggesting mild pulmonary edema. Aorta: Mild scattered calcifications. No aneurysm. No pericardial effusion. No mediastinal adenopathy. 18 mm segment 8 hepatic cyst is unchanged. Hiatal hernia is noted. No acute findings in the visualized upper abdomen. No acute bone findings. There are degenerative changes of the thoracic spine and multiple old left rib fractures. IMPRESSION: 1. No CT evidence for pulmonary embolism. 2. Moderate bilateral low-density pleural effusions and mild diffuse ground glass densities, suggesting congestive heart failure. 3. No focal acute infiltrate. 4. Atherosclerosis and other chronic findings as described.
[2018-05-10] MEDS ORDERED: FUROSEMIDE INJ/PF 20 MG/2 ML SDV IV ONE (22:44)
[2018-05-11 00:47] LABS: LIPASE 50.5 U/L (23-300); PHOSPHORUS 4.3 mg/dL (2.5-4.5)
[2018-05-11 01:08] LABS: ARTERIAL BLOOD BASE EXCESS -0.3 mmol/L; ARTERIAL BLOOD H2CO3 1.11 mmol/L (1.05-1.35); ARTERIAL BLOOD HCO3 23.8 mmol/L (20-24); ARTERIAL BLOOD O2 SATURATION 94.4 % (94-98); ARTERIAL BLOOD PH 7.43 (7.35-7.45); ARTERIAL BLOOD PO2 69.4 mmHg (80-100); ARTERIAL BLOOD TOTAL CO2 24.9 mmol/L (21-25)
[2018-05-11 01:09] LABS: ARTERIAL BLOOD FIO2 24%
[2018-05-11 01:30] LABS: FREE T4 (FREE THYROXINE) 1.66 ng/dL (0.78-2.19)
[2018-05-11 01:45] LABS: THYROID STIMULATING HORMONE 2.97 uIU/mL (0.47-4.68)
[2018-05-11 04:09] LABS: ABSOLUTE LYMPHOCYTES (AUTO) 0.3 10^3/uL (0.5-4.7); ABSOLUTE NEUT (AUTO) 4.2 10^3/uL (1.7-8.2); BASOPHILS % (AUTO) 0.4 % (0-2); HEMOGLOBIN 12.2 g/dL (12.0-15.5); LYMPHOCYTES % (AUTO) 6.7 % (13-45); MEAN CORPUSCULAR HEMOGLOBIN 32.8 pg (27.0-33.4); MEAN CORPUSCULAR HGB CONC 33.9 g/dL (32.0-36.0); MEAN CORPUSCULAR VOLUME 97 fl (80-97); PLATELET COUNT 232 10^3/uL (150-450); RED BLOOD COUNT 3.72 10^6/uL (3.72-5.28); RED CELL DISTRIBUTION WIDTH 15.1 % (11.5-14.0); SEGMENTED NEUTROPHILS % (AUTO) 91.9 % (42-78); TOTAL CELLS COUNTED % (AUTO) 100 %; WHITE BLOOD COUNT 4.6 10^3/uL (4.0-10.5)
[2018-05-11 04:18] LABS: INTERNATIONAL RATION (INR) 1.27; PROTHROMBIN TIME 16.6 SEC (11.4-15.4)
[2018-05-11 04:19] LABS: PARTIAL THROMBOPLASTIN TIME 41.9 SEC (23.5-35.8)
[2018-05-11 04:24] LABS: ALANINE AMINOTRANSFERASE 28 U/L (9-52); ALKALINE PHOSPHATASE 165 U/L (38-126); ANION GAP 12 (5-19); ASPARTATE AMINO TRANSFERASE 25 U/L (14-36); BILIRUBIN,DIRECT 0.4 mg/dL (0.0-0.4); BILIRUBIN,TOTAL 2.3 mg/dL (0.2-1.3); BLOOD UREA NITROGEN 11 mg/dL (7-20); CALCIUM 9.2 mg/dL (8.4-10.2); CARBON DIOXIDE 23 mmol/L (22-30); CHLORIDE 102 mmol/L (98-107); CHOLESTEROL 167.47 mg/dL (0-200); CREATINE KINASE 98 U/L (30-135); GLUCOSE 199 mg/dL (75-110); POTASSIUM 4.2 mmol/L (3.6-5.0); SODIUM 137.3 mmol/L (137-145); TOTAL PROTEIN 7.2 g/dL (6.3-8.2); TRIGLYCERIDES 40 mg/dL (<150)
[2018-05-11 04:35] LABS: CREATINE KINASE MB 0.47 ng/mL (<4.55); DIRECT LDL 53 mg/dL (<100)
[2018-05-11 04:37] LABS: TROPONIN I < 0.012 ng/mL
[2018-05-11] MEDS: HEPARIN SOD (PORCINE) 5,000 UNIT/ML 1 ML SYRINGE SUBCUT SCH ×2 (05:41→13:17)
--- NOTE | 2018-05-11 06:49 | EKG REPORT ---
SEVERITY:- ABNORMAL ECG - ATRIAL FIBRILLATION LOW VOLTAGE IN FRONTAL LEADS DIFFUSE NONSPECIFIC ST-T CHANGES : Confirmed by: Karri Costello MD 11-May-2018 06:49:09
[2018-05-11 09:28] LABS: APPEARANCE,URINE CLEAR; BILIRUBIN,URINE NEGATIVE (NEGATIVE); COLOR,URINE YELLOW; GLUCOSE, URINE 50 mg/dL (NEGATIVE); KETONES,URINE NEGATIVE (NEGATIVE); LEUKOCYTE ESTERASE,URINE NEGATIVE (NEGATIVE); NITRITE,URINE NEGATIVE (NEGATIVE); PROTEIN,URINE NEGATIVE (NEGATIVE); URINE SPECIFIC GRAVITY 1.027; UROBILINOGEN,URINE NEGATIVE mg/dL (<2.0)
[2018-05-11 09:40] LABS: URINE AMPHETAMINES SCREEN NEGATIVE; URINE BARBITURATES SCREEN NEGATIVE; URINE BENZODIAZEPINES SCREEN NEGATIVE; URINE COCAINE SCREEN NEGATIVE; URINE MARIJUANA (THC) SCREEN NEGATIVE; URINE METHADONE SCREEN NEGATIVE; URINE PHENCYCLIDINE SCREEN NEGATIVE
[2018-05-11 10:30] LABS: CREATINE KINASE MB 0.55 ng/mL (<4.55)
[2018-05-11 10:37] LABS: TROPONIN I < 0.012 ng/mL
[2018-05-11] MEDS ORDERED: ACETAMINOPHEN 325 MG TABLET ONE (11:59)
[2018-05-11 16:25] LABS: CREATINE KINASE MB 0.48 ng/mL (<4.55)
[2018-05-11 16:32] LABS: TROPONIN I < 0.012 ng/mL
[2018-05-11] MEDS: ACETAMINOPHEN 325 MG TABLET PO PRN (17:04)
--- NOTE | 2018-05-11 20:24 | PDOC H&P ---
History of Present Illness Admission Date/PCP: 05/10/18 23:10 CECY CAMARENA MD History of Present Illness: JOSE ESPINAL is a 72 year old female, She has significant multiple comorbid conditions including chronic atrial fibrillation on chronic anticoagulant, chronic obstructive pulmonary disease, dementia, she came to the emergency room for evaluation of shortness of breath, in the emergency room she was evaluated, CT angiogram of the chest was done there was no pulmonary embolus she has bilateral pleural effusion interstitial edema consistent with CHF. The BNP was also elevated. She had a 2D echo done in this hospital back in February 2018 the ejection fraction of left ventricle was assessed as low normal, diastolic function could not be evaluated because of atrial fibrillation, she does not qualify for Entresto because her EF is somewhat preserved she probably have diastolic heart failure but this could not be accessed because of the [place] Past Medical History Cardiac Medical History: Reports: Atrial Fibrillation, Myocardial Infarction - mild, Hyperlipidema, Hypertension Neurological Medical History: Reports: Seizures - 01/20 Endocrine Medical History: Reports: Hypothyroidism Malignancy Medical History: GI Medical History: Reports: Gastroesophageal Reflux Disease - occ. takes Omeprazole PRN Musculoskeltal Medical History: Reports: Arthritis Denies: Fibromyalgia Psychiatric Medical History: Reports: Depression Infectious Medical History: Denies: HIV Past Surgical History Past Surgical History: Reports: Appendectomy, Hysterectomy, Orthopedic Surgery - right rotator cuff Social History Lives with: Alone Smoking Status: Never Smoker Frequency of Alcohol Use: None Hx Recreational Drug Use: No Drugs: None Hx Prescription Drug Abuse: No Family History Family History: Reviewed & Not Pertinent Parental Family History Reviewed: Yes Children Family History Reviewed: Yes Sibling(s) Family History Reviewed.: Yes Medication/Allergy Home Medications: Amlodipine Besylate [Norvasc 10 mg Tablet] 10 mg PO DAILY 05/11/18 Apixaban [Eliquis 5 mg Tablet] 5 mg PO DAILY 05/11/18 Aspirin [Adult Low Dose Aspirin EC] 81 mg PO DAILY 05/11/18 Atorvastatin Calcium [Lipitor 40 mg Tablet] 40 mg PO QHS 05/11/18 Cyclobenzaprine HCl [Flexeril 5 mg Tablet] 5 mg PO DAILYP PRN 05/11/18 Fluticasone/Salmeterol [Advair 250-50 Diskus 14 Dose/Diskus] 1 puff IH BID 05/11/18 Isosorbide Mononitrate [Imdur 30 mg Tablet.er] 30 mg PO DAILY 05/11/18 Levetiracetam [Keppra] 1,000 mg PO BID 05/11/18 Levothyroxine Sodium [Synthroid 0.05 mg Tablet] 0.05 mg PO Q6AM 05/11/18 Metoprolol Succinate [Toprol Xl 25 mg Tab.sr] 12.5 mg PO DAILY 05/11/18 Omeprazole 20 mg PO QAM 05/11/18 Allergies/Adverse Reactions: Penicillins Allergy (Mild, Verified 02/12/18 16:50) rash Sulfa (Sulfonamide Antibiotics) Allergy (Mild, Verified 02/12/18 16:52) Skin Redness Review of Systems Eyes: ABSENT: visual disturbances Ears: ABSENT: hearing changes Cardiovascular: PRESENT: dyspnea on exertion Respiratory: PRESENT: dyspnea Gastrointestinal: ABSENT: abdominal pain, constipation, diarrhea, hematemesis, hematochezia, nausea, vomiting Genitourinary: ABSENT: dysuria, hematuria Musculoskeletal: ABSENT: joint swelling Integumentary: ABSENT: rash, wounds Neurological: ABSENT: abnormal gait, abnormal speech, confusion, dizziness, focal weakness, syncope Psychiatric: ABSENT: anxiety, depression, homidical ideation, suicidal ideation Endocrine: ABSENT: cold intolerance, heat intolerance, menstrual abnormalities, polydipsia, polyuria Hematologic/Lymphatic: ABSENT: easy bleeding, easy bruising, lymphadenopathy Physical Exam Vital Signs: Temp Pulse Resp BP Pulse Ox 98.0 F 71 16 113/59 L 97 05/11/18 16:37 05/11/18 16:37 05/11/18 16:37 05/11/18 16:37 05/11/18 16:37 Intake & Output 05/10/18 05/11/18 05/12/18 06:59 06:59 06:59 Intake Total 185 682 Balance 185 682 Weight 68.1 kg General appearance: PRESENT: mild distress Head exam: PRESENT: atraumatic, normocephalic Eye exam: PRESENT: conjunctiva pink, EOMI, PERRLA Ear exam: PRESENT: normal external ear exam Mouth exam: PRESENT: moist, tongue midline Neck exam: PRESENT: full ROM Respiratory exam: PRESENT: crackles Cardiovascular exam: PRESENT: RRR, +S1, +S2 Pulses: PRESENT: normal dorsalis pedis pul, +2 pedal pulses bilateral Vascular exam: PRESENT: normal capillary refill GI/Abdominal exam: PRESENT: normal bowel sounds, soft Rectal exam: PRESENT: deferred Neurological exam: PRESENT: alert, awake, oriented to person, oriented to place, oriented to time, oriented to situation, CN II-XII grossly intact Psychiatric exam: PRESENT: appropriate affect, normal mood Skin exam: PRESENT: dry, intact, warm Results Laboratory Results: 05/11/18 03:56 05/11/18 03:56 05/10/18 05/10/18 05/11/18 21:20 21:20 00:56 WBC RBC Hgb Hct MCV MCH MCHC RDW Plt Count Seg Neutrophils % Lymphocytes % Monocytes % Eosinophils % Basophils % Absolute Neutrophils Absolute Lymphocytes Absolute Monocytes Absolute Eosinophils Absolute Basophils Carbonic Acid 1.11 HCO3/H2CO3 Ratio 21:1 ABG pH 7.43 ABG pCO2 37.0 ABG pO2 69.4 L ABG HCO3 23.8 ABG O2 Saturation 94.4 ABG Base Excess -0.3 FiO2 24% Sodium Potassium Chloride Carbon Dioxide Anion Gap BUN Creatinine Est GFR ( Amer) Est GFR (Non-Af Amer) Glucose Calcium Phosphorus 4.3 Magnesium 2.8 H Total Bilirubin AST ALT Alkaline Phosphatase Ammonia Total Protein Albumin Triglycerides Cholesterol LDL Cholesterol Direct VLDL Cholesterol HDL Cholesterol Amylase 41 Lipase 50.5 TSH 2.97 Free T4 1.66 Urine Color Urine Appearance Urine pH Ur Specific [place] Urine Protein Urine Glucose (UA) Urine Ketones Urine Blood Urine Nitrite Ur Leukocyte Esterase Urine WBC (Auto) 05/11/18 05/11/18 05/11/18 03:56 03:56 03:56 WBC 4.6 RBC 3.72 Hgb 12.2 Hct 36.0 MCV 97 MCH 32.8 MCHC 33.9 RDW 15.1 H Plt Count 232 Seg Neutrophils % 91.9 H Lymphocytes % 6.7 L Monocytes % 1.0 L Eosinophils % 0.0 Basophils % 0.4 Absolute Neutrophils 4.2 Absolute Lymphocytes 0.3 L Absolute Monocytes 0.0 L Absolute Eosinophils 0.0 Absolute Basophils 0.0 Carbonic Acid HCO3/H2CO3 Ratio ABG pH ABG pCO2 ABG pO2 ABG HCO3 ABG O2 Saturation ABG Base Excess FiO2 Sodium 137.3 Potassium 4.2 Chloride 102 Carbon Dioxide 23 Anion Gap 12 BUN 11 Creatinine 0.96 Est GFR ( Amer) > 60 Est GFR (Non-Af Amer) 57 L Glucose 199 H Calcium 9.2 Phosphorus Magnesium Total Bilirubin 2.3 H AST 25 ALT 28 Alkaline Phosphatase 165 H Ammonia < 8.7 L Total Protein 7.2 Albumin 4.0 Triglycerides 40 Cholesterol 167.47 LDL Cholesterol Direct 53 VLDL Cholesterol 8.0 L HDL Cholesterol 113 Amylase Lipase TSH Free T4 Urine Color Urine Appearance Urine pH Ur Specific [place] Urine Protein Urine Glucose (UA) Urine Ketones Urine Blood Urine Nitrite Ur Leukocyte Esterase Urine WBC (Auto) 05/11/18 08:30 WBC RBC Hgb Hct MCV MCH MCHC RDW Plt Count Seg Neutrophils % Lymphocytes % Monocytes % Eosinophils % Basophils % Absolute Neutrophils Absolute Lymphocytes Absolute Monocytes Absolute Eosinophils Absolute Basophils Carbonic Acid HCO3/H2CO3 Ratio ABG pH ABG pCO2 ABG pO2 ABG HCO3 ABG O2 Saturation ABG Base Excess FiO2 Sodium Potassium Chloride Carbon Dioxide Anion Gap BUN Creatinine Est GFR ( Amer) Est GFR (Non-Af Amer) Glucose Calcium Phosphorus Magnesium Total Bilirubin AST ALT Alkaline Phosphatase Ammonia Total Protein Albumin Triglycerides Cholesterol LDL Cholesterol Direct VLDL Cholesterol HDL Cholesterol Amylase Lipase TSH Free T4 Urine Color YELLOW Urine Appearance CLEAR Urine pH 5.0 Ur Specific [place] 1.027 Urine Protein NEGATIVE Urine Glucose (UA) 50 H Urine Ketones NEGATIVE Urine Blood NEGATIVE Urine Nitrite NEGATIVE Ur Leukocyte Esterase NEGATIVE Urine WBC (Auto) 1 05/10/18 05/10/18 05/10/18 18:46 21:20 21:20 Creatine Kinase CK-MB (CK-2) Troponin I < 0.012 < 0.012 NT-Pro-B Natriuret Pep 1200 H 05/11/18 05/11/18 05/11/18 03:56 03:56 03:56 Creatine Kinase 98 CK-MB (CK-2) 0.47 Troponin I < 0.012 NT-Pro-B Natriuret Pep 1060 H 05/11/18 05/11/18 05/11/18 09:45 09:45 15:40 Creatine Kinase 85 82 CK-MB (CK-2) 0.55 Troponin I < 0.012 NT-Pro-B Natriuret Pep 05/11/18 15:40 Creatine Kinase CK-MB (CK-2) 0.48 Troponin I < 0.012 NT-Pro-B Natriuret Pep Impressions: Chest X-Ray 05/10/18 18:34 IMPRESSION: No evidence of acute cardiopulmonary process Assessment & Plan - Diagnosis (1) Heart failure with preserved ejection fraction Qualifiers: Heart failure chronicity: acute Qualified Code(s): I50.31 - Acute diastolic (congestive) heart failure Is this a current diagnosis for this admission?: Yes Plan: Start furosemide continue beta-zuleima there is no specific therapy for CHF with preserved ejection fraction, she will continue with the standard treatment for systolic heart failure which include beta-zuleima ACEI/ARB (2) Chronic atrial fibrillation Is this a current diagnosis for this admission?: Yes Plan: Continue anticoagulation
[2018-05-11] MEDS ORDERED: APIXABAN 5 MG TABLET PO ONE (21:00)
[2018-05-11] MEDS: ATORVASTATIN CALCIUM 40 MG TABLET PO SCH (21:46)
[2018-05-12] MEDS: LEVOTHYROXINE SODIUM 0.05 MG TABLET PO SCH (05:29)
[2018-05-12] MEDS: ACETAMINOPHEN 325 MG TABLET PO PRN (05:33)
[2018-05-12 06:22] LABS: ABSOLUTE LYMPHOCYTES (AUTO) 1.2 10^3/uL (0.5-4.7); ABSOLUTE NEUT (AUTO) 10.7 10^3/uL (1.7-8.2); BASOPHILS % (AUTO) 0.1 % (0-2); HEMATOCRIT 34.3 % (36.0-47.0); HEMOGLOBIN 11.7 g/dL (12.0-15.5); LYMPHOCYTES % (AUTO) 9.1 % (13-45); MEAN CORPUSCULAR HEMOGLOBIN 32.9 pg (27.0-33.4); MEAN CORPUSCULAR HGB CONC 34.1 g/dL (32.0-36.0); MEAN CORPUSCULAR VOLUME 96 fl (80-97); MONOCYTES % (AUTO) 7.9 % (3-13); PLATELET COUNT 202 10^3/uL (150-450); RED BLOOD COUNT 3.56 10^6/uL (3.72-5.28); SEGMENTED NEUTROPHILS % (AUTO) 82.9 % (42-78); TOTAL CELLS COUNTED % (AUTO) 100 %
[2018-05-12 06:26] LABS: WHITE BLOOD COUNT 12.9 10^3/uL (4.0-10.5)
[2018-05-12 06:36] LABS: ALANINE AMINOTRANSFERASE 25 U/L (9-52); ALBUMIN 3.2 g/dL (3.5-5.0); ALKALINE PHOSPHATASE 120 U/L (38-126); ANION GAP 6 (5-19); ASPARTATE AMINO TRANSFERASE 17 U/L (14-36); BILIRUBIN,DIRECT 0.3 mg/dL (0.0-0.4); BILIRUBIN,TOTAL 1.1 mg/dL (0.2-1.3); BLOOD UREA NITROGEN 13 mg/dL (7-20); CALCIUM 8.7 mg/dL (8.4-10.2); CARBON DIOXIDE 28 mmol/L (22-30); CHLORIDE 102 mmol/L (98-107); GLUCOSE 116 mg/dL (75-110); POTASSIUM 4.6 mmol/L (3.6-5.0); SODIUM 136.4 mmol/L (137-145)
[2018-05-12] MEDS: METOPROLOL SUCCINATE 25 MG TAB.SR.24H PO SCH (09:54)
[2018-05-12] MEDS: LEVETIRACETAM 500 MG TABLET PO SCH ×2 (09:54→17:43)
[2018-05-12] MEDS: AMLODIPINE BESYLATE 10 MG TABLET PO SCH (09:54)
[2018-05-12] MEDS: FUROSEMIDE INJ/PF 20 MG/2 ML SDV IV SCH (09:55)
[2018-05-12] MEDS: ISOSORBIDE MONONITRATE 30 MG TAB.ER.24H PO SCH (09:55)
[2018-05-12] MEDS: APIXABAN 5 MG TABLET PO SCH ×2 (09:55→17:43)
[2018-05-12] MEDS: FLUTICASONE/VILANTEROL 200-25 MCG/DOSE IH SCH (10:13)
--- NOTE | 2018-05-12 20:27 | PDOC PROGRESS REPORT ---
Subjective Progress Note for:: 05/12/18 Subjective:: Patient was admitted yesterday she feels somewhat better today Reason For Visit: CHF Physical Exam Vital Signs: Temp Pulse Resp BP Pulse Ox 97.9 F 67 16 110/56 L 98 05/12/18 19:16 05/12/18 19:16 05/12/18 19:16 05/12/18 19:16 05/12/18 19:16 Intake & Output 05/11/18 05/12/18 05/13/18 06:59 06:59 06:59 Intake Total 185 1182 Balance 185 1182 Weight 68.1 kg 67.9 kg General appearance: PRESENT: no acute distress Eye exam: PRESENT: PERRLA Respiratory exam: PRESENT: clear to auscultation jordin Cardiovascular exam: PRESENT: +S1, +S2 GI/Abdominal exam: PRESENT: soft Neurological exam: PRESENT: alert Results Laboratory Results: 05/12/18 05:26 05/12/18 05:26 05/12/18 05/12/18 05:26 05:26 WBC 12.9 H D RBC 3.56 L Hgb 11.7 L Hct 34.3 L MCV 96 MCH 32.9 MCHC 34.1 RDW 15.0 H Plt Count 202 Seg Neutrophils % 82.9 H Lymphocytes % 9.1 L Monocytes % 7.9 Eosinophils % 0.0 Basophils % 0.1 Absolute Neutrophils 10.7 H Absolute Lymphocytes 1.2 Absolute Monocytes 1.0 Absolute Eosinophils 0.0 Absolute Basophils 0.0 Sodium 136.4 L Potassium 4.6 Chloride 102 Carbon Dioxide 28 Anion Gap 6 BUN 13 Creatinine 0.91 Est GFR ( Amer) > 60 Est GFR (Non-Af Amer) > 60 Glucose 116 H Calcium 8.7 Total Bilirubin 1.1 AST 17 ALT 25 Alkaline Phosphatase 120 Total Protein 6.0 L Albumin 3.2 L 05/10/18 05/10/18 05/10/18 18:46 21:20 21:20 Creatine Kinase CK-MB (CK-2) Troponin I < 0.012 < 0.012 NT-Pro-B Natriuret Pep 1200 H 05/11/18 05/11/18 05/11/18 03:56 03:56 03:56 Creatine Kinase 98 CK-MB (CK-2) 0.47 Troponin I < 0.012 NT-Pro-B Natriuret Pep 1060 H 05/11/18 05/11/18 05/11/18 09:45 09:45 15:40 Creatine Kinase 85 82 CK-MB (CK-2) 0.55 Troponin I < 0.012 NT-Pro-B Natriuret Pep 05/11/18 15:40 Creatine Kinase CK-MB (CK-2) 0.48 Troponin I < 0.012 NT-Pro-B Natriuret Pep Impressions: Chest X-Ray 05/10/18 18:34 IMPRESSION: No evidence of acute cardiopulmonary process Assessment & Plan - Diagnosis (1) Heart failure with preserved ejection fraction Qualifiers: Heart failure chronicity: acute Qualified Code(s): I50.31 - Acute diastolic (congestive) heart failure Is this a current diagnosis for this admission?: Yes Plan: contine treatment (2) Chronic atrial fibrillation Is this a current diagnosis for this admission?: Yes
[2018-05-12] MEDS: ATORVASTATIN CALCIUM 40 MG TABLET PO SCH (21:52)
[2018-05-13] MEDS: ACETAMINOPHEN 325 MG TABLET PO PRN (03:43)
[2018-05-13] MEDS: LEVOTHYROXINE SODIUM 0.05 MG TABLET PO SCH (05:43)
[2018-05-13 06:50] LABS: ABSOLUTE BASOPHILS # (AUTO) 0.1 10^3/uL (0.0-0.2); ABSOLUTE EOSINOPHILS # (AUTO) 0.1 10^3/uL (0.0-0.6); ABSOLUTE MONOCYTES (AUTO) 0.7 10^3/uL (0.1-1.4); BASOPHILS % (AUTO) 0.8 % (0-2); EOSINOPHILS % (AUTO) 1.6 % (0-6); HEMATOCRIT 35.8 % (36.0-47.0); LYMPHOCYTES % (AUTO) 28.7 % (13-45); MEAN CORPUSCULAR HEMOGLOBIN 32.6 pg (27.0-33.4); MEAN CORPUSCULAR HGB CONC 33.5 g/dL (32.0-36.0); MEAN CORPUSCULAR VOLUME 97 fl (80-97); MONOCYTES % (AUTO) 10.3 % (3-13); PLATELET COUNT 225 10^3/uL (150-450); RED BLOOD COUNT 3.68 10^6/uL (3.72-5.28); SEGMENTED NEUTROPHILS % (AUTO) 58.6 % (42-78); TOTAL CELLS COUNTED % (AUTO) 100 %; WHITE BLOOD COUNT 6.8 10^3/uL (4.0-10.5)
[2018-05-13 07:09] LABS: ALANINE AMINOTRANSFERASE 23 U/L (9-52); ALBUMIN 3.3 g/dL (3.5-5.0); ALKALINE PHOSPHATASE 117 U/L (38-126); ANION GAP 6 (5-19); ASPARTATE AMINO TRANSFERASE 22 U/L (14-36); BILIRUBIN,DIRECT 0.2 mg/dL (0.0-0.4); BILIRUBIN,TOTAL 1.1 mg/dL (0.2-1.3); BLOOD UREA NITROGEN 15 mg/dL (7-20); CALCIUM 8.5 mg/dL (8.4-10.2); CARBON DIOXIDE 30 mmol/L (22-30); CHLORIDE 99 mmol/L (98-107); GLUCOSE 86 mg/dL (75-110); POTASSIUM 4.2 mmol/L (3.6-5.0); SODIUM 134.9 mmol/L (137-145); TOTAL PROTEIN 6.2 g/dL (6.3-8.2)
[2018-05-13] MEDS: AMLODIPINE BESYLATE 10 MG TABLET PO SCH (09:39)
[2018-05-13] MEDS: LEVETIRACETAM 500 MG TABLET PO SCH ×2 (09:39→17:21)
[2018-05-13] MEDS: ISOSORBIDE MONONITRATE 30 MG TAB.ER.24H PO SCH (09:39)
[2018-05-13] MEDS: APIXABAN 5 MG TABLET PO SCH ×2 (09:39→17:21)
[2018-05-13] MEDS: FUROSEMIDE INJ/PF 20 MG/2 ML SDV IV SCH (09:39)
[2018-05-13] MEDS: METOPROLOL SUCCINATE 25 MG TAB.SR.24H PO SCH (09:39)
[2018-05-13] MEDS: FLUTICASONE/VILANTEROL 200-25 MCG/DOSE IH SCH (09:40)
[2018-05-13] MEDS: CIPROFLOXACIN HCL 500 MG TABLET PO SCH ×2 (09:48→22:29)
--- NOTE | 2018-05-13 13:21 | PDOC PROGRESS REPORT ---
Subjective Progress Note for:: 05/13/18 Subjective:: Patient was admitted for the shortness of the breath and CHF CT angiogram was done was negative for PE but bilateral pleural effusion and diagnosed with the CHF Patient is currently getting the IV Lasix Patient also seen by Dr. Arreguin recently Patient also found a urinary tract infections Patient is denied any chest pain denied any nausea no vomiting Reason For Visit: CHF Physical Exam Vital Signs: Temp Pulse Resp BP Pulse Ox 97.9 F 42 L 16 113/56 L 100 05/13/18 11:04 05/13/18 11:04 05/13/18 11:04 05/13/18 11:04 05/13/18 11:04 Intake & Output 05/12/18 05/13/18 05/14/18 06:59 06:59 06:59 Intake Total 1182 450 Balance 1182 450 Weight 67.9 kg 68.5 kg General appearance: PRESENT: no acute distress, well-developed, well-nourished Head exam: PRESENT: atraumatic, normocephalic Eye exam: PRESENT: conjunctiva pink, EOMI, PERRLA. ABSENT: scleral icterus Ear exam: PRESENT: normal external ear exam Mouth exam: PRESENT: moist, tongue midline Neck exam: PRESENT: full ROM. ABSENT: carotid bruit, JVD, lymphadenopathy, thyromegaly Respiratory exam: PRESENT: clear to auscultation jordin Cardiovascular exam: PRESENT: RRR. ABSENT: diastolic murmur, rubs, systolic murmur Vascular exam: PRESENT: normal capillary refill GI/Abdominal exam: PRESENT: normal bowel sounds, soft. ABSENT: distended, guarding, mass, organolmegaly, rebound, tenderness Rectal exam: PRESENT: deferred Musculoskeletal exam: PRESENT: ambulatory Neurological exam: PRESENT: alert, awake, oriented to person, oriented to place, oriented to time, oriented to situation, CN II-XII grossly intact. ABSENT: motor sensory deficit Psychiatric exam: PRESENT: appropriate affect, normal mood. ABSENT: homicidal ideation, suicidal ideation Skin exam: PRESENT: dry, intact, warm. ABSENT: cyanosis, rash Results Laboratory Results: 05/13/18 06:06 05/13/18 06:06 05/13/18 05/13/18 06:06 06:06 WBC 6.8 RBC 3.68 L Hgb 12.0 Hct 35.8 L MCV 97 MCH 32.6 MCHC 33.5 RDW 15.0 H Plt Count 225 Seg Neutrophils % 58.6 Lymphocytes % 28.7 Monocytes % 10.3 Eosinophils % 1.6 Basophils % 0.8 Absolute Neutrophils 4.0 Absolute Lymphocytes 2.0 Absolute Monocytes 0.7 Absolute Eosinophils 0.1 Absolute Basophils 0.1 Sodium 134.9 L Potassium 4.2 Chloride 99 Carbon Dioxide 30 Anion Gap 6 BUN 15 Creatinine 0.92 Est GFR ( Amer) > 60 Est GFR (Non-Af Amer) > 60 Glucose 86 Calcium 8.5 Total Bilirubin 1.1 AST 22 ALT 23 Alkaline Phosphatase 117 Total Protein 6.2 L Albumin 3.3 L 05/11/18 08:30 Clean Catch Midstream Urine Culture - Final Escherichia Coli 05/10/18 05/10/18 05/10/18 18:46 21:20 21:20 Creatine Kinase CK-MB (CK-2) Troponin I < 0.012 < 0.012 NT-Pro-B Natriuret Pep 1200 H 05/11/18 05/11/18 05/11/18 03:56 03:56 03:56 Creatine Kinase 98 CK-MB (CK-2) 0.47 Troponin I < 0.012 NT-Pro-B Natriuret Pep 1060 H 05/11/18 05/11/18 05/11/18 09:45 09:45 15:40 Creatine Kinase 85 82 CK-MB (CK-2) 0.55 Troponin I < 0.012 NT-Pro-B Natriuret Pep 05/11/18 15:40 Creatine Kinase CK-MB (CK-2) 0.48 Troponin I < 0.012 NT-Pro-B Natriuret Pep Assessment & Plan - Diagnosis (1) Heart failure with preserved ejection fraction Qualifiers: Heart failure chronicity: acute Qualified Code(s): I50.31 - Acute diastolic (congestive) heart failure Is this a current diagnosis for this admission?: Yes Plan: Continues IV Lasix consult the cardiology (2) COPD (chronic obstructive pulmonary disease) Qualifiers: COPD type: unspecified COPD Qualified Code(s): J44.9 - Chronic obstructive pulmonary disease, unspecified Is this a current diagnosis for this admission?: Yes Plan: Continues to nebulizer treatments (3) Chronic atrial fibrillation Is this a current diagnosis for this admission?: Yes Plan: Continues to Eliquis (4) Pleural effusion Is this a current diagnosis for this admission?: Yes Plan: We will repeat the chest x-ray (5) Shortness of breath Is this a current diagnosis for this admission?: Yes Plan: Currently all improving (7) Hypertension Qualifiers: Hypertension type: essential hypertension Is this a current diagnosis for this admission?: Yes Plan: Currently all stable (8) Seizure Is this a current diagnosis for this admission?: Yes (9) UTI (urinary tract infection) Qualifiers: Urinary tract infection type: site unspecified Hematuria presence: without hematuria Qualified Code(s): N39.0 - Urinary tract infection, site not specifi ed Is this a current diagnosis for this admission?: Yes Plan: We will start the patient on the Cipro - Time Time Spent with patient: 15-24 minutes Medications reviewed and adjusted accordingly: Yes Anticipated discharge: Home Within: Other - Plan Summary Plan Summary: We will start the patient on a Cipro Continues to current medications Physical therapy evaluations Consult cardiology
--- NOTE | 2018-05-13 13:52 | RADIOLOGY REPORT (SQ) ---
EXAM DESCRIPTION: CHEST 2 VIEWS COMPLETED DATE/TIME: 05/13/2018 1:03 pm REASON FOR STUDY: pleural effusion COMPARISON: 05/10/2018 EXAM PARAMETERS: NUMBER OF VIEWS: two views TECHNIQUE: Digital Frontal and Lateral radiographic views of the chest acquired. RADIATION DOSE: NA LIMITATIONS: none FINDINGS: LUNGS AND PLEURA: Small right pleural effusion. MEDIASTINUM AND HILAR STRUCTURES: No masses or contour abnormalities. HEART AND VASCULAR STRUCTURES: Borderline heart size. No pulmonary edema. BONES: No acute findings. HARDWARE: None in the chest. OTHER: No other significant finding. IMPRESSION: Borderline cardiomegaly without pulmonary edema. Small right pleural effusion is new. TECHNICAL DOCUMENTATION: JOB ID: [id number] [employer]- All Rights Reserved Reading location - IP/workstation name: [email or web address]
[2018-05-13] MEDS: ATORVASTATIN CALCIUM 40 MG TABLET PO SCH (22:29)
--- NOTE | 2018-05-13 23:57 | PDOC PROGRESS REPORT ---
Subjective Progress Note for:: 05/13/18 Subjective:: Patient was seen in the evening. She was admitted with symptoms of shortness of breath, dizziness, palpitations, fatigue and shortness of breath. CT scan showed presence of bilateral pleural effusion. BNP positive for CHF. Previous echocardiogram shows atrial fibrillation and diastolic dysfunction. Patient started on diuretics. Currently feels much improved. Reason For Visit: CHF Physical Exam Vital Signs: Temp Pulse Resp BP Pulse Ox 97.5 F 58 L 16 109/59 L 98 05/13/18 19:00 05/13/18 19:00 05/13/18 19:00 05/13/18 19:00 05/13/18 19:00 Intake & Output 05/12/18 05/13/18 05/14/18 06:59 06:59 06:59 Intake Total 1182 450 800 Balance 1182 450 800 Weight 67.9 kg 68.5 kg Exam: GEN: NAD, patient alert oriented x3. Appearance and grooming WNL HEENT : Eyes: MATTY, Ears: No significant abnormalities, Nose: No significant abnormalities. normocephalic atraumatic. Flat midface (-), Receding chin (-) ORAL : Mallampati class IV, narrow arched palate (-) Tonsils: Not enlarged. NECK: no thyromegaly, no masses, trachea is central, JVD is not elevated, carotids 2+ with bruit (-) RESP: lungs clear, no rales, wheezes or rhonchi, nonlabored, accessory muscles of respiration use (-). Decreased breath sounds noted both bases. Mild bibasal dullness noted. CV: NL S1 and S2. No significant murmurs noted, no gallop, no extra sounds, no clicks, no rub noted. GI: abd NT to palpation, no masses, bowel sounds present, no guarding or rigidity noted. EXT: no clubbing, (-) cyanosis, edema (-), perpheral pulses diminished (no) MUSC/SKEL: no acute joint swelling noted. Muscle strength is generally intact. NEURO: no significant focal neurological deficits are note, sensation grossly intact, AO x 3 PSYCH: NL mood and affect. judgment and insight noted to be intact. SKIN: (-) rash, (-)Signs of pruritus, (-) other significant abnormality Results Laboratory Results: 05/13/18 06:06 05/13/18 06:06 05/13/18 05/13/18 06:06 06:06 WBC 6.8 RBC 3.68 L Hgb 12.0 Hct 35.8 L MCV 97 MCH 32.6 MCHC 33.5 RDW 15.0 H Plt Count 225 Seg Neutrophils % 58.6 Lymphocytes % 28.7 Monocytes % 10.3 Eosinophils % 1.6 Basophils % 0.8 Absolute Neutrophils 4.0 Absolute Lymphocytes 2.0 Absolute Monocytes 0.7 Absolute Eosinophils 0.1 Absolute Basophils 0.1 Sodium 134.9 L Potassium 4.2 Chloride 99 Carbon Dioxide 30 Anion Gap 6 BUN 15 Creatinine 0.92 Est GFR ( Amer) > 60 Est GFR (Non-Af Amer) > 60 Glucose 86 Calcium 8.5 Total Bilirubin 1.1 AST 22 ALT 23 Alkaline Phosphatase 117 Total Protein 6.2 L Albumin 3.3 L 05/11/18 08:30 Clean Catch Midstream Urine Culture - Final Escherichia Coli 05/10/18 05/10/18 05/10/18 18:46 21:20 21:20 Creatine Kinase CK-MB (CK-2) Troponin I < 0.012 < 0.012 NT-Pro-B Natriuret Pep 1200 H 05/11/18 05/11/18 05/11/18 03:56 03:56 03:56 Creatine Kinase 98 CK-MB (CK-2) 0.47 Troponin I < 0.012 NT-Pro-B Natriuret Pep 1060 H 05/11/18 05/11/18 05/11/18 09:45 09:45 15:40 Creatine Kinase 85 82 CK-MB (CK-2) 0.55 Troponin I < 0.012 NT-Pro-B Natriuret Pep 05/11/18 15:40 Creatine Kinase CK-MB (CK-2) 0.48 Troponin I < 0.012 NT-Pro-B Natriuret Pep EKG Comments: EKG shows atrial fibrillation with controlled ventricular response. QRS voltage reduced. Impressions: Chest X-Ray 05/13/18 00:00 IMPRESSION: Borderline cardiomegaly without pulmonary edema. Small right pleural effusion is new. Assessment & Plan - Diagnosis (1) Chronic atrial fibrillation Is this a current diagnosis for this admission?: Yes (2) Heart failure with preserved ejection fraction Qualifiers: Heart failure chronicity: acute Qualified Code(s): I50.31 - Acute diastolic (congestive) heart failure Is this a current diagnosis for this admission?: Yes (3) Pleural effusion Is this a current diagnosis for this admission?: Yes (4) Shortness of breath Is this a current diagnosis for this admission?: Yes (5) Coronary artery disease Qualifiers: Coronary Disease-Associated Artery/Lesion type: [place] artery [place] vs. transplanted heart: [place] heart Associated angina: without angina Qualified Code(s): I25.10 - Atherosclerotic heart disease of [place] coronary artery without angina pectoris Is this a current diagnosis for this admission?: Yes - Notes Notes: Patient medical regimen reviewed. She seems to be on a good medical regimen. Agree with starting diuretics. Previous echocardiogram report was reviewed. Patients office record was reviewed. Tiltable study was negative for orthostatic hypotension and was also negative for precipitation of neuro cardiogenic syncope but patient asks the chest to be stopped only after 10 minutes because of general debility and inability to stand even though she was strapped to a tiltable. Cardiac event monitor showed sustained atrial fibrillation but heart rate was well controlled without any tachy arrhythmias or dawna arrhythmia. NST: Feb 2018, There is no deinitive scintigraphic evidence of myocardial infarction/scar. EKG gated imaging shows left ventricular ejection fraction of approx. 56%. Recent Echocardiogram: 1. Normal LVEF. 2. Mild LVH noted. 3. Diastolic function could not be accurately commented upon due to afib 4. Mild mitral regurgitation and mild aortic stenosis noted. 5. Left atrium and right atrium are noted to be at least moderately dilated. 6. Mild tricuspid regurgitation is noted with best estimated RVSP of 40 mm Hg. 5. Restrictive cardiomyopathy in DD At this point continue with current medical regimen. - Time Time with patient: Greater than 35 minutes Medications reviewed and adjusted accordingly: Yes
--- NOTE | 2018-05-13 23:59 | EKG REPORT ---
SEVERITY:- ABNORMAL ECG - ATRIAL FIBRILLATION BORDERLINE LEFT AXIS DEVIATION : Confirmed by: Marisabel Arreguin 13-May-2018 23:59:08
[2018-05-14] MEDS: LEVOTHYROXINE SODIUM 0.05 MG TABLET PO SCH (05:38)
[2018-05-14] MEDS: ACETAMINOPHEN 325 MG TABLET PO PRN ×2 (05:39→18:09)
--- NOTE | 2018-05-14 09:13 | PDOC PROGRESS REPORT ---
Subjective Progress Note for:: 05/14/18 Subjective:: Patient was admitted for the shortness of the breath and CHF CT angiogram was done was negative for PE but bilateral pleural effusion and diagnosed with the CHF Patient is currently getting the IV Lasix Patient also seen by Dr. Arreguin recently Patient also found a urinary tract infections Patient is denied any chest pain denied any nausea no vomiting Reason For Visit: CHF Physical Exam Vital Signs: Temp Pulse Resp BP Pulse Ox 97.5 F 138 H 16 117/53 L 100 05/14/18 07:18 05/14/18 07:18 05/14/18 07:18 05/14/18 07:18 05/14/18 07:18 Intake & Output 05/13/18 05/14/18 05/15/18 06:59 06:59 06:59 Intake Total 450 1450 Balance 450 1450 Weight 68.5 kg 67.3 kg General appearance: PRESENT: no acute distress, well-developed, well-nourished Head exam: PRESENT: atraumatic, normocephalic Eye exam: PRESENT: conjunctiva pink, EOMI, PERRLA. ABSENT: scleral icterus Ear exam: PRESENT: normal external ear exam Mouth exam: PRESENT: moist, tongue midline Neck exam: PRESENT: full ROM. ABSENT: carotid bruit, JVD, lymphadenopathy, thyromegaly Cardiovascular exam: PRESENT: RRR. ABSENT: diastolic murmur, rubs, systolic murmur Pulses: PRESENT: normal dorsalis pedis pul, +2 pedal pulses bilateral Vascular exam: PRESENT: normal capillary refill GI/Abdominal exam: PRESENT: normal bowel sounds, soft. ABSENT: distended, guarding, mass, organolmegaly, rebound, tenderness Rectal exam: PRESENT: deferred Neurological exam: PRESENT: alert, awake, oriented to person, oriented to place, oriented to time, oriented to situation, CN II-XII grossly intact. ABSENT: motor sensory deficit Psychiatric exam: PRESENT: appropriate affect, normal mood. ABSENT: homicidal ideation, suicidal ideation Skin exam: PRESENT: dry, intact, warm. ABSENT: cyanosis, rash Results Laboratory Results: 05/13/18 06:06 05/13/18 06:06 05/11/18 08:30 Clean Catch Midstream Urine Culture - Final Escherichia Coli 05/10/18 05/10/18 05/10/18 18:46 21:20 21:20 Creatine Kinase CK-MB (CK-2) Troponin I < 0.012 < 0.012 NT-Pro-B Natriuret Pep 1200 H 05/11/18 05/11/18 05/11/18 03:56 03:56 03:56 Creatine Kinase 98 CK-MB (CK-2) 0.47 Troponin I < 0.012 NT-Pro-B Natriuret Pep 1060 H 05/11/18 05/11/18 05/11/18 09:45 09:45 15:40 Creatine Kinase 85 82 CK-MB (CK-2) 0.55 Troponin I < 0.012 NT-Pro-B Natriuret Pep 05/11/18 15:40 Creatine Kinase CK-MB (CK-2) 0.48 Troponin I < 0.012 NT-Pro-B Natriuret Pep Impressions: Chest X-Ray 05/13/18 00:00 IMPRESSION: Borderline cardiomegaly without pulmonary edema. Small right ple ural effusion is new. Assessment & Plan - Diagnosis (1) Heart failure with preserved ejection fraction Qualifiers: Heart failure chronicity: acute Qualified Code(s): I50.31 - Acute diastolic (congestive) heart failure Is this a current diagnosis for this admission?: Yes Plan: Continues IV Lasix consult the cardiology (2) COPD (chronic obstructive pulmonary disease) Qualifiers: COPD type: unspecified COPD Qualified Code(s): J44.9 - Chronic obstructive pulmonary disease, unspecified Is this a current diagnosis for this admission?: Yes Plan: Continues to nebulizer treatments (3) Chronic atrial fibrillation Is this a current diagnosis for this admission?: Yes Plan: Continues to Eliquis (4) Pleural effusion Is this a current diagnosis for this admission?: Yes Plan: Currently all stable (5) Shortness of breath Is this a current diagnosis for this admission?: Yes (7) Hypertension Qualifiers: Hypertension type: essential hypertension Is this a current diagnosis for this admission?: Yes Plan: Currently all stable (8) Seizure Is this a current diagnosis for this admission?: Yes (9) UTI (urinary tract infection) Qualifiers: Urinary tract infection type: site unspecified Hematuria presence: without hematuria Qualified Code(s): N39.0 - Urinary tract infection, site not spe cified Is this a current diagnosis for this admission?: Yes Plan: We will start the patient on the Cipro - Plan Summary Plan Summary: Continues to current medications
[2018-05-14] MEDS: METOPROLOL SUCCINATE 25 MG TAB.SR.24H PO SCH (10:32)
[2018-05-14] MEDS: AMLODIPINE BESYLATE 10 MG TABLET PO SCH (10:40)
[2018-05-14] MEDS: ISOSORBIDE MONONITRATE 30 MG TAB.ER.24H PO SCH (10:40)
[2018-05-14] MEDS: CIPROFLOXACIN HCL 500 MG TABLET PO SCH ×2 (10:40→22:22)
[2018-05-14] MEDS: FLUTICASONE/VILANTEROL 200-25 MCG/DOSE IH SCH (10:40)
[2018-05-14] MEDS: APIXABAN 5 MG TABLET PO SCH ×2 (10:40→17:04)
[2018-05-14] MEDS: FUROSEMIDE INJ/PF 20 MG/2 ML SDV IV SCH (10:40)
[2018-05-14] MEDS: LEVETIRACETAM 500 MG TABLET PO SCH ×2 (10:40→17:04)
[2018-05-14] MEDS: FUROSEMIDE 20 MG TABLET PO SCH (17:04)
[2018-05-14] MEDS: ATORVASTATIN CALCIUM 40 MG TABLET PO SCH (22:22)
--- NOTE | 2018-05-14 23:47 | PDOC PROGRESS REPORT ---
Subjective Progress Note for:: 05/14/18 Subjective:: Patient was seen in the morning today. She was admitted with symptoms of shortness of breath, dizziness, palpitations, fatigue and shortness of breath. CT scan showed presence of bilateral pleural effusion. BNP positive for CHF. Previous echocardiogram shows atrial fibrillation and diastolic dysfunction. Patient started on diuretics. Currently feels much improved. Reason For Visit: CHF Physical Exam Vital Signs: Temp Pulse Resp BP Pulse Ox 97.5 F 47 L 18 105/47 L 97 05/14/18 19:17 05/14/18 19:17 05/14/18 19:17 05/14/18 19:17 05/14/18 19:17 Intake & Output 05/13/18 05/14/18 05/15/18 06:59 06:59 06:59 Intake Total 450 1450 900 Balance 450 1450 900 Weight 68.5 kg 67.3 kg Exam: GEN: NAD, patient alert oriented x3. Appearance and grooming WNL HEENT : Eyes: MATTY, Ears: No significant abnormalities, Nose: No significant abnormalities. normocephalic atraumatic. Flat midface (-), Receding chin (-) ORAL : Mallampati class IV, narrow arched palate (-) Tonsils: Not enlarged. NECK: no thyromegaly, no masses, trachea is central, JVD is not elevated, carotids 2+ with bruit (-) RESP: lungs clear, no rales, wheezes or rhonchi, nonlabored, accessory muscles of respiration use (-). Decreased breath sounds noted both bases. Mild bibasal dullness noted. CV: NL S1 and S2. No significant murmurs noted, no gallop, no extra sounds, no clicks, no rub noted. GI: abd NT to palpation, no masses, bowel sounds present, no guarding or rigidity noted. EXT: no clubbing, (-) cyanosis, edema (-), perpheral pulses diminished (no) MUSC/SKEL: no acute joint swelling noted. Muscle strength is generally intact. NEURO: no significant focal neurological deficits are note, sensation grossly intact, AO x 3 PSYCH: NL mood and affect. judgment and insight noted to be intact. SKIN: (-) rash, (-)Signs of pruritus, (-) other significant abnormality Results Laboratory Results: 05/13/18 06:06 05/13/18 06:06 05/10/18 05/10/18 05/10/18 18:46 21:20 21:20 Creatine Kinase CK-MB (CK-2) Troponin I < 0.012 < 0.012 NT-Pro-B Natriuret Pep 1200 H 05/11/18 05/11/18 05/11/18 03:56 03:56 03:56 Creatine Kinase 98 CK-MB (CK-2) 0.47 Troponin I < 0.012 NT-Pro-B Natriuret Pep 1060 H 05/11/18 05/11/18 05/11/18 09:45 09:45 15:40 Creatine Kinase 85 82 CK-MB (CK-2) 0.55 Troponin I < 0.012 NT-Pro-B Natriuret Pep 05/11/18 15:40 Creatine Kinase CK-MB (CK-2) 0.48 Troponin I < 0.012 NT-Pro-B Natriuret Pep EKG Comments: A Fib with controlled VR Impressions: Chest X-Ray 05/13/18 00:00 IMPRESSION: Borderline cardiomegaly without pulmonary edema. Small right pleural effusion is new. Assessment & Plan - Diagnosis (1) Chronic atrial fibrillation Is this a current diagnosis for this admission?: Yes (2) Heart failure with preserved ejection fraction Qualifiers: Heart failure chronicity: acute Qualified Code(s): I50.31 - Acute diastolic (congestive) heart failure Is this a current diagnosis for this admission?: Yes (3) Pleural effusion Is this a current diagnosis for this admission?: Yes (4) Shortness of breath Is this a current diagnosis for this admission?: Yes (5) Coronary artery disease Qualifiers: Coronary Disease-Associated Artery/Lesion type: [place] artery [place] vs. transplanted heart: [place] heart Associated angina: without angina Qualified Code(s): I25.10 - Atherosclerotic heart disease of [place] coronary artery without angina pectoris Is this a current diagnosis for this admission?: Yes - Notes Notes: Patient noted to be generally much improved. She's denying any shortness of breath.. I significantly improved. Long exam is also improved. At this point continue Diuretic therapy. Could discharge patient in am on Lasix 20 mg PO daily and spironolactone 25 mg. Daily. Patient claims she has a follow-up appointment with me in one week. - Time Time with patient: 15-25 minutes Medications reviewed and adjusted accordingly: Yes
[2018-05-15 06:27] LABS: ABSOLUTE BASOPHILS # (AUTO) 0.1 10^3/uL (0.0-0.2); ABSOLUTE EOSINOPHILS # (AUTO) 0.2 10^3/uL (0.0-0.6); ABSOLUTE LYMPHOCYTES (AUTO) 1.6 10^3/uL (0.5-4.7); ABSOLUTE MONOCYTES (AUTO) 0.6 10^3/uL (0.1-1.4); ABSOLUTE NEUT (AUTO) 2.3 10^3/uL (1.7-8.2); BASOPHILS % (AUTO) 1.1 % (0-2); EOSINOPHILS % (AUTO) 4.5 % (0-6); HEMATOCRIT 37.9 % (36.0-47.0); HEMOGLOBIN 12.9 g/dL (12.0-15.5); LYMPHOCYTES % (AUTO) 33.4 % (13-45); MEAN CORPUSCULAR HEMOGLOBIN 32.4 pg (27.0-33.4); MEAN CORPUSCULAR HGB CONC 33.9 g/dL (32.0-36.0); MEAN CORPUSCULAR VOLUME 96 fl (80-97); MONOCYTES % (AUTO) 13.3 % (3-13); PLATELET COUNT 222 10^3/uL (150-450); RED BLOOD COUNT 3.97 10^6/uL (3.72-5.28); RED CELL DISTRIBUTION WIDTH 14.4 % (11.5-14.0); SEGMENTED NEUTROPHILS % (AUTO) 47.7 % (42-78); TOTAL CELLS COUNTED % (AUTO) 100 %; WHITE BLOOD COUNT 4.8 10^3/uL (4.0-10.5)
[2018-05-15] MEDS: LEVOTHYROXINE SODIUM 0.05 MG TABLET PO SCH (06:39)
[2018-05-15 07:01] LABS: ANION GAP 8 (5-19); BLOOD UREA NITROGEN 28 mg/dL (7-20); CALCIUM 8.8 mg/dL (8.4-10.2); CARBON DIOXIDE 27 mmol/L (22-30); CHLORIDE 101 mmol/L (98-107); GLUCOSE 92 mg/dL (75-110); SODIUM 135.5 mmol/L (137-145)
[2018-05-15] MEDS: CIPROFLOXACIN HCL 500 MG TABLET PO SCH ×2 (09:33→21:23)
[2018-05-15] MEDS: LACTOBACILLUS ACIDOPHILUS 250 MG TAB PO SCH ×2 (09:33→17:21)
[2018-05-15] MEDS: LEVETIRACETAM 500 MG TABLET PO SCH ×2 (09:33→17:21)
[2018-05-15] MEDS: APIXABAN 5 MG TABLET PO SCH ×2 (09:33→17:21)
[2018-05-15] MEDS: METOPROLOL SUCCINATE 25 MG TAB.SR.24H PO SCH (09:33)
[2018-05-15] MEDS: ISOSORBIDE MONONITRATE 30 MG TAB.ER.24H PO SCH (09:33)
[2018-05-15] MEDS: FUROSEMIDE 20 MG TABLET PO SCH ×2 (09:33→17:21)
[2018-05-15] MEDS: AMLODIPINE BESYLATE 10 MG TABLET PO SCH (09:33)
[2018-05-15] MEDS: FLUTICASONE/VILANTEROL 200-25 MCG/DOSE IH SCH (09:35)
--- NOTE | 2018-05-15 10:00 | PDOC PROGRESS REPORT ---
Subjective Progress Note for:: 05/15/18 Subjective:: Patient is currently doing well except patient was complained for loose stool Patient's denied any chest pain to than any shortness of the breath Patients denied any other symptoms Patient seen by the cardiology suggest the Lasix once a day and spironolactone once a day Reason For Visit: CHF Physical Exam Vital Signs: Temp Pulse Resp BP Pulse Ox 98.0 F 91 16 114/75 94 05/15/18 07:52 05/15/18 07:52 05/15/18 07:52 05/15/18 07:52 05/15/18 07:52 Intake & Output 05/14/18 05/15/18 05/16/18 06:59 06:59 06:59 Intake Total 1450 1250 Balance 1450 1250 Weight 67.3 kg 71.1 kg General appearance: PRESENT: no acute distress, well-developed, well-nourished Head exam: PRESENT: atraumatic, normocephalic Eye exam: PRESENT: conjunctiva pink, EOMI, PERRLA. ABSENT: scleral icterus Ear exam: PRESENT: normal external ear exam Mouth exam: PRESENT: moist, tongue midline Neck exam: PRESENT: full ROM. ABSENT: carotid bruit, JVD, lymphadenopathy, thyromegaly Respiratory exam: PRESENT: clear to auscultation jordin Cardiovascular exam: PRESENT: RRR. ABSENT: diastolic murmur, rubs, systolic murmur Vascular exam: PRESENT: normal capillary refill GI/Abdominal exam: PRESENT: normal bowel sounds, soft. ABSENT: distended, guarding, mass, organolmegaly, rebound, tenderness Rectal exam: PRESENT: deferred Musculoskeletal exam: PRESENT: ambulatory Neurological exam: PRESENT: alert, awake, oriented to person, oriented to place, oriented to time, oriented to situation, CN II-XII grossly intact. ABSENT: motor sensory deficit Psychiatric exam: PRESENT: appropriate affect, normal mood. ABSENT: homicidal ideation, suicidal ideation Skin exam: PRESENT: dry, intact, warm. ABSENT: cyanosis, rash Results Laboratory Results: 05/15/18 05:40 05/15/18 05:40 05/15/18 05/15/18 05:40 05:40 WBC 4.8 RBC 3.97 Hgb 12.9 Hct 37.9 MCV 96 MCH 32.4 MCHC 33.9 RDW 14.4 H Plt Count 222 Seg Neutrophils % 47.7 Lymphocytes % 33.4 Monocytes % 13.3 H Eosinophils % 4.5 Basophils % 1.1 Absolute Neutrophils 2.3 Absolute Lymphocytes 1.6 Absolute Monocytes 0.6 Absolute Eosinophils 0.2 Absolute Basophils 0.1 Sodium 135.5 L Potassium 4.0 Chloride 101 Carbon Dioxide 27 Anion Gap 8 BUN 28 H Creatinine 1.16 Est GFR ( Amer) 55 L Est GFR (Non-Af Amer) 46 L Glucose 92 Calcium 8.8 05/10/18 05/10/18 05/10/18 18:46 21:20 21:20 Creatine Kinase CK-MB (CK-2) Troponin I < 0.012 < 0.012 NT-Pro-B Natriuret Pep 1200 H 05/11/18 05/11/18 05/11/18 03:56 03:56 03:56 Creatine Kinase 98 CK-MB (CK-2) 0.47 Troponin I < 0.012 NT-Pro-B Natriuret Pep 1060 H 05/11/18 05/11/18 05/11/18 09:45 09:45 15:40 Creatine Kinase 85 82 CK-MB (CK-2) 0.55 Troponin I < 0.012 NT-Pro-B Natriuret Pep 05/11/18 05/15/18 15:40 05:40 Creatine Kinase CK-MB (CK-2) 0.48 Troponin I < 0.012 NT-Pro-B Natriuret Pep 318 Impressions: Chest X-Ray 05/13/18 00:00 IMPRESSION: Borderline cardiomegaly without pulmonary edema. Small right pleural effusion is new. Assessment & Plan - Diagnosis (1) Heart failure with preserved ejection fraction Qualifiers: Heart failure chronicity: acute Qualified Code(s): I50.31 - Acute diastolic (congestive) heart failure Is this a current diagnosis for this admission?: Yes Plan: Start the patient on p.o. Lasix and Spironolactone (2) COPD (chronic obstructive pulmonary disease) Qualifiers: COPD type: unspecified COPD Qualified Code(s): J44.9 - Chronic obstructive pulmonary disease, unspecified Is this a current diagnosis for this admission?: Yes Plan: Continues to nebulizer treatments (3) Chronic atrial fibrillation Is this a current diagnosis for this admission?: Yes Plan: Continues to Eliquis (4) Pleural effusion Is this a current diagnosis for this admission?: Yes Plan: Will repeat the chest x-ray (5) Shortness of breath Is this a current diagnosis for this admission?: Yes Plan: Currently all improving (7) Hypertension Qualifiers: Hypertension type: essential hypertension Is this a current diagnosis for this admission?: Yes Plan: Currently all stable (8) Seizure Is this a current diagnosis for this admission?: Yes (9) UTI (urinary tract infection) Qualifiers: Urinary tract infection type: site unspecified Hematuria presence: without hematuria Qualified Code(s): N39.0 - Urinary tract infection, site not specified Is this a current diagnosis for this admission?: Yes Plan: We will start the patient on the Cipro - Time Time Spent with patient: 15-24 minutes Medications reviewed and adjusted accordingly: Yes Anticipated discharge: Home Within: Other - Plan Summary Plan Summary: Will check the stool for the C. difficile At the probiotics Repeat the chest x-ray
--- NOTE | 2018-05-15 12:54 | RADIOLOGY REPORT (SQ) ---
EXAM DESCRIPTION: CHEST 2 VIEWS COMPLETED DATE/TIME: 05/15/2018 12:35 pm REASON FOR STUDY: pleural effusion COMPARISON: 05/13/2018 EXAM PARAMETERS: NUMBER OF VIEWS: two views TECHNIQUE: Digital Frontal and Lateral radiographic views of the chest acquired. RADIATION DOSE: NA LIMITATIONS: none FINDINGS: LUNGS AND PLEURA: Stable small right pleural effusion. No airspace disease. No pneumotho rax. MEDIASTINUM AND HILAR STRUCTURES: No masses or contour abnormalities. HEART AND VASCULAR STRUCTURES: Normal heart size. Aortic atherosclerosis BONES: No acute abnormalities. Osteopenia. Partially visualized right shoulder arthroplasty. HARDWARE: None in the chest. OTHER: No other significant finding. IMPRESSION: Stable small right effusion. No evidence of other acute cardiopulmonary process. TECHNICAL DOCUMENTATION: JOB ID: [id number] [employer]- All Rights Reserved Reading location - IP/workstation name: [email or web address]
[2018-05-15] MEDS: ATORVASTATIN CALCIUM 40 MG TABLET PO SCH (21:23)
[2018-05-16] MEDS: LEVOTHYROXINE SODIUM 0.05 MG TABLET PO SCH (05:49)
[2018-05-16 06:38] LABS: ANION GAP 7 (5-19); BLOOD UREA NITROGEN 31 mg/dL (7-20); CALCIUM 8.7 mg/dL (8.4-10.2); CARBON DIOXIDE 29 mmol/L (22-30); CHLORIDE 100 mmol/L (98-107); GLUCOSE 90 mg/dL (75-110); POTASSIUM 3.9 mmol/L (3.6-5.0); SODIUM 135.7 mmol/L (137-145)
[2018-05-16 08:13] VITALS: BP 120/73
[2018-05-16] MEDS ORDERED: SPIRONOLACTONE 25 MG TABLET PO ONE (09:15)
[2018-05-16] MEDS: ISOSORBIDE MONONITRATE 30 MG TAB.ER.24H PO SCH (09:43)
[2018-05-16] MEDS: LEVETIRACETAM 500 MG TABLET PO SCH (09:43)
[2018-05-16] MEDS: AMLODIPINE BESYLATE 10 MG TABLET PO SCH (09:44)
[2018-05-16] MEDS: FUROSEMIDE 20 MG TABLET PO SCH (09:44)
[2018-05-16] MEDS: APIXABAN 5 MG TABLET PO SCH (09:44)
[2018-05-16] MEDS: LACTOBACILLUS ACIDOPHILUS 250 MG TAB PO SCH (09:44)
[2018-05-16] MEDS: METOPROLOL SUCCINATE 25 MG TAB.SR.24H PO SCH (09:45)
[2018-05-16] MEDS: CIPROFLOXACIN HCL 500 MG TABLET PO SCH (09:47)
[2018-05-16] MEDS: FLUTICASONE/VILANTEROL 200-25 MCG/DOSE IH SCH (09:48)
--- NOTE | 2018-05-16 10:56 | EKG REPORT ---
SEVERITY:- ABNORMAL ECG - ATRIAL FIBRILLATION BORDERLINE LEFT AXIS DEVIATION : Confirmed by: Marisabel Arreguin 16-May-2018 10:55:09
--- NOTE | 2018-05-16 16:36 | PDOC DISCHARGE SUMMARY ---
General - Admit/Disc Date/PCP Admission Date/Primary Care Provider: 05/14/18 16:27 CECY CAMARENA MD Discharge Date: 05/16/18 - Discharge Diagnosis (1) Heart failure with preserved ejection fraction Is this a current diagnosis for this admission?: Yes Summary: Is a Lasix and spironolactone (2) COPD (chronic obstructive pulmonary disease) Is this a current diagnosis for this admission?: Yes Summary: Continues to current inhaler (3) Chronic atrial fibrillation Is this a current diagnosis for this admission?: Yes Summary: Continues to Eliquis (4) Pleural effusion Is this a current diagnosis for this admission?: Yes Summary: Currently all resolved most likely from CHF (5) Shortness of breath Is this a current diagnosis for this admission?: Yes Summary: Currently resolved (6) Cerebrovascular disorder Is this a current diagnosis for this admission?: Yes Summary: Patient on Eliquis and a statin (7) Hypertension Is this a current diagnosis for this admission?: Yes Summary: Currently all stable (8) Seizure Is this a current diagnosis for this admission?: Yes Summary: Patients continues to current [facility] follow outpatients neurology (9) UTI (urinary tract infection) Is this a current diagnosis for this admission?: Yes Summary: Continues to Cipro - Additional Information Discharge Diet: Cardiac Discharge Activity: Activity As Tolerated, Balance Activity w/Rest, Weigh Daily Prescriptions: Ciprofloxacin HCl [Cipro 500 mg Tablet] 500 mg PO Q12 #10 tablet Furosemide [Lasix 20 mg Tablet] 20 mg PO DAILY #30 tablet Lactobacillus Acidophilus [Bacid 250 mg Tablet] 250 mg PO BID #14 tab Spironolactone [Aldactone 25 mg Tablet] 12.5 mg PO DAILY #30 tablet Home Medications: Amlodipine Besylate [Norvasc 10 mg Tablet] 10 mg PO DAILY 05/11/18 Apixaban [Eliquis 5 mg Tablet] 5 mg PO DAILY 05/11/18 Aspirin [Adult Low Dose Aspirin EC] 81 mg PO DAILY 05/11/18 Atorvastatin Calcium [Lipitor 40 mg Tablet] 40 mg PO QHS 05/11/18 Cyclobenzaprine HCl [Flexeril 5 mg Tablet] 5 mg PO DAILYP PRN 05/11/18 Fluticasone/Salmeterol [Advair 250-50 Diskus 14 Dose/Diskus] 1 puff IH BID 05/11/18 Isosorbide Mononitrate [Imdur 30 mg Tablet.er] 30 mg PO DAILY 05/11/18 Levetiracetam [Keppra] 1,000 mg PO BID 05/11/18 Levothyroxine Sodium [Synthroid 0.05 mg Tablet] 0.05 mg PO Q6AM 05/11/18 Metoprolol Succinate [Toprol Xl 25 mg Tab.sr] 12.5 mg PO DAILY 05/11/18 Omeprazole 20 mg PO QAM 05/11/18 Ciprofloxacin HCl [Cipro 500 mg Tablet] 500 mg PO Q12 #10 tablet 05/16/18 Furosemide [Lasix 20 mg Tablet] 20 mg PO DAILY #30 tablet 05/16/18 Lactobacillus Acidophilus [Bacid 250 mg Tablet] 250 mg PO BID #14 tab 05/16/18 Spironolactone [Aldactone 25 mg Tablet] 12.5 mg PO DAILY #30 tablet 05/16/18 History of Present Illness History of Present Illness: JOSE ESPINAL is a 72 year old female This is a 72-year-old female with multiple medical problems as above admitting in the hospital but the acute congestive heart failure bilateral pleural effusion and urinary tract infections Hospital Course Hospital Course: This is a 72-year-old female with a as above medical problems admitting in the hospital for the bilateral pleural effusion shortness of the breath and diagnosed with the congestive heart failure with a diastolic dysfunctions and a urinary tract infections Patients treated with the IV Lasix and antibiotics Patient seen by the cardiology Dr. Arreguin and suggest the patient have a preserved cardiac functions continues to Lasix and Spironolactone was added Patient's chest x-ray is all clearing for the pleural effusions Patient is walking the hallway without any problems Patient is feeling much better Patient's desire to go home instead of going to the rehab's Will arrange the home health Try to contact with the patient has been unable to contact discussed with the nursing staff to contact the and I will talk to him Patient is otherwise doing well following a 1 week in office Physical Exam Vital Signs: Temp Pulse Resp BP Pulse Ox 97.7 F 68 16 120/73 97 05/16/18 09:26 05/16/18 09:26 05/16/18 09:26 05/16/18 09:26 05/16/18 09:26 Intake & Output 05/15/18 05/16/18 05/17/18 06:59 06:59 06:59 Intake Total 1250 800 Output Total 300 Balance 1250 500 Weight 71.1 kg 71 kg General appearance: PRESENT: no acute distress, well-developed, well-nourished Head exam: PRESENT: atraumatic, normocephalic Eye exam: PRESENT: conjunctiva pink, EOMI, PERRLA. ABSENT: scleral icterus Ear exam: PRESENT: normal external ear exam Mouth exam: PRESENT: moist, tongue midline Neck exam: PRESENT: full ROM. ABSENT: carotid bruit, JVD, lymphadenopathy, thyromegaly Respiratory exam: PRESENT: clear to auscultation jordin Cardiovascular exam: PRESENT: RRR. ABSENT: diastolic murmur, rubs, systolic murmur Vascular exam: PRESENT: normal capillary refill GI/Abdominal exam: PRESENT: normal bowel sounds, soft. ABSENT: distended, guarding, mass, organolmegaly, rebound, tenderness Rectal exam: PRESENT: deferred Extremities exam: ABSENT: pedal edema Musculoskeletal exam: PRESENT: ambulatory Neurological exam: PRESENT: alert, awake, oriented to person, oriented to place, oriented to time, oriented to situation, CN II-XII grossly intact. ABSENT: motor sensory deficit Psychiatric exam: PRESENT: appropriate affect, normal mood. ABSENT: homicidal ideation, suicidal ideation Skin exam: PRESENT: dry, intact, warm. ABSENT: cyanosis, rash Results Laboratory Results: 05/15/18 05:40 05/16/18 05:28 05/16/18 05:28 Sodium 135.7 L Potassium 3.9 Chloride 100 Carbon Dioxide 29 Anion Gap 7 BUN 31 H Creatinine 1.18 Est GFR ( Amer) 54 L Est GFR (Non-Af Amer) 45 L Glucose 90 Calcium 8.7 05/11/18 06:14 Blood Blood Culture - Final NO GROWTH IN 5 DAYS 05/11/18 03:56 Blood Blood Culture - Final NO GROWTH IN 5 DAYS 05/10/18 05/10/18 05/10/18 18:46 21:20 21:20 Creatine Kinase CK-MB (CK-2) Troponin I < 0.012 < 0.012 NT-Pro-B Natriuret Pep 1200 H 05/11/18 05/11/18 05/11/18 03:56 03:56 03:56 Creatine Kinase 98 CK-MB (CK-2) 0.47 Troponin I < 0.012 NT-Pro-B Natriuret Pep 1060 H 05/11/18 05/11/18 05/11/18 09:45 09:45 15:40 Creatine Kinase 85 82 CK-MB (CK-2) 0.55 Troponin I < 0.012 NT-Pro-B Natriuret Pep 05/11/18 05/15/18 15:40 05:40 Creatine Kinase CK-MB (CK-2) 0.48 Troponin I < 0.012 NT-Pro-B Natriuret Pep 318 Impressions: Chest X-Ray 05/15/18 00:00 IMPRESSION: Stable small right effusion. No evidence of other acute cardiopulmonary process. Qualifiers - * PATIENT BEING DISCHARGED WITH ANY OF THE FOLLOWING DIAGNOSIS: Heart Failure VTE patient discharged on overlapping Therapy?: Yes HF Pt being discharged on ACEI for LVEF less than 40%?: No Reason(s) for not prescribing ACEI:: Not indicated HF Pt being discharged on ARBS for LVEF less than 40%?: No Reason(s) for not prescribing ARBS:: Not indicated HF Pt with Afib discharged with Warfarin?: No Reason(s) for not prescribing Warfarin:: Not indicated HF Pt discharged on evidence-based Beta [place]:: Yes Plan Time Spent: Greater than 30 Minutes - Discharge home with the stable conditions
--- NOTE | 2018-05-16 17:53 | PDOC PROGRESS REPORT ---
Subjective Progress Note for:: 05/15/18 Subjective:: Patient was seen in the evening of 05/15/2018. However dictation was missed. She had noted some diarrhea but it has resolved by the time I saw the patient. She was admitted with symptoms of shortness of breath, dizziness, palpitations, fatigue and shortness of breath. CT scan showed presence of bilateral pleural effusion. BNP positive for CHF. Previous echocardiogram shows atrial fibrillation and diastolic dysfunction. Patient started on diuretics. Currently feels much improved. Diarrhea has now resolved. Reason For Visit: CHF Physical Exam Vital Signs: Temp Pulse Resp BP Pulse Ox 97.7 F 68 16 120/73 97 05/16/18 09:26 05/16/18 09:26 05/16/18 09:26 05/16/18 09:26 05/16/18 09:26 Intake & Output 05/15/18 05/16/18 05/17/18 06:59 06:59 06:59 Intake Total 1250 800 Output Total 300 Balance 1250 500 Weight 71.1 kg 71 kg Exam: GENERAL: well-nourished and in no acute distress. Alert and oriented x3 HEAD: Atraumatic, normocephalic. EYES: MATTY, sclera anicteric, conjunctiva are normal. ENT: Moist mucous membranes. No oral ulcerations or bleeding gums noted. No obvious ear, nose or throat abnormalities noted. NECK: supple without lymphadenopathy. Trachea is central. No cervical or a xillary lymphadenopathy noted. Carotids are 2+, JVD WNL LUNGS: Breath sounds clear bilaterally. No wheezes rales or rhonchi noted. No significant dullness noted on percussion. CHEST: Palpation of the chest wall shows no significant chest wall tenderness. 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 ABDOMEN: Soft, no significant tenderness appreciated, normoactive bowel sounds. No guarding, no rebound. No rigidity noted . No masses appreciated. EXTREMITIES: Pedal pulses are 1-2+, no calf tenderness noted. No clubbing or cyanosis. negative pedal edema noted NEUROLOGICAL: Focused neurological exam showed no significant neurologic d eficit. Normal speech, no focal weakness appreciated. PSYCH: Normal mood, normal affect. Judgment and insight within normal limits. SKIN: No significant ecchymosis, skin is noted to be warm. MUSCULOSKELETAL EXAM: No significant acute joint swelling noted. Results Laboratory Results: 05/15/18 05:40 05/16/18 05:28 05/16/18 05:28 Sodium 135.7 L Potassium 3.9 Chloride 100 Carbon Dioxide 29 Anion Gap 7 BUN 31 H Creatinine 1.18 Est GFR ( Amer) 54 L Est GFR (Non-Af Amer) 45 L Glucose 90 Calcium 8.7 05/11/18 06:14 Blood Blood Culture - Final NO GROWTH IN 5 DAYS 05/11/18 03:56 Blood Blood Culture - Final NO GROWTH IN 5 DAYS 05/10/18 05/10/18 05/10/18 18:46 21:20 21:20 Creatine Kinase CK-MB (CK-2) Troponin I < 0.012 < 0.012 NT-Pro-B Natriuret Pep 1200 H 05/11/18 05/11/18 05/11/18 03:56 03:56 03:56 Creatine Kinase 98 CK-MB (CK-2) 0.47 Troponin I < 0.012 NT-Pro-B Natriuret Pep 1060 H 05/11/18 05/11/18 05/11/18 09:45 09:45 15:40 Creatine Kinase 85 82 CK-MB (CK-2) 0.55 Troponin I < 0.012 NT-Pro-B Natriuret Pep 05/11/18 05/15/18 15:40 05:40 Creatine Kinase CK-MB (CK-2) 0.48 Troponin I < 0.012 NT-Pro-B Natriuret Pep 318 EKG Comments: Shows atrial fibrillation with controlled ventricular response. Impressions: Chest X-Ray 05/15/18 00:00 IMPRESSION: Stable small right effusion. No evidence of other acute cardiopulmonary process. Assessment & Plan - Diagnosis (1) Chronic atrial fibrillation Is this a current diagnosis for this admission?: Yes (2) Heart failure with preserved ejection fraction Qualifiers: Heart failure chronicity: acute Qualified Code(s): I50.31 - Acute diastolic (congestive) heart failure Is this a current diagnosis for this admission?: Yes (3) Pleural effusion Is this a current diagnosis for this admission?: Yes (4) Shortness of breath Is this a current diagnosis for this admission?: Yes (5) Coronary artery disease Qualifiers: Coronary Disease-Associated Artery/Lesion type: [place] artery [place] vs. transplanted heart: [place] heart Associated angina: without angina Qualified Code(s): I25.10 - Atherosclerotic heart disease of [place] coronary artery without angina pectoris Is this a current diagnosis for this admission?: Yes - Notes Notes: Patient has done well and has responded to diuretics. Recommend discharge on baseline diuretics at Lasix 20 mg p.o. daily. This was discussed. Patient has a follow-up appointment with me. She was asked to keep that follow- up appointment. - Time Time with patient: 15-25 minutes
== END 2018-05-16 10:00 | disposition home health service (06) | DRG 291 ==
LOC: ER 18:04 → EH 23:10 → INTOOBSV 23:10 → 4S 05-11 01:18 → OBSVTOIN 05-14 16:27
PROVIDERS: ADMIT Internal Medicine; ATTEND Family Medicine
PROC: 3E0F3GC Introduction of Other Therapeutic Substance into Respiratory Tract, Percutaneous Approach (ICD-10-PCS; principal; 2018-05-14)
DX: I11.0 Hypertensive heart disease with heart failure (principal); I50.31 Acute diastolic (congestive) heart failure; N39.0 Urinary tract infection, site not specified; J44.9 Chronic obstructive pulmonary disease, unspecified; R56.9 Unspecified convulsions; I36.1 Nonrheumatic tricuspid (valve) insufficiency; I48.2 Chronic atrial fibrillation; F03.90 Unspecified dementia, unspecified severity, without behavioral disturbance, psychotic disturbance, mood disturbance, and anxiety; I42.5 Other restrictive cardiomyopathy; I34.0 Nonrheumatic mitral (valve) insufficiency; Z79.01 Long term (current) use of anticoagulants; E78.5 Hyperlipidemia, unspecified; E03.9 Hypothyroidism, unspecified; K21.9 Gastro-esophageal reflux disease without esophagitis; M19.90 Unspecified osteoarthritis, unspecified site; F32.9 Major depressive disorder, single episode, unspecified; R09.02 Hypoxemia; I25.10 Atherosclerotic heart disease of native coronary artery without angina pectoris; Z79.82 Long term (current) use of aspirin; I25.2 Old myocardial infarction; Z88.0 Allergy status to penicillin; Z88.2 Allergy status to sulfonamides; Z87.891 Personal history of nicotine dependence; Z86.73 Personal history of transient ischemic attack (TIA), and cerebral infarction without residual deficits
CPT/HCPCS: 36415; 36600; 71045; 71046; 71275; 80048; 80061; 80076; 80307; 81001; 82140; 82150; 82550; 82553; 82803; 83036; 83690; 83735; 83880; 84100; 84439; 84443; 84484; 85025; 85610; 85730; 87040; 87086; 87088; 87186; 93005; 93010; 94640; 96365; 96366; 96375; 99285; G0378; J1644; J1940; J2930; J3475; J3490; J7620

== ENCOUNTER 2018-06-07 05:30 | Emergency (ER) | payer MEDICARE, MEDICAID ==
[2018-06-07] MEDS ORDERED: FUROSEMIDE INJ/PF 20 MG/2 ML SDV IV ONE (06:15)
[2018-06-07] MEDS ORDERED: IPRATROPIUM/ALBUTEROL 0.5-2.5 MG/3 ML AMPUL NEB ONE (06:15)
[2018-06-07] MEDS ORDERED: ASPIRIN 81 MG TABLET, CHEWABLE PO ONE (06:15)
--- NOTE | 2018-06-07 06:18 | ER Document Report ---
ED General - General Chief Complaint: Abdominal Pain >50 Stated Complaint: SHORTNESS OF BREATH Time Seen by Provider: 06/07/18 06:03 Primary Care Provider: CECY CAMARENA MD [Primary Care Provider] - Follow up in 3-5 days Mode of Arrival: Medic Information source: Patient, Emergency Med Personnel, [facility] Records Notes: 72-year-old female with atrial fibrillation, dementia, hypertension, coronary artery disease, congestive heart failure, COPD presents with complaint of shortness of breath, chest tightness that started 2 days prior to arrival. Patient states she feels like she cannot get a deep breath in. She does report a new nonproductive cough. She denies any chest pain, lightheadedness, diaphoresis, leg swelling. Patient has had a headache and associated nausea. Patient was recently discharged from the hospital approximately 1 month ago where she was found to have new onset congestive heart failure. TRAVEL OUTSIDE OF THE [place] IN LAST 30 DAYS: No - HPI Onset: Other Onset/Duration: Gradual, Persistent Quality of pain: No pain Severity: None Pain Level: Denies Associated symptoms: Nonproductive cough, Headache, Shortness of breath. denies: Chest pain, Fever, Leg swelling, Nausea Exacerbated by: Movement Relieved by: Denies Similar symptoms previously: Yes Recently seen / treated by doctor: Yes - Related Data Allergies/Adverse Reactions: Penicillins Allergy (Mild, Verified 02/12/18 16:50) rash Sulfa (Sulfonamide Antibiotics) Allergy (Mild, Verified 02/12/18 16:52) Skin Redness Past Medical History - General Information source: Patient, Emergency Med Personnel, [facility] Records - Social History Smoking Status: Unknown if Ever Smoked Frequency of alcohol use: None Drug Abuse: None Lives with: Family Family History: Reviewed & Not Pertinent Patient has suicidal ideation: No Patient has homicidal ideation: No - Past Medical History Cardiac Medical History: Reports: Hx Atrial Fibrillation, Hx Heart Attack - mild, Hx Hypercholesterolemia, Hx Hypertension Denies: Hx Congestive Heart Failure, Hx Coronary Artery Disease, Hx Peripheral Vascular Disease, Hx Heart Murmur Neurological Medical History: Reports: Hx Cerebrovascular Accident - 01/20 , Hx Seizures - 01/20 Endocrine Medical History: Reports: Hx Hypothyroidism. Denies: Hx Graves' Disease, Hx Hyperthyroidism Renal/ Medical History: Denies: Hx End Stage Renal Disease, Hx Kidney Stones, Hx Peritoneal Dialysis Malignancy Medical History: Denies: Hx Leukemia GI Medical History: Reports: Hx Gastroesophageal Reflux Disease - occ. takes Omeprazole PRN. Denies: Hx Crohn's Disease, Hx Hiatal Hernia, Hx Irritable Bowel, Hx Liver Failure, Hx Pancreatitis, Hx Ulcer Musculoskeletal Medical History: Reports Hx Arthritis, Denies Hx Fibromyalgia, Denies Hx Multiple Sclerosis, Denies Hx Muscular Dystrophy Psychiatric Medical History: Reports: Hx Depression Denies: Hx Bipolar Disorder, Hx Dementia, Hx Post Traumatic Stress Disorder, Hx Schizophrenia Traumatic Medical History: Reports: Hx Fractures - 2nd toe on right Infectious Medical History: Denies: Hx HIV Past Surgical History: Reports: Hx Appendectomy, Hx Hysterectomy, Hx Orthopedic Surgery - right rotator cuff. Denies: Hx Bowel Surgery, Hx Section, Hx Cholecystectomy, Hx Colostomy, Hx Coronary Artery Bypass Graft, Hx Gastric Bypass Surgery, Hx Herniorrhaphy, Hx Mastectomy, Hx Pacemaker, Hx Tonsillectomy, Hx Tubal Ligation - Immunizations Hx Diphtheria, Pertussis, Tetanus Vaccination: No Hx Pneumococcal Vaccination: 12/06/17 Review of Systems - Review of Systems Notes: REVIEW OF SYSTEMS: CONSTITUTIONAL : Denies fever, chills, or sweats. Denies recent illness. Denies weight loss, recent hospitalizations. EENT: Denies visual changes, eye pain. Denies sore throat, oral lesions, difficulty swallowing. CARDIOVASCULAR: + chest tightness. Denies palpitations. Denies lower extremity edema. RESPIRATORY: + cough. + shortness of breath, wheezing. GASTROINTESTINAL: Denies abdominal pain or distention. Denies nausea, vomiting, or diarrhea. Denies blood in vomitus, stools, or per rectum. Denies black, tarry stools. Denies constipation. GENITOURINARY: Denies difficulty urinating, painful urination, frequency, blood in urine, or vaginal discharge. MUSCULOSKELETAL: Denies back or neck pain or stiffness. Denies joint pain or swelling. SKIN: Denies rash, lesions or sores. HEMATOLOGIC : Denies easy bruising or bleeding. LYMPHATIC: Denies swollen glands. NEUROLOGICAL: Denies confusion or altered mental status. Denies loss of consciousness. Denies dizziness or lightheadedness. Denies headache. Denies weakness or paralysis. Denies problems difficulty with ambulation, slurred speech. Denies sensory loss, numbness, or tingling. Denies seizures. PSYCHIATRIC: Denies anxiety or stress. Denies depression, suicidal ideation, or homicidal ideation. Denies visual or auditory hallucinations. Physical Exam - Vital signs Vitals: Temp 97.7 F 06/07/18 05:34 - Notes Notes: PHYSICAL EXAMINATION: GENERAL: Well-appearing, well-nourished and in no acute distress. HEAD: Atraumatic, normocephalic. EYES: Pupils equal round and reactive to light, extraocular movements intact, conjunctiva are normal. ENT: Nares patent, oropharynx clear without exudates. Moist mucous membranes. NECK: Normal range of motion, supple without lymphadenopathy LUNGS: Breath sounds clear to auscultation bilaterally and equal. No wheezes rales or rhonchi. HEART: Regular rate and rhythm without murmurs ABDOMEN: Soft, nontender, nondistended abdomen. No guarding, no rebound. No masses appreciated. Female : deferred Musculoskeletal: Normal range of motion, no pitting or edema. No cyanosis. NEUROLOGICAL: Cranial nerves grossly intact. Normal speech, normal gait. Normal sensory, motor exams PSYCH: Normal mood, normal affect. SKIN: Warm, Dry, normal turgor, no rashes or lesions noted. Course - Re-evaluation Re-evalutation: 06/07/18 13:28 Laboratory 06/07/18 06/07/18 06/07/18 06:40 06:40 06:40 WBC 7.0 RBC 3.97 Hgb 12.6 Hct 37.6 MCV 95 MCH 31.8 MCHC 33.6 RDW 14.3 H Plt Count 239 Seg Neutrophils % 70.4 Lymphocytes % 19.1 Monocytes % 7.7 Eosinophils % 2.0 Basophils % 0.8 Absolute Neutrophils 4.9 Absolute Lymphocytes 1.3 Absolute Monocytes 0.5 Absolute Eosinophils 0.1 Absolute Basophils 0.1 Sodium 132.5 L Potassium 4.1 Chloride 100 Carbon Dioxide 21 L Anion Gap 12 BUN 19 Creatinine 1.15 Est GFR ( Amer) 56 L Est GFR (Non-Af Amer) 46 L Glucose 60 L POC Glucose Calcium 9.0 Total Bilirubin 1.4 H Direct Bilirubin 0.3 Neonat Total Bilirubin Not Reportable Neonat Direct Bilirubin Not Reportable Neonat Indirect Bili Not Reportable AST 43 H ALT 42 Alkaline Phosphatase 151 H Troponin I < 0.012 NT-Pro-B Natriuret Pep 943 H Total Protein 7.1 Albumin 4.0 06/07/18 08:29 WBC RBC Hgb Hct MCV MCH MCHC RDW Plt Count Seg Neutrophils % Lymphocytes % Monocytes % Eosinophils % Basophils % Absolute Neutrophils Absolute Lymphocytes Absolute Monocytes Absolute Eosinophils Absolute Basophils Sodium Potassium Chloride Carbon Dioxide Anion Gap BUN Creatinine Est GFR ( Amer) Est GFR (Non-Af Amer) Glucose POC Glucose 103 Calcium Total Bilirubin Direct Bilirubin Neonat Total Bilirubin Neonat Direct Bilirubin Neonat Indirect Bili AST ALT Alkaline Phosphatase Troponin I NT-Pro-B Natriuret Pep Total Protein Albumin Chest X-Ray 06/07/18 06:14 IMPRESSION: No acute cardiopulmonary process copyright 2010 [employer]- All Rights Reserved Temp Pulse Resp BP Pulse Ox 98.2 F 93 15 115/57 L 97 06/07/18 09:01 06/07/18 05:38 06/07/18 09:01 06/07/18 09:01 06/07/18 09:01 72-year-old female presents with complaint of shortness of breath for 2 days. Vital signs reviewed upon arrival and within normal limits. Patient is afebrile, normotensive and not hypoxic. She has no increased work of breathing, tachypnea, accessory muscle use. Lung sounds are clear. No evidence of heart failure, pneumonia, fluid overload. CBC, CMP, cardiac enzymes are unremarkable. BNP is mildly elevated but chest x-ray shows no evidence of vascular congestion. Patient was reevaluated multiple times and is resting comfortably. She was ambulated on pulse ox without desaturation. Advised to follow-up with her primary care physician Dr. Camarena as needed. Patient was evaluated and treated as appropriate for the patient's presenting symptoms and complaint, with consideration of any critical or life threatening conditions that may be associated with their obtained history and exam as noted above. All results were discussed with patient. Patient provided the opportunity to ask questions, and express concerns. Patient was educated on treatments based on their presumed diagnosis as noted above. At this time we will discharge the patient with return precautions and follow-up recommendations. Verbal discharge instructions given a the bedside. Medication warnings reviewed. Patient is in agreement with this plan and has verbalized understanding of return precautions. After careful consideration I feel that that patient can be safely discharged from the emergency department, they were advised to followup with a primary care physician in 2-3 days. Dictation on this chart was performed using voice recognition software and may result in unintended grammatical, spelling, syntax or errors. - Vital Signs Vital signs: Temp Pulse Resp BP Pulse Ox 98.2 F 93 15 115/57 L 97 06/07/18 09:01 06/07/18 05:38 06/07/18 09:01 06/07/18 09:01 06/07/18 09:01 - Laboratory Result Diagrams: 06/07/18 06:40 06/07/18 06:40 Laboratory results interpreted by me: 06/07/18 06/07/18 06/07/18 06:40 06:40 06:40 RDW 14.3 H Sodium 132.5 L Carbon Dioxide 21 L Est GFR ( Amer) 56 L Est GFR (Non-Af Amer) 46 L Glucose 60 L Total Bilirubin 1.4 H AST 43 H Alkaline Phosphatase 151 H NT-Pro-B Natriuret Pep 943 H - Diagnostic Test Radiology reviewed: Image reviewed, Reports reviewed - EKG Interpretation by Me Rate: Normal Rhythm: A.Fib When compared to previous EKG there are: No significant change Discharge - Discharge Clinical Impression: History of congestive heart failure Dyspnea Qualifiers: Dyspnea type: unspecified Qualified Code(s): R06.00 - Dyspnea, unspecified COPD (chronic obstructive pulmonary disease) Qualifiers: COPD type: unspecified COPD Qualified Code(s): J44.9 - Chronic obstructive pulmonary disease, unspecified Condition: Good Disposition: HOME, SELF-CARE Instructions: Dyspnea, Nonspecific ([facility]) Additional Instructions: Follow up with your [id number] hours for further care or return to the ED IMMEDIATELY if symptoms worsen or you have any concerns. If you cannot afford to follow up with your primary care physician a list of low cost clinics have been provided at the end of your discharge papers as well. Most prescribed medications have multiple side effects. The safest thing to do is when filling your prescription speak to your pharmacist regarding possible interactions with your normal home medications and over the counter medications such as Ibuprofen, Tylenol, Benadryl. If you experience any symptoms that cause you discomfort or concern you should discontinue the medication immediately and return to the emergency room or call your primary care physician. Referrals: CECY CAMARENA MD [Primary Care Provider] - Follow up in 3-5 days
--- NOTE | 2018-06-07 06:55 | RADIOLOGY REPORT (SQ) ---
EXAM DESCRIPTION: XR CHEST 2 VIEWS COMPLETED DATE/TME: 06/07/2018 06:14 CLINICAL HISTORY: 72 years, Female, sob COMPARISON: 05/15/2018 chest NUMBER OF VIEWS: 2 TECHNIQUE: 2 views of the chest LIMITATIONS: None. FINDINGS: Heart size is stable. Atheromatous change thoracic aorta. Osteopenia. Mild elevation right hemidiaphragm. No pneumothorax. Post surgical change right shoulder IMPRESSION: No acute cardiopulmonary process copyright 2010 [employer]- All Rights Reserved
[2018-06-07 07:24] LABS: ABSOLUTE BASOPHILS # (AUTO) 0.1 10^3/uL (0.0-0.2); ABSOLUTE EOSINOPHILS # (AUTO) 0.1 10^3/uL (0.0-0.6); ABSOLUTE LYMPHOCYTES (AUTO) 1.3 10^3/uL (0.5-4.7); ABSOLUTE MONOCYTES (AUTO) 0.5 10^3/uL (0.1-1.4); ABSOLUTE NEUT (AUTO) 4.9 10^3/uL (1.7-8.2); BASOPHILS % (AUTO) 0.8 % (0-2); HEMATOCRIT 37.6 % (36.0-47.0); HEMOGLOBIN 12.6 g/dL (12.0-15.5); LYMPHOCYTES % (AUTO) 19.1 % (13-45); MEAN CORPUSCULAR HEMOGLOBIN 31.8 pg (27.0-33.4); MEAN CORPUSCULAR HGB CONC 33.6 g/dL (32.0-36.0); MEAN CORPUSCULAR VOLUME 95 fl (80-97); MONOCYTES % (AUTO) 7.7 % (3-13); PLATELET COUNT 239 10^3/uL (150-450); RED BLOOD COUNT 3.97 10^6/uL (3.72-5.28); RED CELL DISTRIBUTION WIDTH 14.3 % (11.5-14.0); SEGMENTED NEUTROPHILS % (AUTO) 70.4 % (42-78); TOTAL CELLS COUNTED % (AUTO) 100 %
[2018-06-07 07:41] LABS: ALANINE AMINOTRANSFERASE 42 U/L (9-52); ALKALINE PHOSPHATASE 151 U/L (38-126); ANION GAP 12 (5-19); ASPARTATE AMINO TRANSFERASE 43 U/L (14-36); BILIRUBIN,DIRECT 0.3 mg/dL (0.0-0.4); BILIRUBIN,TOTAL 1.4 mg/dL (0.2-1.3); BLOOD UREA NITROGEN 19 mg/dL (7-20); CARBON DIOXIDE 21 mmol/L (22-30); CHLORIDE 100 mmol/L (98-107); POTASSIUM 4.1 mmol/L (3.6-5.0); SODIUM 132.5 mmol/L (137-145); TOTAL PROTEIN 7.1 g/dL (6.3-8.2)
[2018-06-07 07:44] LABS: GLUCOSE 60 mg/dL (75-110)
[2018-06-07 07:52] LABS: NT PRO BNP 943 pg/mL (5-900)
[2018-06-07 08:25] LABS: TROPONIN I < 0.012 ng/mL
[2018-06-07 09:38] VITALS: BP 115/57
--- NOTE | 2018-06-07 18:43 | EKG REPORT ---
SEVERITY:- ABNORMAL ECG - ATRIAL FIBRILLATION : Confirmed by: Marisabel Arreguin 07-Jun-2018 18:43:16
== END 2018-06-07 09:52 | disposition home or self-care (01) ==
LOC: ER 05:30
DX: J44.9 Chronic obstructive pulmonary disease, unspecified (principal); R06.00 Dyspnea, unspecified; R10.9 Unspecified abdominal pain; R06.02 Shortness of breath; R51 Headache; I11.0 Hypertensive heart disease with heart failure; I50.9 Heart failure, unspecified; I48.91 Unspecified atrial fibrillation; E78.00 Pure hypercholesterolemia, unspecified; Z88.0 Allergy status to penicillin; I25.2 Old myocardial infarction; Z86.73 Personal history of transient ischemic attack (TIA), and cerebral infarction without residual deficits; Z90.710 Acquired absence of both cervix and uterus
CPT/HCPCS: 93005; 94640; 99284; 96374; 36415; 82962; 85025; 80053; 84484; 83880; 71046; 93010; A9270 ×2; J1940; J7620

== ENCOUNTER 2018-06-21 15:28 | Emergency (ER) | payer MEDICARE, MEDICAID ==
[2018-06-21 17:30] LABS: ABSOLUTE BASOPHILS # (AUTO) 0.1 10^3/uL (0.0-0.2); ABSOLUTE EOSINOPHILS # (AUTO) 0.1 10^3/uL (0.0-0.6); ABSOLUTE LYMPHOCYTES (AUTO) 1.6 10^3/uL (0.5-4.7); ABSOLUTE MONOCYTES (AUTO) 0.7 10^3/uL (0.1-1.4); ABSOLUTE NEUT (AUTO) 6.1 10^3/uL (1.7-8.2); BASOPHILS % (AUTO) 0.9 % (0-2); EOSINOPHILS % (AUTO) 1.5 % (0-6); HEMATOCRIT 38.4 % (36.0-47.0); HEMOGLOBIN 12.7 g/dL (12.0-15.5); LYMPHOCYTES % (AUTO) 18.1 % (13-45); MEAN CORPUSCULAR HEMOGLOBIN 31.2 pg (27.0-33.4); MEAN CORPUSCULAR HGB CONC 32.9 g/dL (32.0-36.0); MEAN CORPUSCULAR VOLUME 95 fl (80-97); MONOCYTES % (AUTO) 8.2 % (3-13); PLATELET COUNT 238 10^3/uL (150-450); RED BLOOD COUNT 4.05 10^6/uL (3.72-5.28); RED CELL DISTRIBUTION WIDTH 13.9 % (11.5-14.0); SEGMENTED NEUTROPHILS % (AUTO) 71.3 % (42-78); TOTAL CELLS COUNTED % (AUTO) 100 %; WHITE BLOOD COUNT 8.6 10^3/uL (4.0-10.5)
--- NOTE | 2018-06-21 17:35 | RADIOLOGY REPORT (SQ) ---
EXAM DESCRIPTION: CT HEAD WITHOUT COMPLETED DATE/TIME: 06/21/2018 5:25 pm REASON FOR STUDY: seizure COMPARISON: CT and MR imaging of the brain performed 02/12/2018 TECHNIQUE: Axial images acquired through the brain without intravenous contrast. Images reviewed wi th bone, brain and subdural windows. Additional sagittal and coronal reconstructions were generated. Images stored on PACS. All CT scanners at this facility use dose modulation, iterative reconstruction, and/or weight based d osing when appropriate to reduce radiation dose to as low as reasonably achievable (ALARA). [facility]: Dose Right [facility]: CareDose [facility]: Dose Right [facility]: Teradose 4D [facility]: Smart Wardrobe Housekeeper RADIATION DOSE: CT Rad equipment meets quality standard of care and radiation dose reduction techniq ues were employed. CTDIvol: 53.2 mGy. DLP: 1017 mGy-cm.mGy. LIMITATIONS: None. FINDINGS: VENTRICLES: Stable size and configuration. CEREBRUM: No masses. No hemorrhage. No midline shift. Areas of low density in the white matter mos t likely due to chronic micro-vascular ischemic change. Focal encephalomalacia involving the bilater al occipital lobes with consistent with sequela of remote infarct. No evidence for acute infarction. CEREBELLUM: No masses. No hemorrhage. No alteration of density. No evidence for acute infarction. EXTRAAXIAL SPACES: Age-related involutional change. No fluid collections. No masses. ORBITS AND GLOBE: No intra- or extraconal masses. Normal contour of globe without masses. CALVARIUM: No fracture. PARANASAL SINUSES: No fluid or mucosal thickening. SOFT TISSUES: No mass or hematoma. OTHER: Atherosclerotic vascular calcifications are seen within the cavernous segments of the internal carotid arteries. IMPRESSION: Stable CT appearance of the brain, again demonstrating bilateral occipital encephalomala oswaldo on a background of chronic microvascular ischemic and age-related involutional changes. EVIDENCE OF ACUTE STROKE: NO. TECHNICAL DOCUMENTATION: JOB ID: [id number] Quality ID # [id number]: Final reports with documentation of one or more dose reduction techniques (e.g., Au tomated exposure control, adjustment of the mA and/or kV according to patient size, use of iterative reconstruction technique) 2010 [employer]- All Rights Reserved Reading location - IP/workstation name: [email or web address]
[2018-06-21 17:45] LABS: ALANINE AMINOTRANSFERASE 39 U/L (9-52); ALCOHOL 44 mg/dL (NONE DETECTED); ALKALINE PHOSPHATASE 125 U/L (38-126); ANION GAP 19 (5-19); ASPARTATE AMINO TRANSFERASE 57 U/L (14-36); BILIRUBIN,DIRECT 0.4 mg/dL (0.0-0.4); BILIRUBIN,TOTAL 1.2 mg/dL (0.2-1.3); BLOOD UREA NITROGEN 14 mg/dL (7-20); CARBON DIOXIDE 19 mmol/L (22-30); CHLORIDE 93 mmol/L (98-107); GLUCOSE 71 mg/dL (75-110); POTASSIUM 4.5 mmol/L (3.6-5.0); SODIUM 130.8 mmol/L (137-145); TOTAL PROTEIN 6.8 g/dL (6.3-8.2)
[2018-06-21] MEDS ORDERED: NORMAL SALINE 1000 ML 1,000 ML IV PRN (18:06)
[2018-06-21] MEDS ORDERED: LEVETIRACETAM 1000 MG/NACL-ISO 1,000 MG/100 ML RTUPB IV ONE (18:06)
[2018-06-21] MEDS ORDERED: NORMAL SALINE 1000 ML 1,000 ML IV ONE (18:07)
[2018-06-21 20:59] LABS: APPEARANCE,URINE CLEAR; BILIRUBIN,URINE NEGATIVE (NEGATIVE); COLOR,URINE YELLOW; GLUCOSE, URINE NEGATIVE (NEGATIVE); KETONES,URINE NEGATIVE (NEGATIVE); LEUKOCYTE ESTERASE,URINE NEGATIVE (NEGATIVE); NITRITE,URINE NEGATIVE (NEGATIVE); PROTEIN,URINE NEGATIVE (NEGATIVE); URINE SPECIFIC GRAVITY 1.006; UROBILINOGEN,URINE NEGATIVE mg/dL (<2.0)
[2018-06-21 21:09] LABS: URINE AMPHETAMINES SCREEN NEGATIVE; URINE BARBITURATES SCREEN NEGATIVE; URINE BENZODIAZEPINES SCREEN NEGATIVE; URINE COCAINE SCREEN NEGATIVE; URINE MARIJUANA (THC) SCREEN NEGATIVE; URINE METHADONE SCREEN NEGATIVE; URINE PHENCYCLIDINE SCREEN NEGATIVE
--- NOTE | 2018-06-21 21:49 | ER Document Report ---
ED General - General Chief Complaint: Altered Mental Status Stated Complaint: POSSIBLE SYNCOPE Time Seen by Provider: 06/21/18 17:03 Primary Care Provider: CECY CAMARENA MD [Primary Care Provider] - Follow up as needed Cannot obtain history due to: Dementia, Altered mental status Notes: This is a 72-year-old female patient. History of dementia. History of seizures. Reportedly had a seizure prior to arrival. Also on blood thinners. No reported trauma. Apparently had a seizure in a chair but did not fall out of the chair. Transported by EMS. EMS witnessed a seizure and administered benzodiazepine. TRAVEL OUTSIDE OF THE [place] IN LAST 30 DAYS: No - HPI Onset: Just prior to arrival Associated symptoms: Other - Seizure - Related Data Allergies/Adverse Reactions: Penicillins Allergy (Mild, Verified 02/12/18 16:50) rash Sulfa (Sulfonamide Antibiotics) Allergy (Mild, Verified 02/12/18 16:52) Skin Redness Past Medical History - General Information source: [facility] Records Cannot obtain history due to: Altered mental status - Social History Smoking Status: Unknown if Ever Smoked Lives with: Family Family History: Reviewed & Not Pertinent Patient has suicidal ideation: No Patient has homicidal ideation: No - Past Medical History Cardiac Medical History: Reports: Hx Atrial Fibrillation, Hx Heart Attack - mild, Hx Hypercholesterolemia, Hx Hypertension Denies: Hx Congestive Heart Failure, Hx Coronary Artery Disease, Hx Peripheral Vascular Disease, Hx Heart Murmur Neurological Medical History: Reports: Hx Cerebrovascular Accident - 01/20 , Hx Seizures Endocrine Medical History: Reports: Hx Hypothyroidism. Denies: Hx Graves' Disease, Hx Hyperthyroidism Renal/ Medical History: Denies: Hx End Stage Renal Disease, Hx Kidney Stones, Hx Peritoneal Dialysis Malignancy Medical History: Denies: Hx Leukemia GI Medical History: Reports: Hx Gastroesophageal Reflux Disease - occ. takes Omeprazole PRN. Denies: Hx Crohn's Disease, Hx Hiatal Hernia, Hx Irritable Bowel, Hx Liver Failure, Hx Pancreatitis, Hx Ulcer Musculoskeletal Medical History: Reports Hx Arthritis, Denies Hx Fibromyalgia, Denies Hx Multiple Sclerosis, Denies Hx Muscular Dystrophy, Denies Hx Systemic Lupus Erythematosus Psychiatric Medical History: Reports: Hx Dementia, Hx Depression Denies: Hx Bipolar Disorder, Hx Post Traumatic Stress Disorder, Hx Schizophrenia Traumatic Medical History: Reports: Hx Fractures - 2nd toe on right Infectious Medical History: Denies: Hx HIV Past Surgical History: Reports: Hx Appendectomy, Hx Hysterectomy, Hx Orthopedic Surgery - right rotator cuff. Denies: Hx Bowel Surgery, Hx Section, Hx Cholecystectomy, Hx Colostomy, Hx Coronary Artery Bypass Graft, Hx Gastric Bypass Surgery, Hx Herniorrhaphy, Hx Mastectomy, Hx Pacemaker, Hx Tonsillectomy, Hx Tubal Ligation - Immunizations Hx Diphtheria, Pertussis, Tetanus Vaccination: No Hx Pneumococcal Vaccination: 12/06/17 Review of Systems - Review of Systems -: Yes ROS unobtainable due to patient's medical condition Physical Exam - Vital signs Vitals: BP 138/67 H 06/21/18 15:31 Interpretation: Normal - General General appearance: Appears well, Alert - HEENT Head: Normocephalic, Atraumatic Eyes: Normal Pupils: PERRL - Respiratory Respiratory status: No respiratory distress Chest status: Nontender Breath sounds: Normal Chest palpation: Normal - Cardiovascular Rhythm: Regular Heart sounds: Normal auscultation Murmur: No - Abdominal Inspection: Normal Distension: No distension Bowel sounds: Normal Tenderness: Nontender Organomegaly: No organomegaly - Back Back: Normal, Nontender - Extremities General upper extremity: Normal inspection, Nontender, Normal color, Normal ROM, Normal temperature General lower extremity: Normal inspection, Nontender, Normal color, Normal ROM, Normal temperature. No: Ana's sign - Neurological Neuro grossly intact: Yes Cognition: Normal Orientation: Disoriented to person, Disoriented to place [place] Coma Scale Eye Opening: Spontaneous [place] Coma Scale Verbal: Confused Carly Coma Scale Motor: Obeys Commands Carly Coma Scale Total: 14 Motor strength normal: LUE, RUE, LLE, RLE Sensory: Normal - Psychological Associated symptoms: Normal affect, Normal mood - Skin Skin Temperature: Warm Skin Moisture: Dry Skin Color: Normal Course - Re-evaluation Re-evalutation: 06/21/18 21:47 CT scan was performed. Negative for acute pathology. Patient was observed for extended period of time. No further seizures. Labs unremarkable with the exception of sodium. Sodium is chronically low. Did give 1 L of fluid. Loaded with Keppra. Stable for discharge at this time. Laboratory 06/21/18 06/21/18 06/21/18 16:05 16:05 20:14 WBC 8.6 RBC 4.05 Hgb 12.7 Hct 38.4 MCV 95 MCH 31.2 MCHC 32.9 RDW 13.9 Plt Count 238 Seg Neutrophils % 71.3 Lymphocytes % 18.1 Monocytes % 8.2 Eosinophils % 1.5 Basophils % 0.9 Absolute Neutrophils 6.1 Absolute Lymphocytes 1.6 Absolute Monocytes 0.7 Absolute Eosinophils 0.1 Absolute Basophils 0.1 Sodium 130.8 L Potassium 4.5 Chloride 93 L Carbon Dioxide 19 L Anion Gap 19 BUN 14 Creatinine 1.09 Est GFR ( Amer) > 60 Est GFR (Non-Af Amer) 49 L Glucose 71 L POC Glucose 82 Calcium 9.0 Magnesium 1.9 Total Bilirubin 1.2 Direct Bilirubin 0.4 Neonat Total Bilirubin Not Reportable Neonat Direct Bilirubin Not Reportable Neonat Indirect Bili Not Reportable AST 57 H ALT 39 Alkaline Phosphatase 125 Total Protein 6.8 Albumin 4.0 Urine Color Urine Appearance Urine pH Ur Specific [place] Urine Protein Urine Glucose (UA) Urine Ketones Urine Blood Urine Nitrite Urine Bilirubin Urine Urobilinogen Ur Leukocyte Esterase Urine WBC (Auto) Urine RBC (Auto) U Hyaline Cast (Auto) Squamous Epi Cells Auto Urine Mucus (Auto) Urine Ascorbic Acid Urine Opiates Screen Urine Methadone Screen Ur Barbiturates Screen Ur Phencyclidine Scrn Ur Amphetamines Screen U Benzodiazepines Scrn Urine Cocaine Screen U Marijuana (THC) Screen Serum Alcohol 44 06/21/18 06/21/18 20:30 20:30 WBC RBC Hgb Hct MCV MCH MCHC RDW Plt Count Seg Neutrophils % Lymphocytes % Monocytes % Eosinophils % Basophils % Absolute Neutrophils Absolute Lymphocytes Absolute Monocytes Absolute Eosinophils Absolute Basophils Sodium Potassium Chloride Carbon Dioxide Anion Gap BUN Creatinine Est GFR ( Amer) Est GFR (Non-Af Amer) Glucose POC Glucose Calcium Magnesium Total Bilirubin Direct Bilirubin Neonat Total Bilirubin Neonat Direct Bilirubin Neonat Indirect Bili AST ALT Alkaline Phosphatase Total Protein Albumin Urine Color YELLOW Urine Appearance CLEAR Urine pH 5.0 Ur Specific [place] 1.006 Urine Protein NEGATIVE Urine Glucose (UA) NEGATIVE Urine Ketones NEGATIVE Urine Blood NEGATIVE Urine Nitrite NEGATIVE Urine Bilirubin NEGATIVE Urine Urobilinogen NEGATIVE Ur Leukocyte Esterase NEGATIVE Urine WBC (Auto) 0 Urine RBC (Auto) 1 U Hyaline Cast (Auto) 2 Squamous Epi Cells Auto <1 Urine Mucus (Auto) RARE Urine Ascorbic Acid NEGATIVE Urine Opiates Screen NEGATIVE Urine Methadone Screen NEGATIVE Ur Barbiturates Screen NEGATIVE Ur Phencyclidine Scrn NEGATIVE Ur Amphetamines Screen NEGATIVE U Benzodiazepines Scrn NEGATIVE Urine Cocaine Screen NEGATIVE U Marijuana (THC) Screen NEGATIVE Serum Alcohol Head CT 05/17/19 00:00 IMPRESSION: Stable CT appearance of the brain, again demonstrating bilateral occipital encephalomalacia on a background of chronic microvascular ischemic and age-related involutional changes. EVIDENCE OF ACUTE STROKE: NO. - Vital Signs Vital signs: Temp Pulse Resp BP Pulse Ox 97.6 F 16 109/60 95 06/21/18 20:05 06/21/18 20:05 06/21/18 20:05 06/21/18 20:05 - Laboratory Result Diagrams: 06/21/18 16:05 06/21/18 16:05 Laboratory results interpreted by me: 06/21/18 16:05 Sodium 130.8 L Chloride 93 L Carbon Dioxide 19 L Est GFR (Non-Af Amer) 49 L Glucose 71 L AST 57 H Discharge - Discharge Clinical Impression: Seizure, Hyponatremia Dementia Qualifiers: Dementia type: unspecified type Dementia behavioral disturbance: without b ehavioral disturbance Qualified Code(s): F03.90 - Unspecified dementia without behavioral disturbance Condition: Good Disposition: HOME, SELF-CARE Instructions: Seizure, Known Epileptic ([facility]), Dementia ([facility]) Referrals: CECY CAMARENA MD [Primary Care Provider] - Follow up as needed
[2018-06-21 23:04] VITALS: BP 146/78
--- NOTE | 2018-06-22 08:44 | EKG REPORT ---
SEVERITY:- ABNORMAL ECG - ATRIAL FIBRILLATION : Confirmed by: Karri Costello MD 22-Jun-2018 08:41:18
== END 2018-06-21 23:20 | disposition home or self-care (01) ==
LOC: ER 15:28
DX: F03.90 Unspecified dementia, unspecified severity, without behavioral disturbance, psychotic disturbance, mood disturbance, and anxiety (principal); E87.1 Hypo-osmolality and hyponatremia; R56.9 Unspecified convulsions; R41.82 Altered mental status, unspecified; R55 Syncope and collapse; I48.91 Unspecified atrial fibrillation; E78.00 Pure hypercholesterolemia, unspecified; I10 Essential (primary) hypertension; I25.2 Old myocardial infarction; Z88.2 Allergy status to sulfonamides; Z88.0 Allergy status to penicillin; Z86.73 Personal history of transient ischemic attack (TIA), and cerebral infarction without residual deficits; Z79.02 Long term (current) use of antithrombotics/antiplatelets; E03.9 Hypothyroidism, unspecified; Z90.710 Acquired absence of both cervix and uterus
CPT/HCPCS: 93005; 99284; 96361; 96365; 36415; 82962; 80307 ×2; 83735; 85025; 80053; 81001; 70450; 93010; J7030; J1953

== ENCOUNTER 2018-08-15 10:13 | Inpatient (IN) | payer MEDICARE, MEDICAID ==
[2018-08-15] MEDS ORDERED: NORMAL SALINE 1000 ML 1,000 ML IV ONE (10:44)
[2018-08-15 11:10] LABS: APPEARANCE,URINE SLIGHTLY-CLOUDY; BILIRUBIN,URINE NEGATIVE (NEGATIVE); COLOR,URINE YELLOW; GLUCOSE, URINE NEGATIVE (NEGATIVE); KETONES,URINE TRACE mg/dL (NEGATIVE); LEUKOCYTE ESTERASE,URINE TRACE (NEGATIVE); NITRITE,URINE NEGATIVE (NEGATIVE); PROTEIN,URINE NEGATIVE (NEGATIVE); URINE SPECIFIC GRAVITY 1.017; UROBILINOGEN,URINE NEGATIVE mg/dL (<2.0)
--- NOTE | 2018-08-15 11:31 | RADIOLOGY REPORT (SQ) ---
EXAM DESCRIPTION: CT HEAD WITHOUT COMPLETED DATE/TIME: 08/15/2018 11:17 am REASON FOR STUDY: altered, confused COMPARISON: 06/21/2018, 02/12/2018 TECHNIQUE: Axial images acquired through the brain without intravenous contrast. Images reviewed wi th bone, brain and subdural windows. Additional sagittal and coronal reconstructions were generated. Images stored on PACS. All CT scanners at this facility use dose modulation, iterative reconstruction, and/or weight based d osing when appropriate to reduce radiation dose to as low as reasonably achievable (ALARA). [facility]: Dose Right [facility]: CareDose [facility]: Dose Right [facility]: Teradose 4D [facility]: [employer] RADIATION DOSE: CT Rad equipment meets quality standard of care and radiation dose reduction techniq ues were employed. CTDIvol: 53.2 mGy. DLP: 1097 mGy-cm. mGy. LIMITATIONS: None. FINDINGS: VENTRICLES: Normal size and contour. CEREBRUM: No masses. No hemorrhage. No midline shift. No evidence for acute infarction. Extensive periventricular white matter hypodensity and remote prior infarctions of the left and right parietal lobes CEREBELLUM: No masses. No hemorrhage. No alteration of density. No evidence for acute infarction. EXTRAAXIAL SPACES: No fluid collections. No masses. ORBITS AND GLOBE: No intra- or extraconal masses. Normal contour of globe without masses. CALVARIUM: No fracture. PARANASAL SINUSES: No fluid or mucosal thickening. SOFT TISSUES: No mass or hematoma. OTHER: No other significant finding. IMPRESSION: No acute intracranial pathology. Small vessel white matter disease and prior infarction s of the left and right parietal lobes. Consider MRI to more sensitively evaluate for acute diffusio n restricting infarction if suspected. EVIDENCE OF ACUTE STROKE: NO. COMMENT: Quality ID # [id number]: Final reports with documentation of one or more dose reduction techniques (e.g., Automated exposure control, adjustment of the mA and/or kV according to patient size, use of iterative reconstruction technique) TECHNICAL DOCUMENTATION: JOB ID: [id number] [employer]- All Rights Reserved Reading location - IP/workstation name: [email or web address]
--- NOTE | 2018-08-15 11:33 | RADIOLOGY REPORT (SQ) ---
EXAM DESCRIPTION: CHEST 2 VIEWS COMPLETED DATE/TIME: 08/15/2018 11:23 am REASON FOR STUDY: altered mental status COMPARISON: 06/07/2018 EXAM PARAMETERS: NUMBER OF VIEWS: two views TECHNIQUE: Digital Frontal and Lateral radiographic views of the chest acquired. RADIATION DOSE: NA LIMITATIONS: none FINDINGS: LUNGS AND PLEURA: No opacities, masses or pneumothorax. No pleural effusion. MEDIASTINUM AND HILAR STRUCTURES: No masses or contour abnormalities. HEART AND VASCULAR STRUCTURES: Cardiomegaly. BONES: Unchanged fracture deformities of the lateral left ribs. HARDWARE: None in the chest. OTHER: No other significant finding. IMPRESSION: No acute abnormality of the lungs. Cardiomegaly. Unchanged fracture deformities of the lateral left ribs. TECHNICAL DOCUMENTATION: JOB ID: [id number] [employer]- All Rights Reserved Reading location - IP/workstation name: [email or web address]
[2018-08-15 12:00] LABS: ABSOLUTE BASOPHILS # (AUTO) 0.1 10^3/uL (0.0-0.2); ABSOLUTE LYMPHOCYTES (AUTO) 0.8 10^3/uL (0.5-4.7); ABSOLUTE MONOCYTES (AUTO) 0.7 10^3/uL (0.1-1.4); ABSOLUTE NEUT (AUTO) 4.3 10^3/uL (1.7-8.2); BASOPHILS % (AUTO) 1.1 % (0-2); EOSINOPHILS % (AUTO) 0.6 % (0-6); HEMATOCRIT 37.3 % (36.0-47.0); HEMOGLOBIN 12.5 g/dL (12.0-15.5); MEAN CORPUSCULAR HEMOGLOBIN 32.1 pg (27.0-33.4); MEAN CORPUSCULAR HGB CONC 33.6 g/dL (32.0-36.0); MEAN CORPUSCULAR VOLUME 96 fl (80-97); MONOCYTES % (AUTO) 12.1 % (3-13); PLATELET COUNT 260 10^3/uL (150-450); RED CELL DISTRIBUTION WIDTH 15.9 % (11.5-14.0); SEGMENTED NEUTROPHILS % (AUTO) 73.2 % (42-78); TOTAL CELLS COUNTED % (AUTO) 100 %; VENOUS BLOOD BASE EXCESS 0.3 mmol/L; VENOUS BLOOD HCO3 24.9 mmol/L (20-32); VENOUS BLOOD PCO2 40.1 mmHg (35-63); VENOUS BLOOD PH 7.41 (7.30-7.42); WHITE BLOOD COUNT 5.8 10^3/uL (4.0-10.5)
[2018-08-15 12:02] LABS: INTERNATIONAL RATION (INR) 1.39; PROTHROMBIN TIME 17.2 SEC (11.4-15.4)
[2018-08-15 12:21] LABS: ALANINE AMINOTRANSFERASE 29 U/L (9-52); ALBUMIN 4.6 g/dL (3.5-5.0); ALKALINE PHOSPHATASE 175 U/L (38-126); ANION GAP 11 (5-19); ASPARTATE AMINO TRANSFERASE 46 U/L (14-36); BILIRUBIN,DIRECT 0.2 mg/dL (0.0-0.4); BILIRUBIN,TOTAL 2.5 mg/dL (0.2-1.3); BLOOD UREA NITROGEN 16 mg/dL (7-20); CALCIUM 9.1 mg/dL (8.4-10.2); CARBON DIOXIDE 26 mmol/L (22-30); CHLORIDE 99 mmol/L (98-107); CREATINE KINASE 278 U/L (30-135); GLUCOSE 122 mg/dL (75-110); POTASSIUM 3.9 mmol/L (3.6-5.0); SODIUM 136.2 mmol/L (137-145); TOTAL PROTEIN 7.9 g/dL (6.3-8.2)
[2018-08-15 12:27] LABS: ALCOHOL < 10 mg/dL (NONE DETECTED)
[2018-08-15 12:33] LABS: CREATINE KINASE MB 1.35 ng/mL (<4.55)
[2018-08-15 12:34] LABS: TROPONIN I < 0.012 ng/mL
[2018-08-15 12:37] LABS: FREE T3 2.96 pg/mL (2.77-5.27); FREE T4 (FREE THYROXINE) 1.32 ng/dL (0.78-2.19)
[2018-08-15 12:50] LABS: THYROID STIMULATING HORMONE 2.9 uIU/mL (0.47-4.68)
[2018-08-15] MEDS ORDERED: CEFTRIAXONE 1 GM/D5W RTU 1 GM/50 ML RTUPB IV ONE (14:49)
--- NOTE | 2018-08-15 17:09 | ER Document Report ---
Entered by PRITESH CLARK SCRIBE 08/15/18 1045 Acting as scribe for:KANG WRIGHT DO ED General - General Chief Complaint: Medical Complaint Stated Complaint: WEAKNESS Time Seen by Provider: 08/15/18 10:22 Primary Care Provider: CECY MEREDITH MD [Primary Care Provider] - Follow up as needed Mode of Arrival: Ambulatory Notes: 72 year old female that is brought to the emergency department by EMS with complaints of "I do not know". Patient appears to be altered as the only thing she really states is "I don't know" and the word "doctor". According to EMS, the patient was able to ambulate from her wheelchair to their stretcher without difficulty. According to EMS they were called out yesterday for the patient "not feeling well" but she refused transport at that time. History is limited and EMS provides no further details about her complaint. Patient does additionally mention that she is cold. TRAVEL OUTSIDE OF THE [place] IN LAST 30 DAYS: No - Related Data Allergies/Adverse Reactions: Penicillins Allergy (Mild, Verified 02/12/18 16:50) rash Sulfa (Sulfonamide Antibiotics) Allergy (Mild, Verified 02/12/18 16:52) Skin Redness Past Medical History - General Information source: Patient - Social History Smoking Status: Never Smoker Cigarette use (# per day): No Chew tobacco use (# tins/day): No Frequency of alcohol use: None Drug Abuse: None Lives with: Family Family History: Reviewed & Not Pertinent Patient has suicidal ideation: No Patient has homicidal ideation: No - Past Medical History Cardiac Medical History: Reports: Hx Atrial Fibrillation, Hx Heart Attack - mild, Hx Hypercholesterolemia, Hx Hypertension Neurological Medical History: Reports: Hx Cerebrovascular Accident - 01/20 , Hx Seizures Endocrine Medical History: Reports: Hx Hypothyroidism Malignancy Medical History: GI Medical History: Reports: Hx Gastroesophageal Reflux Disease - occ. takes Omeprazole PRN Musculoskeletal Medical History: Reports Hx Arthritis Psychiatric Medical History: Reports: Hx Dementia, Hx Depression Traumatic Medical History: Reports: Hx Fractures - 2nd toe on right Past Surgical History: Reports: Hx Appendectomy, Hx Hysterectomy, Hx Orthopedic Surgery - right rotator cuff - Immunizations Hx Diphtheria, Pertussis, Tetanus Vaccination: No Hx Pneumococcal Vaccination: 12/06/17 Review of Systems - Review of Systems -: Yes ROS unobtainable due to patient's medical condition Physical Exam - Vital signs Vitals: Temp Pulse Resp BP Pulse Ox 98.4 F 83 18 137/51 H 98 08/15/18 12:32 08/15/18 12:32 08/15/18 12:32 08/15/18 12:32 08/15/18 12:32 - Notes Notes: PHYSICAL EXAM GENERAL: Unable to answer questions, repeats "I dont know" and other random words such as "Doctor". Spontaneous movement of all four extremities. Able to sit up but falls backwards on to her back when not assisted. Appears somewhat irritated. Speech is not slurred. HEAD: Normocephalic, atraumatic. EYES: Pupils equal, round, and reactive to light. Extraocular movements intact. ENT: Oral mucosa moist, tongue midline. NECK: Full range of motion. Supple. Trachea midline. LUNGS: Clear to auscultation bilaterally, no wheezes, rales, or rhonchi. No respiratory distress. HEART: 1/6 systolic ejection murmur. Regular rate and rhythm. No murmurs, gallops, or rubs. ABDOMEN: Soft, non-tender. Non-distended. Bowel sounds present in all 4 quadrants. No guarding, rigidity, or rebound. EXTREMITIES: Moves all 4 extremities spontaneously. No edema, radial and dorsalis pedis pulses 2/4 bilaterally. No cyanosis. 5/5 bilateral upper extremity strength. Does not follow commands with lower extremity strength testing but does move feet/toes voluntarily as well as withdrawal from noxious stimuli of the feet. NEUROLOGICAL: See general exam SKIN: Warm, dry, normal turgor. No rashes or lesions noted. Course - Re-evaluation Re-evalutation: 08/15/18 14:47 Patient able to ambulate to bedside commode without difficulty 08/15/18 17:06 CBC unremarkable, INR somewhat prolonged at 1.39, venous blood gas unremarkable, CMP shows slight low sodium 136.2, glucose mildly elevated 122, alkaline phosphatase elevated 175, ammonia undetectable, cardiac enzymes negative, urinalysis shows trace ketones and trace leukocyte esterase, 3+ bacteria and 8 squamous epithelial cells. Will be treated with Rocephin given her delirium. Serum alcohol less than 10. Head CT does not show any acute process, chest x- ray does not show any acute process. Patient is actually presented similarly in the past with urinary tract infection and altered mental status. Urine and blood have been sent for cultures. Discussed with Dr. Stevens who is covering for Dr. Meredith that at this point I am not 100% certain that her altered mental status is coming from her urinary tract infection however she does not fit a focal stroke syndrome at the time and her CT scan of the head is negative. Discussed with him admission for further observation of her mental status and to see what effect the Rocephin has and to allow the cultures to grow. He is agreeable to this plan at this time. I did recheck the patient several times and she has steadily improved every time I have checked her however this most recent time that I spoke with her while she was able to tell me that she did call EMS she could not tell me why she continues to complain that she is cold and she continues to have some difficulty with word finding, patient states "I need the doctor I need somebody to call the doctor who takes care of me at home I cannot find my doctor may need to go to the doctor could you please call my doctor who takes care of me." But she cannot tell me why she needs to see a doctor nor does she acknowledge the fact that I have introduced myself as the physician several times. While a few minutes later patient is able to tell me very clearly "I am hungry are they going to feed me or give me something to eat at some point." - Vital Signs Vital signs: Temp Pulse Resp BP Pulse Ox 98.4 F 83 18 137/51 H 98 08/15/18 12:32 08/15/18 12:32 08/15/18 12:32 08/15/18 12:32 08/15/18 12:32 - Laboratory Result Diagrams: 08/15/18 11:33 08/15/18 11:33 Laboratory results interpreted by me: 08/15/18 08/15/18 08/15/18 10:57 11:28 11:33 RDW 15.9 H PT Sodium Est GFR (Non-Af Amer) Glucose POC Glucose 118 H Total Bilirubin AST Alkaline Phosphatase Ammonia Creatine Kinase Urine Ketones TRACE H Ur Leukocyte Esterase TRACE H 08/15/18 08/15/18 08/15/18 11:33 11:33 13:34 RDW PT 17.2 H Sodium 136.2 L Est GFR (Non-Af Amer) 54 L Glucose 122 H POC Glucose Total Bilirubin 2.5 H AST 46 H Alkaline Phosphatase 175 H Ammonia < 8.7 L Creatine Kinase 278 H Urine Ketones Ur Leukocyte Esterase - EKG Interpretation by Me Additional EKG results interpreted by me: 08/15/18 17:08 EKG shows atrial fibrillation at a rate of 74, left axis deviation, normal intervals, no ST segment elevations or depressions, T wave flattening noted in lead I and aVL per my interpretation. Discharge - Discharge Clinical Impression: Urinary tract infection Qualifiers: Urinary tract infection type: acute cystitis Hematuria presence: without hematuria Qualified Code(s): N30.00 - Acute cystitis without hematuria Altered mental status Qualifiers: Altered mental status type: disorientation Qualified Code(s): R41.0 - Disorientation, unspecified Condition: Fair Disposition: ADMITTED INPATIENT Admitting Provider: [facility] Unit Admitted: [facility] Referrals: CECY MEREDITH MD [Primary Care Provider] - Follow up as needed I personally performed the services described in the documentation, reviewed and edited the documentation which was dictated to the scribe in my presence, and it accurately records my words and actions.
--- NOTE | 2018-08-15 20:03 | EKG REPORT ---
SEVERITY:- ABNORMAL ECG - ATRIAL FIBRILLATION : Confirmed by: Joann Love MD 15-Aug-2018 20:02:19
[2018-08-15] MEDS ORDERED: ASPIRIN/DIPYRIDAMOLE 25-200 MG 1 CAP.SR CPMP.12HR PO SCH (20:30)
[2018-08-15] MEDS ORDERED: (PENDING PHARMACY ID) (Fluticasone/Salmeterol 1 PUFF) IH SCH (22:00)
[2018-08-15] MEDS ORDERED: ATORVASTATIN CALCIUM 80 MG TABLET PO SCH (22:00)
[2018-08-15] MEDS: FLUTICASONE NASAL SPRAY 50 MCG/SPRY 120 SPRAY/16 GM NASL SCH ×2 (23:24→23:25)
[2018-08-15] MEDS: DULOXETINE HCL 20 MG CAPSULE.DR PO SCH (23:38)
[2018-08-15] MEDS: ACETAMINOPHEN 325 MG TABLET PO PRN (23:38)
[2018-08-15] MEDS: AMLODIPINE BESYLATE 10 MG TABLET PO SCH (23:38)
[2018-08-15] MEDS: FUROSEMIDE 20 MG TABLET PO SCH (23:39)
[2018-08-15] MEDS: ATORVASTATIN CALCIUM 40 MG TABLET PO SCH (23:39)
[2018-08-16 01:09] LABS: CREATINE KINASE MB 0.87 ng/mL (<4.55)
[2018-08-16 01:12] LABS: TROPONIN I < 0.012 ng/mL
[2018-08-16] MEDS: LEVOTHYROXINE SODIUM 0.05 MG TABLET PO SCH (05:21)
[2018-08-16 07:24] LABS: CREATINE KINASE MB 0.57 ng/mL (<4.55)
[2018-08-16 07:26] LABS: TROPONIN I < 0.012 ng/mL
[2018-08-16] MEDS ORDERED: APIXABAN 5 MG TABLET PO SCH (10:00)
--- NOTE | 2018-08-16 10:27 | RADIOLOGY REPORT (SQ) ---
EXAM DESCRIPTION: CAROTID DOPPLER COMPLETED DATE/TIME: 08/16/2018 10:10 am REASON FOR STUDY: CVA COMPARISON: 12/04/2016 TECHNIQUE: Grayscale ultrasound, Doppler velocity and spectra, and color Doppler images acquired of the extra-cranial carotid and vertebral arteries. Images stored on PACS. LIMITATIONS: None. FINDINGS: RIGHT CAROTID CCA Velocities: Within normal limits. ICA Velocities Peak systolic 0.50 m/s. End diastolic 0.12 m/s. Proximal ICA/CCA peak systolic ratio 1.3. Mild plaque proximal ICA. LEFT CAROTID CCA Velocities: Within normal limits. ICA Velocities Peak systolic 0.68 m/s. End diastolic 0.13 m/s. Proximal ICA/CCA peak systolic ratio 1.2. Mild plaque in the bulb. VERTEBRAL ARTERIES: Antegrade flow. Normal waveforms. SUBCLAVIAN ARTERIES: Not imaged. OTHER: No other significant finding. IMPRESSION: NO HEMODYNAMICALLY SIGNIFICANT STENOSIS. COMMENT: Quality ID #[id number]: Velocity criteria are extrapolated from the diameter data as defined by t he Society of Radiologists in Ultrasound Consensus Conference. Radiology 2003: 229; 340-346. TECHNICAL DOCUMENTATION: JOB ID: [id number] [employer]- All Rights Reserved Reading location - IP/workstation name: [email or web address]
[2018-08-16] MEDS: FLUTICASONE/VILANTEROL 200-25 MCG/DOSE IH SCH (12:21)
[2018-08-16] MEDS: SPIRONOLACTONE 25 MG TABLET PO SCH (12:23)
[2018-08-16] MEDS: FUROSEMIDE 20 MG TABLET PO SCH (12:23)
--- NOTE | 2018-08-16 12:23 | RADIOLOGY REPORT (SQ) ---
EXAM DESCRIPTION: MRI HEAD WITHOUT COMPLETED DATE/TIME: 08/16/2018 12:08 pm REASON FOR STUDY: TIA COMPARISON: None. TECHNIQUE: Multiplanar imaging includes non-contrasted T1, T2, FLAIR, and diffusion with ADC map seq uences. Images stored on PACS. LIMITATIONS: None. FINDINGS: ANATOMY: No anomalies. Normal vascular flow voids. Pituitary fossa normal. CSF SPACES: Atrophy induced prominence of ventricles and CSF spaces. CEREBRUM: High signal intensity lesions scattered throughout the white matter on FLAIR imaging with d istribution suggesting micro-vascular ischemic changes. No evidence of hemorrhage, mass, or extraaxi al fluid collection. POSTERIOR FOSSA: No signal alteration. No hemorrhage. No edema, masses or mass effect. Internal marylou tory canals, cerebello-pontine angles, mastoids normal. DIFFUSION IMAGING: Negative for acute or sub-acute infarction. ORBITS: No masses. Globes normal. PARANASAL SINUSES: No fluid levels. Mucosa normal. OTHER: No other significant finding. IMPRESSION: Chronic ischemic changes. EVIDENCE OF ACUTE STROKE: NO. TECHNICAL DOCUMENTATION: JOB ID: [id number] [employer]- All Rights Reserved Reading location - IP/workstation name: [email or web address]
[2018-08-16] MEDS: ASPIRIN 81 MG TABLET, ENT COATED PO SCH (12:24)
[2018-08-16] MEDS: DULOXETINE HCL 20 MG CAPSULE.DR PO SCH (12:24)
[2018-08-16] MEDS: FLUTICASONE NASAL SPRAY 50 MCG/SPRY 120 SPRAY/16 GM NASL SCH ×2 (12:25→18:30)
[2018-08-16] MEDS: PANTOPRAZOLE SODIUM 20 MG TABLET.DR PO SCH (12:25)
[2018-08-16 13:41] LABS: CREATINE KINASE MB 0.78 ng/mL (<4.55)
[2018-08-16 13:47] LABS: TROPONIN I < 0.012 ng/mL
[2018-08-16] MEDS: AMLODIPINE BESYLATE 10 MG TABLET PO SCH (15:49)
[2018-08-16] MEDS: ISOSORBIDE MONONITRATE 30 MG TAB.ER.24H PO SCH (15:49)
[2018-08-16] MEDS: ACETAMINOPHEN 325 MG TABLET PO PRN (15:51)
--- NOTE | 2018-08-16 21:19 | PDOC H&P ---
History of Present Illness Admission Date/PCP: 08/15/18 17:48 CECY CAMARENA MD History of Present Illness: JOSE ESPINAL is a 72 year old female, She came to the emergency room for evaluation, the history is very sketchy, I reviewed the ED physician notes, based on the notes she stated that patient could not state why she was brought to emergency room by EMS, went she was asked what the problem was patient stated "I do not know". She apparently was confused when she came to emergency room the exact etiology of the confusion is not clear the emergency room physician felt UTI could be a potential etiology for the confusion so she gave a dose of Rocephin in the ER.The other potential differential diagnosis include transient ischemic attack. The initial CAT scan of the brain that was done was negative for any acute pathology.When I saw this patient, she was awake alert when I asked why she came to the emergency room she stated that her blood pressure was low, she called the rescue squad, the rescue squad then brought out to the emergency room for evaluation. She has a history of chronic atrial fibrillation she is on Eliquis but she is on once a day Eliquis, Eliquis is dose twice daily so she is probably not getting adequate stroke prophylaxis from the Eliquis dosing that she is presently on. She was admitted for observation and evaluation of her symptoms, she is brought here for TIA management, though there was no focal deficit but there was global cognitive impairment gout who be part of TIA symptomatology, the UTI could also be contributing to the global cog nitive impairment. The urine culture is growing gram-negative radha with significant colony count. She received a dose of Rocephin in the ER last night, she has a history of penicillin allergy, she will be treated consequently with fluoroquinolone, Levaquin.The MRI that was done showed chronic ischemic changes there is no acute stroke, carotid Doppler was negative Past Medical History Cardiac Medical History: Reports: Atrial Fibrillation, Myocardial Infarction - mild, Hyperlipidema, Hypertension Neurological Medical History: Reports: Seizures Endocrine Medical History: Reports: Hypothyroidism Malignancy Medical History: GI Medical History: Reports: Gastroesophageal Reflux Disease - occ. takes Omeprazole PRN Musculoskeltal Medical History: Reports: Arthritis Psychiatric Medical History: Reports: Dementia, Depression Infectious Medical History: Denies: HIV Past Surgical History Past Surgical History: Reports: Appendectomy, Hysterectomy, Orthopedic Surgery - right rotator cuff Social History Lives with: Family Smoking Status: Unknown if Ever Smoked Frequency of Alcohol Use: None Hx Recreational Drug Use: No Drugs: None Hx Prescription Drug Abuse: No Family History Family History: Reviewed & Not Pertinent Parental Family History Reviewed: Yes Children Family History Reviewed: Yes Sibling(s) Family History Reviewed.: Yes Medication/Allergy Home Medications: Amlodipine Besylate [Norvasc 10 mg Tablet] 10 mg PO DAILY 08/15/18 Apixaban [Eliquis 5 mg Tablet] 5 mg PO DAILY 08/15/18 Aspirin [Ecotrin 81 mg EC Tablet] 81 mg PO DAILY 08/15/18 Atorvastatin Calcium [Lipitor 40 mg Tablet] 40 mg PO QHS 08/15/18 Cyclobenzaprine HCl [Flexeril 5 mg Tablet] 5 mg PO DAILY 08/15/18 Duloxetine HCl [Cymbalta 20 mg Capsule.dr] 20 mg PO DAILY 08/15/18 Fluticasone Propionate [Flonase Nasal [place] 50 Mcg/[place] 16 gm] 1 spray NASL BID 08/15/18 Fluticasone/Salmeterol [Advair 250-50 Diskus 14 Dose/Diskus] 1 puff IH Q12 08/15/18 Furosemide [Lasix 20 mg Tablet] 20 mg PO DAILY 08/15/18 Isosorbide Mononitrate [Imdur 30 mg Tablet.er] 30 mg PO DAILY 08/15/18 Levothyroxine Sodium [Synthroid 0.05 mg Tablet] 50 mcg PO Q6AM 08/15/18 Omeprazole 20 mg PO DAILY 08/15/18 Spironolactone [Aldactone 25 mg Tablet] 12.5 mg PO DAILY 08/15/18 Allergies/Adverse Reactions: Penicillins Allergy (Mild, Verified 02/12/18 16:50) rash Sulfa (Sulfonamide Antibiotics) Allergy (Mild, Verified 02/12/18 16:52) Skin Redness Review of Systems ROS unobtainable: Due to mental status Physical Exam Vital Signs: Temp Pulse Resp BP Pulse Ox 98.1 F 58 L 18 118/52 L 93 08/16/18 18:57 08/16/18 18:57 08/16/18 18:57 08/16/18 18:57 08/16/18 18:57 Intake & Output 08/15/18 08/16/18 08/17/18 06:59 06:59 06:59 Intake Total 1050 580 Output Total 200 240 Balance 850 340 Weight 65.1 kg General appearance: PRESENT: no acute distress Head exam: PRESENT: atraumatic, normocephalic Eye exam: PRESENT: PERRLA Ear exam: PRESENT: normal external ear exam Mouth exam: PRESENT: moist, tongue midline Neck exam: PRESENT: full ROM Respiratory exam: PRESENT: clear to auscultation jordin Cardiovascular exam: PRESENT: RRR, +S1, +S2 Pulses: PRESENT: normal dorsalis pedis pul, +2 pedal pulses bilateral Vascular exam: PRESENT: normal capillary refill GI/Abdominal exam: PRESENT: normal bowel sounds, soft Rectal exam: PRESENT: deferred Neurological exam: PRESENT: alert, CN II-XII grossly intact Psychiatric exam: PRESENT: appropriate affect, normal mood Skin exam: PRESENT: dry, intact, warm Results Laboratory Results: 08/15/18 11:33 08/15/18 11:33 08/15/18 08/15/18 08/16/18 11:33 11:33 00:21 Creatine Kinase 278 H 207 H CK-MB (CK-2) 1.35 Troponin I < 0.012 08/16/18 08/16/18 08/16/18 00:21 06:18 06:18 Creatine Kinase 167 H CK-MB (CK-2) 0.87 0.57 Troponin I < 0.012 < 0.012 08/16/18 08/16/18 13:00 13:00 Creatine Kinase 191 H CK-MB (CK-2) 0.78 Troponin I < 0.012 Impressions: Chest X-Ray 08/15/18 10:45 IMPRESSION: No acute abnormality of the lungs. Cardiomegaly. Unchanged fractu re deformities of the lateral left ribs. Head CT 08/15/18 10:58 IMPRESSION: No acute intracranial pathology. 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 Consider MRI to more sensitively evaluate for acute diffusion restricting infarction if suspected. EVIDENCE OF ACUTE STROKE: NO. Carotid Doppler Study 08/16/18 00:00 IMPRESSION: NO HEMODYNAMICALLY SIGNIFICANT STENOSIS. Head MRI 08/16/18 00:00 IMPRESSION: Chronic ischemic changes. EVIDENCE OF ACUTE STROKE: NO. Assessment & Plan - Diagnosis (1) Transient ischemic attack (TIA) Qualifiers: Transient cerebral ischemia type: unspecified Qualified Code(s): G45.9 - Transient cerebral ischemic attack, unspecified Is this a current diagnosis for this admission?: Yes Plan: She probably have TIA, she is not to have a anticoagulated on present dosing of Eliquis, Eliquis is a twice daily dosing but she is presently on once a day dosing this to be changed to twice daily (2) Chronic atrial fibrillation Is this a current diagnosis for this admission?: Yes (3) UTI (urinary tract infection) Qualifiers: Urinary tract infection type: acute cystitis Hematuria presence: without hematuria Qualified Code(s): N30.00 - Acute cystitis without hematuria Is this a current diagnosis for this admission?: Yes Plan: Treat with antibiotic
[2018-08-16] MEDS ORDERED: LEVOFLOXACIN 750 MG/D5W RTU 750 MG/150 ML RTUPB IV SCH (22:00)
[2018-08-16] MEDS: ATORVASTATIN CALCIUM 40 MG TABLET PO SCH (22:00)
--- NOTE | 2018-08-16 22:36 | EKG REPORT ---
SEVERITY:- ABNORMAL ECG - ATRIAL FIBRILLATION VENTRICULAR PREMATURE COMPLEX BORDERLINE LEFT AXIS DEVIATION : Confirmed by: Joann Love MD 16-Aug-2018 22:36:12
[2018-08-17] MEDS: LEVOTHYROXINE SODIUM 0.05 MG TABLET PO SCH (06:42)
[2018-08-17 08:37] VITALS: BP 117/54
[2018-08-17] MEDS ORDERED: APIXABAN 5 MG TABLET PO SCH (10:00)
[2018-08-17] MEDS: AMLODIPINE BESYLATE 10 MG TABLET PO SCH (10:20)
[2018-08-17] MEDS: ASPIRIN 81 MG TABLET, ENT COATED PO SCH (10:20)
[2018-08-17] MEDS: FUROSEMIDE 20 MG TABLET PO SCH (10:21)
[2018-08-17] MEDS: PANTOPRAZOLE SODIUM 20 MG TABLET.DR PO SCH (10:21)
[2018-08-17] MEDS: DULOXETINE HCL 20 MG CAPSULE.DR PO SCH (10:21)
[2018-08-17] MEDS: SPIRONOLACTONE 25 MG TABLET PO SCH (10:21)
[2018-08-17] MEDS: ISOSORBIDE MONONITRATE 30 MG TAB.ER.24H PO SCH (10:21)
[2018-08-17] MEDS: ACETAMINOPHEN 325 MG TABLET PO PRN (10:23)
[2018-08-17] MEDS: FLUTICASONE/VILANTEROL 200-25 MCG/DOSE IH SCH (10:24)
[2018-08-17] MEDS: FLUTICASONE NASAL SPRAY 50 MCG/SPRY 120 SPRAY/16 GM NASL SCH (10:24)
--- NOTE | 2018-08-17 11:22 | PDOC DISCHARGE SUMMARY ---
General - Admit/Disc Date/PCP Admission Date/Primary Care Provider: 08/15/18 17:48 CECY CAMARENA MD Discharge Date: 08/17/18 - Discharge Diagnosis (1) Transient ischemic attack (TIA) Is this a current diagnosis for this admission?: Yes (2) Chronic atrial fibrillation Is this a current diagnosis for this admission?: Yes (3) E. coli UTI Is this a current diagnosis for this admission?: Yes (4) Chronic systolic (congestive) heart failure Is this a current diagnosis for this admission?: Yes - Additional Information Prescriptions: Apixaban [Eliquis 5 mg Tablet] 5 mg PO BID #60 tablet Levofloxacin [Levaquin 750 mg Tablet] 750 mg PO DAILY #7 tab Home Medications: Amlodipine Besylate [Norvasc 10 mg Tablet] 10 mg PO DAILY 08/15/18 Aspirin [Ecotrin 81 mg EC Tablet] 81 mg PO DAILY 08/15/18 Atorvastatin Calcium [Lipitor 40 mg Tablet] 40 mg PO QHS 08/15/18 Duloxetine HCl [Cymbalta 20 mg Capsule.dr] 20 mg PO DAILY 08/15/18 Fluticasone Propionate [Flonase Nasal [place] 50 Mcg/[place] 16 gm] 1 spray NASL BID 08/15/18 Fluticasone/Salmeterol [Advair 250-50 Diskus 14 Dose/Diskus] 1 puff IH Q12 08/15/18 Furosemide [Lasix 20 mg Tablet] 20 mg PO DAILY 08/15/18 Isosorbide Mononitrate [Imdur 30 mg Tablet.er] 30 mg PO DAILY 08/15/18 Levothyroxine Sodium [Synthroid 0.05 mg Tablet] 50 mcg PO Q6AM 08/15/18 Omeprazole 20 mg PO DAILY 08/15/18 Spironolactone [Aldactone 25 mg Tablet] 12.5 mg PO DAILY 08/15/18 Acetaminophen [Tylenol 325 mg Tablet] 650 mg PO Q4HP PRN tablet 08/17/18 Apixaban [Eliquis 5 mg Tablet] 5 mg PO BID #60 tablet 08/17/18 Levofloxacin [Levaquin 750 mg Tablet] 750 mg PO DAILY #7 tab 08/17/18 History of Present Illness History of Present Illness: JOSE ESPINAL is a 72 year old female, She came to the emergency room for evaluation, the history is very sketchy, I reviewed the ED physician notes, based on the notes she stated that patient could not state why she was brought to emergency room by EMS, went she was asked what the problem was patient stated "I do not know". She apparently was confused when she came to emergency room the exact etiology of the confusion is not clear the emergency room physician felt UTI could be a potential etiology for the confusion so she gave a dose of Rocephin in the ER.The other potential differential diagnosis include transient ischemic attack. The initial CAT scan of the brain that was done was negative for any acute pathology.When I saw this patient, she was awake alert when I asked why she came to the emergency room she stated that her blood pressure was low, she called the rescue squad, the rescue squad then brought out to the emergency room for evaluation. She has a history of chronic atrial fibrillation she is on Eliquis but she is on once a day Eliquis, Eliquis is dose twice daily so she is probably not getting adequate stroke prophylaxis from the Eliquis dosing that she is presently on. She was admitted for observation and evaluation of her symptoms, she is brought here for TIA management, though there was no focal deficit but there was global cognitive impairment gout who be part of TIA symptomatology, the UTI could also be contributing to the global cognitive impairment. The urine culture is growing gram-negative radha with significant colony count. She received a dose of Rocephin in the ER last night, she has a history of penicillin allergy, she will be treated consequently with fluoroquinolone, Levaquin.The MRI that was done showed chronic ischemic changes there is no acute stroke, carotid Doppler was negative Hospital Course Hospital Course: Patient was admitted for the management of acute confusion, UTI, TIA. The urine culture grew E. coli pansensitive to all antibiotic, she was managed for TIA per protocol she has chronic atrial fibrillation on anticoagulant with Eliquis, she takes Eliquis once a day, it is normally dose twice daily, it was felt that she probably was not well anticoagulated, the Eliquis dose was changed to twice daily Physical Exam Vital Signs: Temp Pulse Resp BP Pulse Ox 97.2 F 69 16 117/54 L 94 08/17/18 07:52 08/17/18 07:52 08/17/18 07:52 08/17/18 07:52 08/17/18 07:52 Intake & Output 08/16/18 08/17/18 08/18/18 06:59 06:59 06:59 Intake Total 1050 930 Output Total 200 490 Balance 850 440 Weight 65.1 kg 68 kg General appearance: PRESENT: no acute distress, well-developed, well-nourished Head exam: PRESENT: atraumatic, normocephalic Eye exam: PRESENT: conjunctiva pink, EOMI, PERRLA Ear exam: PRESENT: normal external ear exam Mouth exam: PRESENT: moist, tongue midline Neck exam: PRESENT: full ROM Respiratory exam: PRESENT: clear to auscultation jordin Cardiovascular exam: PRESENT: RRR, +S1, +S2 Pulses: PRESENT: normal dorsalis pedis pul, +2 pedal pulses bilateral Vascular exam: PRESENT: normal capillary refill GI/Abdominal exam: PRESENT: normal bowel sounds, soft Rectal exam: PRESENT: deferred Neurological exam: PRESENT: alert, awake, oriented to person, oriented to place, oriented to time, oriented to situation, CN II-XII grossly intact Psychiatric exam: PRESENT: appropriate affect, normal mood Skin exam: PRESENT: dry, intact, warm Results Laboratory Results: 08/15/18 11:33 08/15/18 11:33 08/15/18 10:57 Clean Catch Midstream Urine Culture - Final Escherichia Coli 08/15/18 08/15/18 08/16/18 11:33 11:33 00:21 Creatine Kinase 278 H 207 H CK-MB (CK-2) 1.35 Troponin I < 0.012 08/16/18 08/16/18 08/16/18 00:21 06:18 06:18 Creatine Kinase 167 H CK-MB (CK-2) 0.87 0.57 Troponin I < 0.012 < 0.012 08/16/18 08/16/18 13:00 13:00 Creatine Kinase 191 H CK-MB (CK-2) 0.78 Troponin I < 0.012 Impressions: Chest X-Ray 08/15/18 10:45 IMPRESSION: No acute abnormality of the lungs. Cardiomegaly. Unchanged fracture deformities of the lateral left ribs. Head CT 08/15/18 10:58 IMPRESSION: No acute intracranial pathology. 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 Consider MRI to more sensitively evaluate for acute diffusion restricting infarction if suspected. EVIDENCE OF ACUTE STROKE: NO. Carotid Doppler Study 08/16/18 00:00 IMPRESSION: NO HEMODYNAMICALLY SIGNIFICANT STENOSIS. Head MRI 08/16/18 00:00 IMPRESSION: Chronic ischemic changes. EVIDENCE OF ACUTE STROKE: NO. Qualifiers - * PATIENT BEING DISCHARGED WITH ANY OF THE FOLLOWING DIAGNOSIS: No VTE patient discharged on overlapping Therapy?: No Reason(s) for not prescribing Overlap Therapy:: Not indicated Stroke Pt being discharged on Anti-thrombolytic therapy?: No Reason(s) for not prescribing Anti-thrombolytic therapy:: Procedure Contraindi cated, Not indicated Stroke Pt being discharged on Anti-coagulation therapy?: No Reason(s) for not prescribing Anti-coagulation therapy:: Not indicated Stroke Pt being discharged on Statins?: No Reason(s) for not prescribing Statins therapy:: Not indicated ME Pt being discharged on Aspirin therapy?: No Reason(s) for not prescribing Aspirin therapy:: Not indicated ME Pt being discharged on Statins?: No Reason(s) for not prescribing Statin therapy:: Not indicated ME Pt discharged ACEI/ARBS?: No Reason(s) for not prescribing ACEI/ARBS:: Not indicated Acute Heart Failure - Is this a Heart Failure Patient?: No 3. Anticoagulant therapy for permanect/persistent/paraoxysmal Afib or Aflutter: N/A
--- NOTE | 2018-08-17 21:07 | XCELERA REPORT ---
[address] [address] Transthoracic Echocardiogram Report Name: JOSE ESPINAL Age: 72 yrs Gender: Female : 1945 Patient Status: Inpatient Patient Location: [address] [place], [place] [id number] Study Date: 08/16/2018 08:59 AM Height: 62 in Weight: 143 lb BSA: 1.7 m2 Procedure: A two-dimensional transthoracic echocardiogram with color flow and Doppler was performed. Study Quality: Fair. Reason For Study: CVA History: CVA. Ordering Physician: BIB GOODWIN Performed By: aFbiana Cotton Interpretation Summary There is no obvious cardiac source of embolus noted on this transthoracic echocardiogram. Follow-up with a [facility]ED[facility] is suggested if cardiac source is still suspected. CVA The left ventricle is normal in size. There is normal left ventricular wall thickness. LV EF is 60% Left ventricular systolic function is normal. LV diastolic function could not be adequately assessed due to atrial fibrilation. The left ventricular wall motion is normal. There is no thrombus. No ASD ,VSD ,or PFO seen The right ventricle is normal in size and function. The right atrium is normal. The left atrial size is normal. There is moderate mitral annular calcification. There is no evidence of mitral valve prolapse. There is no vegetation seen on the mitral valve. There is no mitral valve stenosis. There is a trace to mild amount of mitral regurgitation There is no aortic valvular vegetation. There is mild aortic stenosis There is a peak gradient of 17 mm of Hg. No hemodynamically significant valvular aortic stenosis. There is no LVOT obstruction. No aortic regurgitation is present. There is no tricuspid stenosis. There is a mild amount of tricuspid regurgitation There is mild pulmonary hypertension by echo RVSP is 38 to 43 mm of Hg , with RA mean of 5 to 10. There is no pulmonic valvular stenosis. There is no pulmonic valvular regurgitation. The aortic root is normal size. The inferior vena cava appeared normal and decreased > 50% with respiration (RAP 5-10 mmHg) There is no pericardial effusion. There is no obvious cardiac source of embolus noted on this transthoracic echocardiogram. Follow-up with a [facility]EDAD is suggested if cardiac source is still suspected MMode/2D Measurements & Calculations RVDd: 2.7 cm LVIDd: 5.1 cm FS: 22.1 % Ao root diam: 2.9 cm IVSd: 0.87 cm LVIDs: 3.9 cm EDV(Teich): Ao root area: LVPWd: 0.93 cm 122.0 ml 6.7 cm2 ESV(Teich): 67.9 ml EF(Teich): 44.4 % LVOT diam: 1.7 cm EDV(MOD-sp4): SV(MOD-sp4): LVOT area: 90.6 ml 51.4 ml ESV(MOD-sp4): 2.2 cm2 39.2 ml EF(MOD-sp4): 56.8 % Doppler Measurements & Calculations Ao V2 max: LV V1 max PG: SV(LVOT): PA V2 max: 205.9 cm/sec 1.9 mmHg 48.3 ml 99.4 cm/sec Ao max P.0 mmHg LV V1 mean PG: PA max P.9 mmHg Ao V2 mean: 2.2 mmHg 138.2 cm/sec LV V1 max: 49.1 cm/sec Ao mean P.9 mmHg Ao V2 VTI: 41.0 cm LV V1 mean: ALEX(I,D): 1.2 cm2 70.7 cm/sec ALEX(V,D): 0.53 cm2 LV V1 VTI: 21.6 cm LV dP/dt: 1252 mmHg/s TR max arleen: 279.6 cm/sec TR max P.3 mmHg Left Ventricle The left ventricle is normal in size. There is normal left ventricular wall thickness. LV EF is 60%. Left ventricular systolic function is normal. LV diastolic function could not be adequately assessed due to atrial fibrilation. The left ventricular wall motion is normal. There is no thrombus. No ASD ,VSD ,or PFO seen. Right Ventricle The right ventricle is normal in size and function. Atria The right atrium is normal. The left atrial size is normal. Mitral Valve There is moderate mitral annular calcification. There is no evidence of mitral valve prolapse. There is no vegetation seen on the mitral valve. There is no mitral valve stenosis. There is a trace to mild amount of mitral regurgitation. Aortic Valve There is no aortic valvular vegetation. There is mild aortic stenosis. There is a peak gradient of 17 mm of Hg. No hemodynamically significant valvular aortic stenosis. There is no LVOT obstruction. No aortic regurgitation is present. Tricuspid Valve There is no tricuspid stenosis. There is a mild amount of tricuspid regurgitation. There is mild pulmonary hypertension by echo. RVSP is 38 to 43 mm of Hg , with RA mean of 5 to 10. Pulmonic Valve There is no pulmonic valvular stenosis. There is no pulmonic valvular regurgitation. Great Vessels The aortic root is normal size. The inferior vena cava appeared normal and decreased > 50% with respiration (RAP 5-10 mmHg). Effusions There is no pericardial effusion. : BIB GOODWIN > Joann Love
== END 2018-08-17 12:09 | disposition home or self-care (01) | DRG 69 ==
LOC: ER 10:13 → EH 17:48 → 3N 22:28
PROVIDERS: ADMIT Internal Medicine; ATTEND Family Medicine
DX: G45.9 Transient cerebral ischemic attack, unspecified (principal); N39.0 Urinary tract infection, site not specified; I48.2 Chronic atrial fibrillation; B96.20 Unspecified Escherichia coli [E. coli] as the cause of diseases classified elsewhere; I25.2 Old myocardial infarction; E78.5 Hyperlipidemia, unspecified; E03.9 Hypothyroidism, unspecified; K21.9 Gastro-esophageal reflux disease without esophagitis; F03.90 Unspecified dementia, unspecified severity, without behavioral disturbance, psychotic disturbance, mood disturbance, and anxiety; F32.9 Major depressive disorder, single episode, unspecified; M19.90 Unspecified osteoarthritis, unspecified site; M10.9 Gout, unspecified; Z79.02 Long term (current) use of antithrombotics/antiplatelets; Z88.0 Allergy status to penicillin; Z79.899 Other long term (current) drug therapy; Z79.82 Long term (current) use of aspirin; Z88.2 Allergy status to sulfonamides
CPT/HCPCS: 36415; 70450; 70551; 71046; 80053; 80307; 81001; 82140; 82550; 82553; 82803; 82962; 83605; 84439; 84443; 84481; 84484; 85025; 85610; 87040; 87086; 87088; 87186; 93005; 93010; 93306; 93880; 96361; 96365; 99285; J0696; J1956; J3490; J7030

== ENCOUNTER 2018-10-19 16:52 | Inpatient (IN) | payer MEDICARE, MEDICAID ==
--- NOTE | 2018-10-19 17:19 | ER Document Report ---
ED Neuro Symptoms/Deficit - General Stated Complaint: ALTERED MENTAL STATUS Time Seen by Provider: 10/19/18 17:03 Mode of Arrival: Medic Information source: Transfer Record Cannot obtain history due to: Altered mental status Notes: EMS was called to patient's house for altered mental status and seizure activity. EMS then witnessed a second seizure and gave patient Versed. Patient does have a history of seizures. Patient presents awake but not responsive to verbal stimuli. EMS reported that they had a fever of 101 and gave her Tylenol prior to arrival. Upon patient's arrival to ER patient had an oral temperature taken was afebrile. Patient does have a history of previous CVA and TIA and does take Eliquis. TRAVEL OUTSIDE OF THE [place] IN LAST 30 DAYS: No - HPI Patient complains to provider of: Other - Altered mental status, seizure Onset: Just prior to arrival Duration: Continues in ED Baseline Cognitive: Alert but disoriented - Related Data Allergies/Adverse Reactions: Penicillins Allergy (Mild, Verified 02/12/18 16:50) rash Sulfa (Sulfonamide Antibiotics) Allergy (Mild, Verified 02/12/18 16:52) Skin Redness Past Medical History - General Information source: Transfer Record Cannot obtain history due to: Dementia, Altered mental status - Social History Smoking Status: Smoker,Current Status Unk Lives with: Family Family History: Reviewed & Not Pertinent - Past Medical History Cardiac Medical History: Reports: Hx Atrial Fibrillation, Hx Heart Attack - mild, Hx Hypercholesterolemia, Hx Hypertension Neurological Medical History: Reports: Hx Cerebrovascular Accident - 01/20 , Hx Seizures Endocrine Medical History: Reports: Hx Hypothyroidism Malignancy Medical History: GI Medical History: Reports: Hx Gastroesophageal Reflux Disease - occ. takes Omeprazole PRN Musculoskeletal Medical History: Reports Hx Arthritis Psychiatric Medical History: Reports: Hx Dementia, Hx Depression Traumatic Medical History: Reports: Hx Fractures - 2nd toe on right Past Surgical History: Reports: Hx Appendectomy, Hx Hysterectomy, Hx Orthopedic Surgery - right rotator cuff - Immunizations Hx Diphtheria, Pertussis, Tetanus Vaccination: No Hx Pneumococcal Vaccination: 12/06/17 Review of Systems - Review of Systems -: Yes ROS unobtainable due to patient's medical condition Physical Exam - Vital signs Vitals: Temp Pulse Resp BP Pulse Ox 98.3 F 76 18 130/63 H 100 10/19/18 16:55 10/19/18 16:55 10/19/18 16:55 10/19/18 16:55 10/19/18 16:55 - General General appearance: Unresponsive In distress: Moderate - HEENT Head: Normocephalic Eyes: Normal Eyelashes: Normal Pupils: PERRL Nasal: Normal Mucous membranes: Normal Neck: Normal, Supple - Respiratory Respiratory status: No respiratory distress Chest status: Nontender Breath sounds: Rales - RLL. No: Rhonchi, Stridor, Wheezing Chest palpation: Normal - Cardiovascular Rhythm: Regular Heart sounds: S1 appreciated, S2 appreciated - Abdominal Inspection: Normal Distension: No distension Tenderness: Nontender - Back Back: Normal - Extremities General upper extremity: Normal inspection, Normal ROM General lower extremity: Normal inspection, Normal ROM - Neurological Cognition: Confused Speech: Dysarthria Cranial nerves: No: Facial palsy - Skin Skin Temperature: Warm Skin Moisture: Dry Course - Re-evaluation Re-evalutation: 10/19/18 17:47 Patient nonverbal, uncertain if this may be patient's postictal state, the effect of medication given per EMS, a new acute process, or her reported history of dementia. Patient with elevated lactic acid at this time. Patient does not have a fever although has had witnessed seizures. Patient could have elevated lactic acid from the recent seizures. Patient without any leukocytosis at this time. Consulted with Dr. Paez regarding patient presentation. Patient without any fever or leukocytosis here. Raised with concern that lactic acid may be elevated due to recent seizure activity. EMS had reported patient had had a fever although right after arrival patient was afebrile here. 10/19/18 18:15 Patient is more responsive and tracks with her eyes. Patient does attempt to speak with garbled speech. Vital signs continue stable at this time. 10/19/18 19:01 Patient awake, alert. Patient with stuttering speech requesting something to eat. Attempted to contact patient's family member although the phone has not been set up to take messages and no one answered. Patient does have a documented history of dementia although uncertain if this is patient's normal baseline. 10/19/18 19:[address] Paez regarding patient presentation agrees with plan to consult patient's primary doctor for admission. Spoke with Dr. Stevens who agrees to accept patient to [facility] at this time. 10/19/18 20:25 - Vital Signs Vital signs: Temp Pulse Resp BP Pulse Ox 98.2 F 76 18 125/102 H 100 10/19/18 18:04 10/19/18 16:55 10/19/18 19:01 10/19/18 19:01 10/19/18 19:01 - Laboratory Result Diagrams: 10/19/18 16:59 10/19/18 16:59 Laboratory results interpreted by me: 10/19/18 10/19/18 10/19/18 16:59 16:59 16:59 PT 16.2 H Carbon Dioxide 21 L Creatinine 1.37 H Est GFR ( Amer) 46 L Est GFR (MDRD) Non-Af 38 L Glucose 146 H POC Glucose Lactic Acid 7.7 H Total Bilirubin 2.4 H AST 48 H Alkaline Phosphatase 131 H NT-Pro-B Natriuret Pep Urine Protein 10/19/18 10/19/18 10/19/18 16:59 17:34 18:07 PT Carbon Dioxide Creatinine Est GFR ( Amer) Est GFR (MDRD) Non-Af Glucose POC Glucose 142 H Lactic Acid Total Bilirubin AST Alkaline Phosphatase NT-Pro-B Natriuret Pep 1700 H Urine Protein 30 H Labs- Entire Visit 10/19/18 10/19/18 10/19/18 16:59 16:59 16:59 WBC 7.5 RBC 3.92 Hgb 12.6 Hct 37.8 MCV 97 MCH 32.1 MCHC 33.3 RDW 13.9 Plt Count 256 Lymph % (Auto) 23.1 [place] % (Auto) 9.4 Eos % (Auto) 0.6 Baso % (Auto) 1.0 Absolute Neuts (auto) 4.9 Absolute Lymphs (auto) 1.7 Absolute Monos (auto) 0.7 Absolute Eos (auto) 0.0 Absolute Basos (auto) 0.1 Seg Neutrophils % 65.9 PT 16.2 H INR 1.29 APTT 34.2 VBG pH VBG pCO2 VBG HCO3 VBG Base Excess Sodium 137.7 Potassium 3.7 Chloride 98 Carbon Dioxide 21 L Anion Gap 19 BUN 15 Creatinine 1.37 H Est GFR ( Amer) 46 L Est GFR (MDRD) Non-Af 38 L Glucose 146 H POC Glucose Lactic Acid Calcium 9.3 Total Bilirubin 2.4 H Direct Bilirubin 0.3 Neonat Total Bilirubin Not Reportable Neonat Direct Bilirubin Not Reportable Neonat Indirect Bili Not Reportable AST 48 H ALT 30 Alkaline Phosphatase 131 H Troponin I NT-Pro-B Natriuret Pep Total Protein 7.6 Albumin 4.7 Urine Color Urine Appearance Urine pH Ur Specific [place] Urine Protein Urine Glucose (UA) Urine Ketones Urine Blood Urine Nitrite Urine Bilirubin Urine Urobilinogen Ur Leukocyte Esterase Urine WBC (Auto) Urine RBC (Auto) U Hyaline Cast (Auto) Urine Bacteria (Auto) Squamous Epi Cells Auto Urine Mucus (Auto) Urine Ascorbic Acid 10/19/18 10/19/18 10/19/18 16:59 16:59 16:59 WBC RBC Hgb Hct MCV MCH MCHC RDW Plt Count Lymph % (Auto) Ector % (Auto) Eos % (Auto) Baso % (Auto) Absolute Neuts (auto) Absolute Lymphs (auto) Absolute Monos (auto) Absolute Eos (auto) Absolute Basos (auto) Seg Neutrophils % PT INR APTT VBG pH 7.36 VBG pCO2 41.6 VBG HCO3 23.2 VBG Base Excess -2.1 Sodium Potassium Chloride Carbon Dioxide Anion Gap BUN Creatinine Est GFR ( Amer) Est GFR (MDRD) Non-Af Glucose POC Glucose Lactic Acid 7.7 H Calcium Total Bilirubin Direct Bilirubin Neonat Total Bilirubin Neonat Direct Bilirubin Neonat Indirect Bili AST ALT Alkaline Phosphatase Troponin I < 0.012 NT-Pro-B Natriuret Pep Total Protein Albumin Urine Color Urine Appearance Urine pH Ur Specific [place] Urine Protein Urine Glucose (UA) Urine Ketones Urine Blood Urine Nitrite Urine Bilirubin Urine Urobilinogen Ur Leukocyte Esterase Urine WBC (Auto) Urine RBC (Auto) U Hyaline Cast (Auto) Urine Bacteria (Auto) Squamous Epi Cells Auto Urine Mucus (Auto) Urine Ascorbic Acid 10/19/18 10/19/18 10/19/18 16:59 17:34 18:07 WBC RBC Hgb Hct MCV MCH MCHC RDW Plt Count Lymph % (Auto) [place] % (Auto) Eos % (Auto) Baso % (Auto) Absolute Neuts (auto) Absolute Lymphs (auto) Absolute Monos (auto) Absolute Eos (auto) Absolute Basos (auto) Seg Neutrophils % PT INR APTT VBG pH VBG pCO2 VBG HCO3 VBG Base Excess Sodium Potassium Chloride Carbon Dioxide Anion Gap BUN Creatinine Est GFR ( Amer) Est GFR (MDRD) Non-Af Glucose POC Glucose 142 H Lactic Acid Calcium Total Bilirubin Direct Bilirubin Neonat Total Bilirubin Neonat Direct Bilirubin Neonat Indirect Bili AST ALT Alkaline Phosphatase Troponin I NT-Pro-B Natriuret Pep 1700 H Total Protein Albumin Urine Color YELLOW Urine Appearance CLEAR Urine pH 5.0 Ur Specific [place] 1.018 Urine Protein 30 H Urine Glucose (UA) NEGATIVE Urine Ketones NEGATIVE Urine Blood NEGATIVE Urine Nitrite NEGATIVE Urine Bilirubin NEGATIVE Urine Urobilinogen NEGATIVE Ur Leukocyte Esterase NEGATIVE Urine WBC (Auto) 1 Urine RBC (Auto) 1 U Hyaline Cast (Auto) 29 Urine Bacteria (Auto) 1+ Squamous Epi Cells Auto 1 Urine Mucus (Auto) OCC Urine Ascorbic Acid NEGATIVE - Diagnostic Test Radiology reviewed: Reports reviewed Discharge - Discharge Clinical Impression: Seizure, Pleural effusion, Chronic systolic (congestive) heart failure Atrial fibrillation Qualifiers: Atrial fibrillation type: unspecified Qualified Code(s): I48.91 - Unspecified atrial fibrillation Altered mental status Qualifiers: Altered mental status type: unspecified Qualified Code(s): R41.82 - Altered mental status, unspecified Pneumonia Qualifiers: Pneumonia type: due to unspecified organism Laterality: right Lung location: lower lobe of lung Qualified Code(s): J18.1 - Lobar pneumonia, unspecified organism Condition: Fair Disposition: ADMITTED INPATIENT Admitting Provider: [facility] Admitted: [facility]
[2018-10-19 17:23] LABS: INTERNATIONAL RATION (INR) 1.29; PROTHROMBIN TIME 16.2 SEC (11.4-15.4)
[2018-10-19 17:24] LABS: PARTIAL THROMBOPLASTIN TIME 34.2 SEC (23.5-35.8); VENOUS BLOOD BASE EXCESS -2.1 mmol/L; VENOUS BLOOD HCO3 23.2 mmol/L (20-32); VENOUS BLOOD PCO2 41.6 mmHg (35-63); VENOUS BLOOD PH 7.36 (7.30-7.42)
[2018-10-19 17:26] LABS: ABSOLUTE BASOPHILS # (AUTO) 0.1 10^3/uL (0.0-0.2); ABSOLUTE LYMPHOCYTES (AUTO) 1.7 10^3/uL (0.5-4.7); ABSOLUTE MONOCYTES (AUTO) 0.7 10^3/uL (0.1-1.4); ABSOLUTE NEUT (AUTO) 4.9 10^3/uL (1.7-8.2); EOSINOPHILS % (AUTO) 0.6 % (0-6); HEMATOCRIT 37.8 % (36.0-47.0); HEMOGLOBIN 12.6 g/dL (12.0-15.5); LYMPHOCYTES % (AUTO) 23.1 % (13-45); MEAN CORPUSCULAR HEMOGLOBIN 32.1 pg (27.0-33.4); MEAN CORPUSCULAR HGB CONC 33.3 g/dL (32.0-36.0); MEAN CORPUSCULAR VOLUME 97 fl (80-97); MONOCYTES % (AUTO) 9.4 % (3-13); PLATELET COUNT 256 10^3/uL (150-450); RED BLOOD COUNT 3.92 10^6/uL (3.72-5.28); RED CELL DISTRIBUTION WIDTH 13.9 % (11.5-14.0); SEGMENTED NEUTROPHILS % (AUTO) 65.9 % (42-78); TOTAL CELLS COUNTED % (AUTO) 100 %; WHITE BLOOD COUNT 7.5 10^3/uL (4.0-10.5)
--- NOTE | 2018-10-19 17:43 | RADIOLOGY REPORT (SQ) ---
EXAM DESCRIPTION: CT HEAD WITHOUT COMPLETED DATE/TIME: 10/19/2018 5:23 pm REASON FOR STUDY: AMS COMPARISON: 08/15/2018 TECHNIQUE: Axial images acquired through the brain without intravenous contrast. Images reviewed wit h bone, brain and subdural windows. Images stored on PACS. All CT scanners at this facility use dose modulation, iterative reconstruction, and/or weight based d osing when appropriate to reduce radiation dose to as low as reasonably achievable (ALARA). [facility]: Dose Right [facility]: CareDose [facility]: Dose Right [facility]: Teradose 4D [facility]: Smart Q2ebanking RADIATION DOSE: CT Rad equipment meets quality standard of care and radiation dose reduction techniq ues were employed. CTDIvol: 53.2 mGy. DLP: 1124 mGy-cm.. LIMITATIONS: None. FINDINGS: VENTRICLES: Normal size and contour. CEREBRUM: No masses. No hemorrhage. No midline shift. Stable appearance of the white matter and left temporoparietal encephalomalacia. . No evidence for acute infarction. CEREBELLUM: No masses. No hemorrhage. No alteration of density. No evidence for acute infarction. EXTRA-AXIAL SPACES: No fluid collections. ORBITS AND GLOBE: No intra- or extraconal masses. Normal contour of globe without masses. CALVARIUM: No fracture. PARANASAL SINUSES: No fluid or mucosal thickening. SOFT TISSUES: No mass or hematoma. OTHER: No other significant finding. IMPRESSION: NO ACUTE INTRACRANIAL FINDINGS. EVIDENCE OF ACUTE STROKE: NO. TECHNICAL DOCUMENTATION: JOB ID: [id number] [place]-[id number] Quality ID # [id number]: Final reports with documentation of one or more dose reduction techniques (e.g., Au tomated exposure control, adjustment of the mA and/or kV according to patient size, use of iterative reconstruction technique) 2010 [email or web address]- All Rights Reserved Reading location - IP/workstation name: [email or web address]
--- NOTE | 2018-10-19 17:46 | RADIOLOGY REPORT (SQ) ---
EXAM DESCRIPTION: CHEST SINGLE VIEW COMPLETED DATE/TIME: 10/19/2018 5:24 pm REASON FOR STUDY: fever, COMPARISON: 08/15/2018 TECHNIQUE: Single frontal radiographic view of the chest acquired. NUMBER OF VIEWS: One view. LIMITATIONS: None. FINDINGS: LUNGS AND PLEURA: No pneumothorax. Increased right basilar airspace opacities and possibl e small pleural effusion. MEDIASTINUM AND HILAR STRUCTURES: Stable. HEART AND VASCULAR STRUCTURES: Stable. BONES: No acute findings. HARDWARE: None in the chest. OTHER: No other significant finding. IMPRESSION: Increased right basilar airspace opacities and possible small pleural effusion. TECHNICAL DOCUMENTATION: JOB ID: [id number] [place]-72 2010 [employer]- All Rights Reserved Reading location - IP/workstation name: [facility]
[2018-10-19 17:49] LABS: ALBUMIN 4.7 g/dL (3.5-5.0); ALKALINE PHOSPHATASE 131 U/L (38-126); ANION GAP 19 (5-19); ASPARTATE AMINO TRANSFERASE 48 U/L (14-36); BILIRUBIN,DIRECT 0.3 mg/dL (0.0-0.4); BILIRUBIN,TOTAL 2.4 mg/dL (0.2-1.3); BLOOD UREA NITROGEN 15 mg/dL (7-20); CALCIUM 9.3 mg/dL (8.4-10.2); CARBON DIOXIDE 21 mmol/L (22-30); CHLORIDE 98 mmol/L (98-107); GLUCOSE 146 mg/dL (75-110); POTASSIUM 3.7 mmol/L (3.6-5.0); TOTAL PROTEIN 7.6 g/dL (6.3-8.2)
[2018-10-19 18:33] LABS: APPEARANCE,URINE CLEAR; BILIRUBIN,URINE NEGATIVE (NEGATIVE); COLOR,URINE YELLOW; GLUCOSE, URINE NEGATIVE (NEGATIVE); KETONES,URINE NEGATIVE (NEGATIVE); LEUKOCYTE ESTERASE,URINE NEGATIVE (NEGATIVE); NITRITE,URINE NEGATIVE (NEGATIVE); PROTEIN,URINE 30 mg/dL (NEGATIVE); URINE SPECIFIC GRAVITY 1.018; UROBILINOGEN,URINE NEGATIVE mg/dL (<2.0)
[2018-10-19] MEDS ORDERED: FUROSEMIDE INJ/PF 20 MG/2 ML SDV IV ONE (19:13)
[2018-10-19] MEDS ORDERED: CEFTRIAXONE 1 GM/D5W RTU 1 GM/50 ML RTUPB IV ONE (19:32)
--- NOTE | 2018-10-19 19:41 | EKG REPORT ---
SEVERITY:- ABNORMAL ECG - ATRIAL FIBRILLATION : Confirmed by: Joann Love MD 19-Oct-2018 19:41:04
[2018-10-19] MEDS ORDERED: PHENYTOIN SODIUM INJ/PF 100 MG/2 ML SDV IV ONE (20:52)
[2018-10-19] MEDS ORDERED: PHENYTOIN SODIUM 1,000 MG in NORMAL SALINE 250 ML IV ONE (21:15)
[2018-10-19] MEDS ORDERED: PHENYTOIN SODIUM INJ/PF 250 MG/5 ML SDV IV PRN (21:16)
[2018-10-19 21:23] LABS: PROTHROMBIN TIME 15.3 SEC (11.4-15.4)
[2018-10-19 21:24] LABS: PARTIAL THROMBOPLASTIN TIME 34.3 SEC (23.5-35.8)
[2018-10-19 21:36] LABS: PHOSPHORUS 4.6 mg/dL (2.5-4.5)
[2018-10-19 21:50] LABS: CREATINE KINASE MB 2.5 ng/mL (<4.55)
[2018-10-19 21:51] LABS: URINE AMPHETAMINES SCREEN NEGATIVE; URINE BARBITURATES SCREEN NEGATIVE; URINE BENZODIAZEPINES SCREEN UNCONFIRMED POSITIVE; URINE COCAINE SCREEN NEGATIVE; URINE MARIJUANA (THC) SCREEN NEGATIVE; URINE METHADONE SCREEN NEGATIVE; URINE PHENCYCLIDINE SCREEN NEGATIVE
[2018-10-19 21:54] LABS: FREE T4 (FREE THYROXINE) 1.22 ng/dL (0.78-2.19)
[2018-10-19] MEDS ORDERED: LEVOFLOXACIN 750 MG/D5W RTU 750 MG/150 ML RTUPB IV ONE (22:00)
[2018-10-19 22:07] LABS: TROPONIN I 0.035 ng/mL
[2018-10-19 22:08] LABS: THYROID STIMULATING HORMONE 3.3 uIU/mL (0.47-4.68)
[2018-10-19] MEDS: NORMAL SALINE 1000 ML 1,000 ML IV PRN (23:46)
[2018-10-20 03:46] LABS: CREATINE KINASE MB 3.59 ng/mL (<4.55); TROPONIN I 0.036 ng/mL
[2018-10-20 09:30] LABS: ABSOLUTE LYMPHOCYTES (AUTO) 0.9 10^3/uL (0.5-4.7); ABSOLUTE MONOCYTES (AUTO) 0.5 10^3/uL (0.1-1.4); ABSOLUTE NEUT (AUTO) 4.2 10^3/uL (1.7-8.2); BASOPHILS % (AUTO) 0.8 % (0-2); EOSINOPHILS % (AUTO) 0.3 % (0-6); HEMATOCRIT 37.3 % (36.0-47.0); HEMOGLOBIN 12.5 g/dL (12.0-15.5); LYMPHOCYTES % (AUTO) 15.4 % (13-45); MEAN CORPUSCULAR HEMOGLOBIN 32.2 pg (27.0-33.4); MEAN CORPUSCULAR HGB CONC 33.5 g/dL (32.0-36.0); MEAN CORPUSCULAR VOLUME 96 fl (80-97); MONOCYTES % (AUTO) 9.5 % (3-13); PLATELET COUNT 218 10^3/uL (150-450); RED BLOOD COUNT 3.89 10^6/uL (3.72-5.28); RED CELL DISTRIBUTION WIDTH 13.6 % (11.5-14.0); TOTAL CELLS COUNTED % (AUTO) 100 %; WHITE BLOOD COUNT 5.7 10^3/uL (4.0-10.5)
[2018-10-20 09:47] LABS: ALBUMIN 4.2 g/dL (3.5-5.0); ALKALINE PHOSPHATASE 130 U/L (38-126); ANION GAP 10 (5-19); ASPARTATE AMINO TRANSFERASE 45 U/L (14-36); BILIRUBIN,DIRECT 0.1 mg/dL (0.0-0.4); BILIRUBIN,TOTAL 1.8 mg/dL (0.2-1.3); BLOOD UREA NITROGEN 13 mg/dL (7-20); CALCIUM 8.8 mg/dL (8.4-10.2); CARBON DIOXIDE 28 mmol/L (22-30); CHLORIDE 98 mmol/L (98-107); CHOLESTEROL 183.18 mg/dL (0-200); GLUCOSE 118 mg/dL (75-110); POTASSIUM 3.4 mmol/L (3.6-5.0); TOTAL PROTEIN 7.2 g/dL (6.3-8.2); TRIGLYCERIDES 61 mg/dL (<150)
[2018-10-20 09:58] LABS: DIRECT LDL 46 mg/dL (<100)
[2018-10-20 09:59] LABS: CREATINE KINASE MB 3.26 ng/mL (<4.55); TROPONIN I 0.027 ng/mL
[2018-10-20] MEDS ORDERED: LEVETIRACETAM 1000 MG PO SCH (13:45)
[2018-10-20] MEDS ORDERED: (PENDING PHARMACY ID) (Fluticasone/Salmeterol 1 PUFF) IH SCH (13:45)
[2018-10-20] MEDS ORDERED: DULOXETINE HCL 20 MG CAPSULE.DR PO ONE (14:15)
[2018-10-20] MEDS: AMLODIPINE BESYLATE 10 MG TABLET PO SCH (14:30)
[2018-10-20 14:40] LABS: ARTERIAL BLOOD HCO3 26.2 mmol/L (20-24); ARTERIAL BLOOD O2 SATURATION 97.2 % (94-98); ARTERIAL BLOOD PCO2 39.8 mmHg (35-45); ARTERIAL BLOOD PH 7.44 (7.35-7.45); ARTERIAL BLOOD TOTAL CO2 27.5 mmol/L (21-25)
[2018-10-20 14:41] LABS: ARTERIAL BLOOD FIO2 ROOM AIR
--- NOTE | 2018-10-20 15:45 | RADIOLOGY REPORT (SQ) ---
EXAM DESCRIPTION: MRI HEAD WITHOUT COMPLETED DATE/TIME: 10/20/2018 3:32 pm REASON FOR STUDY: confusion ? CVA COMPARISON: 08/16/2018 TECHNIQUE: Multiplanar imaging includes non-contrasted T1, T2, FLAIR, and diffusion with ADC map seq uences. Images stored on PACS. LIMITATIONS: None. FINDINGS: ANATOMY: No anomalies. Normal vascular flow voids. Pituitary fossa normal. CSF SPACES: Atrophy induced prominence of ventricles and CSF spaces. CEREBRUM: High signal intensity lesions scattered throughout the white matter on FLAIR imaging with d istribution suggesting micro-vascular ischemic changes. No evidence of hemorrhage, mass, or extraaxi al fluid collection. POSTERIOR FOSSA: No signal alteration. No hemorrhage. No edema, masses or mass effect. Internal marylou tory canals, cerebello-pontine angles, mastoids normal. DIFFUSION IMAGING: Negative for acute or sub-acute infarction. ORBITS: No masses. Globes normal. PARANASAL SINUSES: No fluid levels. Mucosa normal. OTHER: No other significant finding. IMPRESSION: Negative for acute or sub-acute infarction. EVIDENCE OF ACUTE STROKE: NO. TECHNICAL DOCUMENTATION: JOB ID: [id number] 2010 [employer]- All Rights Reserved Reading location - IP/workstation name: [email or web address]
--- NOTE | 2018-10-20 16:05 | PDOC H&P ---
History of Present Illness Admission Date/PCP: 10/19/18 20:00 CECY CAMARENA MD History of Present Illness: JOSE ESPINAL is a 72 year old female,She was brought to the emergency room by EMS, based on the record, he [facility] was called to patient's residence because supposedly she was having a seizure, the record stated that when EMS arrived at patient's residence, the EMS staff witnessed seizure activity she was then giving Versed, the record also stated that she had a fever with temperature 101, she was given acetaminophen. She has a history of seizure she is supposed to be taking Keppra. When I saw this patient and ask her what the problem was she said she does not feel right but she could not describe exactly what she was feeling, she kept saying I did not feel right so I called my to call EMS.I admitted this patient previously on 08/15/2018 at the time she presented with symptoms and signs that suggest transient ischemic attack. She has chronic atrial fibrillation on chronic anticoagulant with Eliquis, she was on Eliquis 5 mg 1 tablet daily, the assumption at the time was that she was not well anticoagulated because Eliquis is a twice daily drug and that she probably was experiencing a breakthrough thromboembolic phenomenon with TIA at that time she was admitted for observation, she was discharged home on Eliquis 5 mg 1 tablet 2 times a day. No other history could be obtained from this patient she only said and" I do not feel right", she said previously she was feeling well and she had no problem. The other problem with this patient is she is very hard of hearing Past Medical History Cardiac Medical History: Reports: Atrial Fibrillation, Myocardial Infarction - mild, Hyperlipidema, Hypertension Neurological Medical History: Reports: Seizures Endocrine Medical History: Reports: Hypothyroidism Malignancy Medical History: GI Medical History: Reports: Gastroesophageal Reflux Disease - occ. takes Omeprazole PRN Musculoskeltal Medical History: Reports: Arthritis Psychiatric Medical History: Reports: Dementia, Depression Past Surgical History Past Surgical History: Reports: Appendectomy, Hysterectomy, Orthopedic Surgery - right rotator cuff Social History Lives with: Family Smoking Status: Former Smoker Frequency of Alcohol Use: None Hx Recreational Drug Use: No Drugs: None Hx Prescription Drug Abuse: No Family History Family History: Reviewed & Not Pertinent Parental Family History Reviewed: Yes Children Family History Reviewed: Yes Sibling(s) Family History Reviewed.: Yes Medication/Allergy Home Medications: Amlodipine Besylate [Norvasc 10 mg Tablet] 10 mg PO DAILY 08/15/18 Atorvastatin Calcium [Lipitor 40 mg Tablet] 40 mg PO QHS 08/15/18 Duloxetine HCl [Cymbalta 20 mg Capsule.dr] 20 mg PO DAILY 08/15/18 Fluticasone/Salmeterol [Advair 250-50 Diskus 14 Dose/Diskus] 1 puff IH Q12 08/15/18 Furosemide [Lasix 20 mg Tablet] 20 mg PO DAILY 08/15/18 Isosorbide Mononitrate [Imdur 30 mg Tablet.er] 30 mg PO DAILY 08/15/18 Levothyroxine Sodium [Synthroid 0.05 mg Tablet] 50 mcg PO Q6AM 08/15/18 Omeprazole 20 mg PO DAILYP PRN 08/15/18 Spironolactone [Aldactone 25 mg Tablet] 12.5 mg PO DAILY 08/15/18 Apixaban [Eliquis 5 mg Tablet] 5 mg PO BID #60 tablet 08/17/18 Cyclobenzaprine HCl [Flexeril 5 mg Tablet] 5 mg PO DAILY 10/20/18 Levetiracetam 1,000 mg PO Q12 10/20/18 Metoprolol Succinate [Toprol Xl 25 mg Tab.sr] 25 mg PO DAILY 10/20/18 Allergies/Adverse Reactions: Penicillins Allergy (Mild, Verified 02/12/18 16:50) rash Sulfa (Sulfonamide Antibiotics) Allergy (Mild, Verified 02/12/18 16:52) Skin Redness Review of Systems Constitutional: ABSENT: chills, fever(s), headache(s), weight gain, weight loss Eyes: ABSENT: visual disturbances Ears: ABSENT: hearing changes Cardiovascular: ABSENT: chest pain, dyspnea on exertion, edema, orthropnea, palpitations Respiratory: ABSENT: cough, hemoptysis Gastrointestinal: ABSENT: abdominal pain, constipation, diarrhea, hematemesis, hematochezia, nausea, vomiting Genitourinary: ABSENT: dysuria, hematuria Musculoskeletal: ABSENT: joint swelling Integumentary: ABSENT: rash, wounds Neurological: ABSENT: abnormal gait, abnormal speech, confusion, dizziness, focal weakness, syncope Psychiatric: ABSENT: anxiety, depression, homidical ideation, suicidal ideation Endocrine: ABSENT: cold intolerance, heat intolerance, menstrual abnormalities, polydipsia, polyuria Hematologic/Lymphatic: ABSENT: easy bleeding, easy bruising, lymphadenopathy Physical Exam Vital Signs: Temp Pulse Resp BP Pulse Ox 98.2 F 75 17 121/48 L 99 10/20/18 11:21 10/20/18 14:00 10/20/18 11:21 10/20/18 11:21 10/20/18 11:21 Intake & Output 10/19/18 10/20/18 10/21/18 06:59 06:59 06:59 Intake Total 450 200 Balance 450 200 Weight 64.8 kg General appearance: PRESENT: no acute distress, well-developed, well-nourished Head exam: PRESENT: atraumatic, normocephalic Eye exam: PRESENT: conjunctiva pink, EOMI, PERRLA Ear exam: PRESENT: normal external ear exam Mouth exam: PRESENT: moist, tongue midline Neck exam: PRESENT: full ROM Respiratory exam: PRESENT: clear to auscultation jordin Cardiovascular exam: PRESENT: RRR, +S1, +S2 Pulses: PRESENT: normal dorsalis pedis pul, +2 pedal pulses bilateral Vascular exam: PRESENT: normal capillary refill GI/Abdominal exam: PRESENT: normal bowel sounds, soft Rectal exam: PRESENT: deferred Neurological exam: PRESENT: alert, awake, oriented to person, oriented to place, oriented to time, oriented to situation, CN II-XII grossly intact Psychiatric exam: PRESENT: appropriate affect, normal mood Skin exam: PRESENT: dry, intact, warm. ABSENT: cyanosis, rash Results Laboratory Results: 10/20/18 09:03 10/20/18 09:03 10/19/18 10/19/18 10/19/18 16:59 16:59 16:59 WBC 7.5 RBC 3.92 Hgb 12.6 Hct 37.8 MCV 97 MCH 32.1 MCHC 33.3 RDW 13.9 Plt Count 256 Seg Neutrophils % 65.9 Carbonic Acid HCO3/H2CO3 Ratio ABG pH ABG pCO2 ABG pO2 ABG HCO3 ABG O2 Saturation ABG Base Excess VBG pH VBG pCO2 VBG HCO3 VBG Base Excess FiO2 Sodium 137.7 Potassium 3.7 Chloride 98 Carbon Dioxide 21 L Anion Gap 19 BUN 15 Creatinine 1.37 H Est GFR ( Amer) 46 L Glucose 146 H Lactic Acid 7.7 H Calcium 9.3 Phosphorus Magnesium Total Bilirubin 2.4 H AST 48 H Alkaline Phosphatase 131 H Total Protein 7.6 Albumin 4.7 Triglycerides Cholesterol LDL Cholesterol Direct VLDL Cholesterol HDL Cholesterol Lipase TSH Free T4 Urine Color Urine Appearance Urine pH Ur Specific [place] Urine Protein Urine Glucose (UA) Urine Ketones Urine Blood Urine Nitrite Ur Leukocyte Esterase Urine WBC (Auto) Urine RBC (Auto) 10/19/18 10/19/18 10/19/18 16:59 18:07 21:05 WBC RBC Hgb Hct MCV MCH MCHC RDW Plt Count Seg Neutrophils % Carbonic Acid HCO3/H2CO3 Ratio ABG pH ABG pCO2 ABG pO2 ABG HCO3 ABG O2 Saturation ABG Base Excess VBG pH 7.36 VBG pCO2 41.6 VBG HCO3 23.2 VBG Base Excess -2.1 FiO2 Sodium Potassium Chloride Carbon Dioxide Anion Gap BUN Creatinine Est GFR ( Amer) Glucose Lactic Acid Calcium Phosphorus 4.6 H Magnesium 1.9 Total Bilirubin AST Alkaline Phosphatase Total Protein Albumin Triglycerides Cholesterol LDL Cholesterol Direct VLDL Cholesterol HDL Cholesterol Lipase 142.5 TSH Free T4 Urine Color YELLOW Urine Appearance CLEAR Urine pH 5.0 Ur Specific [place] 1.018 Urine Protein 30 H Urine Glucose (UA) NEGATIVE Urine Ketones NEGATIVE Urine Blood NEGATIVE Urine Nitrite NEGATIVE Ur Leukocyte Esterase NEGATIVE Urine WBC (Auto) 1 Urine RBC (Auto) 1 10/19/18 10/20/18 10/20/18 21:05 09:03 09:03 WBC 5.7 RBC 3.89 Hgb 12.5 Hct 37.3 MCV 96 MCH 32.2 MCHC 33.5 RDW 13.6 Plt Count 218 Seg Neutrophils % 74.0 Carbonic Acid HCO3/H2CO3 Ratio ABG pH ABG pCO2 ABG pO2 ABG HCO3 ABG O2 Saturation ABG Base Excess VBG pH VBG pCO2 VBG HCO3 VBG Base Excess FiO2 Sodium 136.2 L Potassium 3.4 L Chloride 98 Carbon Dioxide 28 Anion Gap 10 BUN 13 Creatinine 1.02 Est GFR ( Amer) > 60 Glucose 118 H Lactic Acid Calcium 8.8 Phosphorus Magnesium Total Bilirubin 1.8 H AST 45 H Alkaline Phosphatase 130 H Total Protein 7.2 Albumin 4.2 Triglycerides 61 Cholesterol 183.18 LDL Cholesterol Direct 46 VLDL Cholesterol 12.0 HDL Cholesterol 135 Lipase TSH 3.30 Free T4 1.22 Urine Color Urine Appearance Urine pH Ur Specific [place] Urine Protein Urine Glucose (UA) Urine Ketones Urine Blood Urine Nitrite Ur Leukocyte Esterase Urine WBC (Auto) Urine RBC (Auto) 10/20/18 14:09 WBC RBC Hgb Hct MCV MCH MCHC RDW Plt Count Seg Neutrophils % Carbonic Acid 1.20 HCO3/H2CO3 Ratio 21:1 ABG pH 7.44 ABG pCO2 39.8 ABG pO2 91.0 ABG HCO3 26.2 H ABG O2 Saturation 97.2 ABG Base Excess 2.0 VBG pH VBG pCO2 VBG HCO3 VBG Base Excess FiO2 ROOM AIR Sodium Potassium Chloride Carbon Dioxide Anion Gap BUN Creatinine Est GFR ( Amer) Glucose Lactic Acid Calcium Phosphorus Magnesium Total Bilirubin AST Alkaline Phosphatase Total Protein Albumin Triglycerides Cholesterol LDL Cholesterol Direct VLDL Cholesterol HDL Cholesterol Lipase TSH Free T4 Urine Color Urine Appearance Urine pH Ur Specific [place] Urine Protein Urine Glucose (UA) Urine Ketones Urine Blood Urine Nitrite Ur Leukocyte Esterase Urine WBC (Auto) Urine RBC (Auto) 10/19/18 10/19/18 10/19/18 16:59 16:59 21:05 Creatine Kinase 393 H CK-MB (CK-2) Troponin I < 0.012 NT-Pro-B Natriuret Pep 1700 H 10/19/18 10/20/18 10/20/18 21:05 02:54 02:54 Creatine Kinase 649 H CK-MB (CK-2) 2.50 3.59 Troponin I 0.035 0.036 NT-Pro-B Natriuret Pep 10/20/18 10/20/18 09:03 09:03 Creatine Kinase 729 H CK-MB (CK-2) 3.26 Troponin I 0.027 NT-Pro-B Natriuret Pep Impressions: Chest X-Ray 10/19/18 16:57 IMPRESSION: Increased right basilar airspace opacities and possible small pleural effusion. Head CT 10/19/18 17:10 IMPRESSION: NO ACUTE INTRACRANIAL FINDINGS. EVIDENCE OF ACUTE STROKE: NO. Assessment & Plan - Diagnosis (1) Status epilepticus Is this a current diagnosis for this admission?: Yes Plan: She has status epilepticus, she had a witnessed seizure by the EMS staff, she received Versed on the field, she was given intravenous Dilantin 1 g. She is presently on Keppra, MRI of the brain is ordered to ensure there is no stroke or other intracranial pathology (2) COPD (chronic obstructive pulmonary disease) Qualifiers: COPD type: unspecified COPD Qualified Code(s): J44.9 - Chronic obstructive pulmonary disease, unspecified Is this a current diagnosis for this admission?: Yes (3) Chronic atrial fibrillation Is this a current diagnosis for this admission?: Yes
--- NOTE | 2018-10-20 16:13 | PDOC PROGRESS REPORT ---
Subjective Progress Note for:: 10/20/18 Subjective:: Patient was admitted yesterday when she presented with status epilepticus, she was given a loading dose of Dilantin intravenously Reason For Visit: ENCEPHALOPATHY ? SEIZURE Physical Exam Vital Signs: Temp Pulse Resp BP Pulse Ox 98.2 F 75 17 121/48 L 99 10/20/18 11:21 10/20/18 14:00 10/20/18 11:21 10/20/18 11:21 10/20/18 11:21 Intake & Output 10/19/18 10/20/18 10/21/18 06:59 06:59 06:59 Intake Total 450 200 Balance 450 200 Weight 64.8 kg General appearance: PRESENT: no acute distress Eye exam: PRESENT: PERRLA Respiratory exam: PRESENT: clear to auscultation jordin Cardiovascular exam: PRESENT: +S1, +S2 GI/Abdominal exam: PRESENT: soft Neurological exam: PRESENT: alert, CN II-XII grossly intact Results Laboratory Results: 10/20/18 09:03 10/20/18 09:03 10/19/18 10/19/18 10/19/18 16:59 16:59 16:59 WBC 7.5 RBC 3.92 Hgb 12.6 Hct 37.8 MCV 97 MCH 32.1 MCHC 33.3 RDW 13.9 Plt Count 256 Seg Neutrophils % 65.9 Carbonic Acid HCO3/H2CO3 Ratio ABG pH ABG pCO2 ABG pO2 ABG HCO3 ABG O2 Saturation ABG Base Excess VBG pH VBG pCO2 VBG HCO3 VBG Base Excess FiO2 Sodium 137.7 Potassium 3.7 Chloride 98 Carbon Dioxide 21 L Anion Gap 19 BUN 15 Creatinine 1.37 H Est GFR ( Amer) 46 L Glucose 146 H Lactic Acid 7.7 H Calcium 9.3 Phosphorus Magnesium Total Bilirubin 2.4 H AST 48 H Alkaline Phosphatase 131 H Total Protein 7.6 Albumin 4.7 Triglycerides Cholesterol LDL Cholesterol Direct VLDL Cholesterol HDL Cholesterol Lipase TSH Free T4 Urine Color Urine Appearance Urine pH Ur Specific [place] Urine Protein Urine Glucose (UA) Urine Ketones Urine Blood Urine Nitrite Ur Leukocyte Esterase Urine WBC (Auto) Urine RBC (Auto) 10/19/18 10/19/18 10/19/18 16:59 18:07 21:05 WBC RBC Hgb Hct MCV MCH MCHC RDW Plt Count Seg Neutrophils % Carbonic Acid HCO3/H2CO3 Ratio ABG pH ABG pCO2 ABG pO2 ABG HCO3 ABG O2 Saturation ABG Base Excess VBG pH 7.36 VBG pCO2 41.6 VBG HCO3 23.2 VBG Base Excess -2.1 FiO2 Sodium Potassium Chloride Carbon Dioxide Anion Gap BUN Creatinine Est GFR ( Amer) Glucose Lactic Acid Calcium Phosphorus 4.6 H Magnesium 1.9 Total Bilirubin AST Alkaline Phosphatase Total Protein Albumin Triglycerides Cholesterol LDL Cholesterol Direct VLDL Cholesterol HDL Cholesterol Lipase 142.5 TSH Free T4 Urine Color YELLOW Urine Appearance CLEAR Urine pH 5.0 Ur Specific [place] 1.018 Urine Protein 30 H Urine Glucose (UA) NEGATIVE Urine Ketones NEGATIVE Urine Blood NEGATIVE Urine Nitrite NEGATIVE Ur Leukocyte Esterase NEGATIVE Urine WBC (Auto) 1 Urine RBC (Auto) 1 10/19/18 10/20/18 10/20/18 21:05 09:03 09:03 WBC 5.7 RBC 3.89 Hgb 12.5 Hct 37.3 MCV 96 MCH 32.2 MCHC 33.5 RDW 13.6 Plt Count 218 Seg Neutrophils % 74.0 Carbonic Acid HCO3/H2CO3 Ratio ABG pH ABG pCO2 ABG pO2 ABG HCO3 ABG O2 Saturation ABG Base Excess VBG pH VBG pCO2 VBG HCO3 VBG Base Excess FiO2 Sodium 136.2 L Potassium 3.4 L Chloride 98 Carbon Dioxide 28 Anion Gap 10 BUN 13 Creatinine 1.02 Est GFR ( Amer) > 60 Glucose 118 H Lactic Acid Calcium 8.8 Phosphorus Magnesium Total Bilirubin 1.8 H AST 45 H Alkaline Phosphatase 130 H Total Protein 7.2 Albumin 4.2 Triglycerides 61 Cholesterol 183.18 LDL Cholesterol Direct 46 VLDL Cholesterol 12.0 HDL Cholesterol 135 Lipase TSH 3.30 Free T4 1.22 Urine Color Urine Appearance Urine pH Ur Specific [place] Urine Protein Urine Glucose (UA) Urine Ketones Urine Blood Urine Nitrite Ur Leukocyte Esterase Urine WBC (Auto) Urine RBC (Auto) 10/20/18 14:09 WBC RBC Hgb Hct MCV MCH MCHC RDW Plt Count Seg Neutrophils % Carbonic Acid 1.20 HCO3/H2CO3 Ratio 21:1 ABG pH 7.44 ABG pCO2 39.8 ABG pO2 91.0 ABG HCO3 26.2 H ABG O2 Saturation 97.2 ABG Base Excess 2.0 VBG pH VBG pCO2 VBG HCO3 VBG Base Excess FiO2 ROOM AIR Sodium Potassium Chloride Carbon Dioxide Anion Gap BUN Creatinine Est GFR ( Amer) Glucose Lactic Acid Calcium Phosphorus Magnesium Total Bilirubin AST Alkaline Phosphatase Total Protein Albumin Triglycerides Cholesterol LDL Cholesterol Direct VLDL Cholesterol HDL Cholesterol Lipase TSH Free T4 Urine Color Urine Appearance Urine pH Ur Specific [place] Urine Protein Urine Glucose (UA) Urine Ketones Urine Blood Urine Nitrite Ur Leukocyte Esterase Urine WBC (Auto) Urine RBC (Auto) 10/19/18 10/19/18 10/19/18 16:59 16:59 21:05 Creatine Kinase 393 H CK-MB (CK-2) Troponin I < 0.012 NT-Pro-B Natriuret Pep 1700 H 10/19/18 10/20/18 10/20/18 21:05 02:54 02:54 Creatine Kinase 649 H CK-MB (CK-2) 2.50 3.59 Troponin I 0.035 0.036 NT-Pro-B Natriuret Pep 10/20/18 10/20/18 09:03 09:03 Creatine Kinase 729 H CK-MB (CK-2) 3.26 Troponin I 0.027 NT-Pro-B Natriuret Pep Impressions: Chest X-Ray 10/19/18 16:57 IMPRESSION: Increased right basilar airspace opacities and possible small pleural effusion. Head CT 10/19/18 17:10 IMPRESSION: NO ACUTE INTRACRANIAL FINDINGS. EVIDENCE OF ACUTE STROKE: NO. Head MRI 10/20/18 00:00 IMPRESSION: Negative for acute or sub-acute infarction. EVIDENCE OF ACUTE STROKE: NO. Assessment & Plan - Diagnosis (1) Status epilepticus Is this a current diagnosis for this admission?: Yes Plan: Continue Keppra, MRI of the brain that was done did not demonstrate any acute CVA, there is no mass, she has a history of seizure the history suggest she was having a breakthrough seizure despite taking antiepileptic drug, Keppra. EEG will be obtained, the Keppra level will be checked patient may not be compliant with the medication. She seems to have some cognitive impairment probably [place] dementia, she seems to have independent living that would go against dementia but clearly she have impaired cognition, she could not describe exactly the symptoms she was having she kept saying said I just do not feel right. (2) COPD (chronic obstructive pulmonary disease) Qualifiers: COPD type: unspecified COPD Is this a current diagnosis for this admission?: Yes (3) Chronic atrial fibrillation Is this a current diagnosis for this admission?: Yes
[2018-10-20] MEDS: APIXABAN 5 MG TABLET PO SCH (17:55)
[2018-10-20] MEDS ORDERED: LEVOFLOXACIN 750 MG/D5W RTU 750 MG/150 ML RTUPB IV SCH (22:00)
[2018-10-20] MEDS: ATORVASTATIN CALCIUM 40 MG TABLET PO SCH (22:38)
[2018-10-20] MEDS: LEVETIRACETAM 500 MG TABLET PO SCH (22:38)
[2018-10-21 05:30] LABS: ABSOLUTE EOSINOPHILS # (AUTO) 0.1 10^3/uL (0.0-0.6); ABSOLUTE LYMPHOCYTES (AUTO) 1.3 10^3/uL (0.5-4.7); ABSOLUTE MONOCYTES (AUTO) 0.7 10^3/uL (0.1-1.4); BASOPHILS % (AUTO) 0.9 % (0-2); EOSINOPHILS % (AUTO) 2.6 % (0-6); HEMOGLOBIN 12.5 g/dL (12.0-15.5); LYMPHOCYTES % (AUTO) 25.6 % (13-45); MEAN CORPUSCULAR HEMOGLOBIN 32.5 pg (27.0-33.4); MEAN CORPUSCULAR HGB CONC 33.8 g/dL (32.0-36.0); MEAN CORPUSCULAR VOLUME 96 fl (80-97); MONOCYTES % (AUTO) 13.3 % (3-13); PLATELET COUNT 235 10^3/uL (150-450); RED BLOOD COUNT 3.84 10^6/uL (3.72-5.28); RED CELL DISTRIBUTION WIDTH 13.8 % (11.5-14.0); SEGMENTED NEUTROPHILS % (AUTO) 57.6 % (42-78); TOTAL CELLS COUNTED % (AUTO) 100 %; WHITE BLOOD COUNT 5.2 10^3/uL (4.0-10.5)
[2018-10-21] MEDS: LEVOTHYROXINE SODIUM 0.05 MG TABLET PO SCH (06:26)
[2018-10-21] MEDS: NORMAL SALINE 1000 ML 1,000 ML IV PRN (06:26)
[2018-10-21 08:00] LABS: ALBUMIN 3.9 g/dL (3.5-5.0); ALKALINE PHOSPHATASE 118 U/L (38-126); ANION GAP 7 (5-19); ASPARTATE AMINO TRANSFERASE 42 U/L (14-36); BILIRUBIN,DIRECT 0.1 mg/dL (0.0-0.4); BILIRUBIN,TOTAL 1.2 mg/dL (0.2-1.3); BLOOD UREA NITROGEN 16 mg/dL (7-20); CALCIUM 8.8 mg/dL (8.4-10.2); CARBON DIOXIDE 28 mmol/L (22-30); CHLORIDE 101 mmol/L (98-107); GLUCOSE 120 mg/dL (75-110); POTASSIUM 3.8 mmol/L (3.6-5.0); TOTAL PROTEIN 6.7 g/dL (6.3-8.2)
--- NOTE | 2018-10-21 10:21 | PDOC PROGRESS REPORT ---
Subjective Progress Note for:: 10/21/18 Subjective:: Patient was admitted because of the altered mental status and uncontrolled seizures activities Patient's MRI of the head was negative for any acute stroke Urine culture is also negative Patient is currently doing well Is back to the baseline Also see Dr. العلي at the neurology as outpatient Reason For Visit: ENCEPHALOPATHY ? SEIZURE Physical Exam Vital Signs: Temp Pulse Resp BP Pulse Ox 98.1 F 73 23 H 134/60 H 97 10/21/18 03:03 10/21/18 07:00 10/21/18 03:03 10/21/18 03:03 10/21/18 03:03 Intake & Output 10/20/18 10/21/18 10/22/18 06:59 06:59 06:59 Intake Total 450 1560 103 Output Total 450 Balance 450 1110 103 Weight 64.8 kg 66.7 kg General appearance: PRESENT: no acute distress, well-developed, well-nourished Head exam: PRESENT: atraumatic, normocephalic Eye exam: PRESENT: conjunctiva pink, EOMI, PERRLA. ABSENT: scleral icterus Ear exam: PRESENT: normal external ear exam Mouth exam: PRESENT: moist, tongue midline Neck exam: PRESENT: full ROM. ABSENT: carotid bruit, JVD, lymphadenopathy, thyromegaly Respiratory exam: PRESENT: clear to auscultation jordin Cardiovascular exam: PRESENT: RRR. ABSENT: diastolic murmur, rubs, systolic murmur Pulses: PRESENT: normal dorsalis pedis pul, +2 pedal pulses bilateral Vascular exam: PRESENT: normal capillary refill GI/Abdominal exam: PRESENT: normal bowel sounds, soft. ABSENT: distended, guard ing, mass, organolmegaly, rebound, tenderness Rectal exam: PRESENT: deferred Musculoskeletal exam: PRESENT: ambulatory Neurological exam: PRESENT: alert, awake, oriented to person, oriented to place, oriented to time, oriented to situation, CN II-XII grossly intact. ABSENT: motor sensory deficit Psychiatric exam: PRESENT: appropriate affect, normal mood. ABSENT: homicidal ideation, suicidal ideation Skin exam: PRESENT: dry, intact, warm. ABSENT: cyanosis, rash Results Laboratory Results: 10/21/18 04:33 10/21/18 06:42 10/20/18 10/21/18 10/21/18 14:09 04:33 04:33 WBC 5.2 RBC 3.84 Hgb 12.5 Hct 37.0 MCV 96 MCH 32.5 MCHC 33.8 RDW 13.8 Plt Count 235 Seg Neutrophils % 57.6 Carbonic Acid 1.20 HCO3/H2CO3 Ratio 21:1 ABG pH 7.44 ABG pCO2 39.8 ABG pO2 91.0 ABG HCO3 26.2 H ABG O2 Saturation 97.2 ABG Base Excess 2.0 FiO2 ROOM AIR Sodium Cancelled Potassium Cancelled Chloride Cancelled Carbon Dioxide Cancelled Anion Gap Cancelled BUN Cancelled Creatinine Cancelled Est GFR ( Amer) Cancelled Est GFR (Non-Af Amer) Cancelled Glucose Cancelled Calcium Cancelled Total Bilirubin Cancelled AST Cancelled Alkaline Phosphatase Cancelled Total Protein Cancelled Albumin Cancelled 10/21/18 06:42 WBC RBC Hgb Hct MCV MCH MCHC RDW Plt Count Seg Neutrophils % Carbonic Acid HCO3/H2CO3 Ratio ABG pH ABG pCO2 ABG pO2 ABG HCO3 ABG O2 Saturation ABG Base Excess FiO2 Sodium 135.9 L Potassium 3.8 Chloride 101 Carbon Dioxide 28 Anion Gap 7 BUN 16 Creatinine 0.91 Est GFR ( Amer) > 60 Est GFR (Non-Af Amer) Glucose 120 H Calcium 8.8 Total Bilirubin 1.2 AST 42 H Alkaline Phosphatase 118 Total Protein 6.7 Albumin 3.9 10/19/18 18:07 Clean Catch Midstream Urine Culture - Final NO GROWTH 2 DAYS 10/19/18 10/19/18 10/19/18 16:59 16:59 21:05 Creatine Kinase 393 H CK-MB (CK-2) Troponin I < 0.012 NT-Pro-B Natriuret Pep 1700 H 10/19/18 10/20/18 10/20/18 21:05 02:54 02:54 Creatine Kinase 649 H CK-MB (CK-2) 2.50 3.59 Troponin I 0.035 0.036 NT-Pro-B Natriuret Pep 10/20/18 10/20/18 09:03 09:03 Creatine Kinase 729 H CK-MB (CK-2) 3.26 Troponin I 0.027 NT-Pro-B Natriuret Pep Impressions: Chest X-Ray 10/19/18 16:57 IMPRESSION: Increased right basilar airspace opacities and possible small pleural effusion. Head CT 10/19/18 17:10 IMPRESSION: NO ACUTE INTRACRANIAL FINDINGS. EVIDENCE OF ACUTE STROKE: NO. Head MRI 10/20/18 00:00 IMPRESSION: Negative for acute or sub-acute infarction. EVIDENCE OF ACUTE STROKE: NO. Assessment & Plan - Diagnosis (1) Altered mental status Qualifiers: Altered mental status type: unspecified Qualified Code(s): R41.82 - Altered mental status, unspecified Is this a current diagnosis for this admission?: Yes Plan: Most likely due to the related to the seizures activities currently all stable back to the baseline (2) Atrial fibrillation Qualifiers: Atrial fibrillation type: chronic Qualified Code(s): I48.91 - Unspecified atrial fibrillation Is this a current diagnosis for this admission?: Yes Plan: Continues to Eliquis start the patient on beta-zuleima again (3) Chronic systolic (congestive) heart failure Is this a current diagnosis for this admission?: Yes Plan: Will restart the patient on the Lasix (4) Seizure Is this a current diagnosis for this admission?: Yes Plan: Continues to [facility] patients receive the Dilantin dose follow outpatients neurology further adjustment of the medications I think patient is a mostly noncompliance (5) COPD (chronic obstructive pulmonary disease) Qualifiers: COPD type: unspecified COPD Qualified Code(s): J44.9 - Chronic obstructive pulmonary disease, unspecified Is this a current diagnosis for this admission?: Yes Plan: Currently all stable (6) Cerebrovascular disorder Is this a current diagnosis for this admission?: Yes Plan: Continues to Eliquis statin (7) Dementia Qualifiers: Dementia type: vascular dementia Dementia behavioral disturbance: without behavioral disturbance Qualified Code(s): F01.50 - Vascular dementia without behavioral disturbance Is this a current diagnosis for this admission?: Yes Plan: Patient definitely have underlying dementia's patient already seen the neurology as outpatients we will discuss with the possible skilled nursing placement - Time Time Spent with patient: 15-24 minutes Medications reviewed and adjusted accordingly: Yes Anticipated discharge: SNF Within: within 24 hours - Plan Summary Plan Summary: Physical therapy evaluationsSwitch to the IV to the p.oEdward Post
[2018-10-21] MEDS: ISOSORBIDE MONONITRATE 30 MG TAB.ER.24H PO SCH (11:44)
[2018-10-21] MEDS: DULOXETINE HCL 20 MG CAPSULE.DR PO SCH (11:44)
[2018-10-21] MEDS: LEVETIRACETAM 500 MG TABLET PO SCH ×2 (11:44→21:44)
[2018-10-21] MEDS: AMLODIPINE BESYLATE 10 MG TABLET PO SCH (11:45)
[2018-10-21] MEDS: METOPROLOL SUCCINATE 25 MG TAB.SR.24H PO SCH (11:45)
[2018-10-21] MEDS: APIXABAN 5 MG TABLET PO SCH ×2 (11:45→17:54)
[2018-10-21] MEDS: FLUTICASONE/VILANTEROL 200-25 MCG/DOSE IH SCH (11:45)
--- NOTE | 2018-10-21 16:32 | NEURO WORKBENCH EEG REPORT ---
EEG Report Patient: Zayda Llanes ID: [id number] Referring Doctor: Kira Stevens Date: 10/21/2018 Reason for study: Evaluate Epileptiform activity Medications: Norvasc, Eliquis, Lipitor, Cymbalta, Breo/Ellipta, Keppra, Synthroid History: This is a 72 year old female with a history of dementia, hypercholesterolemia, HTN, A-Fib, GERD, depression, alcohol use who was admitted with encephalopathy. This EEG was requested for evaluation of epileptiform or seizure activity. EEG Interpretation: This EEG was recorded during wakefulness, and stage I sleep. The awake EEG is characterized by a well organized background with a well developed and reactive posterior dominant rhythm (PDR) of approximately 9-10 Hz. The remainder of the background consisted of intermittent diffuse alpha activity and low amplitude beta activity. The EEG is symmetric in amplitudes and frequencies. Photic stimulation resulted in excellent photic driving, and there was no epileptiform activity elicited with photic stimulation. Stage I sleep was achieved and characterized by slow rolling eye movements, slowing of the background rhythm by 1-2 Hz, and emergence of fragmentary diffuse intermittent theta activity. Stage II sleep was not achieved. There were no epileptiform abnormalities (no sharp waves and no spikes). There were no seizures. The EKG showed an irregularly irregular rhythm with typically 60-70 beats per minute. EEG Impression: This EEG is within normal limits for age. There was no epileptiform activity or seizures; however the patient is on Keppra which could potentially suppress interictal epileptiform activity. A single normal routine EEG does not rule out the possibility of epilepsy. If there is high clinical suspicion for epilepsy, then additional EEG evaluation should be considered with a sleep-deprived EEG or more prolonged EEG monitoring. There was an irregularly irregular cardiac rhythm noted consistent with the patients history of atrial fibrillation. INTERPRETING NEUROLOGIST: Shawn Acosta MD Board certified by the [place] [employer] in Neurology, Clinical Neurophysiology, and Sleep Medicine [facility]
--- NOTE | 2018-10-21 19:29 | PDOC PROGRESS REPORT ---
Subjective Progress Note for:: 10/21/18 Subjective:: Patient referred because of concern about CHF. BNP level was noted to be mildly elevated. Patient however denies any shortness of breath. She was admitted with seizures and amnesia. Patient telemetry strips were reviewed. No bradycardia or any sustained tachycardia was noted. Patient does have chronic atrial fibrillation. She is well anticoagulated with oral anticoagulants. Reason For Visit: ENCEPHALOPATHY ? SEIZURE Physical Exam Vital Signs: Temp Pulse Resp BP Pulse Ox 98.1 F 73 23 H 134/60 H 97 10/21/18 03:03 10/21/18 07:00 10/21/18 03:03 10/21/18 03:03 10/21/18 03:03 Intake & Output 10/20/18 10/21/18 10/22/18 06:59 06:59 06:59 Intake Total 450 1560 703 Output Total 450 Balance 450 1110 703 Weight 64.8 kg 66.7 kg Exam: GENERAL: well-nourished and in no acute distress. Alert and oriented x3 HEAD: Atraumatic, normocephalic. EYES: MATTY, sclera anicteric, conjunctiva are normal. ENT: Moist mucous membranes. No oral ulcerations or bleeding gums noted. No obvious ear, nose or throat abnormalities noted. NECK: supple without lymphadenopathy. Trachea is central. No cervical or axillary lymphadenopathy noted. Carotids are 2+, JVD WNL LUNGS: Breath sounds clear bilaterally. No wheezes rales or rhonchi noted. No significant dullness noted on percussion. CHEST: Palpation of the chest wall shows no significant chest wall tenderness. HEART: [place] [employer], No PSH, 1/6 ISRA aortic area, 1/6 serrano systolic murmur mitral area, no rubs, no gallops. ABDOMEN: Soft, no significant tenderness appreciated, normoactive bowel sounds. No guarding, no rebound. No rigidity noted . No masses appreciated. EXTREMITIES: Pedal pulses are 1-2+, no calf tenderness noted. No clubbing or cyanosis. negative pedal edema noted NEUROLOGICAL: Focused neurological exam showed no significant neurologic deficit. Normal speech, no focal weakness appreciated. PSYCH: Normal mood, normal affect. Judgment and insight within normal limits. SKIN: No significant ecchymosis, skin is noted to be warm. MUSCULOSKELETAL EXAM: No significant acute joint swelling noted. Results Laboratory Results: 10/21/18 04:33 10/21/18 06:42 10/21/18 10/21/18 10/21/18 04:33 04:33 06:42 WBC 5.2 RBC 3.84 Hgb 12.5 Hct 37.0 MCV 96 MCH 32.5 MCHC 33.8 RDW 13.8 Plt Count 235 Seg Neutrophils % 57.6 Sodium Cancelled 135.9 L Potassium Cancelled 3.8 Chloride Cancelled 101 Carbon Dioxide Cancelled 28 Anion Gap Cancelled 7 BUN Cancelled 16 Creatinine Cancelled 0.91 Est GFR ( Amer) Cancelled > 60 Est GFR (Non-Af Amer) Cancelled Glucose Cancelled 120 H Calcium Cancelled 8.8 Total Bilirubin Cancelled 1.2 AST Cancelled 42 H Alkaline Phosphatase Cancelled 118 Total Protein Cancelled 6.7 Albumin Cancelled 3.9 10/19/18 18:07 Clean Catch Midstream Urine Culture - Final NO GROWTH 2 DAYS 10/19/18 10/19/18 10/19/18 16:59 16:59 21:05 Creatine Kinase 393 H CK-MB (CK-2) Troponin I < 0.012 NT-Pro-B Natriuret Pep 1700 H 10/19/18 10/20/18 10/20/18 21:05 02:54 02:54 Creatine Kinase 649 H CK-MB (CK-2) 2.50 3.59 Troponin I 0.035 0.036 NT-Pro-B Natriuret Pep 10/20/18 10/20/18 09:03 09:03 Creatine Kinase 729 H CK-MB (CK-2) 3.26 Troponin I 0.027 NT-Pro-B Natriuret Pep EKG Comments: Atrial fibrillation with controlled heart rate and without any sustained tachycardia or bradycardia Impressions: Chest X-Ray 10/19/18 16:57 IMPRESSION: Increased right basilar airspace opacities and possible small pleural effusion. Head CT 10/19/18 17:10 IMPRESSION: NO ACUTE INTRACRANIAL FINDINGS. EVIDENCE OF ACUTE STROKE: NO. Head MRI 10/20/18 00:00 IMPRESSION: Negative for acute or sub-acute infarction. EVIDENCE OF ACUTE STROKE: NO. Assessment & Plan - Diagnosis (1) Atrial fibrillation Qualifiers: Atrial fibrillation type: chronic Qualified Code(s): I48.91 - Unspecified atrial fibrillation Is this a current diagnosis for this admission?: Yes (2) Chronic systolic (congestive) heart failure Is this a current diagnosis for this admission?: Yes (3) Seizure Is this a current diagnosis for this admission?: Yes (4) Cerebrovascular disorder Is this a current diagnosis for this admission?: Yes - Notes Notes: Based on history, it seems patient most likely had a seizure. BNP level was minimally elevated and could well be from seizures. On exam patient seems well compensated. At this point recommend continuing patient home medication. Agree with neurology evaluation and EEG. As regards chronic atrial fibrillation, continue chronic anticoagulation. We will continue to follow patient. Recent 2D echocardiogram results were reviewed. - Time Time with patient: Greater than 35 minutes Medications reviewed and adjusted accordingly: Yes
[2018-10-21] MEDS: ATORVASTATIN CALCIUM 40 MG TABLET PO SCH (21:44)
[2018-10-22 05:12] LABS: ABSOLUTE BASOPHILS # (AUTO) 0.1 10^3/uL (0.0-0.2); ABSOLUTE EOSINOPHILS # (AUTO) 0.2 10^3/uL (0.0-0.6); ABSOLUTE LYMPHOCYTES (AUTO) 1.5 10^3/uL (0.5-4.7); ABSOLUTE MONOCYTES (AUTO) 0.5 10^3/uL (0.1-1.4); BASOPHILS % (AUTO) 1.8 % (0-2); EOSINOPHILS % (AUTO) 5.4 % (0-6); HEMATOCRIT 34.9 % (36.0-47.0); HEMOGLOBIN 11.8 g/dL (12.0-15.5); LYMPHOCYTES % (AUTO) 33.7 % (13-45); MEAN CORPUSCULAR HEMOGLOBIN 32.4 pg (27.0-33.4); MEAN CORPUSCULAR HGB CONC 33.7 g/dL (32.0-36.0); MEAN CORPUSCULAR VOLUME 96 fl (80-97); MONOCYTES % (AUTO) 12.4 % (3-13); PLATELET COUNT 210 10^3/uL (150-450); RED BLOOD COUNT 3.63 10^6/uL (3.72-5.28); RED CELL DISTRIBUTION WIDTH 13.8 % (11.5-14.0); SEGMENTED NEUTROPHILS % (AUTO) 46.7 % (42-78); TOTAL CELLS COUNTED % (AUTO) 100 %; WHITE BLOOD COUNT 4.3 10^3/uL (4.0-10.5)
[2018-10-22 05:39] LABS: ALBUMIN 3.4 g/dL (3.5-5.0); ALKALINE PHOSPHATASE 106 U/L (38-126); ANION GAP 7 (5-19); ASPARTATE AMINO TRANSFERASE 34 U/L (14-36); BILIRUBIN,DIRECT 0.1 mg/dL (0.0-0.4); BILIRUBIN,TOTAL 0.8 mg/dL (0.2-1.3); BLOOD UREA NITROGEN 19 mg/dL (7-20); CALCIUM 8.5 mg/dL (8.4-10.2); CARBON DIOXIDE 28 mmol/L (22-30); CHLORIDE 101 mmol/L (98-107); GLUCOSE 104 mg/dL (75-110); POTASSIUM 3.9 mmol/L (3.6-5.0)
[2018-10-22] MEDS: LEVOTHYROXINE SODIUM 0.05 MG TABLET PO SCH (06:40)
[2018-10-22] MEDS: METOPROLOL SUCCINATE 25 MG TAB.SR.24H PO SCH (09:12)
[2018-10-22] MEDS: APIXABAN 5 MG TABLET PO SCH (09:12)
[2018-10-22] MEDS: LEVETIRACETAM 500 MG TABLET PO SCH (09:12)
[2018-10-22] MEDS: ISOSORBIDE MONONITRATE 30 MG TAB.ER.24H PO SCH (09:12)
[2018-10-22] MEDS: FLUTICASONE/VILANTEROL 200-25 MCG/DOSE IH SCH (09:12)
[2018-10-22] MEDS: AMLODIPINE BESYLATE 10 MG TABLET PO SCH (09:12)
[2018-10-22] MEDS: DULOXETINE HCL 20 MG CAPSULE.DR PO SCH (09:12)
[2018-10-22 09:40] VITALS: BP 135/59
--- NOTE | 2018-10-22 12:20 | PDOC DISCHARGE SUMMARY ---
General - Admit/Disc Date/PCP Admission Date/Primary Care Provider: 10/19/18 20:00 CECY CAMARENA MD Discharge Date: 10/22/18 - Discharge Diagnosis (1) Altered mental status Is this a current diagnosis for this admission?: Yes Summary: Patient MRI of the brain is negative all culture is negative Most likely post ictal from the seizures (2) Atrial fibrillation Is this a current diagnosis for this admission?: Yes Summary: Currently seen Dr. Arreguin continues to Eliquis (3) Chronic systolic (congestive) heart failure Is this a current diagnosis for this admission?: Yes Summary: Continues to Lasix and Spironolactone at least 3 times a week while the patient EF is stable as per discussed with the Dr. Arreguin and readjust the dose as this patient's symptoms (4) Seizure Is this a current diagnosis for this admission?: Yes Summary: Continues to [place] and follow outpatients neurology patient already seen neurologist Dr. Boyd at patient EEG is all stable (5) COPD (chronic obstructive pulmonary disease) Is this a current diagnosis for this admission?: Yes Summary: Continues to current inhaler (6) Cerebrovascular disorder Is this a current diagnosis for this admission?: Yes Summary: Eliquis And statin (7) Dementia Is this a current diagnosis for this admission?: Yes Summary: Consider start the Aricept - Additional Information Discharge Diet: Cardiac Discharge Activity: Activity As Tolerated Home Medications: Amlodipine Besylate [Norvasc 10 mg Tablet] 10 mg PO DAILY 08/15/18 Atorvastatin Calcium [Lipitor 40 mg Tablet] 40 mg PO QHS 08/15/18 Duloxetine HCl [Cymbalta 20 mg Capsule.dr] 20 mg PO DAILY 08/15/18 Fluticasone/Salmeterol [Advair 250-50 Diskus 14 Dose/Diskus] 1 puff IH Q12 08/15/18 Isosorbide Mononitrate [Imdur 30 mg Tablet.er] 30 mg PO DAILY 08/15/18 Levothyroxine Sodium [Synthroid 0.05 mg Tablet] 50 mcg PO Q6AM 08/15/18 Omeprazole 20 mg PO DAILYP PRN 08/15/18 Spironolactone [Aldactone 25 mg Tablet] 12.5 mg PO DAILY 08/15/18 Apixaban [Eliquis 5 mg Tablet] 5 mg PO BID #60 tablet 08/17/18 Levetiracetam 1,000 mg PO Q12 10/20/18 Metoprolol Succinate [Toprol Xl 25 mg Tab.sr] 25 mg PO DAILY 10/20/18 Furosemide [Lasix 20 mg Tablet] 20 mg PO DAILY #0 10/22/18 History of Present Illness History of Present Illness: JOSE ESPINAL is a 72 year old female Patient was admitting in the hospital for altered mental status seizures activities postictal states Hospital Course Hospital Course: This 72-year-old female significant history of the as about came to the emergency department with altered mental status a phasic and the patient's pretty much postictal phase kind of the same scenario with underlying dementia's patients does this kind of behavior also admitting in the hospital for further evaluation and treatments Patients have MRI of the head was done was negative for any acute strokes other blood work cultures all stable's Patient is back to the baseline Patient otherwise walk with the physical therapy without any issues alert awake and oriented x3 By the cardiology all stable Patients do not want to go to the rehabs now back to the baseline's patient is already seen the neurology as outpatients continues to follow with them Physical Exam Vital Signs: Temp Pulse Resp BP Pulse Ox 97.7 F 107 H 18 135/59 H 98 10/22/18 09:38 10/22/18 09:38 10/22/18 09:38 10/22/18 09:38 10/22/18 09:38 Intake & Output 10/21/18 10/22/18 10/23/18 06:59 06:59 06:59 Intake Total 1560 703 Output Total 450 Balance 1110 703 Weight 66.7 kg 65.4 kg General appearance: PRESENT: no acute distress, well-developed, well-nourished Head exam: PRESENT: atraumatic, normocephalic Eye exam: PRESENT: conjunctiva pink, EOMI, PERRLA. ABSENT: scleral icterus Ear exam: PRESENT: normal external ear exam Mouth exam: PRESENT: moist, tongue midline Neck exam: PRESENT: full ROM. ABSENT: carotid bruit, JVD, lymphadenopathy, thyromegaly Respiratory exam: PRESENT: clear to auscultation jordin Cardiovascular exam: PRESENT: RRR. ABSENT: diastolic murmur, rubs, systolic murmur Pulses: PRESENT: normal dorsalis pedis pul, +2 pedal pulses bilateral Vascular exam: PRESENT: normal capillary refill GI/Abdominal exam: PRESENT: normal bowel sounds, soft. ABSENT: distended, guarding, mass, organolmegaly, rebound, tenderness Rectal exam: PRESENT: deferred Musculoskeletal exam: PRESENT: ambulatory Neurological exam: PRESENT: alert, awake, oriented to person, oriented to place, oriented to time, oriented to situation, CN II-XII grossly intact. ABSENT: motor sensory deficit Psychiatric exam: PRESENT: appropriate affect, normal mood. ABSENT: homicidal ideation, suicidal ideation Skin exam: PRESENT: dry, intact, warm. ABSENT: cyanosis, rash Results Laboratory Results: 10/22/18 04:31 10/22/18 04:31 10/22/18 10/22/18 04:31 04:31 WBC 4.3 RBC 3.63 L Hgb 11.8 L Hct 34.9 L MCV 96 MCH 32.4 MCHC 33.7 RDW 13.8 Plt Count 210 Seg Neutrophils % 46.7 Sodium 135.5 L Potassium 3.9 Chloride 101 Carbon Dioxide 28 Anion Gap 7 BUN 19 Creatinine 0.99 Est GFR ( Amer) > 60 Glucose 104 Calcium 8.5 Total Bilirubin 0.8 AST 34 Alkaline Phosphatase 106 Total Protein 6.0 L Albumin 3.4 L 10/19/18 18:07 Clean Catch Midstream Urine Culture - Final NO GROWTH 2 DAYS 10/19/18 10/19/18 10/19/18 16:59 16:59 21:05 Creatine Kinase 393 H CK-MB (CK-2) Troponin I < 0.012 NT-Pro-B Natriuret Pep 1700 H 10/19/18 10/20/18 10/20/18 21:05 02:54 02:54 Creatine Kinase 649 H CK-MB (CK-2) 2.50 3.59 Troponin I 0.035 0.036 NT-Pro-B Natriuret Pep 10/20/18 10/20/18 09:03 09:03 Creatine Kinase 729 H CK-MB (CK-2) 3.26 Troponin I 0.027 NT-Pro-B Natriuret Pep Impressions: Chest X-Ray 10/19/18 16:57 IMPRESSION: Increased right basilar airspace opacities and possible small ple ural effusion. Head CT 10/19/18 17:10 IMPRESSION: NO ACUTE INTRACRANIAL FINDINGS. EVIDENCE OF ACUTE STROKE: NO. Head MRI 10/20/18 00:00 IMPRESSION: Negative for acute or sub-acute infarction. EVIDENCE OF ACUTE STROKE: NO. Qualifiers - * PATIENT BEING DISCHARGED WITH ANY OF THE FOLLOWING DIAGNOSIS: No Acute Heart Failure - Is this a Heart Failure Patient?: No Plan Time Spent: Greater than 30 Minutes - Follow outpatients neurology following office 1 week discharge with home health and physical therapy
== END 2018-10-22 10:10 | disposition home health service (06) | DRG 101 ==
LOC: ER 16:52 → EH 20:00 → 3N 22:28
PROVIDERS: ADMIT Family Medicine; ATTEND Family Medicine
DX: G40.901 Epilepsy, unspecified, not intractable, with status epilepticus (principal); I50.22 Chronic systolic (congestive) heart failure; I48.2 Chronic atrial fibrillation; I11.0 Hypertensive heart disease with heart failure; F03.90 Unspecified dementia, unspecified severity, without behavioral disturbance, psychotic disturbance, mood disturbance, and anxiety; E03.9 Hypothyroidism, unspecified; J44.9 Chronic obstructive pulmonary disease, unspecified; Z86.73 Personal history of transient ischemic attack (TIA), and cerebral infarction without residual deficits; Z79.02 Long term (current) use of antithrombotics/antiplatelets; Z79.899 Other long term (current) drug therapy; Z88.0 Allergy status to penicillin; Z88.2 Allergy status to sulfonamides; Z90.49 Acquired absence of other specified parts of digestive tract; Z90.710 Acquired absence of both cervix and uterus
CPT/HCPCS: 36415; 36600; 51701; 70450; 70551; 71045; 80048; 80053; 80061; 80076; 80177; 80307; 81001; 82550; 82553; 82803; 82962; 83036; 83605; 83690; 83735; 83880; 84100; 84439; 84443; 84484; 85025; 85610; 85730; 87040; 87086; 93005; 93010; 95819; 96374; 96375; 99285; J0696; J1165; J1940; J1956; J3490; J7030; J7050

== ENCOUNTER 2019-02-01 12:43 | Inpatient (IN) | payer MEDICARE, MEDICAID ==
[2019-02-01] MEDS ORDERED: LORAZEPAM INJ 2 MG/1 ML VIAL IV ONE ×2 (12:50→13:02)
[2019-02-01] MEDS ORDERED: NORMAL SALINE 1000 ML 1,000 ML IV ONE (12:59)
[2019-02-01 13:10] LABS: ABSOLUTE BASOPHILS # (AUTO) 0.1 10^3/uL (0.0-0.2); ABSOLUTE EOSINOPHILS # (AUTO) 0.1 10^3/uL (0.0-0.6); ABSOLUTE LYMPHOCYTES (AUTO) 2.5 10^3/uL (0.5-4.7); ABSOLUTE MONOCYTES (AUTO) 0.9 10^3/uL (0.1-1.4); EOSINOPHILS % (AUTO) 1.1 % (0-6); HEMATOCRIT 41.3 % (36.0-47.0); HEMOGLOBIN 13.5 g/dL (12.0-15.5); LYMPHOCYTES % (AUTO) 28.7 % (13-45); MEAN CORPUSCULAR HEMOGLOBIN 33.3 pg (27.0-33.4); MEAN CORPUSCULAR HGB CONC 32.7 g/dL (32.0-36.0); MEAN CORPUSCULAR VOLUME 102 fl (80-97); MONOCYTES % (AUTO) 10.2 % (3-13); PLATELET COUNT 336 10^3/uL (150-450); RED BLOOD COUNT 4.06 10^6/uL (3.72-5.28); RED CELL DISTRIBUTION WIDTH 13.6 % (11.5-14.0); TOTAL CELLS COUNTED % (AUTO) 100 %; WHITE BLOOD COUNT 8.5 10^3/uL (4.0-10.5)
[2019-02-01 13:29] LABS: ALBUMIN 4.5 g/dL (3.5-5.0); ALKALINE PHOSPHATASE 208 U/L (38-126); ASPARTATE AMINO TRANSFERASE 45 U/L (14-36); BILIRUBIN,DIRECT 0.2 mg/dL (0.0-0.4); BILIRUBIN,TOTAL 1.3 mg/dL (0.2-1.3); BLOOD UREA NITROGEN 14 mg/dL (7-20); CALCIUM 9.4 mg/dL (8.4-10.2); CREATINE KINASE 231 U/L (30-135); GLUCOSE 139 mg/dL (75-110); POTASSIUM 3.7 mmol/L (3.6-5.0); TOTAL PROTEIN 7.7 g/dL (6.3-8.2)
[2019-02-01 13:33] LABS: CARBON DIOXIDE 17 mmol/L (22-30); CHLORIDE 96 mmol/L (98-107)
[2019-02-01 13:37] LABS: ALCOHOL < 10 mg/dL (NONE DETECTED)
[2019-02-01 13:38] LABS: ANION GAP 26 (5-19)
--- NOTE | 2019-02-01 13:45 | EKG REPORT ---
SEVERITY:- ABNORMAL ECG - ATRIAL FIBRILLATION LEFT AXIS DEVIATION PROBABLE LVH WITH SECONDARY REPOL ABNRM : Confirmed by: Joann Love MD 01-Feb-2019 13:44:25
--- NOTE | 2019-02-01 13:53 | RADIOLOGY REPORT (SQ) ---
EXAM DESCRIPTION: CHEST SINGLE VIEW COMPLETED DATE/TIME: 02/01/2019 1:41 pm REASON FOR STUDY: seizure COMPARISON: 09/18/2018 NUMBER OF VIEWS: One view. TECHNIQUE: Single frontal radiographic view of the chest acquired. LIMITATIONS: None. FINDINGS: LUNGS AND PLEURA: No opacities, masses or pneumothorax. No pleural effusion. MEDIASTINUM AND HILAR STRUCTURES: Stable contours. HEART AND VASCULAR STRUCTURES: Heart size generous, stable appearance. No overt congestive failure. BONES: Osteopenic. Intact right shoulder arthroplasty. Limited assessment of the left shoulder. Pr obably within normal limits but correlate with symptoms. No evidence of acute displaced rib fracture s ; probable chronic left lateral rib fractures. Limiting osteopenia, however. HARDWARE: None in the chest. OTHER: No other significant finding. IMPRESSION: No acute thoracic abnormality. Findings as above. TECHNICAL DOCUMENTATION: JOB ID: [id number] [employer]- All Rights Reserved Reading location - IP/workstation name: [email or web address]
--- NOTE | 2019-02-01 14:07 | RADIOLOGY REPORT (SQ) ---
EXAM DESCRIPTION: CT HEAD WITHOUT COMPLETED DATE/TIME: 02/01/2019 1:54 pm REASON FOR STUDY: seizure COMPARISON: 10/19/2018. TECHNIQUE: Axial images acquired through the brain without intravenous contrast. Images reviewed wi th bone, brain and subdural windows. Additional sagittal and coronal reconstructions were generated. Images stored on PACS. All CT scanners at this facility use dose modulation, iterative reconstruction, and/or weight based d osing when appropriate to reduce radiation dose to as low as reasonably achievable (ALARA). [facility]: Dose Right [facility]: CareDose [facility]: Dose Right [facility]: Teradose 4D [facility]: Smart [employer] RADIATION DOSE: CT Rad equipment meets quality standard of care and radiation dose reduction techniq ues were employed. CTDIvol: 53.2 mGy. DLP: 1017 mGy-cm.mGy. LIMITATIONS: None. FINDINGS: VENTRICLES: Prominent. CEREBRUM: No masses. No hemorrhage. No midline shift. Moderate chronic areas of low density in the white matter most likely due to chronic micro-vascular ischemic change. 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 No evidence for acute infarction. CEREBELLUM: No masses. No hemorrhage. No alteration of density. No evidence for acute infarction. EXTRAAXIAL SPACES: Age-related involutional change. No fluid collections. No masses. ORBITS AND GLOBE: No intra- or extraconal masses. Normal contour of globe without masses. CALVARIUM: No fracture. PARANASAL SINUSES: No fluid or mucosal thickening. SOFT TISSUES: No mass or hematoma. OTHER: No other significant finding. IMPRESSION: Chronic brain changes. No acute intracranial abnormality. EVIDENCE OF ACUTE STROKE: NO. TECHNICAL DOCUMENTATION: JOB ID: [id number] Quality ID # [id number]: Final reports with documentation of one or more dose reduction techniques (e.g., Au tomated exposure control, adjustment of the mA and/or kV according to patient size, use of iterative reconstruction technique) 2010 [employer]- All Rights Reserved Reading location - IP/workstation name: [email or web address]
[2019-02-01] MEDS ORDERED: PHENYTOIN SODIUM INJ/PF 100 MG/2 ML SDV IV ONE (14:27)
--- NOTE | 2019-02-01 14:44 | ER Document Report ---
ED General - General Chief Complaint: Probable Seizure Stated Complaint: POSSIBLE SEIZURE Time Seen by Provider: 02/01/19 12:57 Primary Care Provider: CECY CAMARENA MD [Primary Care Provider] - Follow up as needed TRAVEL OUTSIDE OF THE [place] IN LAST 30 DAYS: No - HPI Notes: Patient is a 73-year-old female brought into the emergency department for evaluation by EMS. Entire history is garnered from them. Evidently, the patient had a seizure at home, EMS was called. Patient's could not offer any real history. It Business Systems Analyst notes that he believes that he has brought he r to the emergency department for seizures in the past. The patient herself is initially postictal, can offer me no history, is completely a phasic at this time. - Related Data Allergies/Adverse Reactions: Penicillins Allergy (Mild, Verified 02/12/18 16:50) rash Sulfa (Sulfonamide Antibiotics) Allergy (Mild, Verified 02/12/18 16:52) Skin Redness Home Medications: advair, amlodipine, aspirin, atorvastatin, cyclobenzaprine, e liquis, furosemide, isosorbide, levetiracetam, levothyroxine, metoprolol, spironolactone Past Medical History - General Information source: Emergency Med Personnel, [facility] Records - Social History Smoking Status: Unknown if Ever Smoked Frequency of alcohol use: None Drug Abuse: None Family History: Reviewed & Not Pertinent Patient has suicidal ideation: No Patient has homicidal ideation: No - Past Medical History Cardiac Medical History: Reports: Hx Atrial Fibrillation, Hx Heart Attack - mild, Hx Hypercholesterolemia, Hx Hypertension Denies: Hx Congestive Heart Failure, Hx Coronary Artery Disease, Hx Peripheral Vascular Disease, Hx Heart Murmur Neurological Medical History: Reports: Hx Cerebrovascular Accident - 01/20 , Hx Seizures. Denies: Hx Parkinson's Disease Endocrine Medical History: Reports: Hx Hypothyroidism. Denies: Hx Graves' Disease, Hx Hyperthyroidism Renal/ Medical History: Denies: Hx End Stage Renal Disease, Hx Kidney Stones, Hx Peritoneal Dialysis Malignancy Medical History: Denies: Hx Leukemia GI Medical History: Reports: Hx Gastroesophageal Reflux Disease - occ. takes Om eprazole PRN. Denies: Hx Crohn's Disease, Hx Hiatal Hernia, Hx Irritable Bowel, Hx Liver Failure, Hx Pancreatitis, Hx Ulcer Musculoskeletal Medical History: Reports Hx Arthritis, Denies Hx Fibromyalgia, Denies Hx Multiple Sclerosis, Denies Hx Muscular Dystrophy, Denies Hx Systemic Lupus Erythematosus Psychiatric Medical History: Reports: Hx Dementia, Hx Depression Denies: Hx Bipolar Disorder, Hx Post Traumatic Stress Disorder, Hx Schizophrenia Traumatic Medical History: Reports: Hx Fractures - 2nd toe on right Infectious Medical History: Denies: Hx HIV Past Surgical History: Reports: Hx Appendectomy, Hx Hysterectomy, Hx Orthopedic Surgery - right rotator cuff. Denies: Hx Bowel Surgery, Hx Section, Hx Cholecystectomy, Hx Colostomy, Hx Coronary Artery Bypass Graft, Hx Gastric Bypass Surgery, Hx Herniorrhaphy, Hx Mastectomy, Hx Pacemaker, Hx Tonsillectomy, Hx Tubal Ligation - Immunizations Hx Diphtheria, Pertussis, Tetanus Vaccination: No Hx Pneumococcal Vaccination: 12/06/17 Review of Systems - Review of Systems -: Yes ROS unobtainable due to patient's medical condition Physical Exam - Vital signs Vitals: Pulse Ox 98 02/01/19 12:59 - Notes Notes: This is a 73-year-old female who appears older than her stated age, in no acute distress. She is completely a phasic, at rest has her eyes closed, but will open them to painful stimuli. She will initially follow commands, but only simple ones. Head is normocephalic and atraumatic, pupils are equal round, reactive to light. Oral mucosa is moist. Heart is mildly tachycardic, irregularly irregular, with systolic murmur, lungs are clear to auscultation bilaterally. Abdomen is soft, nontender, normoactive bowel sounds. Skin is warm, mildly diaphoretic. Again patient will open her eyes to painful stimuli, moves all 4 extremities spontaneously, intermittent Manohar follows commands. Achilles reflexes are 2+ bilaterally, unable to perform any further reflex testing. Sensation appears to be intact to all 4 extremities. No gross facial asymmetry noted. Course - Re-evaluation Re-evalutation: 02/01/19 14:41 Patient presents to the emergency department for evaluation. She was initially postictal, while I was present in the room, the patient did have a seizure. I ordered 1 mg of IV Ativan. She had a second seizure several minutes later, another milligram of IV Ativan was ordered. At that point I was able to review this patient's history, it was noted that she has a seizure history. She is on Keppra, 1500 mg twice a day. I do not see any significant benefit to going higher than the maximum dose of Keppra. Because of my concern, however, I did order a gram of Dilantin. Patient was postictal for a period, but then would open her eyes to command, follow simple commands. She is still completely a phasic. She has had a prolonged postictal period. I did review her notes, it seems this is her typical post ictal state. She already follows with neurology. I do not feel comfortable with this patient being discharged home. I spoke with Dr. Chang, on for Dr. Camarena. He will admit the patient for further care. - Vital Signs Vital signs: Temp Pulse Resp BP Pulse Ox 98 02/01/19 12:59 - Laboratory Result Diagrams: 02/01/19 12:50 02/01/19 12:50 Laboratory results interpreted by me: 02/01/19 02/01/19 12:50 12:50 MCV 102 H Chloride 96 L Carbon Dioxide 17 L Anion Gap 26 H Est GFR ( Amer) 58 L Est GFR (MDRD) Non-Af 48 L Glucose 139 H AST 45 H Alkaline Phosphatase 208 H Creatine Kinase 231 H - EKG Interpretation by Me Additional EKG results interpreted by me: 02/01/19 14:42 Atrial fibrillation with a rate of 87 bpm. Left axis deviation, normal intervals. Nonspecific ST changes, likely secondary to LVH with strain. Largely unchanged from prior study performed in October. Discharge - Discharge Clinical Impression: Seizure, Dementia, Confusion, Prolonged postictal state Condition: Stable Disposition: ADMITTED OBSERVATION Admitting Provider: Masoud - Dr. Chang covering Unit Admitted: Telemetry Referrals: CECY CAMARENA MD [Primary Care Provider] - Follow up as needed
[2019-02-01 15:03] LABS: APPEARANCE,URINE CLEAR; BILIRUBIN,URINE NEGATIVE (NEGATIVE); COLOR,URINE YELLOW; GLUCOSE, URINE NEGATIVE (NEGATIVE); KETONES,URINE NEGATIVE (NEGATIVE); LEUKOCYTE ESTERASE,URINE NEGATIVE (NEGATIVE); NITRITE,URINE POSITIVE (NEGATIVE); PROTEIN,URINE NEGATIVE (NEGATIVE); URINE SPECIFIC GRAVITY 1.009; UROBILINOGEN,URINE NEGATIVE mg/dL (<2.0)
[2019-02-01 15:27] LABS: URINE AMPHETAMINES SCREEN NEGATIVE; URINE BARBITURATES SCREEN NEGATIVE; URINE BENZODIAZEPINES SCREEN NEGATIVE; URINE COCAINE SCREEN NEGATIVE; URINE MARIJUANA (THC) SCREEN NEGATIVE; URINE METHADONE SCREEN NEGATIVE; URINE PHENCYCLIDINE SCREEN NEGATIVE
[2019-02-01] MEDS ORDERED: DEXTROSE 40% GEL 15 GM TUBE PO PRN ×2 (15:45)
[2019-02-01] MEDS ORDERED: DEXTROSE 50%-WATER 25 GM/50 ML DISP.SYRIN IV PRN ×2 (15:45)
[2019-02-01] MEDS ORDERED: GLUCAGON,HUMAN RECOMB 1 MG INJ SUBCUT PRN (15:45)
[2019-02-01] MEDS ORDERED: LORAZEPAM INJ 2 MG/1 ML VIAL IV PRN (15:46)
[2019-02-01] MEDS: NORMAL SALINE 1000 ML 1,000 ML IV PRN (16:08)
--- NOTE | 2019-02-01 17:56 | PDOC H&P ---
History of Present Illness Admission Date/PCP: 02/01/19 15:14 CECY CAMARENA MD History of Present Illness: JOSE ESPINAL is a 73 year old female patient of Dr. Camarena who presented to the ED via EMS with complaint about seizure activity. Patient was postictal and completely aphasic upon presentation to the ED. Her spouse was unable to give any significant medical history upon presentation. Patient do have history of seizure disorder and demonstrate postictal aphasic periods. Her radiographic evaluation with CT head was significant for old microvascular ischemic changes and bilateral occipital region old stroke. At the time of my evaluation she was able to communicate verbally but still demonstrate confusional state. Her morbidities are as listed below. She will be admitted to monitor recovery and identify any other issues that may be contributory to her presentation. Past Medical History Cardiac Medical History: Reports: Atrial Fibrillation, Myocardial Infarction - mild, Hyperlipidema, Hypertension Denies: Congestive Heart Failure, Coronary Artery Disease, Peripheral Vascular Disease, Heart Murmur Neurological Medical History: Reports: Seizures Endocrine Medical History: Reports: Hypothyroidism Denies: Hyperthyroidism Renal/ Medical History: Denies: End Stage Renal Disease Malignancy Medical History: Denies: Leukemia GI Medical History: Reports: Gastroesophageal Reflux Disease - occ. takes O meprazole PRN Denies: Crohn's Disease, Hiatal Hernia Musculoskeltal Medical History: Reports: Arthritis Denies: Fibromyalgia Psychiatric Medical History: Reports: Dementia, Depression Denies: Bipolar Disorder, Post Traumatic Stress Disorder Hematology: Denies: Anemia, Hemophilia, Sickle Cell Disease Infectious Medical History: Denies: HIV Past Surgical History Past Surgical History: Reports: Appendectomy, Hysterectomy, Orthopedic Surgery - right rotator cuff Denies: Amputation, Section, Cholecystectomy, Colostomy, Coronary Artery Bypass Graft, Gastric Bypass Surgery, Herniorrhaphy, Mastectomy, Pacemaker, Tonsillectomy, Tubal Ligation Social History Smoking Status: Unknown if Ever Smoked Electronic Cigarette use?: No Frequency of Alcohol Use: None Hx Recreational Drug Use: No Drugs: None Hx Prescription Drug Abuse: No Family History Family History: Reviewed & Not Pertinent Parental Family History Reviewed: Yes Children Family History Reviewed: Yes Sibling(s) Family History Reviewed.: Yes Medication/Allergy Home Medications: Atorvastatin Calcium [Lipitor 40 mg Tablet] 40 mg PO QHS 08/15/18 Duloxetine HCl [Cymbalta 20 mg Capsule.] 20 mg PO DAILY 08/15/18 Fluticasone/Salmeterol [Advair 250-50 Diskus 14 Dose/Diskus] 1 puff IH Q12 08/15/18 Isosorbide Mononitrate [Imdur 30 mg Tablet.er] 30 mg PO DAILY 08/15/18 Levothyroxine Sodium [Synthroid 0.05 mg Tablet] 50 mcg PO Q6AM 08/15/18 Spironolactone [Aldactone 25 mg Tablet] 12.5 mg PO DAILY 08/15/18 Apixaban [Eliquis 5 mg Tablet] 5 mg PO BID #60 tablet 08/17/18 Levetiracetam 1,500 mg PO Q12 10/20/18 Furosemide [Lasix 20 mg Tablet] 20 mg PO DAILY #0 10/22/18 Amlodipine Besylate [Norvasc 5 mg Tablet] 5 mg PO DAILY 02/01/19 Allergies/Adverse Reactions: Penicillins Allergy (Mild, Verified 02/12/18 16:50) rash Sulfa (Sulfonamide Antibiotics) Allergy (Mild, Verified 02/12/18 16:52) Skin Redness Review of Systems ROS unobtainable: Due to mental status Physical Exam Vital Signs: Temp Pulse Resp BP Pulse Ox 98.8 F 84 18 126/65 H 100 02/01/19 16:20 02/01/19 16:20 02/01/19 16:20 02/01/19 16:20 02/01/19 16:20 Intake & Output 01/31/19 02/01/19 02/02/19 06:59 06:59 06:59 Intake Total 1000 Balance 1000 Weight 54.9 kg General appearance: PRESENT: no acute distress Head exam: PRESENT: atraumatic, normocephalic Eye exam: PRESENT: conjunctiva pink, EOMI, PERRLA. ABSENT: scleral icterus Ear exam: PRESENT: normal external ear exam Mouth exam: PRESENT: moist Teeth exam: PRESENT: poor dentation Respiratory exam: PRESENT: clear to auscultation jordin Cardiovascular exam: PRESENT: RRR. ABSENT: diastolic murmur, rubs, systolic murmur Pulses: PRESENT: normal dorsalis pedis pul, +2 pedal pulses bilateral Vascular exam: ABSENT: pallor GI/Abdominal exam: PRESENT: normal bowel sounds, soft. ABSENT: distended, guarding, mass, organolmegaly, rebound, tenderness Rectal exam: PRESENT: deferred Extremities exam: ABSENT: pedal edema Neurological exam: PRESENT: altered - postictal state, aphasic - improving but remain confused, other - right sided hemiparesis Focused psych exam: PRESENT: other - not able to assess due to postictal state confusion Skin exam: PRESENT: dry, warm Results Laboratory Results: 02/01/19 12:50 02/01/19 12:50 02/01/19 02/01/19 02/01/19 12:50 12:50 14:47 WBC 8.5 RBC 4.06 Hgb 13.5 Hct 41.3 MCV 102 H MCH 33.3 MCHC 32.7 RDW 13.6 Plt Count 336 Seg Neutrophils % 59.0 Sodium 138.5 Potassium 3.7 Chloride 96 L Carbon Dioxide 17 L Anion Gap 26 H BUN 14 Creatinine 1.12 Est GFR ( Amer) 58 L Glucose 139 H Calcium 9.4 Magnesium 1.8 Total Bilirubin 1.3 AST 45 H Alkaline Phosphatase 208 H Total Protein 7.7 Albumin 4.5 Urine Color YELLOW Urine Appearance CLEAR Urine pH 5.0 Ur Specific [place] 1.009 Urine Protein NEGATIVE Urine Glucose (UA) NEGATIVE Urine Ketones NEGATIVE Urine Blood NEGATIVE Urine Nitrite POSITIVE H Ur Leukocyte Esterase NEGATIVE Urine WBC (Auto) 4 02/01/19 02/01/19 12:50 12:50 Creatine Kinase 231 H Troponin I < 0.012 Impressions: Chest X-Ray 02/01/19 12:58 IMPRESSION: No acute thoracic abnormality. Findings as above. Head CT 02/01/19 12:58 IMPRESSION: Chronic brain changes. No acute intracranial abnormality. EVIDENCE OF ACUTE STROKE: NO. Assessment & Plan - Diagnosis (1) Post-ictal aphasia Is this a current diagnosis for this admission?: Yes Plan: See covering attending physician orders for details about care plan. (2) Post-ictal confusion Is this a current diagnosis for this admission?: Yes Plan: See covering attending physician orders for details about care plan. (3) Seizure disorder Is this a current diagnosis for this admission?: Yes Plan: See covering attending physician orders for details about care plan. (4) Weakness of right lower extremity Is this a current diagnosis for this admission?: Yes Plan: See covering attending physician orders for details about care plan. 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 (6) Chronic atrial fibrillation Is this a current diagnosis for this admission?: Yes Plan: See covering attending physician orders for details about care plan. (7) Hypertension Qualifiers: Hypertension type: essential hypertension Is this a current diagnosis for this admission?: Yes Plan: See covering attending physician orders for details about care plan. (8) HLD (hyperlipidemia) Qualifiers: Hyperlipidemia type: unspecified Qualified Code(s): E78.5 - Hyperlipidemia, unspecified Is this a current diagnosis for this admission?: Yes Plan: See covering attending physician orders for details about care plan. (9) COPD (chronic obstructive pulmonary disease) Qualifiers: Emphysema type: unspecified Is this a current diagnosis for this admission?: Yes Plan: See covering attending physician orders for details about care plan. (10) Hypothyroidism (acquired) Is this a current diagnosis for this admission?: Yes Plan: See covering attending physician orders for details about care plan. - Time Time Spent: 50 to 70 Minutes Medications reviewed and adjusted accordingly: Yes Anticipated discharge: Home with Homehealth Within: Other - Inpatient Certification Based on my medical assessment, after consideration of the patient's comorbidities, presenting symptoms, or acuity I expect that the services needed warrant INPATIENT care.: Yes I certify that my determination is in accordance with my understanding of Medicare's requirements for reasonable and necessary INPATIENT services [42 CFR 412.3e].: Yes Medical Necessity: Significant Comorbidiites Make Outpatient Treatment Too Risky, Need Close Monitoring Due to Risk of Patient Decompensation, Need For IV Fluids, Need For Continuous Telemetry Monitoring, Risk of Complication if Not Cared For in Hospital, Risk of Diagnosis Which Will Require Inpatient Eval/Care/Monitoring 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
[2019-02-01] MEDS: APIXABAN 5 MG TABLET PO SCH (19:42)
[2019-02-01] MEDS: ATORVASTATIN CALCIUM 40 MG TABLET PO SCH (21:09)
[2019-02-01] MEDS: LEVETIRACETAM 500 MG TABLET PO SCH (21:09)
[2019-02-02] MEDS: NORMAL SALINE 1000 ML 1,000 ML IV PRN ×2 (05:16→15:41)
[2019-02-02] MEDS: LEVOTHYROXINE SODIUM 0.05 MG TABLET PO SCH (05:17)
[2019-02-02] MEDS: FLUTICASONE/VILANTEROL 200-25 MCG/DOSE IH SCH (10:00)
[2019-02-02] MEDS: DULOXETINE HCL 20 MG CAPSULE.DR PO SCH (10:01)
[2019-02-02] MEDS: ISOSORBIDE MONONITRATE 30 MG TAB.ER.24H PO SCH (10:01)
[2019-02-02] MEDS: SPIRONOLACTONE 25 MG TABLET PO SCH (10:01)
[2019-02-02] MEDS: LEVETIRACETAM 500 MG TABLET PO SCH ×2 (10:01→22:06)
[2019-02-02] MEDS: APIXABAN 5 MG TABLET PO SCH ×2 (10:01→18:35)
[2019-02-02] MEDS: AMLODIPINE BESYLATE 5 MG TABLET PO SCH (10:01)
--- NOTE | 2019-02-02 17:07 | PDOC PROGRESS REPORT ---
Subjective Progress Note for:: 02/02/19 Subjective:: Patient is more lucid and appropriate in responses. Participating in self care. No recurrent seizure activity. No chest pain or difficulty with breathing. No reported fever of chills. Reason For Visit: SEIZURE ACTIVITY WITH POST ICTAL APHASIA Physical Exam Vital Signs: Temp Pulse Resp BP Pulse Ox 98.0 F 77 16 121/58 L 99 02/02/19 08:19 02/02/19 08:19 02/02/19 08:19 02/02/19 08:19 02/02/19 08:19 Intake & Output 02/01/19 02/02/19 02/03/19 06:59 06:59 06:59 Intake Total 2470 Output Total 250 Balance 2220 Weight 54.9 kg General appearance: PRESENT: no acute distress Head exam: PRESENT: atraumatic, normocephalic Eye exam: PRESENT: conjunctiva pink. ABSENT: scleral icterus Ear exam: PRESENT: normal external ear exam Mouth exam: PRESENT: moist Teeth exam: PRESENT: poor dentation Respiratory exam: PRESENT: clear to auscultation jordin, decreased breath sounds - at lung bases Cardiovascular exam: PRESENT: RRR. ABSENT: diastolic murmur, rubs, systolic murmur Vascular exam: ABSENT: pallor GI/Abdominal exam: PRESENT: normal bowel sounds, soft. ABSENT: distended, guarding, mass, organolmegaly, rebound, tenderness Extremities exam: ABSENT: pedal edema Neurological exam: PRESENT: alert, awake, oriented to person, oriented to place, oriented to time, oriented to situation, CN II-XII grossly intact, other - right hemiparesis. ABSENT: motor sensory deficit Psychiatric exam: PRESENT: appropriate affect, normal mood. ABSENT: homicidal ideation, suicidal ideation Skin exam: PRESENT: dry, warm Results Laboratory Results: 02/01/19 12:50 02/01/19 12:50 02/01/19 02/01/19 02/01/19 12:50 12:50 14:47 WBC 8.5 RBC 4.06 Hgb 13.5 Hct 41.3 MCV 102 H MCH 33.3 MCHC 32.7 RDW 13.6 Plt Count 336 Seg Neutrophils % 59.0 Sodium 138.5 Potassium 3.7 Chloride 96 L Carbon Dioxide 17 L Anion Gap 26 H BUN 14 Creatinine 1.12 Est GFR ( Amer) 58 L Glucose 139 H Calcium 9.4 Magnesium 1.8 Total Bilirubin 1.3 AST 45 H Alkaline Phosphatase 208 H Total Protein 7.7 Albumin 4.5 Urine Color YELLOW Urine Appearance CLEAR Urine pH 5.0 Ur Specific [place] 1.009 Urine Protein NEGATIVE Urine Glucose (UA) NEGATIVE Urine Ketones NEGATIVE Urine Blood NEGATIVE Urine Nitrite POSITIVE H Ur Leukocyte Esterase NEGATIVE Urine WBC (Auto) 4 02/01/19 02/01/19 12:50 12:50 Creatine Kinase 231 H Troponin I < 0.012 Impressions: Chest X-Ray 02/01/19 12:58 IMPRESSION: No acute thoracic abnormality. Findings as above. Head CT 02/01/19 12:58 IMPRESSION: Chronic brain changes. No acute intracranial abnormality. EVIDENCE OF ACUTE STROKE: NO. 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 Is this a current diagnosis for this admission?: Yes (6) Chronic atrial fibrillation Is this a current diagnosis for this admission?: Yes (7) Hypertension Qualifiers: Hypertension type: essential hypertension Qualified Code(s): I10 - Essential (primary) hypertension Is this a current diagnosis for this admission?: Yes (8) HLD (hyperlipidemia) Qualifiers: Hyperlipidemia type: unspecified Qualified Code(s): E78.5 - Hyperlipidemia, unspecified Is this a current diagnosis for this admission?: Yes (9) COPD (chronic obstructive pulmonary disease) Qualifiers: Emphysema type: unspecified Is this a current diagnosis for this admission?: Yes (10) Hypothyroidism (acquired) Is this a current diagnosis for this admission?: Yes - Time Time Spent with patient: 35 or more minutes Level of Care: IMCU Medications reviewed and adjusted accordingly: Yes Anticipated discharge: Home with Homehealth Within: Other - Inpatient Certification Based on my medical assessment, after consideration of the patient's comorbidities, presenting symptoms, or acuity I expect that the services needed warrant INPATIENT care.: Yes I certify that my determination is in accordance with my understanding of Medicare's requirements for reasonable and necessary INPATIENT services [42 CFR 412.3e].: Yes Medical Necessity: Significant Comorbidiites Make Outpatient Treatment Too Risky, Need Close Monitoring Due to Risk of Patient Decompensation, Need For IV Fluids, Need For Continuous Telemetry Monitoring, Risk of Complication if Not Cared For in Hospital, Risk of Diagnosis Which Will Require Inpatient Eval/Care/Monitoring 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 Continue all other current medication management and care plan.
[2019-02-02] MEDS: ATORVASTATIN CALCIUM 40 MG TABLET PO SCH (22:06)
[2019-02-03] MEDS: NORMAL SALINE 1000 ML 1,000 ML IV PRN ×3 (01:20→21:06)
[2019-02-03] MEDS: LEVOTHYROXINE SODIUM 0.05 MG TABLET PO SCH (05:24)
[2019-02-03 06:00] LABS: ABSOLUTE BASOPHILS # (AUTO) 0.1 10^3/uL (0.0-0.2); ABSOLUTE EOSINOPHILS # (AUTO) 0.2 10^3/uL (0.0-0.6); ABSOLUTE LYMPHOCYTES (AUTO) 1.4 10^3/uL (0.5-4.7); ABSOLUTE MONOCYTES (AUTO) 0.6 10^3/uL (0.1-1.4); ABSOLUTE NEUT (AUTO) 3.2 10^3/uL (1.7-8.2); BASOPHILS % (AUTO) 1.3 % (0-2); EOSINOPHILS % (AUTO) 3.7 % (0-6); HEMATOCRIT 35.5 % (36.0-47.0); LYMPHOCYTES % (AUTO) 25.8 % (13-45); MEAN CORPUSCULAR HEMOGLOBIN 33.3 pg (27.0-33.4); MEAN CORPUSCULAR HGB CONC 33.7 g/dL (32.0-36.0); MEAN CORPUSCULAR VOLUME 99 fl (80-97); MONOCYTES % (AUTO) 10.9 % (3-13); PLATELET COUNT 248 10^3/uL (150-450); RED BLOOD COUNT 3.59 10^6/uL (3.72-5.28); RED CELL DISTRIBUTION WIDTH 13.9 % (11.5-14.0); SEGMENTED NEUTROPHILS % (AUTO) 58.3 % (42-78); TOTAL CELLS COUNTED % (AUTO) 100 %; WHITE BLOOD COUNT 5.4 10^3/uL (4.0-10.5)
[2019-02-03 06:16] LABS: ALBUMIN 2.9 g/dL (3.5-5.0); ALKALINE PHOSPHATASE 143 U/L (38-126); ANION GAP 5 (5-19); ASPARTATE AMINO TRANSFERASE 32 U/L (14-36); BILIRUBIN,DIRECT 0.1 mg/dL (0.0-0.4); BILIRUBIN,TOTAL 0.8 mg/dL (0.2-1.3); BLOOD UREA NITROGEN 11 mg/dL (7-20); CALCIUM 8.3 mg/dL (8.4-10.2); CARBON DIOXIDE 27 mmol/L (22-30); CHLORIDE 106 mmol/L (98-107); CREATINE KINASE 318 U/L (30-135); GLUCOSE 97 mg/dL (75-110); POTASSIUM 4.2 mmol/L (3.6-5.0); TOTAL PROTEIN 5.6 g/dL (6.3-8.2)
[2019-02-03 06:26] LABS: CREATINE KINASE MB 1.39 ng/mL (<4.55); TROPONIN I 0.014 ng/mL
[2019-02-03 07:36] LABS: APPEARANCE,URINE CLEAR; BILIRUBIN,URINE NEGATIVE (NEGATIVE); COLOR,URINE STRAW; GLUCOSE, URINE NEGATIVE (NEGATIVE); KETONES,URINE NEGATIVE (NEGATIVE); PROTEIN,URINE NEGATIVE (NEGATIVE); URINE SPECIFIC GRAVITY 1.005; UROBILINOGEN,URINE NEGATIVE mg/dL (<2.0)
--- NOTE | 2019-02-03 08:48 | RADIOLOGY REPORT (SQ) ---
EXAM DESCRIPTION: WRIST RIGHT 2 VIEWS COMPLETED DATE/TIME: 02/02/2019 7:34 pm REASON FOR STUDY: fall with right wrist pain G40.89 OTHER SEIZURES COMPARISON: 10/02/2015. NUMBER OF VIEWS: Two views. TECHNIQUE: AP and lateral radiographic images acquired of the right wrist. LIMITATIONS: None. FINDINGS: MINERALIZATION: Patchy osteopenia. BONES: No acute fracture or dislocation. Degenerative changes, most pronounced at the 1st carpometac arpal joint, with sclerosis and osteophytes. No worrisome bone lesions. Normal alignment. SOFT TISSUES: No soft tissue swelling. No foreign body. OTHER: No other significant finding. IMPRESSION: DEGENERATIVE CHANGES. NO RADIOGRAPHIC EVIDENCE OF ACUTE INJURY. TECHNICAL DOCUMENTATION: JOB ID: [id number] [employer]- All Rights Reserved Reading location - IP/workstation name: [email or web address]
[2019-02-03] MEDS: SPIRONOLACTONE 25 MG TABLET PO SCH (10:02)
[2019-02-03] MEDS: ISOSORBIDE MONONITRATE 30 MG TAB.ER.24H PO SCH (10:02)
[2019-02-03] MEDS: AMLODIPINE BESYLATE 5 MG TABLET PO SCH (10:02)
[2019-02-03] MEDS: FUROSEMIDE 20 MG TABLET PO SCH (10:03)
[2019-02-03] MEDS: DULOXETINE HCL 20 MG CAPSULE.DR PO SCH (10:03)
[2019-02-03] MEDS: APIXABAN 5 MG TABLET PO SCH ×2 (10:03→17:57)
[2019-02-03] MEDS: LEVETIRACETAM 500 MG TABLET PO SCH ×2 (10:03→21:05)
[2019-02-03] MEDS: FLUTICASONE/VILANTEROL 200-25 MCG/DOSE IH SCH (10:03)
--- NOTE | 2019-02-03 13:03 | PDOC PROGRESS REPORT ---
Subjective Progress Note for:: 02/03/19 Subjective:: Patient denied any recurrent seizure activity. No chest pain or difficulty with breathing. No reported fever of chills. No nausea, vomiting, or abdominal pain. Reason For Visit: SEIZURE ACTIVITY WITH POST ICTAL APHASIA Physical Exam Vital Signs: Temp Pulse Resp BP Pulse Ox 97.4 F 79 18 133/76 H 99 02/03/19 11:57 02/03/19 11:57 02/03/19 11:57 02/03/19 11:57 02/03/19 11:57 Intake & Output 02/02/19 02/03/19 02/04/19 06:59 06:59 06:59 Intake Total 2470 3045 1511 Output Total 250 0 1000 Balance 2220 3045 511 Weight 54.9 kg 53 kg Physical Exam: General appearance: PRESENT: no acute distress Head exam: PRESENT: atraumatic, normocephalic Eye exam: PRESENT: conjunctiva pink. ABSENT: pallor, scleral icterus Ear exam: PRESENT: normal external ear exam Mouth exam: PRESENT: moist Teeth exam: PRESENT: poor dentition Respiratory exam: PRESENT: clear to auscultation jordin, decreased breath sounds - at lung bases Cardiovascular exam: PRESENT: RRR. ABSENT: diastolic murmur, rubs, systolic murmur GI/Abdominal exam: PRESENT: normal bowel sounds, soft. ABSENT: distended, guarding, mass, organomegaly, rebound, tenderness Extremities exam: ABSENT: pedal edema Neurological exam: PRESENT: alert, awake, oriented to person, oriented to place, oriented to time, oriented to situation, CN II-XII grossly intact, other - right hemiparesis. ABSENT: motor sensory deficit Psychiatric exam: PRESENT: appropriate affect, normal mood. ABSENT: homicidal ideation, suicidal ideation Skin exam: PRESENT: dry, warm Results Laboratory Results: 02/03/19 04:35 02/03/19 04:35 02/03/19 02/03/19 02/03/19 04:35 04:35 07:10 WBC 5.4 RBC 3.59 L Hgb 12.0 Hct 35.5 L MCV 99 H MCH 33.3 MCHC 33.7 RDW 13.9 Plt Count 248 Seg Neutrophils % 58.3 Sodium 138.1 Potassium 4.2 Chloride 106 Carbon Dioxide 27 Anion Gap 5 BUN 11 Creatinine 0.88 Est GFR ( Amer) > 60 Glucose 97 Calcium 8.3 L Total Bilirubin 0.8 AST 32 Alkaline Phosphatase 143 H Total Protein 5.6 L Albumin 2.9 L Urine Color STRAW Urine Appearance CLEAR Urine pH 7.0 Ur Specific [place] 1.005 Urine Protein NEGATIVE Urine Glucose (UA) NEGATIVE Urine Ketones NEGATIVE Urine Blood NEGATIVE Urine RBC (Auto) 0 02/01/19 02/01/19 02/03/19 12:50 12:50 04:35 Creatine Kinase 231 H 318 H CK-MB (CK-2) Troponin I < 0.012 02/03/19 04:35 Creatine Kinase CK-MB (CK-2) 1.39 Troponin I 0.014 Impressions: Chest X-Ray 02/01/19 12:58 IMPRESSION: No acute thoracic abnormality. Findings as above. Head CT 02/01/19 12:58 IMPRESSION: Chronic brain changes. No acute intracranial abnormality. EVIDENCE OF ACUTE STROKE: NO. Wrist X-Ray 02/02/19 00:00 IMPRESSION: DEGENERATIVE CHANGES. NO RADIOGRAPHIC EVIDENCE OF ACUTE INJURY. 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 Is this a current diagnosis for this admission?: Yes (6) Chronic atrial fibrillation Is this a current diagnosis for this admission?: Yes (7) Hypertension Qualifiers: Hypertension type: essential hypertension Qualified Code(s): I10 - Essential (primary) hypertension Is this a current diagnosis for this admission?: Yes (8) HLD (hyperlipidemia) Qualifiers: Hyperlipidemia type: unspecified Qualified Code(s): E78.5 - Hyperlipidemia, unspecified Is this a current diagnosis for this admission?: Yes (9) COPD (chronic obstructive pulmonary disease) Qualifiers: Emphysema type: unspecified Is this a current diagnosis for this admission?: Yes (10) Hypothyroidism (acquired) Is this a current diagnosis for this admission?: Yes - Time Time Spent with patient: 25-34 minutes Level of Care: IMCU Medications reviewed and adjusted accordingly: Yes Anticipated discharge: Home with Homehealth Within: Other - Inpatient Certification Based on my medical assessment, after consideration of the patient's comorbidities, presenting symptoms, or acuity I expect that the services needed warrant INPATIENT care.: Yes I certify that my determination is in accordance with my understanding of Medicare's requirements for reasonable and necessary INPATIENT services [42 CFR 412.3e].: Yes Medical Necessity: Significant Comorbidiites Make Outpatient Treatment Too Risky, Need Close Monitoring Due to Risk of Patient Decompensation, Need For IV Fluids, Need For Continuous Telemetry Monitoring, Need for Pain Control, Risk of Complication if Not Cared For in Hospital, Risk of Diagnosis Which Will Require Inpatient Eval/Care/Monitoring 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 Possible discharge home tomorrow.
[2019-02-03] MEDS: ATORVASTATIN CALCIUM 40 MG TABLET PO SCH (21:05)
[2019-02-04] MEDS: LEVOTHYROXINE SODIUM 0.05 MG TABLET PO SCH (05:32)
[2019-02-04] MEDS: NORMAL SALINE 1000 ML 1,000 ML IV PRN (07:25)
[2019-02-04] MEDS: FLUTICASONE/VILANTEROL 200-25 MCG/DOSE IH SCH (09:07)
[2019-02-04] MEDS: LEVETIRACETAM 500 MG TABLET PO SCH ×2 (09:08→21:33)
[2019-02-04] MEDS: AMLODIPINE BESYLATE 5 MG TABLET PO SCH (09:08)
[2019-02-04] MEDS: ISOSORBIDE MONONITRATE 30 MG TAB.ER.24H PO SCH (09:08)
[2019-02-04] MEDS: FUROSEMIDE 20 MG TABLET PO SCH (09:08)
[2019-02-04] MEDS: APIXABAN 5 MG TABLET PO SCH ×2 (09:08→17:21)
[2019-02-04] MEDS: SPIRONOLACTONE 25 MG TABLET PO SCH (09:08)
[2019-02-04] MEDS: DULOXETINE HCL 20 MG CAPSULE.DR PO SCH (09:09)
--- NOTE | 2019-02-04 11:53 | PDOC PROGRESS REPORT ---
Subjective Progress Note for:: 02/04/19 Subjective:: Patient denied chest pain or difficulty with breathing. Patient reported feeling dizzy. No reported headache, fever of chills. No nausea, vomiting, or abdominal pain. No seizure activity. Reason For Visit: SEIZURE ACTIVITY WITH POST ICTAL APHASIA Physical Exam Vital Signs: Temp Pulse Resp BP Pulse Ox 97.5 F 62 17 113/59 L 100 02/04/19 08:22 02/04/19 08:22 02/04/19 08:22 02/04/19 08:22 02/04/19 08:22 Intake & Output 02/03/19 02/04/19 02/05/19 06:59 06:59 06:59 Intake Total 3045 3223 1000 Output Total 0 1500 Balance 3045 1723 1000 Weight 53 kg 56.4 kg Physical Exam: General appearance: PRESENT: no acute distress Head exam: PRESENT: atraumatic, normocephalic Eye exam: PRESENT: conjunctiva pink. ABSENT: pallor, scleral icterus Ear exam: PRESENT: normal external ear exam Mouth exam: PRESENT: moist Teeth exam: PRESENT: poor dentition Respiratory exam: PRESENT: clear to auscultation jordin, decreased breath sounds - at lung bases Cardiovascular exam: PRESENT: RRR. ABSENT: diastolic murmur, rubs, systolic murmur GI/Abdominal exam: PRESENT: normal bowel sounds, soft. ABSENT: distended, guarding, mass, organomegaly, rebound, tenderness Extremities exam: ABSENT: pedal edema Neurological exam: PRESENT: alert, awake, oriented to person, oriented to place, oriented to time, oriented to situation, CN II-XII grossly intact, other - right hemiparesis. ABSENT: motor sensory deficit Psychiatric exam: PRESENT: appropriate affect, normal mood. ABSENT: homicidal ideation, suicidal ideation Skin exam: PRESENT: dry, warm Results Laboratory Results: 02/03/19 04:35 02/03/19 04:35 02/01/19 02/01/19 02/03/19 12:50 12:50 04:35 Creatine Kinase 231 H 318 H CK-MB (CK-2) Troponin I < 0.012 02/03/19 04:35 Creatine Kinase CK-MB (CK-2) 1.39 Troponin I 0.014 Impressions: Chest X-Ray 02/01/19 12:58 IMPRESSION: No acute thoracic abnormality. Findings as above. Head CT 02/01/19 12:58 IMPRESSION: Chronic brain changes. No acute intracranial abnormality. EVIDENCE OF ACUTE STROKE: NO. Wrist X-Ray 02/02/19 00:00 IMPRESSION: DEGENERATIVE CHANGES. NO RADIOGRAPHIC EVIDENCE OF ACUTE INJURY. 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 Is this a current diagnosis for this admission?: Yes (6) Chronic atrial fibrillation Is this a current diagnosis for this admission?: Yes (7) Hypertension Qualifiers: Hypertension type: essential hypertension Qualified Code(s): I10 - Essential (primary) hypertension Is this a current diagnosis for this admission?: Yes (8) HLD (hyperlipidemia) Qualifiers: Hyperlipidemia type: unspecified Qualified Code(s): E78.5 - Hyperlipidemia, unspecified Is this a current diagnosis for this admission?: Yes (9) COPD (chronic obstructive pulmonary disease) Qualifiers: Emphysema type: unspecified Is this a current diagnosis for this admission?: Yes (10) Hypothyroidism (acquired) Is this a current diagnosis for this admission?: Yes - Time Time Spent with patient: 25-34 minutes Level of Care: IMCU Medications reviewed and adjusted accordingly: Yes Anticipated discharge: Home with Homehealth Within: Other - Inpatient Certification Based on my medical assessment, after consideration of the patient's comorbidities, presenting symptoms, or acuity I expect that the services needed warrant INPATIENT care.: Yes I certify that my determination is in accordance with my understanding of Medicare's requirements for reasonable and necessary INPATIENT services [42 CFR 412.3e].: Yes Medical Necessity: Significant Comorbidiites Make Outpatient Treatment Too Risky, Need Close Monitoring Due to Risk of Patient Decompensation, Need For IV Fluids, Need For Continuous Telemetry Monitoring, Risk of Complication if Not Cared For in Hospital, Risk of Diagnosis Which Will Require Inpatient Eval/Care/Monitoring Post Hospital Care: D/C Ambulatory Care Nurse 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 Obtain BMP, cardiac enzymes, CBC with diff. PT evaluation of ambulatory safety.
[2019-02-04 12:51] LABS: ABSOLUTE BASOPHILS # (AUTO) 0.1 10^3/uL (0.0-0.2); ABSOLUTE EOSINOPHILS # (AUTO) 0.1 10^3/uL (0.0-0.6); ABSOLUTE LYMPHOCYTES (AUTO) 1.2 10^3/uL (0.5-4.7); ABSOLUTE MONOCYTES (AUTO) 0.5 10^3/uL (0.1-1.4); ABSOLUTE NEUT (AUTO) 3.9 10^3/uL (1.7-8.2); BASOPHILS % (AUTO) 1.2 % (0-2); EOSINOPHILS % (AUTO) 2.5 % (0-6); HEMATOCRIT 41.5 % (36.0-47.0); HEMOGLOBIN 13.8 g/dL (12.0-15.5); LYMPHOCYTES % (AUTO) 20.6 % (13-45); MEAN CORPUSCULAR HEMOGLOBIN 32.7 pg (27.0-33.4); MEAN CORPUSCULAR HGB CONC 33.3 g/dL (32.0-36.0); MEAN CORPUSCULAR VOLUME 98 fl (80-97); MONOCYTES % (AUTO) 8.3 % (3-13); PLATELET COUNT 317 10^3/uL (150-450); RED BLOOD COUNT 4.23 10^6/uL (3.72-5.28); RED CELL DISTRIBUTION WIDTH 13.7 % (11.5-14.0); SEGMENTED NEUTROPHILS % (AUTO) 67.4 % (42-78); TOTAL CELLS COUNTED % (AUTO) 100 %; WHITE BLOOD COUNT 5.8 10^3/uL (4.0-10.5)
[2019-02-04 13:07] LABS: ANION GAP 6 (5-19); BLOOD UREA NITROGEN 13 mg/dL (7-20); CALCIUM 8.8 mg/dL (8.4-10.2); CARBON DIOXIDE 30 mmol/L (22-30); CHLORIDE 101 mmol/L (98-107); GLUCOSE 143 mg/dL (75-110); POTASSIUM 4.5 mmol/L (3.6-5.0)
[2019-02-04 13:17] LABS: CREATINE KINASE MB 1.15 ng/mL (<4.55)
[2019-02-04 13:18] LABS: TROPONIN I < 0.012 ng/mL
[2019-02-04] MEDS: ATORVASTATIN CALCIUM 40 MG TABLET PO SCH (21:33)
[2019-02-05] MEDS: ACETAMINOPHEN 325 MG TABLET PO PRN ×4 (00:02→21:47)
[2019-02-05] MEDS: LEVOTHYROXINE SODIUM 0.05 MG TABLET PO SCH (05:21)
[2019-02-05] MEDS: LEVETIRACETAM 500 MG TABLET PO SCH ×2 (09:46→21:47)
[2019-02-05] MEDS: FUROSEMIDE 20 MG TABLET PO SCH (09:46)
[2019-02-05] MEDS: ISOSORBIDE MONONITRATE 30 MG TAB.ER.24H PO SCH (09:46)
[2019-02-05] MEDS: APIXABAN 5 MG TABLET PO SCH ×2 (09:47→17:00)
[2019-02-05] MEDS: SPIRONOLACTONE 25 MG TABLET PO SCH (09:47)
[2019-02-05] MEDS: DULOXETINE HCL 20 MG CAPSULE.DR PO SCH (09:47)
[2019-02-05] MEDS: FLUTICASONE/VILANTEROL 200-25 MCG/DOSE IH SCH (09:47)
[2019-02-05] MEDS: AMLODIPINE BESYLATE 5 MG TABLET PO SCH (09:47)
--- NOTE | 2019-02-05 16:14 | PDOC PROGRESS REPORT ---
Subjective Progress Note for:: 02/05/19 Subjective:: Patient reported persistent headache and dizziness. She participated satisfactorily n PT session since last clinical evaluation. No chest pain or difficulty with breathing. No reported fever of chills. No nausea, vomiting, or abdominal pain. No seizure activity. Reason For Visit: SEIZURE ACTIVITY WITH POST ICTAL APHASIA Physical Exam Vital Signs: Temp Pulse Resp BP Pulse Ox 98.1 F 66 18 105/66 100 02/05/19 12:24 02/05/19 14:00 02/05/19 12:24 02/05/19 12:24 02/05/19 12:24 Intake & Output 02/04/19 02/05/19 02/06/19 06:59 06:59 06:59 Intake Total 3223 3840 525 Output Total 1500 0 Balance 1723 3840 525 Weight 56.4 kg 58.4 kg Physical Exam: General appearance: PRESENT: no acute distress Head exam: PRESENT: atraumatic, normocephalic Eye exam: PRESENT: conjunctiva pink. ABSENT: pallor, scleral icterus Ear exam: PRESENT: normal external ear exam Mouth exam: PRESENT: moist Teeth exam: PRESENT: poor dentition Respiratory exam: PRESENT: clear to auscultation jordin, decreased breath sounds - at lung bases Cardiovascular exam: PRESENT: RRR. ABSENT: diastolic murmur, rubs, systolic murmur GI/Abdominal exam: PRESENT: normal bowel sounds, soft. ABSENT: distended, guarding, mass, organomegaly, rebound, tenderness Extremities exam: ABSENT: pedal edema Neurological exam: PRESENT: alert, awake, oriented to person, oriented to place, oriented to time, oriented to situation, CN II-XII grossly intact, other - right hemiparesis. ABSENT: motor sensory deficit Psychiatric exam: PRESENT: appropriate affect, normal mood. ABSENT: homicidal ideation, suicidal ideation Skin exam: PRESENT: dry, warm Results Laboratory Results: 02/04/19 12:19 02/04/19 12:19 02/01/19 02/01/19 02/03/19 12:50 12:50 04:35 Creatine Kinase 231 H 318 H CK-MB (CK-2) Troponin I < 0.012 02/03/19 02/04/19 02/04/19 04:35 12:19 12:19 Creatine Kinase 238 H CK-MB (CK-2) 1.39 1.15 Troponin I 0.014 < 0.012 Impressions: Chest X-Ray 02/01/19 12:58 IMPRESSION: No acute thoracic abnormality. Findings as above. Head CT 02/01/19 12:58 IMPRESSION: Chronic brain changes. No acute intracranial abnormality. EVIDENCE OF ACUTE STROKE: NO. Wrist X-Ray 02/02/19 00:00 IMPRESSION: DEGENERATIVE CHANGES. NO RADIOGRAPHIC EVIDENCE OF ACUTE INJURY. 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 Is this a current diagnosis for this admission?: Yes (6) Chronic atrial fibrillation Is this a current diagnosis for this admission?: Yes (7) Hypertension Qualifiers: Hypertension type: essential hypertension Qualified Code(s): I10 - [place] [facility] (primary) hypertension Is this a current diagnosis for this admission?: Yes (8) HLD (hyperlipidemia) Qualifiers: Hyperlipidemia type: unspecified Qualified Code(s): E78.5 - Hyperlipidemia, unspecified Is this a current diagnosis for this admission?: Yes (9) COPD (chronic obstructive pulmonary disease) Qualifiers: Emphysema type: unspecified Is this a current diagnosis for this admission?: Yes (10) Hypothyroidism (acquired) Is this a current diagnosis for this admission?: Yes - Time Time Spent with patient: 25-34 minutes Level of Care: IMCU Medications reviewed and adjusted accordingly: Yes Anticipated discharge: Home with Homehealth Within: Other - Inpatient Certification Based on my medical assessment, after consideration of the patient's comorbidities, presenting symptoms, or acuity I expect that the services needed warrant INPATIENT care.: Yes I certify that my determination is in accordance with my understanding of Medicare's requirements for reasonable and necessary INPATIENT services [42 CFR 412.3e].: Yes Medical Necessity: Significant Comorbidiites Make Outpatient Treatment Too Risky, Need Close Monitoring Due to Risk of Patient Decompensation, Need For IV Fluids, Need For Continuous Telemetry Monitoring, Risk of Complication if Not Cared For in Hospital, Risk of Diagnosis Which Will Require Inpatient Eval/Care/Monitoring Post Hospital Care: D/C Cloud Administrator Documentation - Plan Summary Plan Summary: Maintain on all current medication management. Continue seizure precautions and follow up on Keppra level. Obtain BMP in am.
[2019-02-05] MEDS: NORMAL SALINE 1000 ML 1,000 ML IV PRN (16:57)
[2019-02-05] MEDS: ATORVASTATIN CALCIUM 40 MG TABLET PO SCH (21:47)
[2019-02-06] MEDS: LEVOTHYROXINE SODIUM 0.05 MG TABLET PO SCH (06:37)
--- NOTE | 2019-02-06 09:26 | PDOC PROGRESS REPORT ---
Subjective Progress Note for:: 02/06/19 Subjective:: Patient is currently doing fair except on and off headache There were no seizures activity while in the hospital Patient's have a speech issue patient's concern about possible stroke Patient with significant underlying dementia also Denied any chest pain no short of breath Reason For Visit: SEIZURE ACTIVITY WITH POST ICTAL APHASIA Physical Exam Vital Signs: Temp Pulse Resp BP Pulse Ox 98.1 F 53 L 18 128/80 H 100 02/05/19 16:11 02/06/19 07:00 02/05/19 16:11 02/05/19 16:11 02/05/19 16:11 Intake & Output 02/05/19 02/06/19 02/07/19 06:59 06:59 06:59 Intake Total 3840 975 Output Total 0 Balance 3840 975 Weight 58.4 kg 58.4 kg General appearance: PRESENT: no acute distress, well-developed, well-nourished Head exam: PRESENT: atraumatic, normocephalic Eye exam: PRESENT: conjunctiva pink, EOMI, PERRLA. ABSENT: scleral icterus Ear exam: PRESENT: normal external ear exam Mouth exam: PRESENT: moist, tongue midline Neck exam: PRESENT: full ROM. ABSENT: carotid bruit, JVD, lymphadenopathy, thyromegaly Respiratory exam: PRESENT: clear to auscultation jordin Cardiovascular exam: PRESENT: RRR. ABSENT: diastolic murmur, rubs, systolic murmur Pulses: PRESENT: normal dorsalis pedis pul, +2 pedal pulses bilateral Vascular exam: PRESENT: normal capillary refill GI/Abdominal exam: PRESENT: normal bowel sounds, soft. ABSENT: distended, guarding, mass, organolmegaly, rebound, tenderness Rectal exam: PRESENT: deferred Neurological exam: PRESENT: alert, awake, oriented to person, oriented to place, oriented to time, oriented to situation, CN II-XII grossly intact. ABSENT: motor sensory deficit Psychiatric exam: PRESENT: appropriate affect, normal mood. ABSENT: homicidal ideation, suicidal ideation Skin exam: PRESENT: dry, intact, warm. ABSENT: cyanosis, rash Results Laboratory Results: 02/04/19 12:19 02/04/19 12:19 02/01/19 02/01/19 02/03/19 12:50 12:50 04:35 Creatine Kinase 231 H 318 H CK-MB (CK-2) Troponin I < 0.012 02/03/19 02/04/19 02/04/19 04:35 12:19 12:19 Creatine Kinase 238 H CK-MB (CK-2) 1.39 1.15 Troponin I 0.014 < 0.012 Impressions: Chest X-Ray 02/01/19 12:58 IMPRESSION: No acute thoracic abnormality. Findings as above. Head CT 02/01/19 12:58 IMPRESSION: Chronic brain changes. No acute intracranial abnormality. EVIDENCE OF ACUTE STROKE: NO. Wrist X-Ray 02/02/19 00:00 IMPRESSION: DEGENERATIVE CHANGES. NO RADIOGRAPHIC EVIDENCE OF ACUTE INJURY. Assessment & Plan - Diagnosis (1) Post-ictal aphasia Is this a current diagnosis for this admission?: Yes Plan: We will get the speech therapy evaluations will get the MRI of the head to rule out any strokePatient is currently back to the normal speech (2) Chronic atrial fibrillation Is this a current diagnosis for this admission?: Yes Plan: Continues to Eliquis (3) Confusion Is this a current diagnosis for this admission?: Yes Plan: Patient with history of the chronic UTI will check the urine analysis patient seems to be looks back to normal to me patient have underlying dementia (4) Dementia Qualifiers: Dementia type: unspecified type Is this a current diagnosis for this admission?: Yes (5) HLD (hyperlipidemia) Qualifiers: Hyperlipidemia type: unspecified Qualified Code(s): E78.5 - Hyperlipidemia, unspecified Is this a current diagnosis for this admission?: Yes (6) Hypothyroidism (acquired) Is this a current diagnosis for this admission?: Yes (7) 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
[2019-02-06] MEDS: AMLODIPINE BESYLATE 5 MG TABLET PO SCH (11:06)
[2019-02-06] MEDS: LEVETIRACETAM 500 MG TABLET PO SCH ×2 (11:06→22:15)
[2019-02-06] MEDS: APIXABAN 5 MG TABLET PO SCH ×2 (11:07→17:37)
[2019-02-06] MEDS: ISOSORBIDE MONONITRATE 30 MG TAB.ER.24H PO SCH (11:07)
[2019-02-06] MEDS: SPIRONOLACTONE 25 MG TABLET PO SCH (11:07)
[2019-02-06] MEDS: FUROSEMIDE 20 MG TABLET PO SCH (11:08)
[2019-02-06] MEDS: FLUTICASONE/VILANTEROL 200-25 MCG/DOSE IH SCH (11:09)
[2019-02-06] MEDS: DULOXETINE HCL 20 MG CAPSULE.DR PO SCH (11:09)
--- NOTE | 2019-02-06 11:32 | RADIOLOGY REPORT (SQ) ---
EXAM DESCRIPTION: MRI HEAD WITHOUT COMPLETED DATE/TIME: 02/06/2019 10:53 am REASON FOR STUDY: TIA G40.89 OTHER SEIZURES COMPARISON: Multiple, most recent 10/20/2018 TECHNIQUE: Multiplanar imaging includes non-contrasted T1, T2, FLAIR, and diffusion with ADC map seq uences. Images stored on PACS. LIMITATIONS: None. FINDINGS: ANATOMY: No anomalies. Normal vascular flow voids. Pituitary fossa normal. CSF SPACES: Atrophy induced prominence of ventricles and CSF spaces. CEREBRUM: Old left occipital infarct. High signal intensity lesions scattered throughout the white m atter on FLAIR imaging with distribution suggesting micro-vascular ischemic changes. No evidence of hemorrhage, mass, or extraaxial fluid collection. POSTERIOR FOSSA: No signal alteration. No hemorrhage. No edema, masses or mass effect. Internal marylou tory canals, cerebello-pontine angles, mastoids normal. DIFFUSION IMAGING: Negative for acute or sub-acute infarction. ORBITS: No masses. Globes normal. PARANASAL SINUSES: No fluid levels. Mucosa normal. OTHER: No other significant finding. IMPRESSION: Chronic ischemic changes. EVIDENCE OF ACUTE STROKE: NO. TECHNICAL DOCUMENTATION: JOB ID: [id number] All Rights Reserved Reading location - IP/workstation name: [email or web address]
[2019-02-06 11:54] LABS: APPEARANCE,URINE SLIGHTLY-CLOUDY; BILIRUBIN,URINE NEGATIVE (NEGATIVE); COLOR,URINE YELLOW; GLUCOSE, URINE NEGATIVE (NEGATIVE); KETONES,URINE NEGATIVE (NEGATIVE); LEUKOCYTE ESTERASE,URINE MODERATE (NEGATIVE); NITRITE,URINE POSITIVE (NEGATIVE); PROTEIN,URINE NEGATIVE (NEGATIVE); URINE SPECIFIC GRAVITY 1.015; UROBILINOGEN,URINE NEGATIVE mg/dL (<2.0)
[2019-02-06] MEDS: CIPROFLOXACIN HCL 500 MG TABLET PO SCH ×2 (16:46→22:15)
[2019-02-06] MEDS: ATORVASTATIN CALCIUM 40 MG TABLET PO SCH (22:15)
[2019-02-07] MEDS: LEVOTHYROXINE SODIUM 0.05 MG TABLET PO SCH (06:38)
[2019-02-07] MEDS: CIPROFLOXACIN HCL 500 MG TABLET PO SCH ×2 (10:21→21:23)
[2019-02-07] MEDS: FUROSEMIDE 20 MG TABLET PO SCH (10:22)
[2019-02-07] MEDS: LEVETIRACETAM 500 MG TABLET PO SCH ×2 (10:22→21:23)
[2019-02-07] MEDS: SPIRONOLACTONE 25 MG TABLET PO SCH (10:23)
[2019-02-07] MEDS: AMLODIPINE BESYLATE 5 MG TABLET PO SCH (10:23)
[2019-02-07] MEDS: APIXABAN 5 MG TABLET PO SCH ×2 (10:23→17:50)
[2019-02-07] MEDS: ISOSORBIDE MONONITRATE 30 MG TAB.ER.24H PO SCH (10:24)
[2019-02-07] MEDS: DULOXETINE HCL 20 MG CAPSULE.DR PO SCH (10:30)
--- NOTE | 2019-02-07 10:55 | PDOC PROGRESS REPORT ---
Subjective Progress Note for:: 02/07/19 Subjective:: Patient currently doing fair except complains some loose stool Patient MRI of the head was negative for any acute finding Seizures activities not noticed since admissions Patient's Keppra level was very low Patient's denied any chest pain denied any shortness of the breath Reason For Visit: SEIZURE ACTIVITY WITH POST ICTAL APHASIA Physical Exam Vital Signs: Temp Pulse Resp BP Pulse Ox 97.7 F 53 L 20 139/70 H 98 02/07/19 03:10 02/07/19 07:00 02/07/19 03:10 02/07/19 03:10 02/07/19 03:10 Intake & Output 02/06/19 02/07/19 02/08/19 06:59 06:59 06:59 Intake Total 975 1080 Output Total 0 Balance 975 1080 Weight 58.4 kg 58.9 kg General appearance: PRESENT: no acute distress, well-developed, well-nourished Head exam: PRESENT: atraumatic, normocephalic Eye exam: PRESENT: conjunctiva pink, EOMI, PERRLA. ABSENT: scleral icterus Ear exam: PRESENT: normal external ear exam Mouth exam: PRESENT: moist, tongue midline Neck exam: PRESENT: full ROM. ABSENT: carotid bruit, JVD, lymphadenopathy, thyromegaly Respiratory exam: PRESENT: clear to auscultation jordin Cardiovascular exam: PRESENT: RRR. ABSENT: diastolic murmur, rubs, systolic murmur Pulses: PRESENT: normal dorsalis pedis pul, +2 pedal pulses bilateral Vascular exam: PRESENT: normal capillary refill GI/Abdominal exam: PRESENT: normal bowel sounds, soft. ABSENT: distended, guarding, mass, organolmegaly, rebound, tenderness Rectal exam: PRESENT: deferred Neurological exam: PRESENT: alert, awake, oriented to person, oriented to place, oriented to time, oriented to situation, CN II-XII grossly intact. ABSENT: motor sensory deficit Psychiatric exam: PRESENT: appropriate affect, normal mood. ABSENT: homicidal ideation, suicidal ideation Skin exam: PRESENT: dry, intact, warm. ABSENT: cyanosis, rash Results Laboratory Results: 02/04/19 12:19 02/04/19 12:19 02/06/19 11:13 Urine Color YELLOW Urine Appearance SLIGHTLY-CLOUDY Urine pH 7.0 Ur Specific [place] 1.015 Urine Protein NEGATIVE Urine Glucose (UA) NEGATIVE Urine Ketones NEGATIVE Urine Blood NEGATIVE Urine Nitrite POSITIVE H Ur Leukocyte Esterase MODERATE H Urine WBC (Auto) 49 Urine RBC (Auto) 0 02/01/19 02/01/19 02/03/19 12:50 12:50 04:35 Creatine Kinase 231 H 318 H CK-MB (CK-2) Troponin I < 0.012 02/03/19 02/04/19 02/04/19 04:35 12:19 12:19 Creatine Kinase 238 H CK-MB (CK-2) 1.39 1.15 Troponin I 0.014 < 0.012 Impressions: Chest X-Ray 02/01/19 12:58 IMPRESSION: No acute thoracic abnormality. Findings as above. Head CT 02/01/19 12:58 IMPRESSION: Chronic brain changes. No acute intracranial abnormality. EVIDENCE OF ACUTE STROKE: NO. Wrist X-Ray 02/02/19 00:00 IMPRESSION: DEGENERATIVE CHANGES. NO RADIOGRAPHIC EVIDENCE OF ACUTE INJURY. Head MRI 02/06/19 00:00 IMPRESSION: Chronic ischemic changes. EVIDENCE OF ACUTE STROKE: NO. Assessment & Plan - Diagnosis (1) Post-ictal aphasia Is this a current diagnosis for this admission?: Yes (2) Chronic atrial fibrillation Is this a current diagnosis for this admission?: Yes (3) Confusion Is this a current diagnosis for this admission?: Yes (4) Dementia Qualifiers: Dementia type: unspecified type Is this a current diagnosis for this admission?: Yes (5) HLD (hyperlipidemia) Qualifiers: Hyperlipidemia type: unspecified Qualified Code(s): E78.5 - Hyperlipidemia, unspecified Is this a current diagnosis for this admission?: Yes (6) Hypothyroidism (acquired) Is this a current diagnosis for this admission?: Yes (7) 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
[2019-02-07] MEDS: FLUTICASONE/VILANTEROL 200-25 MCG/DOSE IH SCH (15:50)
[2019-02-07] MEDS: ATORVASTATIN CALCIUM 40 MG TABLET PO SCH (21:23)
[2019-02-07] MEDS: ACETAMINOPHEN 325 MG TABLET PO PRN (21:34)
[2019-02-08] MEDS: LEVOTHYROXINE SODIUM 0.05 MG TABLET PO SCH (06:16)
[2019-02-08] MEDS: LEVETIRACETAM 500 MG TABLET PO SCH (09:04)
[2019-02-08] MEDS: FUROSEMIDE 20 MG TABLET PO SCH (09:04)
[2019-02-08] MEDS: AMLODIPINE BESYLATE 5 MG TABLET PO SCH (09:05)
[2019-02-08] MEDS: ISOSORBIDE MONONITRATE 30 MG TAB.ER.24H PO SCH (09:05)
[2019-02-08] MEDS: CIPROFLOXACIN HCL 500 MG TABLET PO SCH (09:05)
[2019-02-08] MEDS: DULOXETINE HCL 20 MG CAPSULE.DR PO SCH (09:05)
[2019-02-08] MEDS: APIXABAN 5 MG TABLET PO SCH (09:05)
[2019-02-08] MEDS: SPIRONOLACTONE 25 MG TABLET PO SCH (09:05)
[2019-02-08 11:07] VITALS: BP 126/65
--- NOTE | 2019-02-08 11:34 | PDOC DISCHARGE SUMMARY ---
Impression - Admit/DC Date/PCP Admission Date/Primary Care Provider: 02/03/19 12:00 CECY CAMARENA MD Discharge Date: 02/08/19 - Discharge Diagnosis (1) Post-ictal aphasia Is this a current diagnosis for this admission?: Yes (2) Chronic atrial fibrillation Is this a current diagnosis for this admission?: Yes (3) Confusion Is this a current diagnosis for this admission?: Yes (4) Dementia Is this a current diagnosis for this admission?: Yes (5) HLD (hyperlipidemia) Is this a current diagnosis for this admission?: Yes (6) Hypothyroidism (acquired) Is this a current diagnosis for this admission?: Yes (7) 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 Is this a current diagnosis for this admission?: Yes (8) Seizure disorder Is this a current diagnosis for this admission?: Yes (9) COPD (chronic obstructive pulmonary disease) Is this a current diagnosis for this admission?: Yes (10) Urinary tract infection Is this a current diagnosis for this admission?: Yes - Additional Information Discharge Diet: Cardiac Discharge Activity: Activity As Tolerated Referrals: [facility] [facility] [NO LOCAL MD] - 02/18/19 10:15 am CECY CAMARENA MD [Primary Care Provider] - 02/17/19 11:30 am (f/u with neurology f/u in offce 1 wk ) Prescriptions: Ciprofloxacin HCl [Cipro 500 mg Tablet] 500 mg PO Q12 #14 tablet Home Medications: Atorvastatin Calcium [Lipitor 40 mg Tablet] 40 mg PO QHS 08/15/18 Duloxetine HCl [Cymbalta 20 mg Capsule.dr] 20 mg PO DAILY 08/15/18 Fluticasone/Salmeterol [Advair 250-50 Diskus 14 Dose/Diskus] 1 puff IH Q12 08/15/18 Isosorbide Mononitrate [Imdur 30 mg Tablet.er] 30 mg PO DAILY 08/15/18 Levothyroxine Sodium [Synthroid 0.05 mg Tablet] 50 mcg PO Q6AM 08/15/18 Spironolactone [Aldactone 25 mg Tablet] 12.5 mg PO DAILY 08/15/18 Apixaban [Eliquis 5 mg Tablet] 5 mg PO BID #60 tablet 08/17/18 Levetiracetam 1,500 mg PO Q12 10/20/18 Furosemide [Lasix 20 mg Tablet] 20 mg PO DAILY #0 10/22/18 Amlodipine Besylate [Norvasc 5 mg Tablet] 5 mg PO DAILY 02/01/19 Ciprofloxacin HCl [Cipro 500 mg Tablet] 500 mg PO Q12 #14 tablet 02/07/19 History of Present Illiness History of Present Illness: JOSE ESPINAL is a 73 year old female Patient was admitted because of the apagia postictal due to the seizures acti vities Patient's initially started on IV Keppra Hospital Course Hospital Course: This is a 73-year-old female's with a significant medical problems including the dementia seizures disorders currently follow outpatients neurology currently on a Keppra with the chronic urinary tract infections hypertension's A. fib history of the stroke in the past brought to the emergency department with the sudden a phasic and patients have a postictal phase Initial CT of the head was negative's patient's Keppra level was also low In the hospital patient underwent for the MRI of the head was negative for any acute strokes Patient's response very well with the medications no seizures activities Patient also found a urinary tract infections with the start of the p.o. Cipro Patient's blood work is all stable Patient's walk with the physical therapy without any problems Patient is back to the baseline's Patients want to go home's Discussed with the family will arrange the home health and physical therapy Patient's needs to follow outpatients neurology I think patient still some medications management with home health I think patient is forgetting the medications Physical Exam Vital Signs: Temp Pulse Resp BP Pulse Ox 98.3 F 59 L 19 126/65 H 98 02/08/19 11:00 02/08/19 11:00 02/08/19 11:00 02/08/19 11:00 02/08/19 11:00 Intake & Output 02/07/19 02/08/19 02/09/19 06:59 06:59 06:59 Intake Total 1080 840 Output Total 0 1 Balance 1080 839 Weight 58.9 kg 58.2 kg General appearance: PRESENT: no acute distress, well-developed, well-nourished Head exam: PRESENT: atraumatic, normocephalic Eye exam: PRESENT: conjunctiva pink, EOMI, PERRLA. ABSENT: scleral icterus Ear exam: PRESENT: normal external ear exam Mouth exam: PRESENT: moist, tongue midline Neck exam: ABSENT: carotid bruit, JVD, lymphadenopathy, thyromegaly Respiratory exam: PRESENT: clear to auscultation jordin. ABSENT: rales, rhonchi, wheezes Cardiovascular exam: PRESENT: RRR. ABSENT: diastolic murmur, rubs, systolic murmur Pulses: PRESENT: normal dorsalis pedis pul Vascular exam: PRESENT: normal capillary refill GI/Abdominal exam: PRESENT: normal bowel sounds, soft. ABSENT: distended, guarding, mass, organolmegaly, rebound, tenderness Rectal exam: PRESENT: deferred Extremities exam: PRESENT: full ROM. ABSENT: calf tenderness, clubbing, pedal edema Neurological exam: PRESENT: alert, awake, oriented to person, oriented to place, oriented to time, oriented to situation, CN II-XII grossly intact. ABSENT: motor sensory deficit Psychiatric exam: PRESENT: appropriate affect, normal mood. ABSENT: homicidal ideation, suicidal ideation Skin exam: PRESENT: dry, intact, warm. ABSENT: cyanosis, rash Results Laboratory Results: WBC 5.8 10^3/uL (4.0-10.5) 02/04/19 12:19 RBC 4.23 10^6/uL (3.72-5.28) 02/04/19 12:19 Hgb 13.8 g/dL (12.0-15.5) 02/04/19 12:19 Hct 41.5 % (36.0-47.0) 02/04/19 12:19 MCV 98 fl (80-97) H 02/04/19 12:19 MCH 32.7 pg (27.0-33.4) 02/04/19 12:19 MCHC 33.3 g/dL (32.0-36.0) 02/04/19 12:19 RDW 13.7 % (11.5-14.0) 02/04/19 12:19 Plt Count 317 10^3/uL (150-450) 02/04/19 12:19 Lymph % (Auto) 20.6 % (13-45) 02/04/19 12:19 [place] % (Auto) 8.3 % (3-13) 02/04/19 12:19 Eos % (Auto) 2.5 % (0-6) 02/04/19 12:19 Baso % (Auto) 1.2 % (0-2) 02/04/19 12:19 Absolute Neuts (auto) 3.9 10^3/uL (1.7-8.2) 02/04/19 12:19 Absolute Lymphs (auto) 1.2 10^3/uL (0.5-4.7) 02/04/19 12:19 Absolute Monos (auto) 0.5 10^3/uL (0.1-1.4) 02/04/19 12:19 Absolute Eos (auto) 0.1 10^3/uL (0.0-0.6) 02/04/19 12:19 Absolute Basos (auto) 0.1 10^3/uL (0.0-0.2) 02/04/19 12:19 Seg Neutrophils % 67.4 % (42-78) 02/04/19 12:19 Sodium 137.3 mmol/L (137-145) 02/04/19 12:19 Potassium 4.5 mmol/L (3.6-5.0) 02/04/19 12:19 Chloride 101 mmol/L (98-107) 02/04/19 12:19 Carbon Dioxide 30 mmol/L (22-30) 02/04/19 12:19 Anion Gap 6 (5-19) 02/04/19 12:19 BUN 13 mg/dL (7-20) 02/04/19 12:19 Creatinine 1.10 mg/dL (0.52-1.25) 02/04/19 12:19 Est GFR ( Amer) 59 (>60) L 02/04/19 12:19 Est GFR (MDRD) Non-Af 49 (>60) L 02/04/19 12:19 Glucose 143 mg/dL (75-110) H 02/04/19 12:19 Calcium 8.8 mg/dL (8.4-10.2) 02/04/19 12:19 Magnesium 1.8 mg/dL (1.6-2.3) 02/01/19 12:50 Total Bilirubin 0.8 mg/dL (0.2-1.3) 02/03/19 04:35 Direct Bilirubin 0.1 mg/dL (0.0-0.4) 02/03/19 04:35 Neonat Total Bilirubin Not Reportable 02/03/19 04:35 Neonat Direct Bilirubin Not Reportable 02/03/19 04:35 Neonat Indirect Bili Not Reportable 02/03/19 04:35 AST 32 U/L (14-36) 02/03/19 04:35 ALT 16 U/L (<35) 02/03/19 04:35 Alkaline Phosphatase 143 U/L (38-126) H 02/03/19 04:35 Creatine Kinase 238 U/L (30-135) H 02/04/19 12:19 CK-MB (CK-2) 1.15 ng/mL (<4.55) 02/04/19 12: Troponin I < 0.012 ng/mL 02/04/19 12:19 Total Protein 5.6 g/dL (6.3-8.2) L 02/03/19 04:35 Albumin 2.9 g/dL (3.5-5.0) L 02/03/19 04:35 Urine Color YELLOW 02/06/19 11:13 Urine Appearance SLIGHTLY-CLOUDY 02/06/19 11:13 Urine pH 7.0 (5.0-9.0) 02/06/19 11:13 Ur Specific [place] 1.015 02/06/19 11:13 Urine Protein NEGATIVE mg/dL (NEGATIVE) 02/06/19 11:13 Urine Glucose (UA) NEGATIVE mg/dL (NEGATIVE) 02/06/19 11:13 Urine Ketones NEGATIVE mg/dL (NEGATIVE) 02/06/19 11:13 Urine Blood NEGATIVE (NEGATIVE) 02/06/19 11:13 Urine Nitrite POSITIVE (NEGATIVE) H 02/06/19 11:13 Urine Nitrite (Reflex) NEGATIVE (NEGATIVE) 02/03/19 07:10 Urine Bilirubin NEGATIVE (NEGATIVE) 02/06/19 11:13 Urine Urobilinogen NEGATIVE mg/dL (<2.0) 02/06/19 11:13 Ur Leukocyte Esterase MODERATE (NEGATIVE) H 02/06/19 11:13 Leukocyte Esterase Rfl NEGATIVE (NEGATIVE) 02/03/19 07:10 Urine WBC (Auto) 49 /HPF 02/06/19 11:13 Urine RBC (Auto) 0 /HPF 02/06/19 11:13 U Hyaline Cast (Auto) 1 /LPF 02/01/19 14:47 Urine Bacteria (Auto) 3+ /HPF 02/06/19 11:13 Urine WBC (Reflex) 3 /HPF 02/03/19 07:10 Squamous Epi Cells Auto 2 /HPF 02/06/19 11:13 Urine Mucus (Auto) RARE /LPF 02/06/19 11:13 Urine Yeast (Budding) PRESENT /HPF 02/06/19 11:13 Urine Ascorbic Acid NEGATIVE (NEGATIVE) 02/06/19 11:13 Urine Opiates Screen NEGATIVE 02/01/19 14:47 Urine Methadone Screen NEGATIVE 02/01/19 14:47 Ur Barbiturates Screen NEGATIVE 02/01/19 14:47 Levetiracetam <1.0 ug/mL (10.0-40.0) L 02/01/19 13:06 Ur Phencyclidine Scrn NEGATIVE 02/01/19 14:47 Ur Amphetamines Screen NEGATIVE 02/01/19 14:47 U Benzodiazepines Scrn NEGATIVE 02/01/19 14:47 Urine Cocaine Screen NEGATIVE 02/01/19 14:47 U Marijuana (THC) Screen NEGATIVE 02/01/19 14:47 Serum Alcohol < 10 mg/dL (NONE DETECTED) 02/01/19 12:50 02/01/19 02/03/19 02/04/19 12:50 04:35 12: CK-MB (CK-2) 1.39 1.15 Troponin I < 0.012 0.014 < 0.012 Impressions: Chest X-Ray 02/01/19 12:58 IMPRESSION: No acute thoracic abnormality. Findings as above. Head CT 02/01/19 12:58 IMPRESSION: Chronic brain changes. No acute intracranial abnormality. EVIDENCE OF ACUTE STROKE: NO. Wrist X-Ray 02/02/19 00:00 IMPRESSION: DEGENERATIVE CHANGES. NO RADIOGRAPHIC EVIDENCE OF ACUTE INJURY. Head MRI 02/06/19 00:00 IMPRESSION: Chronic ischemic changes. EVIDENCE OF ACUTE STROKE: NO. Plan Time Spent: Greater than 30 Minutes Stroke Is this a Stroke Patient?: No Acute Heart Failure - Is this a Heart Failure Patient?: No
== END 2019-02-08 11:20 | disposition home health service (06) | DRG 101 ==
LOC: ER 12:43 → EH 15:14 → 5 15:59 → 3S 17:38 → OBSVTOIN 02-03 12:00 → 3S 02-07 01:35
PROVIDERS: ADMIT Family Medicine; ATTEND Family Medicine
DX: G40.909 Epilepsy, unspecified, not intractable, without status epilepticus (principal); R47.01 Aphasia; I48.20 Chronic atrial fibrillation, unspecified; I69.359 Hemiplegia and hemiparesis following cerebral infarction affecting unspecified side; N39.0 Urinary tract infection, site not specified; F03.90 Unspecified dementia, unspecified severity, without behavioral disturbance, psychotic disturbance, mood disturbance, and anxiety; E03.9 Hypothyroidism, unspecified; E78.5 Hyperlipidemia, unspecified; J44.9 Chronic obstructive pulmonary disease, unspecified; I10 Essential (primary) hypertension; K21.9 Gastro-esophageal reflux disease without esophagitis; M19.90 Unspecified osteoarthritis, unspecified site; F32.9 Major depressive disorder, single episode, unspecified; R53.1 Weakness; Z79.01 Long term (current) use of anticoagulants; I25.2 Old myocardial infarction; Z88.0 Allergy status to penicillin; Z88.2 Allergy status to sulfonamides
CPT/HCPCS: 36415; 51701; 70450; 70551; 71045; 80048; 80053; 80177; 80307; 81001; 82550; 82553; 83735; 84484; 85025; 87086; 87088; 87186; 93005; 93010; 96361; 96374; 96375; 99285; G0378; J1165; J2060; J3490; J7030

== ENCOUNTER 2019-07-01 23:58 | Observation (INO) | payer MEDICARE, MEDICAID ==
[2019-07-02 00:39] LABS: ABSOLUTE BASOPHILS # (AUTO) 0.1 10^3/uL (0.0-0.2); ABSOLUTE EOSINOPHILS # (AUTO) 0.1 10^3/uL (0.0-0.6); ABSOLUTE LYMPHOCYTES (AUTO) 1.5 10^3/uL (0.5-4.7); ABSOLUTE MONOCYTES (AUTO) 0.6 10^3/uL (0.1-1.4); ABSOLUTE NEUT (AUTO) 6.2 10^3/uL (1.7-8.2); BASOPHILS % (AUTO) 1.1 % (0-2); EOSINOPHILS % (AUTO) 0.9 % (0-6); HEMATOCRIT 38.4 % (36.0-47.0); HEMOGLOBIN 13.2 g/dL (12.0-15.5); MEAN CORPUSCULAR HGB CONC 34.5 g/dL (32.0-36.0); MEAN CORPUSCULAR VOLUME 99 fl (80-97); MONOCYTES % (AUTO) 6.6 % (3-13); PLATELET COUNT 187 10^3/uL (150-450); RED BLOOD COUNT 3.89 10^6/uL (3.72-5.28); RED CELL DISTRIBUTION WIDTH 12.6 % (11.5-14.0); SEGMENTED NEUTROPHILS % (AUTO) 73.4 % (42-78); TOTAL CELLS COUNTED % (AUTO) 100 %; WHITE BLOOD COUNT 8.4 10^3/uL (4.0-10.5)
--- NOTE | 2019-07-02 00:44 | RADIOLOGY REPORT (SQ) ---
EXAM DESCRIPTION: CT HEAD WITHOUT IV CONTRAST COMPLETED DATE/TME: 07/02/2019 00:01 CLINICAL HISTORY: 73 years, Female, STROKE PROTOCOL. COMPARISON: 02/01/2019 CT TECHNIQUE: 202 Images stored on PACS. All CT scanners at this facility use dose modulation, iterative reconstruction, and/or weight based dosing when appropriate to reduce radiation dose to as low as reasonably achievable (ALARA). [facility]: Dose Right [facility]: CareDose [facility]: Dose Right [facility]: Teradose 4D [facility]: [employer] LIMITATIONS: None. FINDINGS: The globes are intact. The paranasal sinuses and mastoid air cells are well aerated. No displaced or depressed skull fracture. No intra or extra-axial hemorrhage. CT is limited for evaluation of acute infarct. No CT evidence for large or territorial acute infarct. 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 Diffuse atrophy with small vessel ischemic change IMPRESSION: No acute intracranial abnormality. Diffuse atrophy with small vessel ischemic change. 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
[2019-07-02 00:45] LABS: INTERNATIONAL RATION (INR) 1.31; PARTIAL THROMBOPLASTIN TIME 25.8 SEC (23.5-35.8); PROTHROMBIN TIME 16.4 SEC (11.4-15.4)
[2019-07-02 00:52] LABS: APPEARANCE,URINE CLEAR; BILIRUBIN,URINE NEGATIVE (NEGATIVE); COLOR,URINE STRAW; GLUCOSE, URINE NEGATIVE (NEGATIVE); KETONES,URINE NEGATIVE (NEGATIVE); LEUKOCYTE ESTERASE,URINE NEGATIVE (NEGATIVE); NITRITE,URINE NEGATIVE (NEGATIVE); PROTEIN,URINE 100 mg/dL (NEGATIVE); URINE SPECIFIC GRAVITY 1.009; UROBILINOGEN,URINE NEGATIVE mg/dL (<2.0)
[2019-07-02 00:57] LABS: ALBUMIN 4.2 g/dL (3.5-5.0); ALKALINE PHOSPHATASE 96 U/L (38-126); ANION GAP 10 (5-19); ASPARTATE AMINO TRANSFERASE 36 U/L (14-36); BLOOD UREA NITROGEN 14 mg/dL (7-20); CALCIUM 8.5 mg/dL (8.4-10.2); CARBON DIOXIDE 27 mmol/L (22-30); CHLORIDE 96 mmol/L (98-107); CREATINE KINASE 173 U/L (30-135); GLUCOSE 141 mg/dL (75-110); POTASSIUM 3.4 mmol/L (3.6-5.0); TOTAL PROTEIN 6.9 g/dL (6.3-8.2)
[2019-07-02] MEDS ORDERED: LEVETIRACETAM 1000 MG/NACL-ISO 1,000 MG/100 ML RTUPB IV ONE (00:57)
[2019-07-02 00:59] LABS: ALCOHOL < 10 mg/dL (NONE DETECTED)
--- NOTE | 2019-07-02 01:03 | ER Document Report ---
ED General - General Chief Complaint: S/S of Possible Stroke Stated Complaint: POSSIBLE STROKE Time Seen by Provider: 07/02/19 00:02 TRAVEL OUTSIDE OF THE [place] IN LAST 30 DAYS: No - HPI Notes: Patient is a 73-year-old female brought into the emergency department for evaluation by EMS. Entire history is obtained from EMS as well as [facility] records. Evidently the patient was at home, had been complaining about something. Patient's was not really clear as to what she was concerned about, but does note that she stated "something was wrong, call 911." She went to the bathroom. Upon arrival of EMS they were discussing her complaints with her, when she started having seizure activity. It was reported as tonic-clonic per EMS. This seizure abated without intervention. Afterwards she started having deviation of the eyes to the left. She had some slurring of the speech. Just prior to arrival she had a second seizure. She was administered Versed 2.5 mg IV and brought to the ED. - Related Data Allergies/Adverse Reactions: Penicillins Allergy (Mild, Verified 02/12/18 16:50) rash Sulfa (Sulfonamide Antibiotics) Allergy (Mild, Verified 02/12/18 16:52) Skin Redness Past Medical History - General Information source: Emergency Med Personnel, [facility] Records - Social History Smoking Status: Current Every Day Smoker Family History: Reviewed & Not Pertinent Patient has homicidal ideation: No - Past Medical History Cardiac Medical History: Reports: Hx Atrial Fibrillation, Hx Heart Attack - mild, Hx Hypercholesterolemia, Hx Hypertension Denies: Hx Congestive Heart Failure, Hx Coronary Artery Disease, Hx Peripheral Vascular Disease, Hx Heart Murmur Pulmonary Medical History: Reports: Hx COPD Neurological Medical History: Reports: Hx Cerebrovascular Accident - 01/20 , Hx Seizures. Denies: Hx Parkinson's Disease Endocrine Medical History: Reports: Hx Hypothyroidism. Denies: Hx Graves' Disease, Hx Hyperthyroidism Renal/ Medical History: Denies: Hx End Stage Renal Disease, Hx Kidney Stones, Hx Peritoneal Dialysis Malignancy Medical History: Denies: Hx Leukemia GI Medical History: Reports: Hx Gastroesophageal Reflux Disease - occ. takes Omeprazole PRN. Denies: Hx Crohn's Disease, Hx Hiatal Hernia, Hx Irritable Bowel, Hx Liver Failure, Hx Pancreatitis, Hx Ulcer Musculoskeletal Medical History: Reports Hx Arthritis, Denies Hx Fibromyalgia, Denies Hx Multiple Sclerosis, Denies Hx Muscular Dystrophy, Denies Hx Systemic Lupus Erythematosus Psychiatric Medical History: Reports: Hx Dementia, Hx Depression Denies: Hx Bipolar Disorder, Hx Post Traumatic Stress Disorder, Hx Schizophrenia Traumatic Medical History: Reports: Hx Fractures - 2nd toe on right Infectious Medical History: Denies: Hx HIV Past Surgical History: Reports: Hx Appendectomy, Hx Hysterectomy, Hx Orthopedic Surgery - right rotator cuff. Denies: Hx Bowel Surgery, Hx Section, Hx Cholecystectomy, Hx Colostomy, Hx Coronary Artery Bypass Graft, Hx Gastric Bypass Surgery, Hx Herniorrhaphy, Hx Mastectomy, Hx Pacemaker, Hx Tonsillectomy, Hx Tubal Ligation - Immunizations Hx Diphtheria, Pertussis, Tetanus Vaccination: No Hx Pneumococcal Vaccination: 12/06/17 Review of Systems - Review of Systems -: Yes ROS unobtainable due to patient's medical condition Physical Exam - Vital signs Vitals: Temp 97.1 F 07/01/19 23:59 - Notes Notes: Patient is a 73-year-old female appears her stated age. Upon arrival she had nonrebreather in place. Head is normocephalic and atraumatic. Pupils are 3 mm, mildly sluggish, but reactive to light. Nares are patent, oral mucosa is moist. Neck is supple. Heart is regular rate and rhythm, lungs are clear to auscultation bilaterally. Respiratory rate is normal. Abdomen soft, nontender, active bowel sounds. Extremities without cyanosis or clubbing. Patient has a small hematoma noted over the left tibial tuberosity with pinpoint amount of bleeding noted. Patient is somnolent. She will open her eyes to verbal stimulus, but rapidly closes them again. No verbal responses. Course - Re-evaluation Re-evalutation: 07/02/19 01:02 Patient presents to the emergency department for evaluation. Because of her significant seizure and deviation of the eyes, she was called as a stroke alert prior to arrival. She is CT scan of the head ordered initially, and I greeted the patient at the door. I actually walked with the patient to CT to evaluate and keep her stable. Initially decision had been to intubate the patient, but then I was able to find out her history. She does have a history of CVA with weakness, she has history of dementia, she has a history of seizures, is often nonverbal after the seizures. She also has an extensive medical history of COPD. I am not inclined to intubate this patient at this time if possible, as it would be primarily to protect her airway, but I do have concerns that she would not come off the ventilator given her comorbidities. Awaiting further reports, patient is stable, we will continue to monitor. 07/02/19 01:41 Patient still extremely drowsy, but will open her eyes to verbal stimulus, will follow commands. Still with unintelligible words. Patient has multiple comorb idities and is not back to baseline. I spoke with Dr. Meredith, he will admit this patient for further care. - Vital Signs Vital signs: Temp Pulse Resp BP Pulse Ox 98.1 F 72 16 168/77 H 97 07/02/19 10:43 07/02/19 14:00 07/02/19 10:43 07/02/19 10:43 07/02/19 10:43 - Laboratory Result Diagrams: 07/02/19 00:28 07/02/19 00:28 Laboratory results interpreted by me: 07/02/19 07/02/19 07/02/19 00:28 00:28 00:28 MCV 99 H MCH 34.0 H PT 16.4 H Sodium 132.6 L Potassium 3.4 L Chloride 96 L Est GFR ( Amer) 55 L Est GFR (MDRD) Non-Af 45 L Glucose 141 H POC Glucose Creatine Kinase 173 H Urine Protein Urine Blood 07/02/19 07/02/19 00:40 00:40 MCV MCH PT Sodium Potassium Chloride Est GFR ( Amer) Est GFR (MDRD) Non-Af Glucose POC Glucose 152 H Creatine Kinase Urine Protein 100 H Urine Blood MODERATE H - Diagnostic Test Radiology reviewed: Image reviewed, Reports reviewed Radiology results interpreted by me: 07/02/19 01:[address] 07/02/19 00:01 IMPRESSION: No acute intracranial abnormality. Diffuse atrophy with small vessel ischemic change. 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 Normal axis and intervals. No acute ST changes concerning for ischemia or infarction. With the exception of the PVCs, no significant change compared to prior study. Critical Care Note - Critical Care Note Total time excluding time spent on procedures (mins): 20 Discharge - Discharge Clinical Impression: Seizure Condition: Stable Disposition: ADMITTED OBSERVATION Admitting Provider: Meredith Unit Admitted: [facility]
[2019-07-02 01:08] LABS: URINE AMPHETAMINES SCREEN NEGATIVE; URINE BARBITURATES SCREEN NEGATIVE; URINE COCAINE SCREEN NEGATIVE; URINE MARIJUANA (THC) SCREEN NEGATIVE; URINE METHADONE SCREEN NEGATIVE; URINE PHENCYCLIDINE SCREEN NEGATIVE
[2019-07-02 01:09] LABS: CREATINE KINASE MB 2.03 ng/mL (<4.55)
[2019-07-02 01:09] LABS: URINE BENZODIAZEPINES SCREEN UNCONFIRMED POSITIVE
[2019-07-02 01:10] LABS: TROPONIN I < 0.012 ng/mL
[2019-07-02] MEDS ORDERED: NORMAL SALINE 1000 ML 1,000 ML IV ONE (01:14)
--- NOTE | 2019-07-02 01:40 | RADIOLOGY REPORT (SQ) ---
CLINICAL HISTORY: stroke COMPARISON: 02/01/2019. TECHNIQUE: XR CHEST 1 VIEW 07/02/2019 12:01 AM CDT FINDINGS: The heart is moderately enlarged. Lungs are clear without consolidation, atelectasis, mass or edema. There is no pleural effusion. There is no pneumothorax. There are no acute osseous findings. IMPRESSION: Clear lungs.
--- NOTE | 2019-07-02 01:40 | RADIOLOGY REPORT (SQ) ---
CLINICAL HISTORY: hematoma COMPARISON: None. TECHNIQUE: XR KNEE 1-2 VIEWS 07/02/2019 12:42 AM CDT FINDINGS: There is no fracture. Joint spaces are preserved. There are heavy vascular calcifications adjacent to the proximal fibula. Bones are osteopenic. IMPRESSION: No acute osseous findings.
--- NOTE | 2019-07-02 07:23 | EKG REPORT ---
SEVERITY:- ABNORMAL ECG - ATRIAL FIBRILLATION RUN OF VENTRICULAR PREMATURE COMPLEXES : Confirmed by: Karri Costello MD 02-Jul-2019 07:23:05
--- NOTE | 2019-07-02 09:42 | PDOC H&P ---
History of Present Illness Admission Date/PCP: 07/02/19 02:08 CECY CAMARENA MD Patient complains of: Seizures activity History of Present Illness: JOSE ESPINAL is a 73 year old female This is a 73-year-old femaleWith the history of the seizures disorder history of the hypertension hyperlipidemia congestive heart failure and worsening dementia basically a call the EMS because of patient's not feeling well and EMS found tonic-clonic seizuresAnd brought to the emergency departments In the emergency department patient received the 1000 mg of Keppra IV and kathe green was a postictal status When I saw the patient in the floor patient is alert awake denied any chest pain no headache no weakness Patient is very noncompliance last time I seen him in our admitting in the hospital and then patient stable follow in office and I believe patient is not taking the medication is supposed to and most likely related to the seizures activity Follow neurology as an outpatient but I do not think so patients follow regularly to him also Patient's currently lives with her try to contact her left the voicemail Past Medical History Cardiac Medical History: Reports: Atrial Fibrillation, Myocardial Infarction - mild, Hyperlipidema, Hypertension Denies: Congestive Heart Failure, Coronary Artery Disease, Peripheral Vascular Disease, Heart Murmur Pulmonary Medical History: Reports: Chronic Obstructive Pulmonary Disease (COPD) Neurological Medical History: Reports: Seizures Endocrine Medical History: Reports: Hypothyroidism Denies: Hyperthyroidism Renal/ Medical History: Denies: End Stage Renal Disease Malignancy Medical History: Denies: Leukemia GI Medical History: Reports: Gastroesophageal Reflux Disease - occ. takes Omeprazole PRN Denies: Crohn's Disease, Hiatal Hernia Musculoskeltal Medical History: Reports: Arthritis Denies: Fibromyalgia Psychiatric Medical History: Reports: Dementia, Depression Denies: Bipolar Disorder, Post Traumatic Stress Disorder Hematology: Denies: Anemia, Hemophilia, Sickle Cell Disease Infectious Medical History: Denies: HIV Past Surgical History Past Surgical History: Reports: Appendectomy, Hysterectomy, Orthopedic Surgery - right rotator cuff Denies: Amputation, Section, Cholecystectomy, Colostomy, Coronary Artery Bypass Graft, Gastric Bypass Surgery, Herniorrhaphy, Mastectomy, Pacemaker, Tonsillectomy, Tubal Ligation Social History Information Source: Patient Smoking Status: Current Every Day Smoker Electronic Cigarette use?: No Frequency of Alcohol Use: None Hx Recreational Drug Use: No Drugs: None Hx Prescription Drug Abuse: No Family History Family History: Reviewed & Not Pertinent Parental Family History Reviewed: Yes Children Family History Reviewed: Yes Sibling(s) Family History Reviewed.: Yes Medication/Allergy Home Medications: Atorvastatin Calcium [Lipitor 40 mg Tablet] 40 mg PO QHS 08/15/18 Duloxetine HCl [Cymbalta 20 mg Capsule.dr] 20 mg PO DAILY 08/15/18 Fluticasone/Salmeterol [Advair 250-50 Diskus 14 Dose/Diskus] 1 puff IH Q12 08/15/18 Isosorbide Mononitrate [Imdur 30 mg Tablet.er] 30 mg PO DAILY 08/15/18 Levothyroxine Sodium [Synthroid 0.05 mg Tablet] 50 mcg PO Q6AM 08/15/18 Spironolactone [Aldactone 25 mg Tablet] 12.5 mg PO DAILY 08/15/18 Apixaban [Eliquis 5 mg Tablet] 5 mg PO BID #60 tablet 08/17/18 Levetiracetam 1,500 mg PO Q12 10/20/18 Furosemide [Lasix 20 mg Tablet] 20 mg PO DAILY #0 10/22/18 Amlodipine Besylate [Norvasc 5 mg Tablet] 5 mg PO DAILY 02/01/19 Ciprofloxacin HCl [Cipro 500 mg Tablet] 500 mg PO Q12 #14 tablet 02/07/19 Allergies/Adverse Reactions: Penicillins Allergy (Mild, Verified 02/12/18 16:50) rash Sulfa (Sulfonamide Antibiotics) Allergy (Mild, Verified 02/12/18 16:52) Skin Redness Review of Systems Constitutional: ABSENT: chills, fever(s), headache(s), weight gain, weight loss Eyes: ABSENT: visual disturbances Ears: ABSENT: hearing changes Cardiovascular: ABSENT: chest pain, dyspnea on exertion, edema, orthropnea, palpitations Respiratory: ABSENT: cough, hemoptysis Gastrointestinal: ABSENT: abdominal pain, constipation, diarrhea, hematemesis, hematochezia, nausea, vomiting Genitourinary: ABSENT: dysuria, hematuria Musculoskeletal: ABSENT: joint swelling Integumentary: ABSENT: rash, wounds Neurological: ABSENT: abnormal gait, abnormal speech, confusion, dizziness, focal weakness, syncope Psychiatric: ABSENT: anxiety, depression, homidical ideation, suicidal ideation Endocrine: ABSENT: cold intolerance, heat intolerance, menstrual abnormalities, polydipsia, polyuria Hematologic/Lymphatic: ABSENT: easy bleeding, easy bruising, lymphadenopathy Physical Exam Vital Signs: Temp Pulse Resp BP Pulse Ox 98.4 F 85 16 135/66 H 99 07/02/19 07:53 07/02/19 07:53 07/02/19 07:53 07/02/19 07:53 07/02/19 07:53 Intake & Output 07/01/19 07/02/19 07/03/19 06:59 06:59 06:59 Intake Total 1100 Output Total 1250 Balance -150 Weight 74.3 kg General appearance: PRESENT: no acute distress, well-developed, well-nourished Head exam: PRESENT: atraumatic, normocephalic Eye exam: PRESENT: conjunctiva pink, EOMI, PERRLA. ABSENT: scleral icterus Ear exam: PRESENT: normal external ear exam Mouth exam: PRESENT: moist, tongue midline Neck exam: PRESENT: full ROM. ABSENT: carotid bruit, JVD, lymphadenopathy, thyromegaly Respiratory exam: PRESENT: clear to auscultation jordin Cardiovascular exam: PRESENT: RRR. ABSENT: diastolic murmur, rubs, systolic murmur Vascular exam: PRESENT: normal capillary refill GI/Abdominal exam: PRESENT: normal bowel sounds, soft. ABSENT: distended, guarding, mass, organolmegaly, rebound, tenderness Rectal exam: PRESENT: deferred Neurological exam: PRESENT: alert, awake, oriented to person, oriented to place. ABSENT: motor sensory deficit Psychiatric exam: PRESENT: appropriate affect, normal mood. ABSENT: homicidal ideation, suicidal ideation Skin exam: PRESENT: dry, intact, warm. ABSENT: cyanosis, rash Results Laboratory Results: 07/02/19 00:28 07/02/19 00:28 07/02/19 07/02/19 07/02/19 00:28 00:28 00:40 WBC 8.4 RBC 3.89 Hgb 13.2 Hct 38.4 MCV 99 H MCH 34.0 H MCHC 34.5 RDW 12.6 Plt Count 187 Seg Neutrophils % 73.4 Sodium 132.6 L Potassium 3.4 L Chloride 96 L Carbon Dioxide 27 Anion Gap 10 BUN 14 Creatinine 1.17 Est GFR ( Amer) 55 L Glucose 141 H Calcium 8.5 Magnesium 1.8 Total Bilirubin 1.0 AST 36 Alkaline Phosphatase 96 Total Protein 6.9 Albumin 4.2 Urine Color STRAW Urine Appearance CLEAR Urine pH 6.0 Ur Specific [place] 1.009 Urine Protein 100 H Urine Glucose (UA) NEGATIVE Urine Ketones NEGATIVE Urine Blood MODERATE H Urine Nitrite NEGATIVE Ur Leukocyte Esterase NEGATIVE Urine WBC (Auto) 1 07/02/19 07/02/19 00:28 00:28 Creatine Kinase 173 H CK-MB (CK-2) 2.03 Troponin I < 0.012 Impressions: Chest X-Ray 07/02/19 00:01 IMPRESSION: Clear lungs. Head CT 07/02/19 00:01 IMPRESSION: No acute intracranial abnormality. Diffuse atrophy with small vessel ischemic change. 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 Assessment & Plan - Diagnosis (1) Post-ictal confusion Is this a current diagnosis for this admission?: Yes Plan: Currently all improving will get the MRI of the head (2) Noncompliance Is this a current diagnosis for this admission?: Yes Plan: Consult the facility planner about the patient's need and will discuss with the (3) Seizure Is this a current diagnosis for this admission?: Yes Plan: Most likely due to the noncompliance will give a Keppra 1500 mg p.o. twice a day (4) Altered mental status Qualifiers: Altered mental status type: unspecified Qualified Code(s): R41.82 - Altered mental status, unspecified Is this a current diagnosis for this admission?: Yes Plan: We will get the MRI of the head and check the urine (5) Atrial fibrillation, chronic Is this a current diagnosis for this admission?: Yes Plan: Patient is currently on Eliquis per cardiology Dr. Arreguin (6) COPD (chronic obstructive pulmonary disease) Qualifiers: COPD type: unspecified COPD Qualified Code(s): J44.9 - Chronic obstructive pulmonary disease, unspecified Is this a current diagnosis for this admission?: Yes Plan: Currently all stable (7) Cerebrovascular disorder Is this a current diagnosis for this admission?: Yes Plan: Currently on Eliquis and statin (8) Chronic systolic (congestive) heart failure Is this a current diagnosis for this admission?: Yes Plan: Continues the current diuretics (9) Coronary artery disease Qualifiers: Coronary Disease-Associated Artery/Lesion type: unspecified vessel or lesion type Is this a current diagnosis for this admission?: Yes Plan: Currently all stable (10) Dementia Qualifiers: Dementia type: unspecified type Dementia behavioral disturbance: without behavioral disturbance Qualified Code(s): F03.90 - Unspecified dementia without behavioral disturbance Is this a current diagnosis for this admission?: Yes Plan: Continues to current medications we will start the patient on Namenda (11) Hypertension Qualifiers: Hypertension type: essential hypertension Is this a current diagnosis for this admission?: Yes Plan: Currently all stable (12) Hypothyroidism (acquired) Is this a current diagnosis for this admission?: Yes Plan: Check a TSH and free T4 - Time Time Spent: 50 to 70 Minutes Medications reviewed and adjusted accordingly: Yes Anticipated discharge: Home with Homehealth Within: Other - Inpatient Certification Based on my medical assessment, after consideration of the patient's comorbidities, presenting symptoms, or acuity I expect that the services needed warrant INPATIENT care.: Yes I certify that my determination is in accordance with my understanding of Medicare's requirements for reasonable and necessary INPATIENT services [42 CFR 412.3e].: Yes Medical Necessity: Significant Comorbidiites Make Outpatient Treatment Too Risky, Need for Neurological Checks Post Hospital Care: D/C E Learning Coordinator Documentation - Plan Summary Plan Summary: Admit the patient in IMCU see other MD orders
[2019-07-02] MEDS ORDERED: LEVETIRACETAM 1000 MG/NACL-ISO 1,000 MG/100 ML RTUPB IV SCH (10:00)
[2019-07-02] MEDS ORDERED: FUROSEMIDE 20 MG TABLET PO SCH (10:15)
[2019-07-02] MEDS ORDERED: SPIRONOLACTONE 25 MG TABLET PO SCH (10:15)
[2019-07-02] MEDS: APIXABAN 5 MG TABLET PO SCH ×2 (11:16→17:46)
[2019-07-02] MEDS: LEVETIRACETAM 1500 MG/NACL-ISO 1,500 MG/100 ML RTUPB IV SCH ×2 (11:16→21:03)
[2019-07-02] MEDS: ISOSORBIDE MONONITRATE 30 MG TAB.ER.24H PO SCH (11:16)
[2019-07-02] MEDS: DULOXETINE HCL 20 MG CAPSULE.DR PO SCH (11:16)
[2019-07-02] MEDS: AMLODIPINE BESYLATE 5 MG TABLET PO SCH (11:17)
[2019-07-02] MEDS: ENOXAPARIN SODIUM INJ 40 MG/0.4 ML DISP.SYRIN SUBCUT SCH (11:17)
[2019-07-02] MEDS: ACETAMINOPHEN 325 MG TABLET PO PRN ×2 (16:36→20:31)
[2019-07-02] MEDS: ATORVASTATIN CALCIUM 40 MG TABLET PO SCH (21:03)
[2019-07-03] MEDS ORDERED: BENZOCAINE/MENTHOL SORE THROAT LOZENGE BUCCAL PRN (02:47)
[2019-07-03 05:34] LABS: ABSOLUTE LYMPHOCYTES (AUTO) 1.4 10^3/uL (0.5-4.7); ABSOLUTE MONOCYTES (AUTO) 0.7 10^3/uL (0.1-1.4); ABSOLUTE NEUT (AUTO) 4.3 10^3/uL (1.7-8.2); BASOPHILS % (AUTO) 0.4 % (0-2); EOSINOPHILS % (AUTO) 0.1 % (0-6); HEMATOCRIT 37.2 % (36.0-47.0); HEMOGLOBIN 12.9 g/dL (12.0-15.5); LYMPHOCYTES % (AUTO) 21.8 % (13-45); MEAN CORPUSCULAR HEMOGLOBIN 33.9 pg (27.0-33.4); MEAN CORPUSCULAR HGB CONC 34.6 g/dL (32.0-36.0); MEAN CORPUSCULAR VOLUME 98 fl (80-97); MONOCYTES % (AUTO) 11.1 % (3-13); PLATELET COUNT 204 10^3/uL (150-450); RED CELL DISTRIBUTION WIDTH 12.6 % (11.5-14.0); SEGMENTED NEUTROPHILS % (AUTO) 66.6 % (42-78); TOTAL CELLS COUNTED % (AUTO) 100 %; WHITE BLOOD COUNT 6.4 10^3/uL (4.0-10.5)
[2019-07-03] MEDS: LEVOTHYROXINE SODIUM 0.05 MG TABLET PO SCH (05:39)
[2019-07-03 05:52] LABS: ANION GAP 7 (5-19); BLOOD UREA NITROGEN 12 mg/dL (7-20); CALCIUM 8.2 mg/dL (8.4-10.2); CARBON DIOXIDE 26 mmol/L (22-30); CHLORIDE 93 mmol/L (98-107); GLUCOSE 116 mg/dL (75-110); POTASSIUM 3.4 mmol/L (3.6-5.0)
[2019-07-03] MEDS: NORMAL SALINE 1000 ML 1,000 ML IV PRN (08:43)
[2019-07-03] MEDS ORDERED: POTASSIUM CHLORIDE 10 MEQ TABLET.ER PO ONE (09:00)
[2019-07-03] MEDS: ENOXAPARIN SODIUM INJ 40 MG/0.4 ML DISP.SYRIN SUBCUT SCH (09:30)
[2019-07-03] MEDS: AMLODIPINE BESYLATE 5 MG TABLET PO SCH (09:30)
[2019-07-03] MEDS: APIXABAN 5 MG TABLET PO SCH ×2 (09:30→17:45)
[2019-07-03] MEDS: CIPROFLOXACIN HCL 500 MG TABLET PO SCH ×2 (09:30→21:30)
[2019-07-03] MEDS: ISOSORBIDE MONONITRATE 30 MG TAB.ER.24H PO SCH (09:30)
[2019-07-03] MEDS: LEVETIRACETAM 500 MG TABLET PO SCH ×2 (09:30→21:30)
[2019-07-03] MEDS: DULOXETINE HCL 20 MG CAPSULE.DR PO SCH (09:30)
--- NOTE | 2019-07-03 10:13 | PDOC PROGRESS REPORT ---
Subjective Progress Note for:: 07/03/19 Subjective:: Patient is feeling much better this morning Did not have MRI done because the hospital unable to find the patient 's tried to call several times unable to answer I try myself unable to answer Patient is more alert awake oriented Since denied any chest pain no short of breath Patient was complaining of sore throat last night but other than that no other complaints Patient's Lasix and the spironolactone was hold patient's sodium level is low Patient's last echocardiogram I saw that with the patient's EF was normal we will asked the cardiology to further evaluate about this Lasix and Spironolactone which patient is really needed for the heart failure Reason For Visit: SEIZURE Physical Exam Vital Signs: Temp Pulse Resp BP Pulse Ox 98.7 F 63 20 121/61 99 07/03/19 08:37 07/03/19 08:37 07/03/19 08:37 07/03/19 08:37 07/03/19 08:37 Intake & Output 07/02/19 07/03/19 07/04/19 06:59 06:59 06:59 Intake Total 1100 1097 Output Total 1250 1150 Balance -150 -53 Weight 74.3 kg 71.6 kg General appearance: PRESENT: no acute distress, well-developed, well-nourished Head exam: PRESENT: atraumatic, normocephalic Eye exam: PRESENT: conjunctiva pink, EOMI, PERRLA. ABSENT: scleral icterus Ear exam: PRESENT: normal external ear exam Mouth exam: PRESENT: moist, tongue midline Neck exam: PRESENT: full ROM. ABSENT: carotid bruit, JVD, lymphadenopathy, thyromegaly Respiratory exam: PRESENT: clear to auscultation jordin Cardiovascular exam: PRESENT: RRR. ABSENT: diastolic murmur, rubs, systolic murmur Pulses: PRESENT: normal dorsalis pedis pul, +2 pedal pulses bilateral Vascular exam: PRESENT: normal capillary refill GI/Abdominal exam: PRESENT: normal bowel sounds, soft. ABSENT: distended, guarding, mass, organolmegaly, rebound, tenderness Rectal exam: PRESENT: deferred Musculoskeletal exam: PRESENT: ambulatory Neurological exam: PRESENT: alert, awake, oriented to person, oriented to place, oriented to time, oriented to situation, CN II-XII grossly intact. ABSENT: motor sensory deficit Psychiatric exam: PRESENT: appropriate affect, normal mood. ABSENT: homicidal ideation, suicidal ideation Skin exam: PRESENT: dry, intact, warm. ABSENT: cyanosis, rash Results Laboratory Results: 07/03/19 04:51 07/03/19 04:51 07/03/19 07/03/19 07/03/19 04:51 04:51 04:51 WBC 6.4 RBC 3.80 Hgb 12.9 Hct 37.2 MCV 98 H MCH 33.9 H MCHC 34.6 RDW 12.6 Plt Count 204 Seg Neutrophils % 66.6 Sodium 125.9 L Potassium 3.4 L Chloride 93 L Carbon Dioxide 26 Anion Gap 7 BUN 12 Creatinine 0.77 Est GFR ( Amer) > 60 Glucose 116 H Calcium 8.2 L TSH 2.05 07/02/19 07/02/19 00:28 00:28 Creatine Kinase 173 H CK-MB (CK-2) 2.03 Troponin I < 0.012 Impressions: Chest X-Ray 07/02/19 00:01 IMPRESSION: Clear lungs. Head CT 07/02/19 00:01 IMPRESSION: No acute intracranial abnormality. Diffuse atrophy with small vessel ischemic change. 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 Assessment & Plan - Diagnosis (1) Post-ictal confusion Is this a current diagnosis for this admission?: Yes Plan: Currently all resolved no seizures activity continues the Keppra 1500 mg p.o. twice a day (2) Noncompliance Is this a current diagnosis for this admission?: Yes (3) Seizure Is this a current diagnosis for this admission?: Yes Plan: Currently no seizure activities in the hospital continues the Keppra (4) Altered mental status Qualifiers: Altered mental status type: unspecified Qualified Code(s): R41.82 - Altered mental status, unspecified Is this a current diagnosis for this admission?: Yes (5) Atrial fibrillation, chronic Is this a current diagnosis for this admission?: Yes Plan: Continues the Eliquis (6) COPD (chronic obstructive pulmonary disease) Qualifiers: COPD type: unspecified COPD Qualified Code(s): J44.9 - Chronic obstructive pulmonary disease, unspecified Is this a current diagnosis for this admission?: Yes Plan: Currently all stable (7) Cerebrovascular disorder Is this a current diagnosis for this admission?: Yes Plan: Patient initial CT head was all negative unable to get the MRI done but patient is clinically looks all stable continues the Eliquis and a statin (8) Chronic systolic (congestive) heart failure Is this a current diagnosis for this admission?: Yes Plan: Patient's last echocardiogram with EF was normal we will asked the cardiology to further evaluate about the adjust the medications (9) Coronary artery disease Qualifiers: Coronary Disease-Associated Artery/Lesion type: unspecified vessel or lesion type Is this a current diagnosis for this admission?: Yes Plan: stable (10) Dementia Qualifiers: Dementia type: unspecified type Dementia behavioral disturbance: without behavioral disturbance Qualified Code(s): F03.90 - Unspecified dementia without behavioral disturbance Is this a current diagnosis for this admission?: Yes (11) Hypertension Qualifiers: Hypertension type: essential hypertension Is this a current diagnosis for this admission?: Yes (12) Hypothyroidism (acquired) Is this a current diagnosis for this admission?: Yes (13) Hyponatremia Is this a current diagnosis for this admission?: Yes Plan: We will check the osmolality will give IV fluid for 12 hours - Time Time Spent with patient: 25-34 minutes Level of Care: IMCU Medications reviewed and adjusted accordingly: Yes Anticipated discharge: Other Within: Other - Plan Summary Plan Summary: Discussed with the nursing staff try to contact the again
[2019-07-03 14:37] LABS: ANION GAP 5 (5-19); BLOOD UREA NITROGEN 14 mg/dL (7-20); CALCIUM 8.3 mg/dL (8.4-10.2); CARBON DIOXIDE 29 mmol/L (22-30); CHLORIDE 92 mmol/L (98-107); GLUCOSE 108 mg/dL (75-110); POTASSIUM 3.6 mmol/L (3.6-5.0)
[2019-07-03] MEDS: ATORVASTATIN CALCIUM 40 MG TABLET PO SCH (21:30)
[2019-07-04] MEDS: NORMAL SALINE 1000 ML 1,000 ML IV PRN (00:54)
[2019-07-04 05:56] LABS: BLOOD UREA NITROGEN 11 mg/dL (7-20); CALCIUM 8.3 mg/dL (8.4-10.2); GLUCOSE 102 mg/dL (75-110); POTASSIUM 3.9 mmol/L (3.6-5.0)
[2019-07-04 06:01] LABS: CARBON DIOXIDE 26 mmol/L (22-30); CHLORIDE 99 mmol/L (98-107)
[2019-07-04 06:08] LABS: ANION GAP 4 (5-19)
[2019-07-04] MEDS: LEVOTHYROXINE SODIUM 0.05 MG TABLET PO SCH (06:31)
[2019-07-04] MEDS: AMLODIPINE BESYLATE 5 MG TABLET PO SCH (09:38)
[2019-07-04] MEDS: APIXABAN 5 MG TABLET PO SCH (09:38)
[2019-07-04] MEDS: LEVETIRACETAM 500 MG TABLET PO SCH (09:38)
[2019-07-04] MEDS: CIPROFLOXACIN HCL 500 MG TABLET PO SCH (09:39)
[2019-07-04] MEDS: ISOSORBIDE MONONITRATE 30 MG TAB.ER.24H PO SCH (09:40)
[2019-07-04] MEDS: ENOXAPARIN SODIUM INJ 40 MG/0.4 ML DISP.SYRIN SUBCUT SCH (09:40)
[2019-07-04] MEDS: DULOXETINE HCL 20 MG CAPSULE.DR PO SCH (09:40)
--- NOTE | 2019-07-04 13:45 | PDOC DISCHARGE SUMMARY ---
Impression - Admit/DC Date/PCP Admission Date/Primary Care Provider: 07/02/19 02:08 CECY CAMARENA MD Discharge Date: 07/04/19 - Discharge Diagnosis (1) Post-ictal confusion Is this a current diagnosis for this admission?: Yes (2) Noncompliance Is this a current diagnosis for this admission?: Yes (3) Seizure Is this a current diagnosis for this admission?: Yes (4) Altered mental status Is this a current diagnosis for this admission?: Yes (5) Atrial fibrillation, chronic Is this a current diagnosis for this admission?: Yes (6) COPD (chronic obstructive pulmonary disease) Is this a current diagnosis for this admission?: Yes (7) Cerebrovascular disorder Is this a current diagnosis for this admission?: Yes (8) Chronic systolic (congestive) heart failure Is this a current diagnosis for this admission?: Yes (9) Coronary artery disease Is this a current diagnosis for this admission?: Yes (10) Dementia Is this a current diagnosis for this admission?: Yes (11) Hypertension Is this a current diagnosis for this admission?: Yes (12) Hypothyroidism (acquired) Is this a current diagnosis for this admission?: Yes (13) Hyponatremia Is this a current diagnosis for this admission?: Yes - Additional Information Discharge Diet: Cardiac Discharge Activity: Activity As Tolerated Referrals: KHURRAM GÓMEZ MD [ACTIVE STAFF] - 07/14/19 12:45 pm CECY CAMARENA MD [Primary Care Provider] - 07/08/19 11:15 am Home Medications: Atorvastatin Calcium [Lipitor 40 mg Tablet] 40 mg PO QHS 08/15/18 Duloxetine HCl [Cymbalta 20 mg Capsule.dr] 20 mg PO DAILY 08/15/18 Isosorbide Mononitrate [Imdur 30 mg Tablet.er] 30 mg PO DAILY 08/15/18 Levothyroxine Sodium [Synthroid 0.05 mg Tablet] 50 mcg PO Q6AM 08/15/18 Apixaban [Eliquis 5 mg Tablet] 5 mg PO BID #60 tablet 08/17/18 Furosemide [Lasix 20 mg Tablet] 20 mg PO DAILY #0 10/22/18 Amlodipine Besylate [Norvasc 5 mg Tablet] 5 mg PO DAILY 02/01/19 Levetiracetam 1,500 mg PO Q12 30 Days #60 07/04/19 History of Present Illiness History of Present Illness: JOSE ESPINAL is a 73 year old female This is a 73-year-old femaleWith the history of the seizures disorder history of the hypertension hyperlipidemia congestive heart failure and worsening dementia basically a call the EMS because of patient's not feeling well and EMS found tonic-clonic seizuresAnd brought to the emergency departments In the emergency department patient received the 1000 mg of Keppra IV and patient was a postictal status When I saw the patient in the floor patient is alert awake denied any chest pain no headache no weakness Patient is very noncompliance last time I seen him in our admitting in the hospital and then patient stable follow in office and I believe patient is not taking the medication is supposed to and most likely related to the seizures activity Follow neurology as an outpatient but I do not think so patients follow regularly to him also Patient's currently lives with her try to contact her [facility] Hospital Course Hospital Course: This 73-year-old female presented emergency department the seizures activity Patient's was in a postictal phase decided to admit for further evaluations initial CT head was negative And was put on IV Keppra Patient is otherwise doing much better back to the baseline's still significant underlying dementia is alert awake Patient's sodium level was low giving some IV fluid back to the 130 range Patient seen by the rn manager for further evaluate with ongoing A. fib and heart failure issues Per discussed with the cardiology follow outpatients for the echocardiogram and further testings She is currently on Eliquis and the rate under well controls Patient's also had MRI ordered but unable to do Because of the unable to trace the patient's and the patient is clinically much improved and there is no need Again this patient is several time admitting in the hospitals because of her noncompliance unfortunately very poor social conditions for support from the Again patient's not unable to follow in office very often and according to the patient is a transportation issue because her does not drive the car and she does not drive the car we will asked the paraplanner about the arrange the transportations Again several times try to track down the patient has been unable to answer discussed with the paraplanner to make arrangement with home health and physical therapy and contact the otherwise patient is to be stay in the hospital unable to find a family member and involve the medical social consultant Discussed with the nursing staff to coordinate with the paraplanner before the discharge the patient's been proper arrangement about home health physical therapy and patient's 'sIt is too aware about the patient's situations at home if it is not feasible with the patient's family member need to further different arrangement Physical Exam Vital Signs: Temp Pulse Resp BP Pulse Ox 98.1 F 82 16 142/67 H 100 07/04/19 12:07 07/04/19 12:07 07/04/19 12:07 07/04/19 12:07 07/04/19 12:07 Intake & Output 07/03/19 07/04/19 07/05/19 06:59 06:59 06:59 Intake Total 1097 1990 625 Output Total 1150 1525 600 Balance -53 465 25 Weight 71.6 kg 71.8 kg General appearance: PRESENT: no acute distress, well-developed, well-nourished Head exam: PRESENT: atraumatic, normocephalic Eye exam: PRESENT: conjunctiva pink, EOMI, PERRLA. ABSENT: scleral icterus Ear exam: PRESENT: normal external ear exam Mouth exam: PRESENT: moist, tongue midline Neck exam: ABSENT: carotid bruit, JVD, lymphadenopathy, thyromegaly Respiratory exam: PRESENT: clear to auscultation jordin. ABSENT: rales, rhonchi, wheezes Cardiovascular exam: PRESENT: RRR. ABSENT: diastolic murmur, rubs, systolic murmur Pulses: PRESENT: normal dorsalis pedis pul Vascular exam: PRESENT: normal capillary refill GI/Abdominal exam: PRESENT: normal bowel sounds, soft. ABSENT: distended, guarding, mass, organolmegaly, rebound, tenderness Rectal exam: PRESENT: deferred Extremities exam: PRESENT: full ROM. ABSENT: calf tenderness, clubbing, pedal edema Neurological exam: PRESENT: alert, awake, oriented to person, oriented to place, oriented to time, oriented to situation, CN II-XII grossly intact. ABSENT: motor sensory deficit Psychiatric exam: PRESENT: appropriate affect, normal mood. ABSENT: homicidal ideation, suicidal ideation Skin exam: PRESENT: dry, intact, warm. ABSENT: cyanosis, rash Results Laboratory Results: WBC 6.4 10^3/uL (4.0-10.5) 07/03/19 04:51 RBC 3.80 10^6/uL (3.72-5.28) 07/03/19 04:51 Hgb 12.9 g/dL (12.0-15.5) 07/03/19 04:51 Hct 37.2 % (36.0-47.0) 07/03/19 04:51 MCV 98 fl (80-97) H 07/03/19 04:51 MCH 33.9 pg (27.0-33.4) H 07/03/19 04:51 MCHC 34.6 g/dL (32.0-36.0) 07/03/19 04:51 RDW 12.6 % (11.5-14.0) 07/03/19 04:51 Plt Count 204 10^3/uL (150-450) 07/03/19 04:51 Lymph % (Auto) 21.8 % (13-45) 07/03/19 04:51 [place] % (Auto) 11.1 % (3-13) 07/03/19 04:51 Eos % (Auto) 0.1 % (0-6) 07/03/19 04:51 Baso % (Auto) 0.4 % (0-2) 07/03/19 04:51 Absolute Neuts (auto) 4.3 10^3/uL (1.7-8.2) 07/03/19 04:51 Absolute Lymphs (auto) 1.4 10^3/uL (0.5-4.7) 07/03/19 04:51 Absolute Monos (auto) 0.7 10^3/uL (0.1-1.4) 07/03/19 04:51 Absolute Eos (auto) 0.0 10^3/uL (0.0-0.6) 07/03/19 04:51 Absolute Basos (auto) 0.0 10^3/uL (0.0-0.2) 07/03/19 04:51 Seg Neutrophils % 66.6 % (42-78) 07/03/19 04:51 PT 16.4 SEC (11.4-15.4) H 07/02/19 00:28 INR 1.31 07/02/19 00:28 APTT 25.8 SEC (23.5-35.8) 07/02/19 00:28 Sodium 129.0 mmol/L (137-145) L 07/04/19 05:17 Potassium 3.9 mmol/L (3.6-5.0) 07/04/19 05:17 Chloride 99 mmol/L (98-107) 07/04/19 05:17 Carbon Dioxide 26 mmol/L (22-30) 07/04/19 05:17 Anion Gap 4 (5-19) L 07/04/19 05:17 BUN 11 mg/dL (7-20) 07/04/19 05:17 Creatinine 0.80 mg/dL (0.52-1.25) 07/04/19 05:17 Est GFR ( Amer) > 60 (>60) 07/04/19 05:17 Est GFR (MDRD) Non-Af > 60 (>60) 07/04/19 05:17 Glucose 102 mg/dL (75-110) 07/04/19 05:17 POC Glucose 152 mg/dL (70-110) H 07/02/19 00:40 Serum Osmolality 267 mOsm/kg (275-301) L 07/03/19 09:45 Calcium 8.3 mg/dL (8.4-10.2) L 07/04/19 05:17 Magnesium 1.8 mg/dL (1.6-2.3) 07/02/19 00:28 Total Bilirubin 1.0 mg/dL (0.2-1.3) 07/02/19 00:28 Direct Bilirubin 0.0 mg/dL (0.0-0.4) 07/02/19 00:28 Neonat Total Bilirubin Not Reportable 07/02/19 00:28 Neonat Direct Bilirubin Not Reportable 07/02/19 00:28 Neonat Indirect Bili Not Reportable 07/02/19 00:28 AST 36 U/L (14-36) 07/02/19 00:28 ALT 21 U/L (<35) 07/02/19 00:28 Alkaline Phosphatase 96 U/L (38-126) 07/02/19 00:28 Creatine Kinase 173 U/L (30-135) H 07/02/19 00:28 CK-MB (CK-2) 2.03 ng/mL (<4.55) 07/02/19 00:28 Troponin I < 0.012 ng/mL 07/02/19 00:28 Total Protein 6.9 g/dL (6.3-8.2) 07/02/19 00:28 Albumin 4.2 g/dL (3.5-5.0) 07/02/19 00:28 TSH 2.05 uIU/mL (0.47-4.68) 07/03/19 04:51 Urine Color STRAW 07/02/19 00:40 Urine Appearance CLEAR 07/02/19 00:40 Urine pH 6.0 (5.0-9.0) 07/02/19 00:40 Ur Specific [place] 1.009 07/02/19 00:40 Urine Protein 100 mg/dL (NEGATIVE) H 07/02/19 00:40 Urine Glucose (UA) NEGATIVE mg/dL (NEGATIVE) 07/02/19 00:40 Urine Ketones NEGATIVE mg/dL (NEGATIVE) 07/02/19 00:40 Urine Blood MODERATE (NEGATIVE) H 07/02/19 00:40 Urine Nitrite NEGATIVE (NEGATIVE) 07/02/19 00:40 Urine Bilirubin NEGATIVE (NEGATIVE) 07/02/19 00:40 Urine Urobilinogen NEGATIVE mg/dL (<2.0) 07/02/19 00:40 Ur Leukocyte Esterase NEGATIVE (NEGATIVE) 07/02/19 00:40 Urine WBC (Auto) 1 /HPF 07/02/19 00:40 U Hyaline Cast (Auto) 1 /LPF 07/02/19 00:40 Urine Mucus (Auto) RARE /LPF 07/02/19 00:40 Urine Osmolality 233 mOsm/kg (300-900) L 07/03/19 23:18 Urine Sodium 9 mmol/L (30-90) L 07/03/19 23:18 Urine Ascorbic Acid NEGATIVE (NEGATIVE) 07/02/19 00:40 Urine Opiates Screen NEGATIVE 07/02/19 00:40 Urine Methadone Screen NEGATIVE 07/02/19 00:40 Ur Barbiturates Screen NEGATIVE 07/02/19 00:40 Levetiracetam 88.6 ug/mL (10.0-40.0) H 07/02/19 00:28 Ur Phencyclidine Scrn NEGATIVE 07/02/19 00:40 Ur Amphetamines Screen NEGATIVE 07/02/19 00:40 U Benzodiazepines Scrn UNCONFIRMED POSITIVE 07/02/19 00:40 Urine Cocaine Screen NEGATIVE 07/02/19 00:40 U Marijuana (THC) Screen NEGATIVE 07/02/19 00:40 Serum Alcohol < 10 mg/dL (NONE DETECTED) 07/02/19 00:28 07/02/19 00:28 CK-MB (CK-2) 2.03 Troponin I < 0.012 Impressions: Chest X-Ray 07/02/19 00:01 IMPRESSION: Clear lungs. Head CT 07/02/19 00:01 IMPRESSION: No acute intracranial abnormality. Diffuse atrophy with small vessel ischemic change. 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 Plan Time Spent: Greater than 30 Minutes - Follow-up with the neurology We will draw the Keppra level again initial Keppra level was high but not sure Patient's needs to adjust the medications Stroke Is this a Stroke Patient?: No Acute Heart Failure - Is this a Heart Failure Patient?: No
[2019-07-04 16:29] VITALS: BP 102/54
== END 2019-07-04 17:11 | disposition home health service (06) ==
LOC: ER 23:58 → INTOOBSV 07-02 02:08 → EH 07-02 02:08 → OBSVTOIN 07-02 02:08 → 3N 07-02 05:13 → 3W 07-03 08:58
PROVIDERS: ADMIT Hospitalist; ATTEND Family Medicine
DX: F05 Delirium due to known physiological condition (principal); G40.409 Other generalized epilepsy and epileptic syndromes, not intractable, without status epilepticus; F03.90 Unspecified dementia, unspecified severity, without behavioral disturbance, psychotic disturbance, mood disturbance, and anxiety; R41.82 Altered mental status, unspecified; I48.20 Chronic atrial fibrillation, unspecified; J44.9 Chronic obstructive pulmonary disease, unspecified; I67.9 Cerebrovascular disease, unspecified; I25.10 Atherosclerotic heart disease of native coronary artery without angina pectoris; E03.9 Hypothyroidism, unspecified; I11.0 Hypertensive heart disease with heart failure; I50.22 Chronic systolic (congestive) heart failure; I25.2 Old myocardial infarction; F17.200 Nicotine dependence, unspecified, uncomplicated; Z91.19 Patient's noncompliance with other medical treatment and regimen; E78.5 Hyperlipidemia, unspecified; I69.359 Hemiplegia and hemiparesis following cerebral infarction affecting unspecified side; S80.12XA Contusion of left lower leg, initial encounter; X58.XXXA Exposure to other specified factors, initial encounter; Z60.8 Other problems related to social environment
CPT/HCPCS: 93005; 99285; 96361; 96365; 36415 ×3; 87086; 80177 ×2; 82553; 82962; 80307 ×2; 82550; 83735; 83930; 84443; 83935; 84300; 85025 ×2; 85610; 85730; 80048 ×2; 80053; 81001; 84484; 71045; 73560; 70450; 93010; 97161; A9270 ×25; J1650 ×3; J7030 ×3; J1953 ×2; J3490